=== PATIENT | female | born 2000 | race Caucasian/White ===

== ENCOUNTER 2023-10-08 20:46 | Emergency (ER) | payer BC, MEDICAID, SELFPAY ==
[2023-10-08 21:20] VITALS: BP 121/84; PULSE 93; RESP 20; TEMP 37.1; O2SAT 98; BMI 26.7
--- NOTE | 2023-10-08 21:37 | XR_ITS ---
The [address] [address] Patient Name: RANDAL REDMOND MRN: [id number] date: 2000 Sex: F Assigned Patient Location: ED.MAIN Current Patient Location: ER Accession/Order Number: [id number] Exam Date: 10/08/2023 22:20 Report Date: 10/08/2023 22:42 At the request of: CARLOS DENIS Procedure: XR chest 1V EXAM: XR chest 1V HISTORY: Cough COMPARISON: None. TECHNIQUE: Single AP radiograph of the chest FINDINGS: No pneumothorax, pleural effusion or consolidation. Normal heart size. No acute osseous abnormality. XR/XR chest 1V IMPRESSION: No acute cardiopulmonary process. Electronically authenticated by: JOVANY RAMIREZ Date: 10/08/2023 22:42
--- NOTE | 2023-10-08 21:39 | ED.URI1 ---
HPI - URI/Sore Throat General Chief Complaint: Upper Respiratory Infection Stated Complaint: CONGESTION, SOB Time Seen by Provider: 10/08/23 21:30 Source comment: PATIENT Limitations: no limitations Limitations comment: CONGESTED AND A COUGH FOR THE PAST 4 DAYS History of Present Illness HPI Narrative: Patient is a 23-year-old female presents to the emergency department for cough and congestion for the last 4 days. She states she is coughing up green sputum which prompted her to come to the ER. She has had no objective fevers, vomiting or diarrhea. She denies a possibility of . She has been using [id number] medications without improvement. She feels as though she is not significantly congested in the nose. No sore throat. Related Data Home Medications Medication Instructions Recorded Confirmed cetirizine 10 mg tablet (24Hour 10 mg PO DAILY PRN allergy symptoms 10/08/23 10/08/23 Allergy) lamotrigine 100 mg tablet 50 mg PO BID 10/08/23 10/08/23 (Lamictal) norethindrone (contraceptive) 0.35 0.35 mg PO DAILY 10/08/23 10/08/23 mg tablet (Jencycla) venlafaxine 150 mg 150 mg PO DAILY 10/08/23 10/08/23 capsule,extended release 24 hr (Effexor XR) Previous Rx's Medication Instructions Recorded albuterol sulfate 90 mcg/actuation 2 inh inhalation Q4H PRN shortness 10/08/23 aerosol inhaler of breath or wheezing #8.5 grams azithromycin 250 mg tablet See Rx Instructions PO .COMPLEX #6 10/08/23 (Zithromax Z-Chad) tabs methylprednisolone 4 mg tablets in See Rx Instructions .Route 10/08/23 a dose pack (Medrol (Chad)) .COMPLEX #21 ea Allergies Allergy/AdvReac Type Severity Reaction Status Date / Time No Known Drug Allergies Allergy Verified 10/08/23 21:20 Review of Systems ROS Constitutional Denies: fever or chills Ears, nose, mouth, and throat Denies: throat pain or nasal congestion Cardiovascular Denies: chest pain Respiratory Reports: shortness of breath, cough and change in phlegm color Gastrointestinal Denies: nausea, vomiting or diarrhea Musculoskeletal Denies: back pain Integumentary/Breast Denies: rash PFSH PFSH Social History Smoking status: Former smoker Exam Narrative Exam Narrative: Gen.: Awake, alert, in no distress Head: Normocephalic, atraumatic ENT: Moist mucous membranes Respiratory: No respiratory distress, coarse breath sounds, harsh cough Cardio: Regular rate and rhythm Extremities: Moves extremities equally Psych: Normal mood and affect Neuro: No focal neuro deficit Skin: Warm, dry, intact Constitutional Vital Signs, click to edit/add: Last Vital Signs Temp 98.7 F 10/08/23 21:20 Pulse 99 H 10/08/23 22:06 Resp 20 10/08/23 22:06 BP 121/84 10/08/23 21:20 Pulse Ox 99 10/08/23 22:06 O2 Del Method Room Air 10/08/23 22:06 Course Vital Signs Vital signs: Vital Signs Temperature 98.7 F 10/08/23 21:20 Pulse Rate 93 H 10/08/23 21:20 Respiratory Rate 10/08/23 21:20 Blood Pressure 121/84 10/08/23 21:20 Pulse Oximetry 98 10/08/23 21:20 Oxygen Delivery Method Room Air 10/08/23 21:20 Temperature 98.7 F 10/08/23 21:20 Pulse Rate 99 H 10/08/23 22:06 Respiratory Rate 10/08/23 22:06 Blood Pressure 121/84 10/08/23 21:20 Pulse Oximetry 99 10/08/23 22:06 Oxygen Delivery Method Room Air 10/08/23 22:06 MDM - URI/Sore Throat MDM Narrative Medical decision making narrative: Patient is negative for COVID, influenza and chest x-ray shows no evidence of acute cardiopulmonary changes. Patient given a breathing treatment and prednisone in the ER. Vital signs are within normal limits. Patient started on azithromycin, Medrol Dosepak and albuterol inhaler. Follow-up with PCP and return to the ER if symptoms change or worsen. Medical Records Attestation: I reviewed the patient's medical records. Lab Data Labs: Lab Results 10/08/23 Range/Units 21:35 SARS-CoV-2 (PCR) Negative (NEGATIVE) Influenza Type A Ag Negative Influenza Type B Ag Negative Imaging Data Chest x-ray: Attestation: I have reviewed the pertinent imaging results. Discharge Plan Discharge Chief Complaint: Upper Respiratory Infection Clinical Impression: Upper respiratory infection Patient Disposition: Home, Self-Care Time of Disposition Decision: 22:23 Condition: Good Prescriptions / Home Meds: New azithromycin [Zithromax Z-Chad] 250 mg tablet See Rx Instructions .ROUTE .COMPLEX Qty: 6 0RF Rx Instructions: For 250 mg dose pack: take 500 mg today (day 1), then 250 mg for 4 days (days 2-5) methylprednisolone [Medrol (Chad)] 4 mg tablets,dose pack See Rx Instructions .ROUTE .COMPLEX Qty: 21 0RF Rx Instructions: Taper as directed albuterol sulfate 90 mcg/actuation HFA aerosol inhaler 2 inh inhalation Q4H PRN (Reason: shortness of breath or wheezing) Qty: 8.5 0RF No Action lamotrigine [Lamictal] 100 mg tablet 50 mg PO BID venlafaxine [Effexor XR] 150 mg capsule,extended release 24hr 150 mg PO DAILY norethindrone (contraceptive) [Jencycla] 0.35 mg tablet 0.35 mg PO DAILY cetirizine [24Hour Allergy] 10 mg tablet 10 mg PO DAILY PRN (Reason: allergy symptoms) Patient Comments: TAKES DAILY Instructions: Upper Respiratory Infection (ED) Stand Alone Forms: Portal Instructions Referrals: Physician,Non-Staff, MD [Primary Care Provider] - 1 week
[2023-10-08] MEDS: PREDNISONE 20 MG TABLET 60 MG PO (21:51)
[2023-10-08 21:55] VITALS: PULSE 83; RESP 18; O2SAT 98
[2023-10-08] MEDS: ALBUTEROL SULFATE 2.5 MG/3 ML VIAL NEB IH (21:55)
[2023-10-08 22:06] VITALS: PULSE 99; RESP 20; O2SAT 99
[2023-10-08 22:06] LABS: Influenza Virus A Antigen Negative; Influenza Virus B Antigen Negative; Internal Control Within Normal Limits; SARS-CoV-2 Ag NEGATIVE (NEGATIVE)
[2023-10-08 22:48] VITALS: BP 115/75; PULSE 90; RESP 16; O2SAT 99
[2023-10-09 15:36] LABS: SARS-CoV-2 NAA NOT DETECTED (NOT DETECTE)
== END 2023-10-08 22:35 | disposition home or self-care (01) ==
PROVIDERS: Physician Assistant; Emergency Provider Emergency Medicine
DX: J06.9 Acute upper respiratory infection, unspecified (principal); Z79.899 Other long term (current) drug therapy; Z87.891 Personal history of nicotine dependence; Z20.822 Contact with and (suspected) exposure to COVID-19
CPT/HCPCS: 71045; 87635; 87804; 87811; 94640; 99285; J7512

== ENCOUNTER 2024-01-01 01:28 | Emergency (ER) | payer BC, MEDICAID, SELFPAY ==
[2024-01-01 01:33] VITALS: BP 140/95; PULSE 95; TEMP 37.1; O2SAT 97; BMI 26.6
--- OUTSIDE RECORDS SUMMARY | 2024-01-01 01:35 | XMS_ITS | CCD ---
Author Organization [facility] Care Team Providers Care Body Former Name Role Phone GILMER BENAVIDES Unavailable Unavailable GILMER BENAVIDES Unavailable Unavailable MD Jaymie Morris Primary Care Provider TUAN [place] Emergency Provider MD Jaymie Morris Attending Provider DO Ashley Watson Attending Provider MD Jaymie Morris Primary Care Provider DO Ashley Watson Attending Provider DO Ashley Watson Admit Provider MD aJymie Morris Primary Care Provider JOHNSON Skinner Emergency Provider [phone] MD Jaymie Morris Primary Care Provider JOHNSON Skinner Emergency Provider TUAN Martin Emergency Provider DR SAYRA AUGUSTIN Primary Care Unavailable SCOTT WILKINSON Attending Unavailable SCOTT WILKINSON Consulting Unavailable SCOTT WILKINSON Admitting Unavailable MD Jaymie Morris Primary Care Provider DO Bay Reyes Attending Provider Gilmer Mcgregor Unavailable MD Jaymie Morris Primary Care Provider MD Gilmer Mcgregor Attending Provider MD David Rayo Referring Provider [phone] Jaymie Morris MD Primary Care Provider [phone] DO Gvoind Barry Attending Provider [phone] MD Jaymie Morris Referring Provider Jaymie Morris Referring Unavailable Govind Barry Admitting Unavailable Govind Barry Attending Unavailable Ketvertis, Jaymie Primary Care Unavailable Ketvertis, Jaymie Primary Care Unavailable Kuns - [facility], Bay P Admitting Unavailable Kuns - [facility], Bay P Attending Unavailable Feroz Skinner Admitting Unavailable Feroz Skinner Attending Unavailable Ketvertis, Jaymie Primary Care Unavailable Michael Martin Admitting Unavailable Michael Martin Attending Unavailable Ketvertis, Jaymie Primary Care Unavailable Gilmer Mcgregor Admitting Unavailable Gilmer Mcgregor Attending Unavailable Sidney, David Referring Unavailable Ketvertis, Jaymie Primary Care Unavailable KETVERTAMARJIT, JAYMIE M Attending Unavailable KETVERTIS, JAYMIE M Attending Unavailable NATASHLEY STYLES Attending Unavailable ASHLEY WATSON Referring Unavailable DAVID RAYO Attending Unavailable JOYCE SHAH Attending Unavailable NATAPRASHLEY UREÑA Attending Unavailable NATAPRASHLEY UREÑA Attending Unavailable KERRI NO Attending Unavailable KETVERTIS, JAYMIE M Attending Unavailable KETVERTIS, JAYMIE M Attending Unavailable SADE BRAXTON Attending Unavailable Allergies Allergy Classification Reported Allergen(s) Allergy Type Date of Onset Reaction(s) Facility (12 sources) Iodine; Translations: [iodine] Drug Allergy 2 Unknown [facility] (9 sources) Shellfish; Translations: [shellfish derived] Allergy to substance 2 Swelling of Lip/Tongue/Thr oat [facility] (1 source) Shellfish Propensity to adverse reactions Unknown [facility] Other (2 sources) Apple extract Drug Allergy 3 Unknown [facility] (2 sources) Kiwi fruit Propensity to adverse reactions 3 Dizziness, Itching, Runny nose, Swelling, Wheezing [facility] (2 sources) Pollen Allergy to substance 3 Unknown [facility] (2 sources) Dog Epithelium Allergy Skin Test Allergy to substance 3 Unknown [facility] (2 sources) [place] Flavor Allergy to substance 3 Unknown [facility] (2 sources) Shellfish-Deriv ed Products Drug Allergy 5 Anaphylaxis, Hives, Itching, Runny nose, Shortness of breath, Swelling, Unknown, Wheezing [facility] Medications Current Medications Medication Drug Class(es) Dates Sig (Normalized) Sig (Original) acetaminophen 300 mg / butalbital 50 mg / caffeine 40 mg oral capsule (6 sources) Barbiturate, Central Nervous System Stimulant, Methylxanthine Start: 12-17-2022 take 1 capsule by mouth every six hours Butalbital-Aceta minophen-Caff (Fioricet) 50-300-40 mg capsule Active 1 CAP PO Q6H 12 December 16, 2022 11:00pm take 1 capsule by mo uth every four hours [id number]-tsqisxfvfgvnc-qpjxqhcr (Jamari cet) 50-300-40 MG capsule take 1 capsule by mouth every 4 hours if needed for 10 days 0 Active [id number] 200 actuat albuterol 0.09 mg/actuat metered dose inhaler (15 sources) beta2-Adrenergic Agonist Start: 12-12-2022 albut abi HFA 90 mcg/act inhaler Q6H 0 12/12/2022 Active Start: 12-12-2022 Albuterol Sulf ate Active 2 INH INHALATION Q6H 8 December 12, 2022 12:00am administer with spacer Start: 07-05-2018 End: 12-04-2019 take 1 puff(s) by inhalation every four to six hours Albuterol Sulfate Discontinued 2 PUFF INHALATION EVERY 4-6 HOURS July 04, 2018 11:00pm December 04, 2019 9:10pm Start: 07-05-2018 End: 12-04-2019 take 1 puff(s) by inhalation every four to six hours Albuterol Sulfate Discontinued 2 PUFF INHALATION EVERY 4-6 HOURS July 05, 2018 12:00am December 04, 2019 10:10pm Albuterol Sulfat e HFA 108 (90 Base) MCG/ACT Inhalation for 16 Days Active cetirizine hydrochloride 10 mg oral tablet (2 sources) Histamine-1 Receptor Antagonist Start: 09-10-2023 take 1 tablet by mouth in the morning cetirizine (ZyrTEC) 10 MG tablet Indications: Allergic rhinitis, unspecified seasonality, unspecified trigger Take 1 tablet (10 mg) by mouth in the morning. 90 tablet 1 09/10/2023 Active dexamethasone 1 mg/ml / neomycin 3.5 mg/ml / polymyxin b [id number] unt/ml ophthalmic suspension (1 source) Aminoglycoside Antibacterial, Polymyxin-class Antibacterial, Corticosteroid Start: 11-14-2023 End: 11-21-2023 neomycin-polymyxin- dexAMETHasone (Maxitrol) 0.1 % ophthalmic suspension Indications: Acute bacterial conjunctivitis of both eyes Administer 1 drop into both eyes in the morning and 1 drop at noon and 1 drop in the evening and 1 drop before bedtime. Do all this for 7 days. 5 mL 0 11/14/2023 11/21/2023 Active [id number] 0.3 ml EPINEPHrine 1 mg/ml auto-injector (2 sources) alpha-Adrenergic Agonist, beta-Adrenergic Agonist, Catecholamine Start: 07-15-2023 End: 07-14-2024 EPINEPHrine (Epipen) 0.3 MG/0.3ML injection syringe Indications: Anaphylaxis, initial encounter Inject 0.3 mL (0.3 mg) as directed if needed for anaphylaxis. Call 911 after use. 2 each 1 07/15/2023 07/14/2024 Active fluocinolone acetonide 0.1 mg/ml topical solution (2 sources) Corticosteroid Start: 09-10-2023 End: 09-09-2024 fluocinolone (Synalar) 0.01 % external solution Indications: Atopic dermatitis of scalp Apply topically 2 (two) times a day To affected scalp 60 mL 3 09/10/2023 09/09/2024 Active hydrOXYzine hydrochloride 25 mg oral tablet (3 sources) Antihistamine Start: 09-30-2023 take 1 tablet by mouth every eight hours as needed for anxiety and anxiety and anxiety hydrOXYzine HCl (Atarax) 25 MG tablet Indications: Anxiety Take 1 tablet (25 mg) by mouth every 8 (eight) hours if needed for anxiety 30 tablet 1 09/30/2023 Active lamoTRIgine 25 mg oral tablet (3 sources) Mood Stabilizer, Anti-epileptic Agent Start: 10-01-2023 take 2 tablets by mouth in the morning lamoTRIgine (LaMICtal) 25 MG tablet Indications: Migraine with aura and with status migrainosus, not intractable (CMS/HCC) Take 2 tablets (50 mg) by mouth in the morning and 2 tablets (50 mg) before bedtime. 360 tablet 0 10/01/2023 Active lamoTRIgine 25 M G Oral for 90 Days Active modafinil 200 mg oral tablet (2 sources) Sympathomimetic-like Agent Start: 10-27-2023 take 0.5-1 tablets by mouth once daily in the morning modafinil (Provigil) 200 MG tablet TAKE 0.5 - 1 TABLET BY MOUTH IN THE MORNING ONCE DAILY 0 10/27/2023 Active norethindrone 0.35 mg oral tablet (1 source) Start: 06-15-2023 take 1 tablet by mouth once daily norethindrone (Jencycla) 0.35 MG tablet Indications: Uses control take 1 tablet by mouth once daily 28 tablet 12 06/15/2023 Active promethazine hydrochloride 25 mg oral tablet (6 sources) Phenothiazine Start: 12-17-2022 take 25 mg by mouth four times daily Promethazine Active 25 MG PO Four times daily December 16, 2022 11:00pm sertraline 50 mg oral tablet (14 sources) Serotonin Reuptake Inhibitor Start: 09-12-2022 take 1 tablet by mouth once daily Sertraline (Zoloft) 50 mg tablet Active 50 MG PO Daily September 12, 2022 12:00am Start: 02-21-2019 End: 04-14-2022 take 1 tablet by mouth once daily Sertraline (Zoloft) 100 mg tablet Discontinued 100 MG PO Daily February 20, 2019 11:00pm April 14, 2022 3:13pm SUMAtriptan 50 mg oral tablet (2 sources) Serotonin-1b and Serotonin-1d Receptor Agonist SUMAtriptan (Imitrex) 50 MG tablet take 1 tablet twice a day TAKE AT LEAST 2 HOURS BETWEEN DOSES NEEDED 0 Active 24 hr venlafaxine 150 mg extended release oral capsule (3 sources) Serotonin and Norepinephrine Reuptake Inhibitor Start: 10-01-20 take 1 capsule by mouth every twenty-four hours in the morning venlafaxine XR (Effexor XR) 150 MG 24 hr capsule Indications: Anxiety Take 1 capsule (150 mg) by mouth in the morning. Do not crush or chew.. 90 capsule 0 10/01/2023 Active Completed/Discontinued Medications Medication Drug Class(es) Dates Sig (Normalized) Sig (Original) amoxicillin 500 mg oral tablet (8 sources) Penicillin-class Antibacterial Start: 02-21-2019 End: 11-29-2019 take 500 mg by mouth three times daily Amoxicillin Discontinued 500 MG PO Three times daily February 20, 2019 11:00pm November 29, 2019 3:49pm aspirin 81 mg oral tablet (8 sources) Platelet Aggregation Inhibitor, Nonsteroidal Anti-inflammatory Drug Start: 04-14-2022 End: 12-12-2022 take 81 mg by mouth once daily Aspirin Discontinued 81 MG PO Daily April 13, 2022 11:00pm December 12, 2022 12:42pm 12 hr dextromethorphan polistirex 6 mg/ml extended release suspension (8 sources) Uncompetitive Z-slkvwx-T-asparta te Receptor Antagonist, Sigma-1 Agonist Start: 07-05-2018 End: 11-29-2019 take 1 mL by mouth once Dextromethorphan Polistirex (Delsym 12 Hour) 30 mg/5 mL Suspension,Extended Rel 12 Hr Discontinued 5 ML PO Once July 04, 2018 11:00pm November 29, 2019 3:49pm docusate sodium 100 mg oral capsule (14 sources) Start: 09-12-2022 End: 12-12-2022 take 1 capsule by mouth once daily Docusate Sodium (Colace) 100 mg capsule Discontinued 100 MG PO Daily September 12, 2022 12:00am December 12, 2022 12:42pm Start: 12-10-2019 End: 04-14-2022 take 1 capsule by mouth twice daily Docusate Sodium (Colace) 100 mg capsule Discontinued 100 MG PO Twice daily December 10, 2019 11:13am April 14, 2022 3:12pm ferrous sulfate 325 mg oral tablet (6 sources) Start: 09-12-2022 End: 12-12-2022 take 325 mg by mouth once daily Ferrous Sulfate Discontinued 325 MG PO Daily September 12, 2022 12:00am December 12, 2022 12:42pm ibuprofen 800 mg oral tablet (20 sources) Nonsteroidal Anti-inflammatory Drug Start: 09-12-2022 End: 12-12-2022 Ibuprofen Discontinued 800 MG PO every 6 to 8 hours September 12, 2022 12:00am December 12, 2022 12:42pm Start: 12-10-2019 End: 04-14-2022 take 600 mg by mouth every six hours Ibuprofen Discontinued 600 MG PO Q6H December 10, 2019 12:00am April 14, 2022 3:13pm Start: 02-21-2019 End: 11-29-2019 take 800 mg by mouth three times daily Ibuprofen Discontinued 800 MG PO Three times daily February 20, 2019 11:00pm November 29, 2019 3:51pm labetalol hydrochloride 200 mg oral tablet (8 sources) beta-Adrenergic Marshal Start: 12-07-2019 End: 04-14-2022 take 200 mg by mouth twice daily Labetalol Discontinued 200 MG PO Twice daily December 07, 2019 12:00am April 14, 2022 3:13pm montelukast 10 mg oral tablet (9 sources) Leukotriene Receptor Antagonist Start: 02-21-2019 End: 04-14-2022 Montelukast (Singulair) 10 mg tablet Discontinued TABLET February 20, 2019 11:00pm April 14, 2022 3:13pm ondansetron 4 mg disintegrating oral tablet (16 sources) Serotonin-3 Receptor Antagonist Start: 12-27-2021 End: 04-14-2022 Ondansetron Discontinued 4 MG PO every 6 to 8 hours December 26, 2021 11:00pm April 14, 2022 3:12pm Start: 07-01-2021 End: 04-14-2022 take 1 tablet by mouth every six hours Ondansetron Hcl (Zofran) 4 mg tablet Discontinued 4 MG PO Q6H June 30, 2021 11:00pm April 14, 2022 3:12pm predniSONE 50 mg oral tablet (8 sources) Start: 07-05-2018 End: 07-10-2018 take 50 mg by mouth once daily Prednisone Discontinued 50 MG PO Daily 02 06July 04, 2018 11:00pm July 09, 2018 11:01pm Vit 45-Rvnv-Iuvmz-Dha ( + Dha) 28 mg iron- 975 mcg-200 mg Combo Pack (8 sources) Start: 11-29-2019 End: 12-12-2022 take 1 tablet by mouth once daily Vit 27-Xdhr-Ejplm-Dha ( + Dha) 28 mg iron- 975 mcg-200 mg Combo Pack Discontinued 0 .ROUTE .COMPLEX November 29, 2019 1:00am December 12, 2022 1:42pm 1 TABLET PO DAILY Start: 11-29-2019 End: 12-12-2022 take 1 tablet by mouth once daily Vit 46-Qtyw-Ougpa-Dha ( + Dha) 28 mg iron- 975 mcg-200 mg Combo Pack Discontinued 0 .ROUTE .COMPLEX November 29, 2019 12:00am December 12, 2022 12:42pm 1 TABLET PO DAILY Start: 11-29-2019 take 1 tablet by julio th once daily Vit 48-Jxer-Ytnqi-Dha ( + Dha) 28 mg iron- 975 mcg-200 mg Combo Pack Active 0 .ROUTE .COMPLEX November 29, 2019 12:00am 1 TABLET PO DAILY Start: 11-29-2019 take 1 tablet by julio th once daily Vit 09-Jonk-Ixsze-Dha ( + Dha) 28 mg iron- 975 mcg-200 mg Combo Pack Active 0 .ROUTE .COMPLEX November 29, 2019 1:00am 1 TABLET PO DAILY valACYclovir 500 mg oral tablet (14 sources) Herpesvirus Nucleoside Analog DNA Polymerase Inhibitor, Herpes Simplex Virus Nucleoside Analog DNA Polymerase Inhibitor, Herpes Zoster Virus Nucleoside Analog DNA Polymerase Inhibitor Start: 09-10-2022 End: 12-12-2022 Valacyclovir (Valtrex) 500 mg Tablet Discontinued MG TABLET September 10, 2022 12:00am December 12, 2022 12:42pm Start: 02-21-2019 End: 12-10-2019 Valacyclovir (Valtrex) 1 gra m tablet Discontinued 500 MG PO 1-2 TIMES DAILY February 20, 2019 11:00pm December 10, 2019 11:15am Problems Active Problems Problem Classification Problem Date Documented Da te Episodic/Chronic Anxiety disorders (7 sources) Generalized anxiety disorder; Translations: [Generalized anxiety disorder] Onset: 04-09-2023 Chronic Cardiac dysrhythmias (8 sources) Palpitations; Translations: [Palpitations] 04-14-2022 Episodic Disorders of teeth and jaw (1 source) Other dental procedure status; Translations: [OTHER DENTAL PROCEDURE STATUS] Onset: 03-02-2023 Episodic Headache; including migraine (7 sources) Migraine; Translations: [Migraine with aura] Onset: 12-17-2022 12-17-2022 Chronic Headache; including migraine (1 source) Headache; including migraine; Translations: [Headache, unspecified] Onset: 12-17-2022 Inflammation; infection of eye (except that caused by tuberculosis or sexually transmitteddisease) (1 source) Acute infectious conjunctivitis; Translations: [Unspecified acute conjunctivitis, bilateral] 11-14-2023 Episodic Malaise and fatigue (2 sources) Fatigue; Translations: [Chronic fatigue, unspecified] Onset: 04-09-2023 04-09-2023 Chronic Mood disorders (2 sources) Bipolar I disorder; Translations: [Bipolar disorder, unspecified] Chronic Nausea and vomiting (16 sources) Nausea; Translations: [Nausea] 12-27-2021 Episodic Other bone disease and musculoskeletal deformities (2 sources) Scoliosis deformity of spine; Translations: [Adolescent idiopathic scoliosis, site unspecified] Onset: 04-09-2023 04-09-2023 Chronic Other nervous system disorders (3 sources) Narcolepsy without cataplexy ; Translations: [Narcolepsy without cataplexy] Onset: 04-09-2023 04-09-2023 Chronic Other nervous system disorders (1 source) Narcolepsy with cataplexy Chronic Other nervous system disorders (3 sources) Anesthesia of skin; Translations: [ANESTHESIA OF SKIN] Onset: 02-27-2023 Episodic Other nervous system disorders (1 source) Paresthesia of skin; Translations: [PARESTHESIA OF SKIN] Onset: 03-02-2023 Episodic Other nutritional; endocrine; and metabolic disorders (1 source) Abnormal weight gain; Translations: [Abnormal weight gain] Onset: 11-25-2023 Episodic Other and delivery including normal (8 sources) Delivery normal; Translations: [Encounter for full-term uncomplicated delivery] 12-09-2019 Episodic Other upper respiratory disease (2 sources) Allergic rhinitis; Translations: [Allergic rhinitis, unspecified] Onset: 04-09-2023 04-09-2023 Chronic Other upper respiratory infections (13 sources) Pharyngitis; Translations: [Acute pharyngitis, unspecified] 02-21-2019 Episodic Residual codes; unclassified (1 source) Sleep apnea; Translations: [Sleep apnea, unspecified] Chronic Residual codes; unclassified (1 source) Sleep paralysis; Translations: [Other sleep disorders] Chronic Residual codes; unclassified (1 source) Sleep apnea, unspecified; Translations: [Sleep apnea, unspecified] Onset: 10-27-2023 Chronic Residual codes; unclassified (1 source) Hypnagogic hallucinations; Translations: [Other hallucinations] Episodic Residual codes; unclassified (1 source) Other hallucinations Episodic Sprains and strains (1 source) Sprain of foot; Translations: [Right foot strain] Episodic Syncope (8 sources) Vasovagal syncope; Translations: [Syncope and collapse] 12-27-2021 Episodic Unclassified (1 source) Pain, unspecified; Translations: [Pain, unspecified] Onset: 09-01-2017 Unclassified (2 sources) Patient on antidepressant monitoring plan Onset: 10-01-2023 10-01-2023 Unclassified (2 sources) Baseline PHQ-9 Onset: 10-01-2023 10-01-2023 Unclassified (1 source) Cough, unspecified; Translations: [Cough, unspecified] Onset: 12-12-2022 Viral infection (2 sources) Herpetic vulvovaginitis; 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] Onset: 04-09-2023 04-09-2023 Chronic Past or Other Problems Problem Classification Problem Date Documented Da te Episodic/Chronic Blindness and vision defects (2 sources) Visual alteration; Translations: [Unspecified visual loss] Onset: 04-09-2023 Resolved: 10-22-2023 10-22-2023 Chronic Menstrual disorders (2 sources) Amenorrhea; Translations: [Amenorrhea, unspecified] Onset: 04-09-2023 Resolved: 10-22-2023 10-22-2023 Chronic Other nervous system disorders (3 sources) Cataplexy and narcolepsy; Translations: [Narcolepsy with cataplexy] Onset: 04-09-2023 Resolved: 10-22-2023 10-22-2023 Chronic Thyroid disorders (2 sources) Goiter; 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] Onset: 04-09-2023 Resolved: 10-22-2023 10-22-2023 Chronic Results Test Name Value Interpretation Reference Range Facility Alanine aminotransferase [En zymatic activity/volume] in Serum or PlasmaOrdered By: Govind Barry on 11-25-2023 ALT [Catalytic activity/Vol] 11 U/L 7-52 [facility] Albumin [Mass/volume] in Ser um or Plasma by Bromocresol green (BCG) dye binding methoOrdered By: Govind Barry on 11-25-2023 Albumin BCG dye [Mass/Vol] 4.7 g/dL 3.5-5.7 [facility] Alkaline phosphatase [Enzyma tic activity/volume] in Serum or PlasmaOrdered By: Govind Barry on 11-25-2023 ALP [Catalytic activity/Vol] 82 U/L 34-104 [facility] Aspartate aminotransferase [ Enzymatic activity/volume] in Serum or PlasmaOrdered By: Govind Barry on 11-25-2023 AST [Catalytic activity/Vol] 16 U/L 13-39 [facility] Basophils Auto (Bld) [#/Vol] Ordered By: Govind Barry on 11-25-2023 Basophils (Bld) [#/Vol] 0.1 10*3/uL 0.0-0.2 [facility] Basophils/100 WBC Auto (Bld) Ordered By: Govind Barry on 11-25-2023 Basophils/100 WBC (Bld) 0.6 % . [facility] Bilirubin.total [Mass/volume ] in Serum or PlasmaOrdered By: Govind Barry on 11-25-2023 Bilirubin [Mass/Vol] 0.5 mg/dL 0.3-1.0 [facility] Calcium [Mass/volume] in Ser um or PlasmaOrdered By: Govind Barry on 11-25-2023 Calcium [Mass/Vol] 9.7 mg/dL 8.6-10.3 [facility] Carbon dioxide, total [Moles /volume] in Serum or PlasmaOrdered By: Govind Barry on 11-25-2023 CO2 [Moles/Vol] 27.5 mmol/L 21.0-31.0 [facility] Chloride [Moles/volume] in S alessandra or PlasmaOrdered By: Govind Barry on 11-25-2023 Chloride [Moles/Vol] 105 mmol/L 98-107 [facility] Complete Blood Count Auto Di ffon 11-25-2023 Basophils (Bld) [#/Vol] 0.1 10*3/uL Normal 0.0-0.2 [facility] Comment on above: Result Comment: PERF ORMED BY: [place] [address] PATHOLOGIST SHOE COBBLER MELCHOR MORALES M.D. Performed By: #### C BC, CMP, TSH3 wRFLX #### [address] Basophils/100 WBC (Bld) 0.6 % Normal . [facility] Comment on above: Performed By: #### C BC, CMP, TSH3 wRFLX #### [address] Eosinophils (Bld) [#/Vol] 0.2 10*3/uL Normal 0.0-0.45 [facility] Comment on above: Performed By: #### C BC, CMP, TSH3 wRFLX #### [address] Eosinophils/100 WBC (Bld) 1.6 % Normal . [facility] Comment on above: Performed By: #### C BC, CMP, TSH3 wRFLX #### [address] Erythrocyte distribution width (RBC) [Ratio] 12.5 % Normal 11.9-15.3 [facility] Comment on above: Performed By: #### C BC, CMP, TSH3 wRFLX #### [address] Hematocrit (Bld) [Volume fraction] 41.4 % Normal 34.0-46.4 [facility] Comment on above: Performed By: #### C BC, CMP, TSH3 wRFLX #### [address] Hemoglobin (Bld) [Mass/Vol] 14.2 g/dL Normal 11.8-15.4 [facility] Comment on above: Performed By: #### C BC, CMP, TSH3 wRFLX #### [address] [place] [address] [place] Lymphocytes (Bld) [#/Vol] 1.7 10*3/uL Normal 1.00-4.8 [facility] Comment on above: Performed By: #### C BC, CMP, TSH3 wRFLX #### [facility] [address] Lymphocytes/100 WBC (Bld) 16.7 % Normal . [facility] Comment on above: Performed By: #### C BC, CMP, TSH3 wRFLX #### [address] MCH (RBC) [Entitic mass] 30.2 pg Normal 24.7-34.3 [facility] Comment on above: Performed By: #### C BC, CMP, TSH3 wRFLX #### [address] MCV (RBC) [Entitic vol] 87.9 fL Normal 80-100 [facility] Comment on above: Performed By: #### C BC, CMP, TSH3 wRFLX #### [address] Mean Corpuscular HGB Conc 34.4 g/dL Normal 32.0-35.0 [facility] Comment on above: Performed By: #### C BC, CMP, TSH3 wRFLX #### [place] [id number] [place] Monocytes (Bld) [#/Vol] 0.5 10*3/uL Normal 0.0-0.8 [facility] Comment on above: Performed By: #### C BC, CMP, TSH3 wRFLX #### [place] [id number] [place] Monocytes/100 WBC (Bld) 5.4 % Normal . [facility] Comment on above: Performed By: #### C BC, CMP, TSH3 wRFLX #### [facility] [address] [place] [address] [place] Neutrophils (Bld) [#/Vol] 7.5 10*3/uL Normal 1.8-7.7 [facility] Comment on above: Performed By: #### C BC, CMP, TSH3 wRFLX #### [facility] [address] [place] [address] Neutrophils/100 WBC (Bld) 75.7 % Normal . [facility] Comment on above: Performed By: #### C BC, CMP, TSH3 wRFLX #### [facility] [address] [place] [address] NRBC% 0.1 /100{WBC} Normal 0-0.5 [facility] Comment on above: Performed By: #### C BC, CMP, TSH3 wRFLX #### [address] Platelet mean volume (Bld) [Entitic vol] 8.8 fL Normal 6.3-10.7 [facility] Comment on above: Performed By: #### C BC, CMP, TSH3 wRFLX #### [address] Platelets (Bld) [#/Vol] 301 10*3/uL Normal 150-450 [facility] Comment on above: Performed By: #### C BC, CMP, TSH3 wRFLX #### [address] RBC (Bld) [#/Vol] 4.71 10*6/uL Normal 3.60-5.00 [facility] Comment on above: Performed By: #### C BC, CMP, TSH3 wRFLX #### [address] WBC (Bld) [#/Vol] 10.0 10*3/uL Normal 3.8-11.6 [facility] Comment on above: Performed By: #### C BC, CMP, TSH3 wRFLX #### [address] Comprehensive Metabolic Pane dale 11-25-2023 Albumin [Mass/Vol] 4.7 g/dL Normal 3.5-5.7 [facility] Comment on above: Performed By: #### C BC, CMP, TSH3 wRFLX #### [facility] [address] [place] [address] Albumin/Globulin [Mass ratio] 1.9 {ratio} Normal [facility] Comment on above: Performed By: #### C BC, CMP, TSH3 wRFLX #### [facility] [address] [place] [address] ALP [Catalytic activity/Vol] 82 U/L Normal 34-104 [facility] Comment on above: Performed By: #### C BC, CMP, TSH3 wRFLX #### [facility] [address] [place] [address] ALT [Catalytic activity/Vol] 11 U/L Normal 7-52 [facility] Comment on above: Performed By: #### C BC, CMP, TSH3 wRFLX #### [facility] [address] [place] [address] Anion gap [Moles/Vol] 10.7 mmol/L Normal 6.0-15.0 [facility] Comment on above: Performed By: #### C BC, CMP, TSH3 wRFLX #### [address] AST [Catalytic activity/Vol] 16 U/L Normal 13-39 [facility] Comment on above: Performed By: #### C BC, CMP, TSH3 wRFLX #### [facility] [address] [place] [address] [place] Bilirubin [Mass/Vol] 0.5 mg/dL Normal 0.3-1.0 [facility] Comment on above: Performed By: #### C BC, CMP, TSH3 wRFLX #### [facility] [address] [place] [address] Calcium [Mass/Vol] 9.7 mg/dL Normal 8.6-10.3 [facility] Comment on above: Performed By: #### C BC, CMP, TSH3 wRFLX #### [place] [address] [place] Chloride [Moles/Vol] 105 mmol/L Normal 98-107 [facility] Comment on above: Performed By: #### C DONN ARREDNODO, TSH3 wRFLX #### [facility] [address] CO2 [Moles/Vol] 27.5 mmol/L Normal 21.0-31.0 [facility] Comment on above: Performed By: #### C DONN ARREDONDO, TSH3 wRFLX #### [facility] [address] Creatinine [Mass/Vol] 0.76 mg/dL Normal 0.60-1.20 [facility] Comment on above: Performed By: #### C DONN ARREDONDO, TSH3 wRFLX #### [facility] [address] [place] [address] [place] GFR/1.73 sq M.predicted MDRD (S/P/Bld) [Vol rate/Area] mL/min/{1.73_m2} Normal [facility] Comment on above: Performed By: #### C DONN ARREDONDO, TSH3 wRFLX #### [facility] [address] Globulin (S) [Mass/Vol] 2.5 g/dL Normal [facility] Comment on above: Performed By: #### C DONN ARREDONDO, TSH3 wRFLX #### [address] Glucose [Mass/Vol] 85 mg/dL Normal 70-100 [facility] Comment on above: Result Comment: [place] Glucose Reference Range is dependent on time and content of last meal. Glucose of more than 200 mg/dL in a nonstressed, ambulatory subject supports the diagnosis of Diabetes Mellitus. ADA recommended reference range Performed By: #### C BCDONN, TSH3 wRFLX #### [facility] [address] Potassium [Moles/Vol] 4.2 mmol/L Normal 3.5-5.1 [facility] Comment on above: Performed By: #### C BCDONN, TSH3 wRFLX #### [facility] [address] [place] [id number] [place] Protein [Mass/Vol] 7.2 g/dL Normal 6.4-8.9 [facility] Comment on above: Performed By: #### C BC, CMP, TSH3 wRFLX #### [facility] [address] [place] [id number] [place] Sodium [Moles/Vol] 139 mmol/L Normal 136-145 [facility] Comment on above: Performed By: #### C BC, CMP, TSH3 wRFLX #### [facility] [address] [place] [phone] [place] Urea nitrogen [Mass/Vol] 11 mg/dL Normal 7-25 [facility] Comment on above: Performed By: #### C BC, CMP, TSH3 wRFLX #### [facility] [address] [place] [address] [place] Creatinine [Mass/volume] in Serum or PlasmaOrdered By: Govind Barry on 11-25-2023 Creatinine [Mass/Vol] 0.76 mg/dL 0.60-1.20 [facility] Eosinophils Auto (Bld) [#/Vo l]Ordered By: Govind Barry on 11-25-2023 Eosinophils (Bld) [#/Vol] 0.2 10*3/uL 0.0-0.45 [facility] Eosinophils/100 WBC Auto (Bl d)Ordered By: Govind Barry on 11-25-2023 Eosinophils/100 WBC (Bld) 1.6 % . [facility] Erythrocyte distribution wid th Auto (RBC) [Ratio]Ordered By: Govind Barry on 11-25-2023 Erythrocyte distribution width (RBC) [Ratio] 12.5 % 11.9-15.3 [facility] Globulin Calc (S) [Mass/Vol] Ordered By: Govind Barry on 11-25-2023 Globulin (S) [Mass/Vol] 2.5 g/dL [facility] Glucose [Mass/volume] in Ser um or PlasmaOrdered By: Govind Barry on 11-25-2023 Glucose [Mass/Vol] 85 mg/dL 70-100 [facility] Comment on above: ADA recommended refe rence rangeRandom Glucose Reference Range is dependent on time and content of last meal. Glucose of more than 200 mg/dL in a nonstressed, ambulatory subject supports the diagnosis of Diabetes Mellitus. Hematocrit Auto (Bld) [Volum e fraction]Ordered By: Govind Barry on 11-25-2023 Hematocrit (Bld) [Volume fraction] 41.4 % 34.0-46.4 [facility] Hemoglobin [Mass/volume] in BloodOrdered By: Govind Barry on 11-25-2023 Hemoglobin (Bld) [Mass/Vol] 14.2 g/dL 11.8-15.4 [facility] Leukocytes [#/volume] correc jessica for nucleated erythrocytes in Blood by Automated counOrdered By: Govind Barry on 11-25-2023 WBC corrected for nucl RBC Auto (Bld) [#/Vol] 10.0 10*3/uL 3.8-11.6 [facility] Lymphocytes Auto (Bld) [#/Vo l]Ordered By: Govind Barry on 11-25-2023 Lymphocytes (Bld) [#/Vol] 1.7 10*3/uL 1.00-4.8 [facility] Lymphocytes/100 WBC Auto (Bl d)Ordered By: Govind Barry on 11-25-2023 Lymphocytes/100 WBC (Bld) 16.7 % . [facility] MCH Auto (RBC) [Entitic mass ]Ordered By: Govind Barry on 11-25-2023 MCH (RBC) [Entitic mass] 30.2 pg 24.7-34.3 [facility] MCHC Auto (RBC) [Mass/Vol]Or dered By: Govind Barry on 11-25-2023 MCHC (RBC) [Mass/Vol] 34.4 g/dL 32.0-35.0 [facility] MCV Auto (RBC) [Entitic vol] Ordered By: Govind Barry on 11-25-2023 MCV (RBC) [Entitic vol] 87.9 fL 80-100 [facility] Monocytes Auto (Bld) [#/Vol] Ordered By: Govind Barry on 11-25-2023 Monocytes (Bld) [#/Vol] 0.5 10*3/uL 0.0-0.8 [facility] Monocytes/100 WBC Auto (Bld) Ordered By: Govind Barry on 11-25-2023 Monocytes/100 WBC (Bld) 5.4 % . [facility] Neutrophils Auto (Bld) [#/Vo l]Ordered By: Govind Barry on 11-25-2023 Neutrophils (Bld) [#/Vol] 7.5 10*3/uL 1.8-7.7 [facility] Neutrophils/100 WBC Auto (Bl d)Ordered By: Govind Barry on 11-25-2023 Neutrophils/100 WBC (Bld) 75.7 % . [facility] No Panel InformationOrdered By: Govind Barry on 11-25-2023 Estimated GFR (CKD-EPI) > 60.0 mL/Min [facility] Creatinine Clearance (Chem N/A [facility] Nucleated erythrocytes [Pres ence] in Blood by Automated countOrdered By: Govind Barry on 11-25-2023 Nucleated RBC Auto Ql (Bld) 0.1 /100{WBC} 0-0.5 [facility] Platelet mean volume Auto (B ld) [Entitic vol]Ordered By: Govind Barry on 11-25-2023 Platelet mean volume (Bld) [Entitic vol] 8.8 fL 6.3-10.7 [facility] Platelets Auto (Bld) [#/Vol] Ordered By: Govind Barry on 11-25-2023 Platelets (Bld) [#/Vol] 301 10*3/uL 150-450 [facility] Potassium [Moles/volume] in Serum or PlasmaOrdered By: Govind Barry on 11-25-2023 Potassium [Moles/Vol] 4.2 mmol/L 3.5-5.1 [facility] Protein [Mass/volume] in Ser um or PlasmaOrdered By: Govind Barry on 11-25-2023 Protein [Mass/Vol] 7.2 g/dL 6.4-8.9 [facility] RBC Auto (Bld) [#/Vol]Ordere d By: Govind Barry on 11-25-2023 RBC (Bld) [#/Vol] 4.71 10*6/uL 3.60-5.00 [facility] Serum or plasma albumin/glob ulin mass ratioOrdered By: Govind Barry on 11-25-2023 Albumin/Globulin [Mass ratio] 1.9 {ratio} [facility] Serum or plasma anion gap de terminationOrdered By: Govind Barry on 11-25-2023 Anion gap [Moles/Vol] 10.7 mmol/L 6.0-15.0 [facility] Sodium [Moles/volume] in Ser um or PlasmaOrdered By: Govind Barry on 11-25-2023 Sodium [Moles/Vol] 139 mmol/L 136-145 [facility] Thyroid Stim Hormone w/Rflxo n 11-25-2023 Thyroid Stim Hormone w/Rflx 1.83 u[iU]/mL Normal 0.45-5.33 [facility] Comment on above: Result Comment: PERF ORMED BY: [place] [address] PATHOLOGIST [employer] MELCHOR MORALES M.D. Performed By: #### C BC, CMP, TSH3 wRFLX #### [facility] [address] [place] [address] Thyrotropin [Units/volume] i n Serum or PlasmaOrdered By: Govind Barry on 11-25-2023 TSH Qn 1.83 m[IU]/L 0.45-5.33 [facility] Urea nitrogen [Mass/volume] in Serum or PlasmaOrdered By: Govind Barry on 11-25-2023 Urea nitrogen [Mass/Vol] 11 mg/dL 7-25 [facility] WBC Auto (Bld) [#/Vol]Ordere d By: Govind Barry on 11-25-2023 WBC (Bld) [#/Vol] 10.0 10*3/uL 3.8-11.6 [facility] Anisocytosis LM Ql (Bld)Orde red By: ASHLEY WATSON on 09-12-2022 Anisocytosis Ql (Bld) Moderate [facility] Basophils Auto (Bld) [#/Vol] Ordered By: ASHLEY WATSON on 09-12-2022 Basophils (Bld) [#/Vol] 0.1 10*3/uL 0.0-0.2 [facility] Basophils/100 WBC Auto (Bld) Ordered By: ASHLEY WATSON on 09-12-2022 Basophils/100 WBC (Bld) 0.7 % . [facility] Eosinophils Auto (Bld) [#/Vo l]Ordered By: ASHLEY WATSON on 09-12-2022 Eosinophils (Bld) [#/Vol] 0.2 10*3/uL 0.0-0.45 [facility] Eosinophils/100 WBC Auto (Bl d)Ordered By: ASHLEY WATSON on 09-12-2022 Eosinophils/100 WBC (Bld) 1.7 % . [facility] Erythrocyte distribution wid th Auto (RBC) [Ratio]Ordered By: ASHLEY WATSON on 09-12-2022 Erythrocyte distribution width (RBC) [Ratio] 14.4 % 11.9-15.3 [facility] Hematocrit Auto (Bld) [Volum e fraction]Ordered By: ASHLEY WATSON on 09-12-2022 Hematocrit (Bld) [Volume fraction] 29.2 % 34.0-46.4 [facility] Hemoglobin [Mass/volume] in BloodOrdered By: ASHLEY WATSON on 09-12-2022 Hemoglobin (Bld) [Mass/Vol] 9.6 g/dL 11.8-15.4 [facility] Hypochromia LM Ql (Bld)Order ed By: ASHLEY WATSON on 09-12-2022 Hypochromia Ql (Bld) Slight [facility] Leukocytes [#/volume] correc jessica for nucleated erythrocytes in Blood by Automated counOrdered By: ASHLEY WATSON on 09-12-2022 WBC corrected for nucl RBC Auto (Bld) [#/Vol] 12.2 10*3/uL 3.8-11.6 [facility] Lymphocytes Auto (Bld) [#/Vo l]Ordered By: ASHLEY WATSON on 09-12-2022 Lymphocytes (Bld) [#/Vol] 2.9 10*3/uL 1.00-4.8 [facility] Lymphocytes/100 WBC Auto (Bl d)Ordered By: ASHLEY WATSON on 09-12-2022 Lymphocytes/100 WBC (Bld) 23.6 % . [facility] MCH Auto (RBC) [Entitic mass ]Ordered By: ASHLEY WATSON on 09-12-2022 MCH (RBC) [Entitic mass] 25.5 pg 24.7-34.3 [facility] MCHC Auto (RBC) [Mass/Vol]Or dered By: ASHLEY WATSON on 09-12-2022 MCHC (RBC) [Mass/Vol] 32.8 g/dL 32.0-35.0 [facility] MCV Auto (RBC) [Entitic vol] Ordered By: ASHLEY WATSON on 09-12-2022 MCV (RBC) [Entitic vol] 77.6 fL 80-100 [facility] Microcytes LM Ql (Bld)Ordere d By: ASHLEY WATSON on 09-12-2022 Microcytes Ql (Bld) Moderate [facility] Monocytes Auto (Bld) [#/Vol] Ordered By: ASHLEY WATSON on 09-12-2022 Monocytes (Bld) [#/Vol] 0.8 10*3/uL 0.0-0.8 [facility] Monocytes/100 WBC Auto (Bld) Ordered By: ASHLEY WATSON on 09-12-2022 Monocytes/100 WBC (Bld) 6.2 % . [facility] Neutrophils Auto (Bld) [#/Vo l]Ordered By: ASHLEY WATSON on 09-12-2022 Neutrophils (Bld) [#/Vol] 8.3 10*3/uL 1.8-7.7 [facility] Neutrophils/100 WBC Auto (Bl d)Ordered By: ASHLEY WATSON on 09-12-2022 Neutrophils/100 WBC (Bld) 67.8 % . [facility] Nucleated erythrocytes [Pres ence] in Blood by Automated countOrdered By: ASHLEY WATSON on 09-12-2022 Nucleated RBC Auto Ql (Bld) 0.0 /100{WBC} 0-0.5 [facility] Platelet adequacy [Presence] in Blood by Light microscopyOrdered By: ASHLEY WATSON on 09-12-2022 Platelets LM Ql (Bld) Decreased Normal [facility] Platelet mean volume Auto (B ld) [Entitic vol]Ordered By: ASHLEY WATSON on 09-12-2022 Platelet mean volume (Bld) [Entitic vol] 10.7 fL 6.3-10.7 [facility] Platelet morphology finding [Identifier] in BloodOrdered By: ASHLEY WATSON on 09-12-2022 Platelet morphology finding Nom (Bld) N/A [facility] Platelets Auto (Bld) [#/Vol] Ordered By: ASHLEY WATSON on 09-12-2022 Platelets (Bld) [#/Vol] 127 10*3/uL 150-450 [facility] Platelets Large [Presence] i n Blood by Light microscopyOrdered By: ASHLEY WATSON on 09-12-2022 Platelets Large LM Ql (Bld) Marked [facility] Polychromasia [Presence] in Blood by Light microscopyOrdered By: ASHLEY WATSON on 09-12-2022 Polychromasia LM Ql (Bld) Moderate [facility] RBC Auto (Bld) [#/Vol]Ordere d By: ASHLEY WATSON on 09-12-2022 RBC (Bld) [#/Vol] 3.76 10*6/uL 3.60-5.00 [facility] RBC morphologyOrdered By: ROSEANNE WATSON on 09-12-2022 RBC morphology finding Nom (Bld) N/A [facility] Urine culture routineOrdered By: ASHLEY WATSON on 09-12-2022 Bacteria identified Cx Nom (U) Carol Ann albicans [facility] WBC Auto (Bld) [#/Vol]Ordere d By: ASHLEY WATSON on 09-12-2022 WBC (Bld) [#/Vol] 12.2 10*3/uL 3.8-11.6 [facility] Amphetamine Screen Ql (U)Ord ered By: ASHLEY WATSON on 09-10-2022 Amphetamines Ql (U) Negative Negative [facility] Automated erythrocytes count in urine sediment (number/area)Ordered By: ASHLEY WATSON on 09-10-2022 RBC Auto (Urine sed) [#/Area] None seen [HPF] 0-4 [facility] Automated leukocytes count i n urine sediment (number/area)Ordered By: ASHLEY WATSON on 09-10-2022 WBC Auto (Urine sed) [#/Area] 10-19 [HPF] 0-4 [facility] Barbiturates [Presence] in U rineOrdered By: ASHLEY WATSON on 09-10-2022 Barbiturates Ql (U) Negative Negative [facility] Benzodiazepines [Presence] i n UrineOrdered By: ASHLEY WATSON on 09-10-2022 Benzodiazepines Ql (U) Negative Negative [facility] Bilirubin Test strip Ql (U)O rdered By: ASHLEY WATSON on 09-10-2022 Bilirubin Ql (U) Negative Negative [facility] Color Auto (U)Ordered By: ROSEANNE WATSON on 09-10-2022 Color (U) Yellow Yellow [facility] Ketones Auto test strip (U) [Mass/Vol]Ordered By: ASHLEY WATSON on 09-10-2022 Ketones (U) [Mass/Vol] Negative Negative [facility] Laboratory - Drug toxicology Ordered By: ASHLEY WATSON on 09-10-2022 Opiates Ql (U) Negative Negative [facility] Laboratory - UrinalysisOrder ed By: ASHLEY WATSON on 09-10-2022 Hyaline casts LM Ql (Urine sed) 0-8 [LPF] 0-8 [facility] Macrocytes LM Ql (Bld)Ordere d By: ASHLEY WATSON on 09-10-2022 Macrocytes Ql (Bld) Slight [facility] Nitrite Test strip Ql (U)Ord ered By: ASHLEY WATSON on 09-10-2022 Nitrite Ql (U) Negative Negative [facility] Phencyclidine Screen Ql (U)O rdered By: ASHLEY WATSON on 09-10-2022 Phencyclidine Ql (U) Negative Negative [facility] Comment on above: These are unconfirme d results and should not be used for legal purposes. Drug Cut-Off Concentration: AMPH 1000 ng/mL YOSEF 200 ng/mL JARAD 200 ng/mL COCM 300 ng/mL OP 300 ng/mL PCP 25 ng/mL Poikilocytosis [Presence] in Blood by Light microscopyOrdered By: ASHLEY WATSON on 09-10-2022 Poikilocytosis LM Ql (Bld) Slight [facility] Protein Auto test strip (U) [Mass/Vol]Ordered By: ASHLEY WATSON on 09-10-2022 Protein (U) [Mass/Vol] Trace mg/dL Negative [facility] Reagin Ab [Presence] in Seru m by RPROrdered By: ASHLEY WATSON on 09-10-2022 Reagin Ab RPR Ql (S) Non-Reactive Non Reactive [facility] Comment on above: Performed at: [address] Director: Mook Hawthorne PhD, Phone: [phone] Specific gravity Auto test s trip (U) [Rel density]Ordered By: ASHLEY WATSON on 09-10-2022 Specific gravity (U) [Rel density] 1.016 1.001-1.030 [facility] Squamous epithelial cells de tection in urine sediment by light microscopyOrdered By: ASHLEY WATSON on 09-10-2022 Epithelial cells.squamous LM Ql (Urine sed) 10-19 [HPF] 0-2 [facility] Urine bacteria detection by automated methodOrdered By: ASHLEY WATSON on 09-10-2022 Bacteria Auto Ql (U) None seen None Seen [facility] Urine clarity by refractomet ry automatedOrdered By: ASHLEY WATSON on 09-10-2022 Clarity Refractometry automated (U) Clear Clear [facility] Urine cocaine detectionOrder ed By: ASHLEY WATSON on 09-10-2022 Cocaine Ql (U) Negative Negative [facility] Urine glucose measurement by automated test strip (mass/volume)Ordered By: ASHLEY WATSON on 09-10-2022 Glucose Auto test strip (U) [Mass/Vol] Normal mg/dL Normal [facility] Urine hemoglobin detection b y automated test stripOrdered By: ASHLEY WATSON on 09-10-2022 Hemoglobin Auto test strip Ql (U) Negative Negative [facility] Urine leukocyte esterase det ection by automated test stripOrdered By: ASHLEY WATSON on 09-10-2022 Leukocyte esterase Auto test strip Ql (U) 3+ Negative [facility] Urobilinogen Auto test strip (U) [Mass/Vol]Ordered By: ASHLEY WATSON on 09-10-2022 Urobilinogen (U) [Mass/Vol] Normal mg/dL Normal [facility] pH Auto test strip (U)Ordere d By: ASHLEY WATSON on 09-10-2022 pH (U) 6.0 [pH] 5.0-9.0 [facility] S. agalactiae Org specific c x Ql (Unsp spec)Ordered By: ASHLEY WATSON on 08-16-2022 Streptococcus agalactiae culture No Group B Beta Streptococcus Isolated 3 Days [facility] Blood hemoglobin measurement (mass/volume)Ordered By: ASHLEY WATSON on 06-24-2022 Hemoglobin (Bld) [Mass/Vol] 12.7 g/dL 11.8-15.4 [facility] Hematocrit Auto (Bld) [Volum e fraction]Ordered By: ASHLEY WATSON on 06-24-2022 Hematocrit (Bld) [Volume fraction] 37.9 % 34.0-46.4 [facility] No Panel InformationOrdered By: ASHLEY WATSON on 06-24-2022 Glucose 1 Hour Postprandial (Timed) 100 mg/dL 60-140 [facility] Albumin [Mass/volume] in Ser um or PlasmaOrdered By: Jordan Saunders on 04-14-2022 Albumin [Mass/Vol] 3.4 g/dL 3.2-5.5 [facility] Basophils Auto (Bld) [#/Vol] Ordered By: Jordan Saunders on 04-14-2022 Basophils (Bld) [#/Vol] 0.1 10*3/uL 0.0-0.2 [facility] Basophils/100 WBC Auto (Bld) Ordered By: Jordan Saunders on 04-14-2022 Basophils/100 WBC (Bld) 0.6 % . [facility] Blood hemoglobin measurement (mass/volume)Ordered By: Jordan Saunders on 04-14-2022 Hemoglobin (Bld) [Mass/Vol] 13.7 g/dL 11.8-15.4 [facility] Blood leukocytes automated c ount (number/volume)Ordered By: Jordan Saunders on 04-14-2022 WBC (Bld) [#/Vol] 10.8 10*3/uL 4.5-11.0 [facility] Creatinine and Glomerular fi ltration rate.predicted panel (S/P/Bld)Ordered By: Jordan Saunders on 04-14-2022 Creatinine [Mass/Vol] 0.50 mg/dL 0.44-1.03 [facility] Eosinophils Auto (Bld) [#/Vo l]Ordered By: Jordan Saunders on 04-14-2022 Eosinophils (Bld) [#/Vol] 0.1 10*3/uL 0.0-0.45 [facility] Eosinophils/100 WBC Auto (Bl d)Ordered By: Jordan Saunders on 04-14-2022 Eosinophils/100 WBC (Bld) 0.8 % . [facility] Erythrocyte distribution wid th Auto (RBC) [Ratio]Ordered By: Jordan Saunders on 04-14-2022 Erythrocyte distribution width (RBC) [Ratio] 12.9 % 11.9-15.3 [facility] Estimated glomerular filtrat ion rate (GFR) non- AmericanOrdered By: Jordan Saunders on 04-14-2022 GFR/1.73 sq M.predicted among non-blacks MDRD (S/P/Bld) [Vol rate/Area] > 60 mL/Min [facility] Globulin Calc (S) [Mass/Vol] Ordered By: Jordan Saunders on 04-14-2022 Globulin (S) [Mass/Vol] 3.2 g/dL [facility] Hematocrit Auto (Bld) [Volum e fraction]Ordered By: Jordan Saunders on 04-14-2022 Hematocrit (Bld) [Volume fraction] 39.7 % 34.0-46.4 [facility] Laboratory - Chemistry and C hemistry - challengeOrdered By: Jordan Saunders on 04-14-2022 Magnesium [Mass/Vol] 1.9 mg/dL 1.6-2.6 [facility] Laboratory - Hematology and Cell countsOrdered By: Jordan Saunders on 04-14-2022 Nucleated RBC/100 WBC (Bld) [Ratio] 0.1 % 0-0.5 [facility] Lymphocytes Auto (Bld) [#/Vo l]Ordered By: Jordan Saunders on 04-14-2022 Lymphocytes (Bld) [#/Vol] 1.8 10*3/uL 1.00-4.8 [facility] Lymphocytes/100 WBC Auto (Bl d)Ordered By: Jordan Saunders on 04-14-2022 Lymphocytes/100 WBC (Bld) 17.0 % . [facility] MCH Auto (RBC) [Entitic mass ]Ordered By: Jordan Saunders on 04-14-2022 MCH (RBC) [Entitic mass] 30.4 pg 24.7-34.3 [facility] MCHC Auto (RBC) [Mass/Vol]Or dered By: Jordan Saunders on 04-14-2022 MCHC (RBC) [Mass/Vol] 34.5 g/dL 32.0-35.0 [facility]ir [facility] MCV Auto (RBC) [Entitic vol] Ordered By: Jordan Saunders on 04-14-2022 MCV (RBC) [Entitic vol] 88.0 fL 80-100 [facility] Monocytes Auto (Bld) [#/Vol] Ordered By: Jordan Saunders on 04-14-2022 Monocytes (Bld) [#/Vol] 0.5 10*3/uL 0.0-0.8 [facility] Monocytes/100 WBC Auto (Bld) Ordered By: Jordan Saunders on 04-14-2022 Monocytes/100 WBC (Bld) 5.1 % . [facility] Neutrophils Auto (Bld) [#/Vo l]Ordered By: Jordan Saunders on 04-14-2022 Neutrophils (Bld) [#/Vol] 8.3 10*3/uL 1.8-7.7 [facility] Neutrophils/100 WBC Auto (Bl d)Ordered By: Jordan Saunders on 04-14-2022 Neutrophils/100 WBC (Bld) 76.5 % . [facility] No Panel InformationOrdered By: Jordan Saunders on 04-14-2022 Estimated GFR () > 60 mL/Min [facility] Comment on above: GFR estimated refere nce range: According to KDOQI guidelines, <60 ml/min/1.73m2 is sufficient to diagnose a patient with chronic kidney disease. Pharmacy Creatinine Clearance (Chem 171.62 [facility] Platelet mean volume Auto (B ld) [Entitic vol]Ordered By: Jordan Saunders on 04-14-2022 Platelet mean volume (Bld) [Entitic vol] 9.9 fL 6.3-10.7 [facility] Platelets Auto (Bld) [#/Vol] Ordered By: Jordan Saunders on 04-14-2022 Platelets (Bld) [#/Vol] 246 10*3/uL 150-450 [facility] Protein [Mass/volume] in Ser um or PlasmaOrdered By: Jordan Saunders on 04-14-2022 Protein [Mass/Vol] 6.6 g/dL 6.1-7.9 [facility] RBC Auto (Bld) [#/Vol]Ordere d By: Jordan Saunders on 04-14-2022 RBC (Bld) [#/Vol] 4.52 10*6/uL 3.60-5.00 [facility] Serum or plasma alanine salas otransferase measurement without P-5'-P (enzymatic activiOrdered By: Jordan Saunders on 04-14-2022 ALT No additional P-5'-P [Catalytic activity/Vol] 13 U/L 10-60 [facility] Serum or plasma albumin/glob ulin mass ratioOrdered By: Jordan Saunders on 04-14-2022 Albumin/Globulin [Mass ratio] 1.1 {ratio} [facility] Serum or plasma alkaline abel sphatase measurement (enzymatic activity/volume)Ordered By: Jordan Saunders on 04-14-2022 ALP [Catalytic activity/Vol] 49 U/L 32-92 [facility] Serum or plasma aspartate am inotransferase measurement (enzymatic activity/volume)Ordered By: Jordan Saunders on 04-14-2022 AST [Catalytic activity/Vol] 18 U/L 10-42 [facility] Serum or plasma calcium pete urement (mass/volume)Ordered By: Jordan Saunders on 04-14-2022 Calcium [Mass/Vol] 9.4 mg/dL 8.2-10.2 [facility] Serum or plasma chloride tino surement (moles/volume)Ordered By: Jordan Saunders on 04-14-2022 Chloride [Moles/Vol] 100 mmol/L 95-114 [facility] Serum or plasma glucose pete urement (mass/volume)Ordered By: Jordan Saunders on 04-14-2022 Glucose [Mass/Vol] 84 mg/dL 70-100 [facility] Comment on above: ADA recommended refe rence range Random Glucose Reference Range is dependent on time and content of last meal. Glucose of more than 200 mg/dL in a nonstressed, ambulatory subject supports the diagnosis of Diabetes Mellitus. Serum or plasma potassium me asurement (moles/volume)Ordered By: Jordan Saunders on 04-14-2022 Potassium [Moles/Vol] 3.8 mmol/L 3.5-5.1 [facility] Serum or plasma sodium measu rement (moles/volume)Ordered By: Jordan Saunders on 04-14-2022 Sodium [Moles/Vol] 132 mmol/L 136-146 [facility] Serum or plasma total biliru bin measurement (mass/volume)Ordered By: Jordan Saunders on 04-14-2022 Bilirubin [Mass/Vol] 0.5 mg/dL 0.3-1.2 [facility] Serum or plasma total carbon dioxide measurement (moles/volume)Ordered By: Jordan Saunders on 04-14-2022 CO2 [Moles/Vol] 21.6 mmol/L 22.0-30.0 [facility] Serum or plasma urea nitroge n measurement (mass/volume)Ordered By: Jordan Saunders on 04-14-2022 Urea nitrogen [Mass/Vol] 5 mg/dL 9-23 [facility] TSH DL <= 0.005 mIU/L QnOrde red By: Jordan Saunders on 04-14-2022 TSH Qn 1.21 m[IU]/L 0.45-5.33 [facility] Troponin I.cardiac [Mass/vol ume] in Serum or Plasma by High sensitivity methodOrdered By: Jordan Saunders on 04-14-2022 Troponin I.cardiac High sensitivity method [Mass/Vol] 11 pg/mL 0-15 [facility] Complete Blood Count with Au to Diffon 12-24-2021 Basophils (Bld) [#/Vol] 0.05 10*3/uL Normal 0.00-0.20 [facility] Comment on above: Performed By: #### C BCAD, VITD, CMP, TSH reflex FT4 #### [facility] [address], [place] [id number] Basophils/100 WBC (Bld) 0.8 % Normal [facility] Comment on above: Performed By: #### C BCAD, VITD, CMP, TSH reflex FT4 #### [facility] [address], [place] [id number] Eosinophils (Bld) [#/Vol] 0.12 10*3/uL Normal 0.02-0.50 [facility] Comment on above: Performed By: #### C BCAD, VITD, CMP, TSH reflex FT4 #### [facility] [address], [place] [id number] Eosinophils/100 WBC (Bld) 2.0 % Normal [facility] Comment on above: Performed By: #### C BCAD, VITD, CMP, TSH reflex FT4 #### [facility] [address], [place] [id number] Erythrocyte distribution width (RBC) [Ratio] 11.7 % Normal 11.0-15.0 [facility] Comment on above: Performed By: #### C BCAD, VITD, CMP, TSH reflex FT4 #### [facility] [address], [place] [id number] Hematocrit (Bld) [Volume fraction] 43.8 % Normal 35.0-47.0 [facility] Comment on above: Performed By: #### C BCAD, VITD, CMP, TSH reflex FT4 #### [facility] [address], [place] [id number] Hemoglobin (Bld) [Mass/Vol] 14.5 g/dL Normal 11.6-15.5 [facility] Comment on above: Performed By: #### C BCAD, VITD, CMP, TSH reflex FT4 #### [facility] [address], [place] [id number] Lymphocytes (Bld) [#/Vol] 2.1 10*3/uL Normal 0.9-3.9 [facility] Comment on above: Performed By: #### C BCAD, VITD, CMP, TSH reflex FT4 #### [facility] [address], [place] [id number] Lymphocytes/100 WBC (Bld) 34.1 % Normal [facility] Comment on above: Performed By: #### C BCAD, VITD, CMP, TSH reflex FT4 #### [facility] [address], [place] [id number] MCH (RBC) [Entitic mass] 29.8 pg Normal 27.0-33.0 [facility] Comment on above: Performed By: #### C BCAD, VITD, CMP, TSH reflex FT4 #### [facility] [address], [place] [id number] MCHC (RBC) [Mass/Vol] 33.1 g/dL Normal 32.0-36.0 [facility] Comment on above: Performed By: #### C BCAD, VITD, CMP, TSH reflex FT4 #### [facility] [address], [place] [id number] MCV (RBC) [Entitic vol] 90 fL Normal 80-100 [facility] Comment on above: Performed By: #### C BCAD, VITD, CMP, TSH reflex FT4 #### [facility] [address], [place] [id number] Monocytes (Bld) [#/Vol] 0.4 10*3/uL Normal 0.2-0.9 [facility] Comment on above: Performed By: #### C BCAD, VITD, CMP, TSH reflex FT4 #### [facility] [address], [place] [id number] Monocytes/100 WBC (Bld) 6.8 % Normal [facility] Comment on above: Performed By: #### C BCAD, VITD, CMP, TSH reflex FT4 #### [facility] [address], [place] [id number] Neutrophils (Bld) [#/Vol] 3.4 10*3/uL Normal 1.5-7.8 [facility] Comment on above: Performed By: #### C BCAD, VITD, CMP, TSH reflex FT4 #### [facility] [address], [place] [id number] Neutrophils/100 WBC (Bld) 56.1 % Normal [facility] Comment on above: Performed By: #### C BCAD, VITD, CMP, TSH reflex FT4 #### [facility] [address], [place] [id number] Platelet mean volume (Bld) [Entitic vol] 11.00 fL Normal 7.50-12.50 [facility] Comment on above: Performed By: #### C BCAD, VITD, CMP, TSH reflex FT4 #### [facility] [address], [place] [id number] Platelets (Bld) [#/Vol] 306 10*3/uL Normal 140-400 [facility] Comment on above: Performed By: #### C BCAD, VITD, CMP, TSH reflex FT4 #### [facility] [address], [place] [id number] RBC (Bld) [#/Vol] 4.87 10*6/uL Normal 3.90-5.20 [facility] Comment on above: Performed By: #### C BCAD, VITD, CMP, TSH reflex FT4 #### [facility] [address], [place] [id number] RDW-SD 38.5 fL Normal 37.0-50.0 [facility] Comment on above: Performed By: #### C BCAD, VITD, CMP, TSH reflex FT4 #### [facility] [address], [place] [id number] WBC (Bld) [#/Vol] 6.0 10*3/uL Normal 3.8-11.0 [facility] Comment on above: Performed By: #### C BCAD, VITD, CMP, TSH reflex FT4 #### [facility] [address], [place] [id number] Comprehensive Metabolic Pane dale 12-24-2021 Albumin [Mass/Vol] 5.1 g/dL Normal 3.6-5.1 [place] [facility] [place] [employer] [facility] Comment on above: Performed By: #### C BCAD, VITD, CMP, TSH reflex FT4 #### [facility] [address], [place] [id number] Albumin/Globulin [Mass ratio] 2.4 {ratio} Normal 1.0-2.5 [facility] Comment on above: Performed By: #### C BCAD, VITD, CMP, TSH reflex FT4 #### [facility] [address], [place] [id number] ALP [Catalytic activity/Vol] 71 U/L Normal 35-119 [facility] Comment on above: Performed By: #### C BCAD, VITD, CMP, TSH reflex FT4 #### [facility] [address], [place] [id number] ALT [Catalytic activity/Vol] 9 U/L Normal 6-33 [facility] Comment on above: Result Comment: 09/04 Female reference range changed. Performed By: #### C BCAD, VITD, CMP, TSH reflex FT4 #### [facility] [address], [place] [id number] Anion gap [Moles/Vol] 18 mmol/L Normal 12-20 [facility] Comment on above: Result Comment: Effe ctive 10/10/2019 reference range changed. Performed By: #### C BCAD, VITD, CMP, TSH reflex FT4 #### [facility] [address], [place] [id number] AST [Catalytic activity/Vol] 15 U/L Normal 9-34 [facility] Comment on above: Performed By: #### C BCAD, VITD, CMP, TSH reflex FT4 #### [facility] [address], [place] [id number] Bilirubin [Mass/Vol] 0.46 mg/dL Normal 0.30-1.20 [facility] Comment on above: Performed By: #### C BCAD, VITD, CMP, TSH reflex FT4 #### [facility] [address], [place] [id number] BUN/CREA 14 Ratio Normal 6-22 [facility] Comment on above: Performed By: #### C BCAD, VITD, CMP, TSH reflex FT4 #### [facility] [address], [place] [id number] Calcium [Mass/Vol] 9.8 mg/dL Normal 8.6-10.2 [facility] Comment on above: Performed By: #### C BCAD, VITD, CMP, TSH reflex FT4 #### [facility] [address], [place] [id number] Chloride [Moles/Vol] 106 mmol/L Normal 98-107 [facility] Comment on above: Performed By: #### C BCAD, VITD, CMP, TSH reflex FT4 #### [facility] [address], [place] [id number] CO2 [Moles/Vol] 23 mmol/L Normal 20-31 [facility] Comment on above: Performed By: #### C BCAD, VITD, CMP, TSH reflex FT4 #### [facility] [address], [place] [id number] Creatinine [Mass/Vol] 0.7 mg/dL Normal 0.6-1.4 [facility] Comment on above: Performed By: #### C BCAD, VITD, CMP, TSH reflex FT4 #### [facility] [address], [place] [id number] eGFRAA 138 mL/min/1.73m2 Normal >60 [facility] Comment on above: Performed By: #### C BCAD, VITD, CMP, TSH reflex FT4 #### [facility] [address], [place] [id number] eGFRNAA 114 mL/min/1.73m2 Normal >60 [place] [employer] [facility] Comment on above: Performed By: #### C BCAD, VITD, CMP, TSH reflex FT4 #### [facility] [address], [place] [id number] Globulin (S) [Mass/Vol] 2.1 g/dL Normal 1.9-3.7 [facility] Comment on above: Performed By: #### C BCAD, VITD, CMP, TSH reflex FT4 #### [facility] [address], [place] [id number] Glucose [Mass/Vol] 83 mg/dL Normal 65-99 [facility] [employer] Comment on above: Result Comment: For FASTING Glucose --- ADA reference ranges: Normal 65-99 mg/dl Prediabetes 100-125 Diabetes >/= 126 Performed By: #### C BCAD, VITD, CMP, TSH reflex FT4 #### [facility] [address], [place] [id number] Potassium [Moles/Vol] 4.9 mmol/L Normal 3.5-5.5 [facility] Specialist Comment on above: Result Comment: Spec imen is hemolyzed. Results may be affected. Performed By: #### C BCAD, VITD, CMP, TSH reflex FT4 #### [facility] [address], [place] [id number] Protein [Mass/Vol] 7.2 g/dL Normal 6.1-8.1 [facility] [employer] Comment on above: Performed By: #### C BCAD, VITD, CMP, TSH reflex FT4 #### [facility] [address], [place] [id number] Sodium [Moles/Vol] 141 mmol/L Normal 135-146 [facility] [employer] Comment on above: Performed By: #### C BCAD, VITD, CMP, TSH reflex FT4 #### [facility] [address], [place] [id number] Urea nitrogen [Mass/Vol] 9 mg/dL Normal 7-25 [facility] Comment on above: Performed By: #### C BCAD, VITD, CMP, TSH reflex FT4 #### [facility] [address], [place] [id number] TSH w/ Reflex to Free T4on 0 12-24-2021 TSH 0.946 uIU/mL Normal 0.400-4.500 [facility] [employer] Comment on above: Performed By: #### C BCAD, VITD, CMP, TSH reflex FT4 #### [facility] [address], [place] [id number] Vitamin B12/Folateon 022 Cobalamin (Vitamin B12) [Mass/Vol] 339 pg/mL Normal 211-946 [facility] Comment on above: Performed By: #### B 12/Fol #### [facility] [address], [place] [id number] FOL 9.9 ng/mL Normal >4.7 [facility] Comment on above: Result Comment: Refe rence range change 08/21/2017. Prior reference range F 4.8-37.3 ng/mL, M 4.5-32.2 ng/mL. Performed By: #### B 12/Fol #### [facility] [address], [place] [id number] Vitamin D 25-OHon 12-24-2021 VIT D 25 OH 23 ng/ml Low >29 [facility] Comment on above: Result Comment: Leslee min D Status Deficiency <20 ng/mL Insufficiency 20-29 ng/mL Optimal 30-100 ng/mL Possible Toxicity >=150 ng/mL Performed By: #### C BCAD, VITD, CMP, TSH reflex FT4 #### [facility] [address], [place] [id number] CNOVon 09-01-2017 CNOV Office Visit (ORTPMN) ----RANDAL REDMOND ([id number]) 2000 FDate Time Provider Isbzfrtmkl05/28/17 10:15 AM GILMER BENAVIDES ORTPMN During your visit today, we recorded the following information about you:Travis Ocasio MD 09/01/2017 11:05 AM SignedRandal Redmond COMPLAINT: ScoliosisHISTORY: This is my first office visit with Randal Redmond who comes today forevaluation of scoliosis. The curve was first identified by chiropracter andthe family has been aware of the curvature for about a year. She reports onlymild lower back pain, which is intermittent. She denies any paresthesias,weakness , or bowel/bladder symptoms. She does not play any sports. She doesnotice the curve ,but it does not really bother her.Pain:Midline lumbarNeurologial symptoms:NoneProgress ion in recent months: MinimalDisability:Non eCosmetic concerns:NOPrior treatments:noneFamily history of scoliosis: NoneMenarche: 3 years agoNo past medical history on file.Current Outpatient Prescriptions:sertral ine (ZOLOFT) 50 mg tablet Take 50 mg by mouth once daily. Take total of75 mg dailymontelukast (SINGULAIR) 10 mg tablet Take 10 mg by mouth daily at bedtime.No current facility-administered medications for this visit.ALLERGIESAllerg en Reactions- Shellfish Containin* AnaphylaxisAll history, allergies and medications have been reviewed.REVIEW OF SYSTEMS:REVIEW OF SYSTEMSPAIN ASSESSMENT: Negative for pain, history of chronic pain, or currenttreatment for a chronic pain condition.GENERAL: No weight loss, malaise or feversHEENT: Negative for frequent or significant headaches, No changes in hearing orvision, no nose bleeds or other nasal problemsNECK: Negative for lumps, goiter, pain and significant neck swellingRESPIRATORY: Negative for cough, hemoptysis, wheezing, COPD, dyspnea orshortness of breathCARDIOVASCULAR: Negative for chest pain, leg swelling, hypertension, CHF orpalpitationsMUSCULO SKELETAL: See HPIPHYSICAL EXAM:No acute distress. Well nourished.There were no vitals taken for this visit.Shoulders: LevelPelvis:LevelScol iometer:minimalSagitt al alignment:normalSkin: no abnormal skin markingsTenderness to palpation:no tenderness to palpation is noted about the posteriorelements of the spine and paraspinalsTTP over periscapular musculatureMotor and sensory exam: intact in both lower extremities including 5/5 mtorstrength in both hip flexors, quads, hamstrings, dorsiflexors, plantarflexorsand EHLDeep tendon reflexes are: 2+ and symmetric at the knees and anklesAbdominal reflexes are: present and symmetricX-RAYS: Standing PA and lateral scoliosis films are reviewed today which revealcurves as follows:Lumbar: 16 degreesRisser sign is 4IMPRESSION: ScoliosisPLAN: I discussed these findings in detail with the family today. Based on themagnitude of the curve, I would recommend continued observation. Stretching,strengthen ing, and core exercises encouraged. She has tight periscapular,lumbar, and hamstring musculature.Signed: Travis Ocasio [facility] physician:Emeterio Benavides MD 09/01/2017 11:05 AM SignedI have reviewed the history and physical obtained and documented by theresident and I personally participated in the sanchez components. I agree with thefindings and plan of care, with the additions contained within my dictation.Gilmer Benavides M.D.Referring Provider: SELF [[id number]]Allergies As of Date: 09/01/2017 Noted Allergy ReactionSHELLFISH CONTAINING PRODUCTS 09/01/2017 10 - AnaphylaxisDate Reviewed: 09/01/2017Reviewed by: Amna (Narcisa) NARCISA Gabriel - Fully AssessedReason for Visit: New Patient [172]Primary Visit Diagnosis:Adolescent idiopathic scoliosis of thoracolumbar region [M41.125] Other Visit Diagnosis:Chronic bilateral low back pain without sciatica [M54.5, G89.29]Prescriptions as of 09/01/2017 Sig: SERTRALINE 50 MG TABLET Take 50 mg by mouth once luh* MONTELUKAST 10 MG TABLET Take 10 mg by mouth daily at *Problem List As Of Date: 09/01/2017(None)Harpreet sutherland [facility] CampusGilmer Benavides M.D. Department of Pediatric Orthopaedic Surgery / [id number] [id number]: [phone] Appts.: [phone] Fax: [phone] 2016To Whom It May Concern:Randal Redmond was seen in my clinic on 09/01/2017, accompanied by her Mother.Please excuse this child from school for the time required for this physicianvisit.Please feel free to contact my office if you have any questions or concerns.Thank you for your assistance in this matter.Sincerely,Butch Burnett M. D. Status:Closed by GILMER BENAVIDES MD on 09/01/17 [facility] PROGRESSon 09-01-2017 PROGRESS HNO ID: [id number]: Gilmer BenavidesService: (none)Author Type: PhysicianType: Progress NotesFiled: 09/01/2017 11:05 AMNote Text:I have reviewed the history and physical obtained and documented by theresident and I personally participated in the sanchez components. I agree withthe findings and plan of care, with the additions contained within mydictation.Gilmer Benavides M.D. [facility] PROGRESS HNO ID: [id number]: Travis (Lauren) SuraceService: (none)Author Type: ResidentType: Progress NotesFiled: 09/01/2017 11:05 AMNote Text:Randal Redmond COMPLAINT: ScoliosisHISTORY: This is my first office visit with Randal Redmond who comes todayfor evaluation of scoliosis. The curve was first identified bychiropracter and the family has been aware of the curvature for about ayear. She reports only mild lower back pain, which is intermittent. Shedenies any paresthesias, weakness, or bowel/bladder symptoms. She does notplay any sports. She does notice the curve ,but it does not really botherher.Pain:Midlin e lumbarNeurologial symptoms:NoneProgress ion in recent months: MinimalDisability:Non eCosmetic concerns:NOPrior treatments:noneFamily history of scoliosis: NoneMenarche: 3 years agoNo past medical history on file.Current Outpatient Prescriptions:sertral ine (ZOLOFT) 50 mg tablet Take 50 mg by mouth once daily. Taketotal of 75 mg dailymontelukast (SINGULAIR) 10 mg tablet Take 10 mg by mouth daily at bedtime.No current facility-administered medications for this visit.ALLERGIESAllerg en Reactions- Shellfish Containin* AnaphylaxisAll history, allergies and medications have been reviewed.REVIEW OF SYSTEMS:REVIEW OF SYSTEMSPAIN ASSESSMENT: Negative for pain, history of chronic pain, or currenttreatment for a chronic pain condition.GENERAL: No weight loss, malaise or feversHEENT: Negative for frequent or significant headaches, No changes inhearing or vision, no nose bleeds or other nasal problemsNECK: Negative for lumps, goiter, pain and significant neck swellingRESPIRATORY: Negative for cough, hemoptysis, wheezing, COPD, dyspnea orshortness of breathCARDIOVASCULAR: Negative for chest pain, leg swelling, hypertension, CHFor palpitationsMUSCULOSK ELETAL: See HPIPHYSICAL EXAM:No acute distress. Well nourished.There were no vitals taken for this visit.Shoulders: LevelPelvis:LevelScol iometer:minimalSagitt al alignment:normalSkin: no abnormal skin markingsTenderness to palpation:no tenderness to palpation is noted about theposterior elements of the spine and paraspinalsTTP over periscapular musculatureMotor and sensory exam: intact in both lower extremities including 5/5mtor strength in both hip flexors, quads, hamstrings, dorsiflexors,plantarf lexors and EHLDeep tendon reflexes are: 2+ and symmetric at the knees and anklesAbdominal reflexes are: present and symmetricX-RAYS: Standing PA and lateral scoliosis films are reviewed today whichreveal curves as follows:Lumbar: 16 degreesRisser sign is 4IMPRESSION: ScoliosisPLAN: I discussed these findings in detail with the family today. Basedon the magnitude of the curve, I would recommend continued observation.Stretchin g, strengthening, and core exercises encouraged. She has tightperiscapular, lumbar, and hamstring musculature.Signed: Joel Morales physician:SELF Normal [facility] PROGRESS HNO ID: [id number]: Beverley Randhawa RtService: (none)Author Type: (none)Type: Progress NotesFiled: 09/01/2017 9:44 AMNote Text: Radiology Service Progress NotePATIENT NAME: Randal Bush WillN: [id number] OF SERVICE: September 01, 2017TIME: 9:44 AMPATIENT IDENTITY VERIFICATION COMPLETED USING TWO (2) METHODS: Patientconfirmed name verbally and Date of .PATIENT GENDER DATA: Female. status: : NoBreastfeeding status: NO.PATIENT RELEVANT IMPLANT DATA REVIEWED: YesRADIOLOGY DEPARTMENT: General X-ray: Exam(s) Completed: Spine X-Ray(s):Scoliois SeriesPERIPHERAL IV DATA: Not applicableSIGNED BY: Beverley Randhawa RtNovember 2016 9:44 AM Normal [facility] XR SCOLIOSIS 2V PA STAND/LAT on 09-01-2017 XR SCOLIOSIS 2V PA STAND/LAT * * *Final Report* * *DATE OF EXAM: Sep 01 2017 9:44AM AOX [id number] - XR SCOLIOSIS 2V PA STAND/LAT / REASON: Pain, unspecified * * * * Physician Interpretation * * * * TECHNIQUE: XR SCOLIOSIS 2V PA STAND/LAT - 2 ViewsEXAM DATE: 09/01/2017 9:44 AMCLINICAL HISTORY: Pain, unspecifiedCOMPARISON : NoneRESULT: Standing frontal and lateral views of the spine were obtained for measurement of abnormal curvature by the ordering service. There is a mild dextroconvex curvature of the thoracolumbar spine apex at T12. No congenital segmentation abnormality is seen.IMPRESSION: Dextroconvex scoliosis of thoracolumbar spineTranscriptionist : GIOVANNY Transcribe Date/Time: Sep 01 2017 10:53ADictated by : BLU PERKINS MDThis examination was interpreted and the report reviewed and electronically signed by: BLU PERKINS MD on Sep 01 2017 10:54AM [id number] Normal [facility] Vital Signs Date Time Vital Sign Value Performing Clinician Facility 11-14-2023 13:45-0500 Body mass index (BMI) [Ratio] 26.31 kg/m2 Joyce DOMÍNGUEZ Work Phone: [facility] 11-14-2023 13:45-0500 Body temperature 98.01 [degF] Joyce DOMÍNGUEZ Work Phone: [facility] 11-14-2023 13:45-0500 Body weight 76.2 kg Joyce Hemmer PA Work Phone: [facility] 11-14-2023 13:45-0500 Diastolic blood pressure 70 mm[Hg] Joyce Hemmer PA Work Phone: [facility] 11-14-2023 13:45-0500 Heart rate 86 /min Joyce Hemmer PA Work Phone: [facility] 11-14-2023 13:45-0500 SaO2% (BldA) [Mass fraction] 99 % Joyce Hemmer PA Work Phone: [facility] 11-14-2023 13:45-0500 Systolic blood pressure 110 mm[Hg] Joyce Hemmer PA Work Phone: [facility] 10-27-2023 10:30-0500 Body height 167.64 cm Gilmer Mcgregor Other [facility] 10-27-2023 10:30-0500 Body mass index (BMI) [Ratio] 26.31 kg/m2 Gilmer Mcgregor Other [facility] Other 10-27-2023 10:30-0500 Body weight 73.94 kg Gilmer Mcgregor Other [facility] Other 10-27-2023 10:30-0500 Body weight 73.93 kg MD Jaymie Morris Work Phone: [facility] 10-27-2023 10:30-0500 Diastolic blood pressure 85 mm[Hg] Gilmer Mcgregor Other [facility] 10-27-2023 10:30-0500 SaO2% (BldA) [Mass fraction] 100 % Gilmer Mcgregor Other [facility] [employer] Other 10-27-2023 10:30-0500 Systolic blood pressure 128 mm[Hg] Gilmer Mcgregor Other [facility] 12-17-2022 18:45-0400 Body height 167.64 cm MD Jaymie Morris Work Phone: [facility] 12-17-2022 18:45-0400 Body temperature 97.8 [degF] MD Jaymie Morris Work Phone: [facility] 12-17-2022 18:45-0400 Body weight 70.3 kg MD Jaymie Morris Work Phone: [facility] 12-17-2022 18:45-0400 Diastolic blood pressure 92 mm[Hg] MD Jaymie Morris Work Phone: [facility] 12-17-2022 18:45-0400 Heart rate 104 /min MD Jaymie Morris Work Phone: [facility] 12-17-2022 18:45-0400 Respiratory rate 20 /min MD Jaymie Morris Work Phone: [facility] 12-17-2022 18:45-0400 SaO2% (BldA) [Mass fraction] 99 % MD Jaymie Morris Work Phone: [facility] 12-17-2022 18:45-0400 Systolic blood pressure 143 mm[Hg] MD Jaymie Morris Work Phone: [facility] 12-12-2022 12:44-0500 Body height 167.64 cm MD Jaymie Morris Work Phone: [facility] 12-12-2022 12:44-0500 Body temperature 98.8 [degF] MD Jaymie Morris Work Phone: [facility] 12-12-2022 12:44-0500 Body weight 68.49 kg MD Jaymie Morris Work Phone: [facility] 12-12-2022 12:44-0500 Diastolic blood pressure 95 mm[Hg] MD Jaymie Morris Work Phone: [facility] 12-12-2022 12:44-0500 Heart rate 107 /min MD Jaymie Morris Work Phone: [facility] 12-12-2022 12:44-0500 Respiratory rate 18 /min MD Jaymie Morris Work Phone: [facility] 12-12-2022 12:44-0500 SaO2% (BldA) [Mass fraction] 97 % MD Jaymie Morris Work Phone: [facility] 12-12-2022 12:44-0500 Systolic blood pressure 140 mm[Hg] MD Jaymie Morris Work Phone: [facility] 09-12-2022 15:30-0500 Body temperature 98 [degF] MD Jaymie Morris Work Phone: [facility] 09-12-2022 15:30-0500 Diastolic blood pressure 82 mm[Hg] MD Jaymie Morris Work Phone: [facility] 09-12-2022 15:30-0500 Heart rate 82 /min MD Jaymie Morris Work Phone: [facility] 09-12-2022 15:30-0500 Respiratory rate 18 /min MD Jaymie Morris Work Phone: [facility] 09-12-2022 15:30-0500 SaO2% (BldA) [Mass fraction] 100 % MD Jaymie Morris Work Phone: [facility] 09-12-2022 15:30-0500 Systolic blood pressure 140 mm[Hg] MD Jaymie Morris Work Phone: [facility] 09-10-2022 21:52-0500 Body weight 85.72 kg MD Jaymie Morris Work Phone: [facility] 09-10-2022 21:07-0500 Body height 170.18 cm MD Jaymei Morris Work Phone: [facility] 06-24-2022 13:31-0400 Body temperature 98.1 [degF] MD Jaymie Morris Work Phone: [facility] 06-24-2022 13:31-0400 Diastolic blood pressure 78 mm[Hg] MD Jaymie Morris Work Phone: [facility] 06-24-2022 13:31-0400 Heart rate 84 /min MD Jaymie Morris Work Phone: [facility] 06-24-2022 13:31-0400 Respiratory rate 18 /min MD Jaymie Morris Work Phone: [facility] 06-24-2022 13:31-0400 SaO2% (BldA) [Mass fraction] 100 % MD Jaymie Morris Work Phone: [facility] 06-24-2022 13:31-0400 Systolic blood pressure 119 mm[Hg] MD Jaymie Morris Work Phone: [facility] 04-14-2022 18:10-0400 Diastolic blood pressure 69 mm[Hg] MD Jaymie Morris Work Phone: [facility] 04-14-2022 18:10-0400 Heart rate 82 /min MD Jaymie Morris Work Phone: [facility] 04-14-2022 18:10-0400 Respiratory rate 16 /min MD Jaymie Morris Work Phone: [facility] 04-14-2022 18:10-0400 SaO2% (BldA) [Mass fraction] 98 % MD Jaymie Morris Work Phone: [facility] 04-14-2022 18:10-0400 Systolic blood pressure 122 mm[Hg] MD Jaymie Morris Work Phone: [facility] 04-14-2022 13:59-0400 Body temperature 98.1 [degF] MD Jaymie Morris Work Phone: [facility] 04-14-2022 13:56-0400 Body height 170.18 cm MD Jaymie Morris Work Phone: [facility] 04-14-2022 13:56-0400 Body mass index (BMI) [Ratio] 24.7 kg/m2 MD Jaymie Morris Work Phone: [facility] 04-14-2022 13:56-0400 Body weight 71.65 kg MD Jaymie Morris Work Phone: [facility] Encounters Encounter Date Encounter Type Care Provider Facility Start: 12-24-2023 End: 12-24-2023 ambulatory SADE BRAXTON Not Available Start: 12-10-2023 End: 12-10-2023 ambulatory JAYMIE MORRIS Not Available Start: 12-09-2023 End: 12-09-2023 ambulatory ASHLEY WATSON Not Available Start: 11-25-2023 End: 11-25-2023 ambulatory Jaymie Morris Facility:[facility] Start: 11-25-2023 End: 11-25-2023 ambulatory MD Jaymie Morris Work Phone: [facility] Work Phone: Start: 11-25-2023 End: 11-25-2023 Patient encounter procedure MD Jaymie Morris Work Phone: [facility] [place] Work Phone: Start: 11-14-2023 End: 11-14-2023 ambulatory JOYCE SHAH Not Available Start: 11-14-2023 End: 11-14-2023 Office outpatient visit 15 minutes Joyce Shah PA Work Phone: [facility] Comment on above: Acute bacterial conj unctivitis of both eyes (Primary Dx) Start: 11-10-2023 Bamboo flowsheet David kaplan MD, IBCLC Work Phone: [facility] Start: 11-10-2023 Bamboo flowsheet David kaplan MD, IBCLC Work Phone: [facility] Start: 11-10-2023 End: 11-10-2023 ambulatory DAVID BEANSER Not Available Start: 10-28-2023 End: 10-28-2023 ambulatory ASHLEY Gee QUENTINSYLVAIN Not Available Start: 10-27-2023 Office outpatient vi sit 25 minutes Gilmer Mcgregor [facility] Start: 10-27-2023 End: 10-27-2023 ambulatory MD Jaymie Morris Work Phone: [facility] Other Start: 10-27-2023 End: 10-27-2023 Patient encounter procedure MD Jaymie Morris Work Phone: [facility]Sleep Lab Work Phone: Start: 10-27-2023 End: 10-27-2023 Patient encounter procedure MD Jaymie Morris Work Phone: [facility]- Start: 10-22-2023 End: 10-22-2023 ambulatory JAYMIE OMRRIS Not Available Start: 10-01-2023 End: 10-01-2023 ambulatory JAYMIE MORRIS Not Available Start: 09-10-2023 End: 09-10-2023 ambulatory JAYMIE BALIS Not Available Start: 09-02-2023 End: 09-02-2023 ambulatory KERRI NO Not Available Start: 08-31-2023 End: 08-31-2023 ambulatory ASHLEY Gee NELIDA Not Available Start: 07-21-2023 End: 07-21-2023 ambulatory Jaymie Morris Facility:[facility] Start: 07-21-2023 End: 07-21-2023 ambulatory MD Jaymie Morris Work Phone: [facility] Work Phone: Start: 07-21-2023 End: 07-21-2023 Patient encounter procedure MD Jaymie Morris Work Phone: [facility]-Flu Vaccine Start: 02-27-2023 End: 02-27-[address] DOCTOR AUGUSTIN Facility:[facility] Start: 12-17-2022 End: 12-17-2022 Emergency department patient visit Michael Martin Facility:[facility] Start: 12-17-2022 End: 12-17-2022 Emergency department patient visit MD Jaymie Morris Work Phone: [facility]Emergency [facility] Work Phone: Start: 12-12-2022 End: 12-12-2022 Emergency department patient visit Feroz Skinner Facility:[facility] Start: 12-12-2022 End: 12-12-2022 Emergency department patient visit MD Jaymie Morris Work Phone: [facility]Emergency Room Work Phone: Start: 09-10-2022 End: 09-12-2022 Evaluation and management of inpatient MD Jaymie Morris Work Phone: [facility] Start: 08-13-2022 End: 08-13-2022 ambulatory MD Jaymie Morris Work Phone: [facility] Work Phone: Start: 08-13-2022 End: 08-13-2022 Departed Referred MD Jaymie Morris Work Phone: [facility] [place] Start: 06-24-2022 End: 06-24-2022 Patient encounter procedure MD Jaymie Morris Work Phone: [facility] [place] Start: 04-16-2022 End: 04-16-2022 Patient encounter procedure MD Jaymie Morris Work Phone: [facility]-Electrodiagnostics Start: 04-14-2022 End: 04-14-2022 Emergency department patient visit MD Jaymie Morris Work Phone: [facility]-Emergency Room Start: 09-01-2017 End: 09-01-2017 Ambulatory GILMER BENAVIDES [facility] Procedures Date Procedure Procedure Detail Performing Clinician Streptococcus agalactiae culture MD Jaymie Morris Work Phone: Urine culture MD Jaymie moreno Work Phone: Plan of Treatment Date Care Activity Detail Author Start: 09-05-2024 End: 09-05-2024 Patient encounter procedure 09/05/2024 9:45 AM EST Office Visit [facility] [address] [address] Ashley Watson DO [address] [place] [address] [facility] Start: 07-14-2024 End: 07-14-2024 Patient encounter procedure 07/14/2024 10:20 AM EDT Office Visit [facility] [address] [place] [id number] Preet Barrios MD [address] [place] [address] [facility] Start: 12-15-2023 End: 12-15-2023 Patient encounter procedure 12/15/2023 9:40 AM EDT Office Visit [facility] [address] [place] [id number] Jaymie Morris MD [address] [place] [address] [facility] Start: 12-09-2023 End: 12-09-2023 Patient encounter procedure 12/09/2023 10:00 AM EST Office Visit [facility] [address] [place] [address] [address] Ashley Watson, DO [address] [place] [address] [facility] Start: 09-12-2022 [facility] Start: 09-10-2022 [facility] Group B Streptococcu s Culture Group B Streptococcus Culture [facility] Patient Education [facility] Work Phone: Patient referral [facility] Work Phone: Immunizations Immunization Date Immunization Notes Care Provider Fa no 07-21-2023 influenza, injectabl e, quadrivalent, preservative free David Rayo MD, IBCLC Work Phone: [facility] 04-15-2023 SARS-COV-2 (COVID-19 ) vaccine, mRNA, spike protein, LNP, bivalent, preservative free, 30 mcg/0.3 mL dose, walt-sucrose formulation David Rayo MD, IBCLC Work Phone: [facility] 12-08-2019 tetanus toxoid, redu mishel diphtheria toxoid, and acellular pertussis vaccine, adsorbed MD Jaymie Morris Work Phone: [facility] 06-01-2017 meningococcal oligosaccharide (groups A, C, Y and W-135) diphtheria toxoid conjugate vaccine (MCV4O) David Rayo MD, IBCLC Work Phone: [facility] 07-15-2012 influenza, seasonal, injectable, preservative free David Rayo MD, IBCLC Work Phone: [facility] 07-15-2012 meningococcal polysaccharide (groups A, C, Y and W-135) diphtheria toxoid conjugate vaccine (MCV4P) David Rayo MD, IBCLC Work Phone: [facility] 07-15-2012 tetanus toxoid, redu mishel diphtheria toxoid, and acellular pertussis vaccine, adsorbed David Rayo MD, IBCLC Work Phone: [facility] 05-23-2004 diphtheria, tetanus toxoids and acellular pertussis vaccine David Rayo MD, IBCLC Work Phone: [facility] 05-23-2004 poliovirus vaccine, inactivated David Rayo MD, IBCLC Work Phone: [facility] 06-03-2001 measles, mumps and rubella virus vaccine David Rayo MD, IBCLC Work Phone: [facility] 06-03-2001 poliovirus vaccine, unspecified formulation David Rayo MD, IBCLC Work Phone: [facility] 06-03-2001 varicella virus vaccine Waldo Rayo MD, IBCLC Work Phone: [facility] 03-04-2001 hepatitis B vaccine, pediatric or pediatric/adolescent dosage David Rayo MD, IBCLC Work Phone: [facility] 06-04-2000 diphtheria, tetanus toxoids and acellular pertussis vaccine, unspecified formulation David Rayo MD, IBCLC Work Phone: [facility] 06-04-2000 haemophilus influenz ae type b vaccine, conjugate unspecified formulation David Rayo MD, IBCLC Work Phone: [facility] 06-04-2000 measles, mumps and rubella virus vaccine David Rayo MD, IBCLC Work Phone: [facility] 06-04-2000 varicella virus vaccine Waldo Rayo MD, IBCLC Work Phone: [facility] 1999 diphtheria, tetanus toxoids and acellular pertussis vaccine, unspecified formulation David Rayo MD, IBCLC Work Phone: [facility] 1999 haemophilus influenz ae type b vaccine, conjugate unspecified formulation David Rayo MD, IBCLC Work Phone: [facility] 1999 diphtheria, tetanus toxoids and acellular pertussis vaccine, unspecified formulation David Rayo MD, IBCLC Work Phone: [facility] 1999 haemophilus influenz ae type b vaccine, conjugate unspecified formulation David Rayo MD, IBCLC Work Phone: [facility] 1999 hepatitis B vaccine, pediatric or pediatric/adolescent dosage David Rayo MD, IBCLC Work Phone: [facility] 1999 poliovirus vaccine, unspecified formulation David Rayo MD, IBCLC Work Phone: [facility] 1999 diphtheria, tetanus toxoids and acellular pertussis vaccine, unspecified formulation David Rayo MD, IBCLC Work Phone: [facility] 1999 haemophilus influenz ae type b vaccine, conjugate unspecified formulation David Rayo MD, IBCLC Work Phone: [facility] 1999 hepatitis B vaccine, pediatric or pediatric/adolescent dosage David Rayo MD, IBCLC Work Phone: [facility] 1999 poliovirus vaccine, unspecified formulation David Rayo MD, IBCLC Work Phone: [facility] Payers Date Payer Category Payer Self-pay [id number] 2022 Medicaid [id number] 2022 Medicaid ANTHEM BCBS [facility] ANTH BCBS MEDICA[place] [id number] 2022-Present [address] [place] [address] [id number] 2020 Unknown [id number] 2010 Unknown BCBS BCBS [id number] [id number] 2010-Present [phone] [address] [place] [address] [id number] 1999 Unknown [id number] [id number] 1999 Unknown [id number] 2.16.840.1.290065.3.579.2.1259 1999 Unknown [id number] 2.16.840.1.373334.3.579.2.1259 1999 Unknown [id number] 2.16.840.1.035793.3.579.2.1259 1999 Unknown [id number] 2.16.840.1.285639.3.579.2.1259 1999 Unknown [id number] 2.16.840.1.410197.3.579.2.1259 1999 Unknown [id number] 2.16.840.1.119509.3.579.2.1259 1999 Unknown [id number] 2.16.840.1.301493.3.579.2.1259 1999 Unknown [id number] 2.16.840.1.876107.3.579.2.1259 1999 Unknown [id number] 2.16.840.1.683366.3.579.2.1259 1999 Unknown [id number] 2.16.840.1.837109.3.579.2.9 1999 Unknown [id number] [id number] 1959 Unknown [id number] Medicaid [employer] [id number] Medicaid [place] Advantage [id number] Unknown [id number] Unknown [id number] Unknown [id number] [id number] Unknown [id number] [id number] Unknown [id number] Social History Date Type Detail Facility Start: 04-14-2022 End: 12-17-2022 Tobacco smoking status NHIS Never smoked tobacco (finding) [facility] Start: 2000 Sex Assigned At Female [facility] Start: 03-27-2023 End: 11-10-2023 Sex Assigned At [facility] Start: 04-09-2023 Tobacco use and exposure Smokeless tobacco non-user [facility] Start: 10-28-2023 End: 11-14-2023 Alcohol intake Lifetime non-drinker (finding) [facility] Start: 03-27-2023 End: 11-10-2023 History of Social function [facility] Within the last year , have you been afraid of your partner or ex-partner? No [facility] How often do you att end meetings of the clubs or organizations you belong to? Patient refused [facility] Are you now , , , , never or living with a partner? Never [facility] How often to you hav e a drink containing alcohol? Never [facility] How hard is it for y ou to pay for the very basics like food, housing, medical care, and heating Not very hard [facility] Do you feel stress - tense, restless, nervous, or anxious, or unable to sleep at night because your mind is troubled all the time - these days [OSQ] To some extent [facility] (I/We) worried wheth er (my/our) food would run out before (I/we) got money to buy more. Never true [facility] Start: 07-15-2023 Education 13 [facility] Start: 07-15-2023 Alcohol Comment Caffeine intake: 1 cup coffee qd, soda 1 cup qd [facility] Start: 03-11-2023 Gender identity Identifies as female gender (finding) [facility] Start: 03-11-2023 Sexual orientation Heterosexual (finding) [facility] Goals Date Patient Goal Desired Activity /State Personal health goal Functional Status Date Assessment Result Facility 09-12-2022 Functional status Patient at Baseline [facility] Work Phone: Mental Status Date Assessment Result Facility 09-12-2022 Cognitive function Cognitive Sta tus Patient at Baseline [facility] Work Phone: History of Present illness Narrative 11-14-2023 CATRACHITA Oliver - 11/14/2023 1:40 PM EST Note Date & Type Note Facility 11-14-2023 History of Presen t illness Narrative HPI: Historian of HPI: patient Randal Redmond is a 23 y.o. female who presents today to the Urgent Care with the following ophthalmology complaints and denials which have been present for 1 day(s) and affecting bilateral eye(s) C/O Denies Symptom Comments [x] [] Red eye [] [x] Eye swelling [x] [] Eye itching [] [x] FB sensation [] [x] Blurry vision [] [x] Double vision [] [x] auras [x] [] drainage green [x] [] Crusting in the morning [] [x] Burning sensation [x] [] pain In eyes Additional Comments: pt has taken eye drops OTC medication without relief Pt c/o slight runny nose at this time and a sore throat a few days ago . These are getting better however. Current Outpatient Medications on File Prior to Visit Medication Sig Dispense Refill albuterol HFA 90 mcg/act inhaler Q6H hezlifatzi-rfhymcixcewsg-dqqxisgk (Fioricet) 50-300-40 MG capsule take 1 capsule by mouth every 4 hours if needed for 10 days cetirizine (ZyrTEC) 10 MG tablet Take 1 tablet (10 mg) by mouth in the morning. 90 tablet 1 EPINEPHrine (Epipen) 0.3 MG/0.3ML injection syringe Inject 0.3 mL (0.3 mg) as directed if needed for anaphylaxis. Call 911 after use. 2 each 1 fluocinolone (Synalar) 0.01 % external solution Apply topically 2 (two) times a day To affected scalp 60 mL 3 lamoTRIgine (LaMICtal) 25 MG tablet Take 2 tablets (50 mg) by mouth in the morning and 2 tablets (50 mg) before bedtime. 360 tablet 0 modafinil (Provigil) 200 MG tablet TAKE 0.5 - 1 TABLET BY MOUTH IN THE MORNING ONCE DAILY promethazine (Phenergan) 25 MG tablet take 1 tablet orally four times a day if needed for nausea and vomiting SUMAtriptan (Imitrex) 50 MG tablet take 1 tablet twice a day TAKE AT LEAST 2 HOURS BETWEEN DOSES NEEDED venlafaxine XR (Effexor XR) 150 MG 24 hr capsule Take 1 capsule (150 mg) by mouth in the morning. Do not crush or chew.. 90 capsule 0 hydrOXYzine HCl (Atarax) 25 MG tablet Take 1 tablet (25 mg) by mouth every 8 (eight) hours if needed for anxiety 30 tablet 1 [DISCONTINUED] norethindrone (Jencycla) 0.35 MG tablet take 1 tablet by mouth once daily 28 tablet 12 No current facility-administered medications on file prior to visit. Allergies Allergen Reactions Shellfish-Derived Products Anaphylaxis, Hives, Itching, Runny nose, Shortness of breath, Swelling, Unknown and Wheezing Apple (Diagnostic) Unknown Dog Epithelium Allergy Skin Test Unknown Iodine Unknown Kiwi Extract Dizziness, Itching, Runny nose, Swelling and Wheezing Macoupin Flavor Unknown Pollen Extract Unknown Social History Tobacco Use Smoking status: Never Smokeless tobacco: Never Substance Use Topics Alcohol use: Never Comment: Caffeine intake: 1 cup coffee qd, soda 1 cup qd Drug use: Never Family History Problem Relation Name Age of Onset Depression Mother Donna Allergies Mother Donna Mental illness Mother Donna Hypertension Mother Donna Hypertension Father shama Hypertension Maternal Grandfather Edgar Mental illness Maternal Grandfather Edgar Depression Maternal Grandfather Edgar Alcohol abuse Maternal Grandfather Edgar Stroke Paternal Grandmother Ivania Lung cancer Paternal Grandfather Shama Liver cancer Paternal Grandfather Shama Thyroid cancer Paternal Grandfather Shama Cancer Paternal Grandfather Shama Mental illness Sibling Depression Sibling Asthma Sibling Thyroid disease Father's Sister Multiple sclerosis Father's Brother Asthma Sister Lucrecia Drug abuse Sister Lucrecia Past Medical History: Diagnosis Date Anxiety Depression (CMS/HCC) Eczema Headache History of migraine with aura Narcolepsy (CMS/HCC) Pneumonia Seasonal allergies Past Surgical History: Procedure Laterality Date VAGINAL DELIVERY 2019 term VAGINAL DELIVERY 09/11/2022 Visit Vitals BP 110/70 Pulse 86 Temp 98 F Wt 168 lb LMP 10/20/2023 SpO2 99% BMI 26.31 kg/m OB Status Having periods Smoking Status Never BSA 1.9 m ROS: A complete system ROS was performed and negative aside from the pertinent positives noted in the HPI and PE. Physical Exam Constitutional: General: She is not in acute distress. Appearance: Normal appearance. She is well-developed. HENT: Head: Normocephalic and atraumatic. Nose: No congestion. Mouth/Throat: Mouth: Mucous membranes are moist. Pharynx: Posterior oropharyngeal erythema present. Comments: Erythema is mild Eyes: General: No scleral icterus. Right eye: No discharge. Left eye: No discharge. Extraocular Movements: Right eye: Normal extraocular motion. Left eye: Normal extraocular motion. Conjunctiva/sclera: Right eye: Right conjunctiva is injected. Left eye: Left conjunctiva is injected. Pupils: Pupils are equal, round, and reactive to light. Neck: Thyroid: No thyromegaly. Cardiovascular: Rate and Rhythm: Normal rate and regular rhythm. Heart sounds: Normal heart sounds. No murmur heard. Pulmonary: Effort: Pulmonary effort is normal. No respiratory distress. Breath sounds: Normal breath sounds. No wheezing, rhonchi or rales. Lymphadenopathy: Cervical: No cervical adenopathy. Skin: General: Skin is warm and dry. Neurological: General: No focal deficit present. Mental Status: She is alert and oriented to person, place, and time. Psychiatric: Mood and Affect: Mood normal. Behavior: Behavior normal. Assessment/Plan Diagnoses and all orders for this visit: Acute bacterial conjunctivitis of both eyes - ustcttbh-cqmygbuyy-whtWWCAZtiuxb (Maxitrol) 0.1 % ophthalmic suspension; Administer 1 drop into both eyes in the morning and 1 drop at noon and 1 drop in the evening and 1 drop before bedtime. Do all this for 7 days. Start above as directed. Advised is contagious for next two days. Wash hands frequently. Avoid touching eyes whenever possible. Complete all 7 days of using the drops. Encouraged patient to wash pillow case. If any worsening of symptoms or if patient develops vision loss, follow up with Ophthalmology. Otherwise follow up with PCP prn. URI symptoms are improving, likely viral. Stay hydrated and get plenty of rest. 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 (Mean sleep latency 3.5 minutes, 4 REM naps. She has clinical history of cataplexy, hypnagogic hallucinations, and sleep paralysis. She did have some clinical response to modafinil in the past although the anxiety side effects were enough that she stopped using the medication and was lost to follow up. She is now on refined medication for her anxiety and depression, and overall has better control so that we are hoping she may be able to use modafinil. We will try this agent again though if she has difficulty we will move on to other possibilities. We could consider Adderall if the anxiety and stimulation issues are not a problem though she may also prove intolerant of this agent given her other medical problems. I did discuss the availability of Sunosi and Wakix as well as advantages and disadvantages Oct, Generalized anxiety disorder (ICD-10 - F41.1) we will be cautious in using stimulants including modafinil. 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 These hallucinations do not pose direct problems for her, and neither does her sleep paralysis or cataplexy Oct, Bipolar 1 disorder (ICD-10 - F31.9) She denies past history of jimena or hypomania, but has had significant anxiety. We will need to be careful using stimulants and weight promoting agents to make sure that neither anxiety nor bipolar symptoms worsen with treatment [employer] Other Procedure note 09-11-2022 Note Date & Type Note Facility 09-11-2022 Procedure note [facility] Evaluation note Note Date & Type Note Facility Evaluation note No assessment information availa [facility] Work Phone: Evaluation note Note Date & Type Note Facility Evaluation note Diagnosis Acute bacterial conjunctivitis of both eyes- Primary documented in this encounter [facility] Healthcare History general Narrative - Reported Note Date & Type Note Facility History general Narrative - Reported Type Medical History Anxiety Medical History narcolepsy with cataplexy (2019, 4 REM naps) [facility] Other Hospital Discharge instructions Note Date & Type Note Facility Hospital Discharge instructions [facility] Work Phone: Summary Purpose Family History No Family History Records Found Relationship Condition Age at Onset Recorded Date/T adalberto Not Specified No pertinent family history Unknown Relationship Condition Age at Onset Recorded Date/T adalberto Not Specified No pertinent family history Unknown grandparent History of stroke Unknown Not Specified Hypertension Unknown Advance Directives No Advanced Directives Records Found Advance Directive Response Recorded Date/ Time Advance Directives No July 05, 2018 12:33pm Advance Directive Response Recorded Date/ Time Advance Directives No July 05, 2018 11:33am Chief Complaint and Reason for Visit Chief Complaint heart racing,trouble breathing tachycardia sob palpitations Z3A.27 Z13.1 Z29.13 Chief Complaint Z3A.27 Z13.1 Z29.13 35 weeks gestation of ; screenin Chief Complaint Z3A.27 Z13.1 Z29.13 Z3A.35 Z36.85 IUP (Intrauterine ) Chief Complaint sob cough runny nose Chief Complaint sob cough runny nose Migraine,vomiting Chief Complaint flu vaccine Chief Complaint g47.411 Chief Complaint g47.411 r63.5 g43.101 f41.9 Additional Source Comments INFORMATION SOURCE (unrecogn ized section and content) DATE CREATED AUTHOR 03/30/2018 [facility] DATE CREATED AUTHOR AUTHOR'S ORGANIZ ATION 12/25/2021 [facility] DATE CREATED AUTHOR AUTHOR'S ORGANIZ ATION 03/15/2023 [facility] DATE CREATED AUTHOR AUTHOR'S ORGANIZ ATION 12/02/2023 [facility] DATE CREATED AUTHOR AUTHOR'S ORGANIZ ATION 12/26/2023 [facility] EPIC Care Teams (unrecognized sec tion and content) Team Status: Inactive Member Role Status Dates Jaymie Morris MD Primary Care Provider, Attending Carlos Eduardo cabrera Active Team Status: Inactive Member Role Status Dates Jaymie Morris MD Primary Care Provider Active Ashley Watson DO Attending Provider Active Team Status: Inactive Member Role Status Dates Jaymie Morris MD Primary Care Provider Active Lissett Phoenix PA-C Emergency Provider Active Alcides Matthews DO RES Active Team Status: Active Member Role Status Dates Jaymie Morris MD Primary Care Provider Active Team Status: Inactive Member Role Status Dates Jaymie Morris MD Primary Care Provider Active Ashley Watson DO Admit Provider, Attending Provid er Active Team Status: Inactive Member Role Status Dates Jaymie Morris MD Primary Care Provider Active Feroz Skinner APRN Emergency Provider Active Team Status: Inactive Member Role Status Dates Jaymie Morris MD Primary Care Provider Active Michael Martin PA-C Emergency Provider Active Team Status: Inactive Member Role Status Dates Jaymie Morris MD Primary Care Provider Active Bay Reyes DO [facility] Attending Provider Active Team Status: Inactive Member Role Status Dates Jaymie Morris MD Primary Care Provider Active Start: October 27, 2023 End: October 27, 2023 Gilmer Mcgregor MD Attending Provider Active S tart: October 27, 2023 End: October 27, 2023 David Rayo MD Referring Provider Active Start: October 27, 2023 End: October 27, 2023 Body Former Relationship Specialty Start Date End Date Jaymie Morris MD [address] [place] [address] PCP - General Family Medicine 04/01/23 Body Former Relationship Specialty Start Date End Date Jaymie Morris MD [address] [place], [place] [id number] PCP - General Family Medicine 04/01/23 Team Status: Inactive Member Role Status Dates Gilmer Mcgregor MD Attending Provider Active S tart: October 27, 2023 End: October 27, 2023 Team Status: Inactive Member Role Status Dates Jaymie Morris MD Primary Care Provider Active Start: November 25, 2023 End: November 25, 2023 Govind Barry DO Attending Provider Active Start : November 25, 2023 End: November 25, 2023 Jaymie Morris MD Referring Provider Active St art: November 25, 2023 End: November 25, 2023 Goals (unrecognized section and content) Goals may be documented in a n alternate sectionGoals may be documented in an alternate sectionGoals may be documented in an alternate sectionGoals may be documented in an alternate sectionGoals may be documented in an alternate sectionNo InformationGoals may be documented in an alternate sectionGoals may be documented in an alternate section FOR RECORDS PERTAINING TO PATIENTS WHO ARE OR HAVE BEEN ENROLLED IN A CHEMICAL DEPENDENCY/SUBSTANCEABUSE PROGRAM, SOME INFORMATION MAY BE OMITTED. This clinical summary was aggregated from multiple sources. Caution should be exercised in using it in the provision of clinical care. This summary normalizes information from multiple sources, and as a consequence, information in this document may materially change the coding, format and clinical context of patient data. In addition, data may be omitted in some cases. CLINICAL DECISIONS SHOULD BE BASED ON THE PRIMARY CLINICAL RECORDS. [facility] [employer] [facility]. provides no warranty or guarantee of the accuracy or completeness of information in this document.
--- NOTE | 2024-01-01 02:06 | ED.EAR1 ---
HPI - Ear Problem General Chief complaint: Ear Stated complaint: L EARACHE Time Seen by Provider: 01/01/24 01:32 Source: patient Mode of arrival: walk-in Limitations: no limitations History of Present Illness HPI Narrative: This 23-year-old female presents for evaluation of left-sided ear pain and pressure. She has recently had upper respiratory symptoms with nasal congestion. She has not had a fever. She states that earlier this evening she started having some pain in the left ear and it became increasingly severe. She was laying on a heating pad and using Tylenol and Motrin for pain. She has not had any drainage from the ear. She denies any fever. She has no chest pain or shortness of breath. She denies the possibility of because she has an IUD. Related Data Home Medications ?Medication ?Instructions ?Recorded ?Confirmed cetirizine 10 mg tablet (24Hour 10 mg PO DAILY PRN allergy symptoms 10/08/23 01/01/24 Allergy) lamotrigine 100 mg tablet 50 mg PO BID 10/08/23 01/01/24 (Lamictal) norethindrone (contraceptive) 0.35 0.35 mg PO DAILY 10/08/23 01/01/24 mg tablet (Jencycla) venlafaxine 150 mg 150 mg PO DAILY 10/08/23 01/01/24 capsule,extended release 24 hr (Effexor XR) Previous Rx's ?Medication ?Instructions ?Recorded albuterol sulfate 90 mcg/actuation 2 inh inhalation Q4H PRN shortness 10/08/23 aerosol inhaler of breath or wheezing #8.5 grams azithromycin 250 mg tablet See Rx Instructions PO .COMPLEX #6 10/08/23 (Zithromax Z-Chad) tabs methylprednisolone 4 mg tablets in See Rx Instructions .Route 10/08/23 a dose pack (Medrol (Chad)) .COMPLEX #21 ea Allergies Allergy/AdvReac Type Severity Reaction Status Date / Time No Known Drug Allergies Allergy Verified 01/01/24 01:38 Review of Systems ROS Status of ROS 10 or more systems reviewed and unremarkable except as noted in history and below [facility] Social History Smoking status: Former smoker Exam Narrative Exam Narrative: Nurses note and vital signs reviewed and patient is not hypoxic. Pulse is elevated at 95 and blood pressure is elevated 140/95, she is not hypoxic General: Mildly uncomfortable appearing female resting comfortably on the stretcher, no respiratory distress Skin: Warm, dry, no pallor noted. There is no rash noted. Head: Normocephalic, atraumatic Eye: Normal conjunctiva, no drainage, EOMI. PERRL Ears, Nose, Mouth, and Throat: oral mucosa is moist. Nares patent. Mouth without vesicles. There is no tenderness to the external ear or mastoid. Left tympanic membrane is erythematous and bulging with an effusion. There is no exudate in the external ear canal, tympanic membrane is intact Cardiovascular: Regular Rate and Rhythm Respiratory: Patient is in no distress, no accessory muscle use, lungs are clear to auscultation, no wheezing, rales or rhonchi Neurological: A&O x4, normal speech Psychiatric: Cooperative Constitutional Vital Signs, click to edit/add: Last Vital Signs Temp 98.8 F 01/01/24 01:33 Pulse 95 H 01/01/24 01:33 Resp 16 01/01/24 01:33 BP 140/95 H 01/01/24 01:33 Pulse Ox 97 01/01/24 01:33 O2 Del Method Room Air 01/01/24 01:33 Course Vital Signs Vital signs: Vital Signs Temperature 98.8 F 01/01/24 01:33 Pulse Rate 95 H 01/01/24 01:33 Respiratory Rate 16 01/01/24 01:33 Blood Pressure 140/95 H 01/01/24 01:33 Pulse Oximetry 97 01/01/24 01:33 Oxygen Delivery Method Room Air 01/01/24 01:33 Temperature 98.8 F 01/01/24 01:33 Pulse Rate 95 H 01/01/24 01:33 Respiratory Rate 16 01/01/24 01:33 Blood Pressure 140/95 H 01/01/24 01:33 Pulse Oximetry 97 01/01/24 01:33 Oxygen Delivery Method Room Air 01/01/24 01:33 Medical Decision Making MDM Narrative Medical decision making narrative: Patient presents for evaluation of one day of left-sided ear pain after having upper respiratory symptoms recently. She has an effusion and acute otitis media of the left ear. There is no sign of otitis externa. She has no tenderness of the external ear canal or mastoid. She declines the need for anything strong for pain and had been using Tylenol and Motrin and heat at home. She was medicated emergency department with amoxicillin be discharged home with a prescription for amoxicillin. Discharge Plan Discharge Stand Alone Forms: Portal Instructions Chief Complaint: Ear Clinical Impression: Otitis media Patient Disposition: Home, Self-Care Time of Disposition Decision: 02:05 Condition: Good Prescriptions / Home Meds: No Action lamotrigine [Lamictal] 100 mg tablet 50 mg PO BID venlafaxine [Effexor XR] 150 mg capsule,extended release 24hr 150 mg PO DAILY norethindrone (contraceptive) [Jencycla] 0.35 mg tablet 0.35 mg PO DAILY cetirizine [24Hour Allergy] 10 mg tablet 10 mg PO DAILY PRN (Reason: allergy symptoms) Patient Comments: TAKES DAILY azithromycin [Zithromax Z-Chad] 250 mg tablet See Rx Instructions .ROUTE .COMPLEX Qty: 6 0RF Rx Instructions: For 250 mg dose pack: take 500 mg today (day 1), then 250 mg for 4 days (days 2-5) methylprednisolone [Medrol (Chad)] 4 mg tablets,dose pack See Rx Instructions .ROUTE .COMPLEX Qty: 21 0RF Rx Instructions: Taper as directed albuterol sulfate 90 mcg/actuation HFA aerosol inhaler 2 inh inhalation Q4H PRN (Reason: shortness of breath or wheezing) Qty: 8.5 0RF Print Language: Faroese Instructions: Ear Infection (ED) Referrals: Physician,Non-Staff, MD [Primary Care Provider] - 1 week
[2024-01-01] MEDS: AMOXICILLIN 500 MG CAPSULE PO (02:15)
== END 2024-01-01 02:20 | disposition home or self-care (01) ==
PROVIDERS: Emergency Provider Emergency Medicine
DX: H65.192 Other acute nonsuppurative otitis media, left ear (principal); Z97.5 Presence of (intrauterine) contraceptive device; Z79.899 Other long term (current) drug therapy; Z87.891 Personal history of nicotine dependence
CPT/HCPCS: 99283

== ENCOUNTER 2024-01-03 14:35 | Emergency (ER) | payer BC, MEDICAID, SELFPAY ==
--- OUTSIDE RECORDS SUMMARY | 2024-01-03 14:43 | XMS_ITS | CCD ---
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 Name Role Phone GILMER BENAVIDES Unavailable Unavailable GILMER BENAVIDES Unavailable Unavailable MD Jaymie Morris Primary Care Provider TUAN [place] Emergency Provider MD Jaymie Morris Attending Provider DO Ashley Watson Attending Provider [phone] MD Jaymie Morris Primary Care Provider DO Ashley Watson Attending Provider DO Ashley Watson Admit Provider MD Jaymie Morris Primary Care Provider JOHNSON Skinner Emergency Provider MD Jaymie Morris Primary Care Provider JOHNSON Skinner Emergency Provider TUAN Martin Emergency Provider DR SAYRA AUGUSTIN Primary Care Unavailable SCOTT WILKINSON Attending Unavailable SCOTT WILKINSON Consulting Unavailable SCOTT WILKINSON Admitting Unavailable MD Jaymie Morris Primary Care Provider DO Bay Reyes Attending Provider Gilmer Mcgregor Unavailable MD Jaymie Morris Primary Care Provider MD Gilmer Mcgregor Attending Provider MD David Rayo Referring Provider [phone] Jaymie Morris MD Primary Care Provider [phone] DO Govind Barry Attending Provider [phone] MD Jaymie Morris Referring Provider [phone] Jaymie Morris Referring Unavailable Govind Barry Admitting [...] Mcgregor Admitting Unavailable Gilmer Mcgregor Attending Unavailable Alexander, David Referring Unavailable Ketvertis, Jaymie Primary Care [...] Iodine; Translations: [iodine] Drug Allergy 2 Unknown [facility] (9 sources) Shellfish; Translations: [shellfish derived] Allergy to substance 2 Swelling of Lip/Tongue/Thr oat [facility] (1 source) Shellfish Propensity to adverse reactions Unknown [facility] Other (2 sources) Apple extract Drug Allergy 3 Unknown [facility] (2 sources) Kiwi fruit Propensity to adverse reactions 3 Dizziness, Itching, Runny nose, Swelling, Wheezing [facility] (2 sources) Pollen Allergy to substance 3 Unknown [facility] (2 sources) Dog Epithelium Allergy Skin Test Allergy to substance 3 Unknown [facility] (2 sources) [place] Flavor Allergy to substance 3 Unknown [facility] [...] capsule by mo uth every four hours loeayysqto-cvinmujghrmog-aebrtdlg (Jamari cet) 50-300-40 MG capsule take 1 capsule by mouth every 4 hours if needed for 10 days 0 Active [id number] 200 actuat albuterol 0.09 mg/actuat metered dose [...] / neomycin 3.5 mg/ml / polymyxin b [id number] unt/ml ophthalmic suspension (1 source) Aminoglycoside Antibacterial, [...] days. 5 mL 0 11/14/2023 11/21/2023 Active [id number] 0.3 ml EPINEPHrine 1 mg/ml auto-injector (2 [...] mg/ml extended release suspension (8 sources) Uncompetitive Y-mwiake-E-asparta te Receptor Antagonist, Sigma-1 Agonist Start: 07-05-2018 [...] 2018 11:00pm July 09, 2018 11:01pm Vit 92-Xymt-Qvsyr-Dha ( + Dha) 28 mg iron- 975 mcg-200 mg Combo Pack (8 sources) Start: 11-29-2019 End: 12-12-2022 take 1 tablet by mouth once daily Vit 20-Dyls-Qcbph-Dha ( + Dha) 28 mg iron- 975 mcg-200 mg Combo Pack Discontinued 0 .ROUTE .COMPLEX November 29, 2019 1:00am December 12, 2022 1:42pm 1 TABLET PO DAILY Start: 11-29-2019 End: 12-12-2022 take 1 tablet by mouth once daily Vit 15-Hgzz-Xhqev-Dha ( + Dha) 28 mg iron- 975 mcg-200 mg Combo Pack Discontinued 0 .ROUTE .COMPLEX November 29, 2019 12:00am December 12, 2022 12:42pm 1 TABLET PO DAILY Start: 11-29-2019 take 1 tablet by julio th once daily Vit 38-Lvho-Ytltx-Dha ( + Dha) 28 mg iron- 975 mcg-200 mg Combo Pack Active 0 .ROUTE .COMPLEX November 29, 2019 12:00am 1 TABLET PO DAILY Start: 11-29-2019 take 1 tablet by julio th once daily Vit 21-Orfl-Cdcvp-Dha ( + Dha) 28 mg iron- 975 [...] 11-25-2023 ALT [Catalytic activity/Vol] 11 U/L 7-52 [facility] Albumin [Mass/volume] in Ser um or Plasma by Bromocresol green (BCG) dye binding methoOrdered By: Govind Barry on 11-25-2023 Albumin BCG dye [Mass/Vol] 4.7 g/dL 3.5-5.7 [facility] Alkaline phosphatase [Enzyma tic activity/volume] in Serum or PlasmaOrdered By: Govind Barry on 11-25-2023 ALP [Catalytic activity/Vol] 82 U/L 34-104 [facility] Aspartate aminotransferase [ Enzymatic activity/volume] in Serum or PlasmaOrdered By: Govind Barry on 11-25-2023 AST [Catalytic activity/Vol] 16 U/L 13-39 [facility] Basophils Auto (Bld) [#/Vol] Ordered By: Govind Barry on 11-25-2023 Basophils (Bld) [#/Vol] 0.1 10*3/uL 0.0-0.2 [facility] Basophils/100 WBC Auto (Bld) Ordered By: Govind Barry on 11-25-2023 Basophils/100 WBC (Bld) 0.6 % . [facility] [place] Bilirubin.total [Mass/volume ] in Serum or PlasmaOrdered By: Govind Barry on 11-25-2023 Bilirubin [Mass/Vol] 0.5 mg/dL 0.3-1.0 [facility] Calcium [Mass/volume] in Ser um or PlasmaOrdered By: Govind Barry on 11-25-2023 Calcium [Mass/Vol] 9.7 mg/dL 8.6-10.3 [facility] Carbon dioxide, total [Moles /volume] in Serum or PlasmaOrdered By: Govind Barry on 11-25-2023 CO2 [Moles/Vol] 27.5 mmol/L 21.0-31.0 [facility] Chloride [Moles/volume] in S alessandra or PlasmaOrdered By: Govind Barry on 11-25-2023 Chloride [Moles/Vol] 105 mmol/L 98-107 [facility] Complete Blood Count Auto Di ffon 11-25-2023 Basophils (Bld) [#/Vol] 0.1 10*3/uL Normal 0.0-0.2 [facility] Comment on above: Result Comment: PERF ORMED BY: [place] [address] PATHOLOGIST PRISM INSPECTOR MELCHOR MORALES M.D. Performed By: #### C BC, CMP, TSH3 wRFLX #### [address] Basophils/100 WBC (Bld) 0.6 % Normal . [facility] [place] Comment on above: Performed By: #### C BC, CMP, TSH3 wRFLX #### [address] Eosinophils (Bld) [#/Vol] 0.2 10*3/uL Normal 0.0-0.45 [facility] Comment on above: Performed By: #### C BC, CMP, TSH3 wRFLX #### [address] Eosinophils/100 WBC (Bld) 1.6 % Normal . [facility] Comment on above: Performed By: #### C BC, CMP, TSH3 wRFLX #### [address] Erythrocyte distribution width (RBC) [Ratio] 12.5 % Normal 11.9-15.3 [facility] Comment on above: Performed By: #### C BC, CMP, TSH3 wRFLX #### [address] Hematocrit (Bld) [Volume fraction] 41.4 % Normal 34.0-46.4 [facility] Comment on above: Performed By: #### C BC, CMP, TSH3 wRFLX #### [address] Hemoglobin (Bld) [Mass/Vol] 14.2 g/dL Normal 11.8-15.4 [facility] Comment on above: Performed By: #### C BC, CMP, TSH3 wRFLX #### [address] [place] [address] [place] Lymphocytes (Bld) [#/Vol] 1.7 10*3/uL Normal 1.00-4.8 [facility] Comment on above: Performed By: #### C BC, CMP, TSH3 wRFLX #### [facility] [address] Lymphocytes/100 WBC (Bld) 16.7 % Normal . [facility] Comment on above: Performed By: #### C BC, CMP, TSH3 wRFLX #### [address] MCH (RBC) [Entitic mass] 30.2 pg Normal 24.7-34.3 [facility] Comment on above: Performed By: #### C BC, CMP, TSH3 wRFLX #### [address] MCV (RBC) [Entitic vol] 87.9 fL Normal 80-100 [facility] [place] Comment on above: Performed By: #### C BC, CMP, TSH3 wRFLX #### [address] Mean Corpuscular HGB Conc 34.4 g/dL Normal 32.0-35.0 [facility] Comment on above: Performed By: #### C BC, CMP, TSH3 wRFLX #### [place] [address] [place] Monocytes (Bld) [#/Vol] 0.5 10*3/uL Normal 0.0-0.8 [facility] Comment on above: Performed By: #### C BC, CMP, TSH3 wRFLX #### [place] [address] [place] Monocytes/100 WBC (Bld) 5.4 % Normal . [facility] [place] Comment on above: Performed By: #### C BC, CMP, TSH3 wRFLX #### [facility] [address] [place] [address] [place] Neutrophils (Bld) [#/Vol] 7.5 10*3/uL Normal 1.8-7.7 [facility] Comment on above: Performed By: #### C BC, CMP, TSH3 wRFLX #### [facility] [address] [place] [address] Neutrophils/100 WBC (Bld) 75.7 % Normal . [facility] Comment on above: Performed By: #### C BC, CMP, TSH3 wRFLX #### [facility] [address] [place] [address] NRBC% 0.1 /100{WBC} Normal 0-0.5 [facility] Comment on above: Performed By: #### C BC, CMP, TSH3 wRFLX #### [address] Platelet mean volume (Bld) [Entitic vol] 8.8 fL Normal 6.3-10.7 [facility] Comment on above: Performed By: #### C BC, CMP, TSH3 wRFLX #### [address] Platelets (Bld) [#/Vol] 301 10*3/uL Normal 150-450 [facility] Comment on above: Performed By: #### C BC, CMP, TSH3 wRFLX #### [address] RBC (Bld) [#/Vol] 4.71 10*6/uL Normal 3.60-5.00 [facility] Comment on above: Performed By: #### C BC, CMP, TSH3 wRFLX #### [address] WBC (Bld) [#/Vol] 10.0 10*3/uL Normal 3.8-11.6 [facility] Comment on above: Performed By: #### C BC, CMP, TSH3 wRFLX #### [address] Comprehensive Metabolic Pane dale 11-25-2023 Albumin [Mass/Vol] 4.7 g/dL Normal 3.5-5.7 [facility] Comment on above: Performed By: #### C BC, CMP, TSH3 wRFLX #### [facility] [address] [place] [address] Albumin/Globulin [Mass ratio] 1.9 {ratio} Normal [facility] Comment on above: Performed By: #### C BC, CMP, TSH3 wRFLX #### [facility] [address] [place] [address] ALP [Catalytic activity/Vol] 82 U/L Normal 34-104 [facility] Comment on above: Performed By: #### C BC, CMP, TSH3 wRFLX #### [facility] [address] [place] [address] ALT [Catalytic activity/Vol] 11 U/L Normal 7-52 [facility] Comment on above: Performed By: #### C BC, CMP, TSH3 wRFLX #### [facility] [address] [place] [address] Anion gap [Moles/Vol] 10.7 mmol/L Normal 6.0-15.0 [facility] Comment on above: Performed By: #### C BC, CMP, TSH3 wRFLX #### [address] AST [Catalytic activity/Vol] 16 U/L Normal 13-39 [facility] Comment on above: Performed By: #### C BC, CMP, TSH3 wRFLX #### [facility] [address] [place] [address] [place] Bilirubin [Mass/Vol] 0.5 mg/dL Normal 0.3-1.0 [facility] Comment on above: Performed By: #### C BC, CMP, TSH3 wRFLX #### [facility] [address] [place] [address] Calcium [Mass/Vol] 9.7 mg/dL Normal 8.6-10.3 [facility] Comment on above: Performed By: #### C BC, CMP, TSH3 wRFLX #### [place] [address] [place] Chloride [Moles/Vol] 105 mmol/L Normal 98-107 [facility] Comment on above: Performed By: #### C DONN ARREDONDO, TSH3 wRFLX #### [facility] [address] CO2 [Moles/Vol] 27.5 mmol/L Normal 21.0-31.0 [facility] Comment on above: Performed By: #### C DONN ARREDONDO, TSH3 wRFLX #### [facility] [address] Creatinine [Mass/Vol] 0.76 mg/dL Normal 0.60-1.20 [facility] Comment on above: Performed By: #### C DONN ARREDONDO, TSH3 wRFLX #### [facility] [address] [place] [address] [place] GFR/1.73 sq M.predicted MDRD (S/P/Bld) [Vol rate/Area] mL/min/{1.73_m2} Normal [facility] Comment on above: Performed By: #### C DONN ARREDONDO, TSH3 wRFLX #### [facility] [address] Globulin (S) [Mass/Vol] 2.5 g/dL Normal [facility] Comment on above: Performed By: #### C DONN ARREDONDO, TSH3 wRFLX #### [address] Glucose [Mass/Vol] 85 mg/dL Normal 70-100 [facility] Comment on above: Result Comment: Sentinel Glucose Reference Range is dependent on time and content of last meal. Glucose of more than 200 mg/dL in a nonstressed, ambulatory subject supports the diagnosis of Diabetes Mellitus. ADA recommended reference range Performed By: #### C BCDONN, TSH3 wRFLX #### [facility] [address] Potassium [Moles/Vol] 4.2 mmol/L Normal 3.5-5.1 [facility] Comment on above: Performed By: #### C BCDONN, TSH3 wRFLX #### [facility] [address] [place] [id number] [place] Protein [Mass/Vol] 7.2 g/dL Normal 6.4-8.9 [facility] Comment on above: Performed By: #### C BC, CMP, TSH3 wRFLX #### [facility] [address] [place] [id number] [place] Sodium [Moles/Vol] 139 mmol/L Normal 136-145 [facility] Comment on above: Performed By: #### C BC, CMP, TSH3 wRFLX #### [facility] [address] [place] [id number] [place] Urea nitrogen [Mass/Vol] 11 mg/dL Normal 7-25 [facility] Comment on above: Performed By: #### C BC, CMP, TSH3 wRFLX #### [facility] [address] [place] [address] [place] Creatinine [Mass/volume] in Serum or PlasmaOrdered By: Govind Barry on 11-25-2023 Creatinine [Mass/Vol] 0.76 mg/dL 0.60-1.20 [facility] Eosinophils Auto (Bld) [#/Vo l]Ordered By: Govind Barry on 11-25-2023 Eosinophils (Bld) [#/Vol] 0.2 10*3/uL 0.0-0.45 [facility] Eosinophils/100 WBC Auto (Bl d)Ordered By: Govind Barry on 11-25-2023 Eosinophils/100 WBC (Bld) 1.6 % . [facility] Erythrocyte distribution wid th Auto (RBC) [Ratio]Ordered By: Govind Barry on 11-25-2023 Erythrocyte distribution width (RBC) [Ratio] 12.5 % 11.9-15.3 [facility] Globulin Calc (S) [Mass/Vol] Ordered By: Govind Barry on 11-25-2023 Globulin (S) [Mass/Vol] 2.5 g/dL [facility] Glucose [Mass/volume] in Ser um or PlasmaOrdered By: Govind Barry on 11-25-2023 Glucose [Mass/Vol] 85 mg/dL 70-100 [facility] Comment on above: ADA recommended refe rence rangeRandom Glucose Reference Range is dependent on time and content of last meal. Glucose of more than 200 mg/dL in a nonstressed, ambulatory subject supports the diagnosis of Diabetes Mellitus. Hematocrit Auto (Bld) [Volum e fraction]Ordered By: Govind Barry on 11-25-2023 Hematocrit (Bld) [Volume fraction] 41.4 % 34.0-46.4 [facility] Hemoglobin [Mass/volume] in BloodOrdered By: Govind Brary on 11-25-2023 Hemoglobin (Bld) [Mass/Vol] 14.2 g/dL 11.8-15.4 [facility] Leukocytes [#/volume] correc jessica for nucleated erythrocytes in Blood by Automated counOrdered By: Govind Barry on 11-25-2023 WBC corrected for nucl RBC Auto (Bld) [#/Vol] 10.0 10*3/uL 3.8-11.6 [facility] Lymphocytes Auto (Bld) [#/Vo l]Ordered By: Govind Barry on 11-25-2023 Lymphocytes (Bld) [#/Vol] 1.7 10*3/uL 1.00-4.8 [facility] Lymphocytes/100 WBC Auto (Bl d)Ordered By: Govind Barry on 11-25-2023 Lymphocytes/100 WBC (Bld) 16.7 % . [facility] MCH Auto (RBC) [Entitic mass ]Ordered By: Govind Barry on 11-25-2023 MCH (RBC) [Entitic mass] 30.2 pg 24.7-34.3 [facility] MCHC Auto (RBC) [Mass/Vol]Or dered By: Govind Barry on 11-25-2023 MCHC (RBC) [Mass/Vol] 34.4 g/dL 32.0-35.0 [facility] MCV Auto (RBC) [Entitic vol] Ordered By: Govind Barry on 11-25-2023 MCV (RBC) [Entitic vol] 87.9 fL 80-100 [facility] [place] Monocytes Auto (Bld) [#/Vol] Ordered By: Govind Barry on 11-25-2023 Monocytes (Bld) [#/Vol] 0.5 10*3/uL 0.0-0.8 [facility] Monocytes/100 WBC Auto (Bld) Ordered By: Govind Barry on 11-25-2023 Monocytes/100 WBC (Bld) 5.4 % . [facility] [place] Neutrophils Auto (Bld) [#/Vo l]Ordered By: Govind Barry on 11-25-2023 Neutrophils (Bld) [#/Vol] 7.5 10*3/uL 1.8-7.7 [facility] Neutrophils/100 WBC Auto (Bl d)Ordered By: Govind Barry on 11-25-2023 Neutrophils/100 WBC (Bld) 75.7 % . [facility] No Panel InformationOrdered By: Govind Barry on 11-25-2023 Estimated GFR (CKD-EPI) > 60.0 mL/Min [facility] Creatinine Clearance (Chem N/A [facility] Nucleated erythrocytes [Pres ence] in Blood by Automated countOrdered By: Govind Barry on 11-25-2023 Nucleated RBC Auto Ql (Bld) 0.1 /100{WBC} 0-0.5 [facility] Platelet mean volume Auto (B ld) [Entitic vol]Ordered By: Govind Barry on 11-25-2023 Platelet mean volume (Bld) [Entitic vol] 8.8 fL 6.3-10.7 [facility] Platelets Auto (Bld) [#/Vol] Ordered By: Govind Barry on 11-25-2023 Platelets (Bld) [#/Vol] 301 10*3/uL 150-450 [facility] Potassium [Moles/volume] in Serum or PlasmaOrdered By: Govind Barry on 11-25-2023 Potassium [Moles/Vol] 4.2 mmol/L 3.5-5.1 [facility] Protein [Mass/volume] in Ser um or PlasmaOrdered By: Govind Barry on 11-25-2023 Protein [Mass/Vol] 7.2 g/dL 6.4-8.9 [facility] RBC Auto (Bld) [#/Vol]Ordere d By: Govind Barry on 11-25-2023 RBC (Bld) [#/Vol] 4.71 10*6/uL 3.60-5.00 [facility] Serum or plasma albumin/glob ulin mass ratioOrdered By: Govind Barry on 11-25-2023 Albumin/Globulin [Mass ratio] 1.9 {ratio} [facility] Serum or plasma anion gap de terminationOrdered By: Govind Barry on 11-25-2023 Anion gap [Moles/Vol] 10.7 mmol/L 6.0-15.0 [facility] Sodium [Moles/volume] in Ser um or PlasmaOrdered By: Govind Barry on 11-25-2023 Sodium [Moles/Vol] 139 mmol/L 136-145 [facility] Thyroid Stim Hormone w/Rflxo n 11-25-2023 Thyroid Stim Hormone w/Rflx 1.83 u[iU]/mL Normal 0.45-5.33 [facility] Comment on above: Result Comment: PERF ORMED BY: [place] [address] PATHOLOGIST PRISM INSPECTOR MELCHOR MORAELS M.D. Performed By: #### C BC, CMP, TSH3 wRFLX #### [facility] [address] [place] [address] Thyrotropin [Units/volume] i n Serum or PlasmaOrdered By: Govind Barry on 11-25-2023 TSH Qn 1.83 m[IU]/L 0.45-5.33 [facility] Urea nitrogen [Mass/volume] in Serum or PlasmaOrdered By: Govind Barry on 11-25-2023 Urea nitrogen [Mass/Vol] 11 mg/dL 7-25 [facility] WBC Auto (Bld) [#/Vol]Ordere d By: Govind Barry on 11-25-2023 WBC (Bld) [#/Vol] 10.0 10*3/uL 3.8-11.6 [facility] Anisocytosis LM Ql (Bld)Orde red By: ASHLEY WATSON on 09-12-2022 Anisocytosis Ql (Bld) Moderate [facility] Basophils Auto (Bld) [#/Vol] Ordered By: ASHLEY WATSON on 09-12-2022 Basophils (Bld) [#/Vol] 0.1 10*3/uL 0.0-0.2 [facility] Basophils/100 WBC Auto (Bld) Ordered By: ASHLEY WATSON on 09-12-2022 Basophils/100 WBC (Bld) 0.7 % . [facility] [place] Eosinophils Auto (Bld) [#/Vo l]Ordered By: ASHLEY WATSON on 09-12-2022 Eosinophils (Bld) [#/Vol] 0.2 10*3/uL 0.0-0.45 [facility] Eosinophils/100 WBC Auto (Bl d)Ordered By: ASHLEY WATSON on 09-12-2022 Eosinophils/100 WBC (Bld) 1.7 % . [facility] Erythrocyte distribution wid th Auto (RBC) [Ratio]Ordered By: ASHLEY WATSON on 09-12-2022 Erythrocyte distribution width (RBC) [Ratio] 14.4 % 11.9-15.3 [facility] Hematocrit Auto (Bld) [Volum e fraction]Ordered By: ASHLEY WATSON on 09-12-2022 Hematocrit (Bld) [Volume fraction] 29.2 % 34.0-46.4 [facility] Hemoglobin [Mass/volume] in BloodOrdered By: ASHLEY WATSON on 09-12-2022 Hemoglobin (Bld) [Mass/Vol] 9.6 g/dL 11.8-15.4 [facility] Hypochromia LM Ql (Bld)Order ed By: ASHLEY WATSON on 09-12-2022 Hypochromia Ql (Bld) Slight [facility] Leukocytes [#/volume] correc jessica for nucleated erythrocytes in Blood by Automated counOrdered By: ASHLEY WATSON on 09-12-2022 WBC corrected for nucl RBC Auto (Bld) [#/Vol] 12.2 10*3/uL 3.8-11.6 [facility] Lymphocytes Auto (Bld) [#/Vo l]Ordered By: ASHLEY WATSON on 09-12-2022 Lymphocytes (Bld) [#/Vol] 2.9 10*3/uL 1.00-4.8 [facility] Lymphocytes/100 WBC Auto (Bl d)Ordered By: ASHLEY WATSON on 09-12-2022 Lymphocytes/100 WBC (Bld) 23.6 % . [facility] MCH Auto (RBC) [Entitic mass ]Ordered By: ASHLEY WATSON on 09-12-2022 MCH (RBC) [Entitic mass] 25.5 pg 24.7-34.3 [facility] MCHC Auto (RBC) [Mass/Vol]Or dered By: ASHLEY WATSON on 09-12-2022 MCHC (RBC) [Mass/Vol] 32.8 g/dL 32.0-35.0 [facility] MCV Auto (RBC) [Entitic vol] Ordered By: ASHLEY WATSON on 09-12-2022 MCV (RBC) [Entitic vol] 77.6 fL 80-100 [facility] [place] Microcytes LM Ql (Bld)Ordere d By: ASHLEY WATSON on 09-12-2022 Microcytes Ql (Bld) Moderate [facility] Monocytes Auto (Bld) [#/Vol] Ordered By: ASHLEY WATSON on 09-12-2022 Monocytes (Bld) [#/Vol] 0.8 10*3/uL 0.0-0.8 [facility] Monocytes/100 WBC Auto (Bld) Ordered By: ASHLEY WATSON on 09-12-2022 Monocytes/100 WBC (Bld) 6.2 % . [facility] [place] Neutrophils Auto (Bld) [#/Vo l]Ordered By: ASHLEY WATSON on 09-12-2022 Neutrophils (Bld) [#/Vol] 8.3 10*3/uL 1.8-7.7 [facility] Neutrophils/100 WBC Auto (Bl d)Ordered By: ASHLEY WATSON on 09-12-2022 Neutrophils/100 WBC (Bld) 67.8 % . [facility] Nucleated erythrocytes [Pres ence] in Blood by Automated countOrdered By: ASHLEY WATSON on 09-12-2022 Nucleated RBC Auto Ql (Bld) 0.0 /100{WBC} 0-0.5 [facility] Platelet adequacy [Presence] in Blood by Light microscopyOrdered By: ASHLEY WATSON on 09-12-2022 Platelets LM Ql (Bld) Decreased Normal [facility] Platelet mean volume Auto (B ld) [Entitic vol]Ordered By: ASHLEY WATSON on 09-12-2022 Platelet mean volume (Bld) [Entitic vol] 10.7 fL 6.3-10.7 [facility] Platelet morphology finding [Identifier] in BloodOrdered By: ASHLEY WATSON on 09-12-2022 Platelet morphology finding Nom (Bld) N/A [facility] Platelets Auto (Bld) [#/Vol] Ordered By: ASHLEY WATSON on 09-12-2022 Platelets (Bld) [#/Vol] 127 10*3/uL 150-450 [facility] Platelets Large [Presence] i n Blood by Light microscopyOrdered By: ASHLEY WATSON on 09-12-2022 Platelets Large LM Ql (Bld) Marked [facility] Polychromasia [Presence] in Blood by Light microscopyOrdered By: ASHLEY WATSON on 09-12-2022 Polychromasia LM Ql (Bld) Moderate [facility] RBC Auto (Bld) [#/Vol]Ordere d By: ASHLEY WATSON on 09-12-2022 RBC (Bld) [#/Vol] 3.76 10*6/uL 3.60-5.00 [facility] RBC morphologyOrdered By: ROSEANNE WATSON on 09-12-2022 RBC morphology finding Nom (Bld) N/A [facility] Urine culture routineOrdered By: ASHLEY WATSON on 09-12-2022 Bacteria identified Cx Nom (U) Carol Ann albicans [facility] WBC Auto (Bld) [#/Vol]Ordere d By: ASHLEY WATSON on 09-12-2022 WBC (Bld) [#/Vol] 12.2 10*3/uL 3.8-11.6 [facility] Amphetamine Screen Ql (U)Ord ered By: ASHLEY WATSON on 09-10-2022 Amphetamines Ql (U) Negative Negative [facility] Automated erythrocytes count in urine sediment (number/area)Ordered By: ASHLEY WATSON on 09-10-2022 RBC Auto (Urine sed) [#/Area] None seen [HPF] 0-4 [facility] Automated leukocytes count i n urine sediment (number/area)Ordered By: ASHLEY WATSON on 09-10-2022 WBC Auto (Urine sed) [#/Area] 10-19 [HPF] 0-4 [facility] Barbiturates [Presence] in U rineOrdered By: ASHLEY WATSON on 09-10-2022 Barbiturates Ql (U) Negative Negative [facility] Benzodiazepines [Presence] i n UrineOrdered By: ASHLEY WATSON on 09-10-2022 Benzodiazepines Ql (U) Negative Negative [facility] Bilirubin Test strip Ql (U)O rdered By: ASHLEY WATSON on 09-10-2022 Bilirubin Ql (U) Negative Negative [facility] Color Auto (U)Ordered By: ROSEANNE WATSON on 09-10-2022 Color (U) Yellow Yellow [facility] Ketones Auto test strip (U) [Mass/Vol]Ordered By: ASHLEY WATSON on 09-10-2022 Ketones (U) [Mass/Vol] Negative Negative [facility] - Drug toxicology Ordered By: ASHLEY WATSON on 09-10-2022 Opiates Ql (U) Negative Negative [facility] - UrinalysisOrder ed By: ASHLEY WATSON on 09-10-2022 Hyaline casts LM Ql (Urine sed) 0-8 [LPF] 0-8 [facility] Macrocytes LM Ql (Bld)Ordere d By: ASHLEY WATSON on 09-10-2022 Macrocytes Ql (Bld) Slight [facility] Nitrite Test strip Ql (U)Ord ered By: ASHLEY WATSON on 09-10-2022 Nitrite Ql (U) Negative Negative [facility] Phencyclidine Screen Ql (U)O rdered By: ASHLEY WATSON on 09-10-2022 Phencyclidine Ql (U) Negative Negative [facility] Comment on above: These are unconfirme d results and should not be used for legal purposes. Drug Cut-Off Concentration: AMPH 1000 ng/mL YOSEF 200 ng/mL JARAD 200 ng/mL COCM 300 ng/mL OP 300 ng/mL PCP 25 ng/mL Poikilocytosis [Presence] in Blood by Light microscopyOrdered By: ASHLEY WATSON on 09-10-2022 Poikilocytosis LM Ql (Bld) Slight [facility] Protein Auto test strip (U) [Mass/Vol]Ordered By: ASHLEY WATSON on 09-10-2022 Protein (U) [Mass/Vol] Trace mg/dL Negative F [facility] [place] Reagin Ab [Presence] in Seru m by RPROrdered By: ASHLEY WATSON on 09-10-2022 Reagin Ab RPR Ql (S) Non-Reactive Non Reactive [facility] Comment on above: Performed at: [address] Director: Mook Hawthorne PhD, Phone: [phone] Specific gravity Auto test s trip (U) [Rel density]Ordered By: ASHLEY WATSON on 09-10-2022 Specific gravity (U) [Rel density] 1.016 1.001-1.030 [facility] Squamous epithelial cells de tection in urine sediment by light microscopyOrdered By: ASHLEY WATSON on 09-10-2022 Epithelial cells.squamous LM Ql (Urine sed) 10-19 [HPF] 0-2 [facility] Urine bacteria detection by automated methodOrdered By: ASHLEY WATSON on 09-10-2022 Bacteria Auto Ql (U) None seen None Seen [facility] Urine clarity by refractomet ry automatedOrdered By: ASHLEY WATSON on 09-10-2022 Clarity Refractometry automated (U) Clear Clear [facility] Urine cocaine detectionOrder ed By: ASHLEY WATSON on 09-10-2022 Cocaine Ql (U) Negative Negative [facility] Urine glucose measurement by automated test strip (mass/volume)Ordered By: ASHLEY WATSON on 09-10-2022 Glucose Auto test strip (U) [Mass/Vol] Normal mg/dL Normal [facility] Urine hemoglobin detection b y automated test stripOrdered By: ASHLEY WATSON on 09-10-2022 Hemoglobin Auto test strip Ql (U) Negative Negative [facility] Urine leukocyte esterase det ection by automated test stripOrdered By: ASHLEY WATSON on 09-10-2022 Leukocyte esterase Auto test strip Ql (U) 3+ Negative [facility] Urobilinogen Auto test strip (U) [Mass/Vol]Ordered By: ASHLEY WATSON on 09-10-2022 Urobilinogen (U) [Mass/Vol] Normal mg/dL Normal [facility] pH Auto test strip (U)Ordere d By: ASHLEY WATSON on 09-10-2022 pH (U) 6.0 [pH] 5.0-9.0 [facility] S. agalactiae Org specific c x Ql (Unsp spec)Ordered By: ASHLEY WATSON on 08-16-2022 Streptococcus agalactiae culture No Group B Beta Streptococcus Isolated 3 Days [facility] Blood hemoglobin measurement (mass/volume)Ordered By: ASHLEY WATSON on 06-24-2022 Hemoglobin (Bld) [Mass/Vol] 12.7 g/dL 11.8-15.4 [facility] Hematocrit Auto (Bld) [Volum e fraction]Ordered By: ASHLEY WATSON on 06-24-2022 Hematocrit (Bld) [Volume fraction] 37.9 % 34.0-46.4 [facility] No Panel InformationOrdered By: ASHLEY WATSON on 06-24-2022 Glucose 1 Hour Postprandial (Timed) 100 mg/dL 60-140 [facility] Albumin [Mass/volume] in Ser um or PlasmaOrdered By: Jordan Saunders on 04-14-2022 Albumin [Mass/Vol] 3.4 g/dL 3.2-5.5 [facility] Basophils Auto (Bld) [#/Vol] Ordered By: Jordan Saunders on 04-14-2022 Basophils (Bld) [#/Vol] 0.1 10*3/uL 0.0-0.2 [facility] Basophils/100 WBC Auto (Bld) Ordered By: Jordan Saunders on 04-14-2022 Basophils/100 WBC (Bld) 0.6 % . F [facility] [place] Blood hemoglobin measurement (mass/volume)Ordered By: Jordan Saunders on 04-14-2022 Hemoglobin (Bld) [Mass/Vol] 13.7 g/dL 11.8-15.4 [facility] Blood leukocytes automated c ount (number/volume)Ordered By: Jordan Saunders on 04-14-2022 WBC (Bld) [#/Vol] 10.8 10*3/uL 4.5-11.0 [facility] Creatinine and Glomerular fi ltration rate.predicted panel (S/P/Bld)Ordered By: Jordan Saunders on 04-14-2022 Creatinine [Mass/Vol] 0.50 mg/dL 0.44-1.03 [facility] Eosinophils Auto (Bld) [#/Vo l]Ordered By: Jordan Saunders on 04-14-2022 Eosinophils (Bld) [#/Vol] 0.1 10*3/uL 0.0-0.45 [facility] Eosinophils/100 WBC Auto (Bl d)Ordered By: Jordan Saunders on 04-14-2022 Eosinophils/100 WBC (Bld) 0.8 % . [facility] Erythrocyte distribution wid th Auto (RBC) [Ratio]Ordered By: Jordan Saunders on 04-14-2022 Erythrocyte distribution width (RBC) [Ratio] 12.9 % 11.9-15.3 [facility] Estimated glomerular filtrat ion rate (GFR) non- AmericanOrdered By: Jordan Saunders on 04-14-2022 GFR/1.73 sq M.predicted among non-blacks MDRD (S/P/Bld) [Vol rate/Area] > 60 mL/Min [facility] Globulin Calc (S) [Mass/Vol] Ordered By: Jordan Saunders on 04-14-2022 Globulin (S) [Mass/Vol] 3.2 g/dL F [facility] [place] Hematocrit Auto (Bld) [Volum e fraction]Ordered By: Jordan Saunders on 04-14-2022 Hematocrit (Bld) [Volume fraction] 39.7 % 34.0-46.4 [facility] - Chemistry and C hemistry - challengeOrdered By: Jordan Saunders on 04-14-2022 Magnesium [Mass/Vol] 1.9 mg/dL 1.6-2.6 [facility] - Hematology and Cell countsOrdered By: Jordan Saunders on 04-14-2022 Nucleated RBC/100 WBC (Bld) [Ratio] 0.1 % 0-0.5 [facility] Lymphocytes Auto (Bld) [#/Vo l]Ordered By: Jordan Saunders on 04-14-2022 Lymphocytes (Bld) [#/Vol] 1.8 10*3/uL 1.00-4.8 [facility] Lymphocytes/100 WBC Auto (Bl d)Ordered By: Jordan Saunders on 04-14-2022 Lymphocytes/100 WBC (Bld) 17.0 % . [facility] MCH Auto (RBC) [Entitic mass ]Ordered By: Jordan Saunders on 04-14-2022 MCH (RBC) [Entitic mass] 30.4 pg 24.7-34.3 [facility] MCHC Auto (RBC) [Mass/Vol]Or dered By: Jrodan Saunders on 04-14-2022 MCHC (RBC) [Mass/Vol] 34.5 g/dL 32.0-35.0 [facility] MCV Auto (RBC) [Entitic vol] Ordered By: Jordan Saunders on 04-14-2022 MCV (RBC) [Entitic vol] 88.0 fL 80-100 F [facility] [place] Monocytes Auto (Bld) [#/Vol] Ordered By: Jordan Saunders on 04-14-2022 Monocytes (Bld) [#/Vol] 0.5 10*3/uL 0.0-0.8 [facility] Monocytes/100 WBC Auto (Bld) Ordered By: Jordan Saunders on 04-14-2022 Monocytes/100 WBC (Bld) 5.1 % . [facility] [place] Neutrophils Auto (Bld) [#/Vo l]Ordered By: Jordan Saunders on 04-14-2022 Neutrophils (Bld) [#/Vol] 8.3 10*3/uL 1.8-7.7 [facility] Neutrophils/100 WBC Auto (Bl d)Ordered By: Jordan Saunders on 04-14-2022 Neutrophils/100 WBC (Bld) 76.5 % . [facility] No Panel InformationOrdered By: Jordan Saunders on 04-14-2022 Estimated GFR () > 60 mL/Min [facility] Comment on above: GFR estimated refere nce range: According to KDOQI guidelines, <60 ml/min/1.73m2 is sufficient to diagnose a patient with chronic kidney disease. Pharmacy Creatinine Clearance (Chem 171.62 [facility] Platelet mean volume Auto (B ld) [Entitic vol]Ordered By: Jordan Saunders on 04-14-2022 Platelet mean volume (Bld) [Entitic vol] 9.9 fL 6.3-10.7 [facility] Platelets Auto (Bld) [#/Vol] Ordered By: Jordan Saunders on 04-14-2022 Platelets (Bld) [#/Vol] 246 10*3/uL 150-450 [facility] Protein [Mass/volume] in Ser um or PlasmaOrdered By: Jordan Saunders on 04-14-2022 Protein [Mass/Vol] 6.6 g/dL 6.1-7.9 [facility] RBC Auto (Bld) [#/Vol]Ordere d By: Jordan Saunders on 04-14-2022 RBC (Bld) [#/Vol] 4.52 10*6/uL 3.60-5.00 [facility] Serum or plasma alanine salas otransferase measurement without P-5'-P (enzymatic activiOrdered By: Jordan Saunders on 04-14-2022 ALT No additional P-5'-P [Catalytic activity/Vol] 13 U/L 10-60 [facility] Serum or plasma albumin/glob ulin mass ratioOrdered By: Jordan Saunders on 04-14-2022 Albumin/Globulin [Mass ratio] 1.1 {ratio} [facility] Serum or plasma alkaline abel sphatase measurement (enzymatic activity/volume)Ordered By: Jordan Saunders on 04-14-2022 ALP [Catalytic activity/Vol] 49 U/L 32-92 [facility] Serum or plasma aspartate am inotransferase measurement (enzymatic activity/volume)Ordered By: Jordan Saunders on 04-14-2022 AST [Catalytic activity/Vol] 18 U/L 10-42 [facility] Serum or plasma calcium pete urement (mass/volume)Ordered By: Jordan Saunders on 04-14-2022 Calcium [Mass/Vol] 9.4 mg/dL 8.2-10.2 [facility] Serum or plasma chloride tino surement (moles/volume)Ordered By: Jordan Saunders on 04-14-2022 Chloride [Moles/Vol] 100 mmol/L 95-114 [facility] Serum or plasma glucose pete urement (mass/volume)Ordered By: Jordan Saunders on 04-14-2022 Glucose [Mass/Vol] 84 mg/dL 70-100 [facility] Comment on above: ADA recommended refe rence range Random Glucose Reference Range is dependent on time and content of last meal. Glucose of more than 200 mg/dL in a nonstressed, ambulatory subject supports the diagnosis of Diabetes Mellitus. Serum or plasma potassium me asurement (moles/volume)Ordered By: Jordan Saunders on 04-14-2022 Potassium [Moles/Vol] 3.8 mmol/L 3.5-5.1 [facility] Serum or plasma sodium measu rement (moles/volume)Ordered By: Jordan Saunders on 04-14-2022 Sodium [Moles/Vol] 132 mmol/L 136-146 [facility] Serum or plasma total biliru bin measurement (mass/volume)Ordered By: Jordan Saunders on 04-14-2022 Bilirubin [Mass/Vol] 0.5 mg/dL 0.3-1.2 [facility] Serum or plasma total carbon dioxide measurement (moles/volume)Ordered By: Jordan Saunders on 04-14-2022 CO2 [Moles/Vol] 21.6 mmol/L 22.0-30.0 [facility] Serum or plasma urea nitroge n measurement (mass/volume)Ordered By: Jordan Saunders on 04-14-2022 Urea nitrogen [Mass/Vol] 5 mg/dL 9-23 [facility] TSH DL <= 0.005 mIU/L QnOrde red By: Jordan Saunders on 04-14-2022 TSH Qn 1.21 m[IU]/L 0.45-5.33 [facility] Troponin I.cardiac [Mass/vol ume] in Serum or Plasma by High sensitivity methodOrdered By: Jordan Saunders on 04-14-2022 Troponin I.cardiac High sensitivity method [Mass/Vol] 11 pg/mL 0-15 [facility] Complete Blood Count with Au to Diffon 12-24-2021 Basophils (Bld) [#/Vol] 0.05 10*3/uL Normal 0.00-0.20 [facility] Comment on above: Performed By: #### C BCAD, VITD, CMP, TSH reflex FT4 #### [facility] [address], [place] [id number] Basophils/100 WBC (Bld) 0.8 % Normal [facility] Comment on above: Performed By: #### C BCAD, VITD, CMP, TSH reflex FT4 #### [facility] [address], [place] [id number] Eosinophils (Bld) [#/Vol] 0.12 10*3/uL Normal 0.02-0.50 [facility] Comment on above: Performed By: #### C BCAD, VITD, CMP, TSH reflex FT4 #### [facility] [address], [place] [id number] Eosinophils/100 WBC (Bld) 2.0 % Normal [facility] Comment on above: Performed By: #### C BCAD, VITD, CMP, TSH reflex FT4 #### [facility] [address], [place] [id number] Erythrocyte distribution width (RBC) [Ratio] 11.7 % Normal 11.0-15.0 [facility] Comment on above: Performed By: #### C BCAD, VITD, CMP, TSH reflex FT4 #### [facility] [address], [place] [id number] Hematocrit (Bld) [Volume fraction] 43.8 % Normal 35.0-47.0 [facility] Comment on above: Performed By: #### C BCAD, VITD, CMP, TSH reflex FT4 #### [facility] [address], [place] [id number] Hemoglobin (Bld) [Mass/Vol] 14.5 g/dL Normal 11.6-15.5 [facility] Comment on above: Performed By: #### C BCAD, VITD, CMP, TSH reflex FT4 #### [facility] [address], [place] [id number] Lymphocytes (Bld) [#/Vol] 2.1 10*3/uL Normal 0.9-3.9 [facility] Comment on above: Performed By: #### C BCAD, VITD, CMP, TSH reflex FT4 #### [facility] [address], [place] [id number] Lymphocytes/100 WBC (Bld) 34.1 % Normal [facility] Comment on above: Performed By: #### C BCAD, VITD, CMP, TSH reflex FT4 #### [facility] [address], [place] [id number] MCH (RBC) [Entitic mass] 29.8 pg Normal 27.0-33.0 [facility] Comment on above: Performed By: #### C BCAD, VITD, CMP, TSH reflex FT4 #### [facility] [address], [place] [id number] MCHC (RBC) [Mass/Vol] 33.1 g/dL Normal 32.0-36.0 [facility] Comment on above: Performed By: #### C BCAD, VITD, CMP, TSH reflex FT4 #### [facility] [address], [place] [id number] MCV (RBC) [Entitic vol] 90 fL Normal 80-100 [facility] Comment on above: Performed By: #### C BCAD, VITD, CMP, TSH reflex FT4 #### [facility] [address], [place] [id number] Monocytes (Bld) [#/Vol] 0.4 10*3/uL Normal 0.2-0.9 [facility] Comment on above: Performed By: #### C BCAD, VITD, CMP, TSH reflex FT4 #### [facility] [address], [place] [id number] Monocytes/100 WBC (Bld) 6.8 % Normal [facility] Comment on above: Performed By: #### C BCAD, VITD, CMP, TSH reflex FT4 #### [facility] [address], [place] [id number] Neutrophils (Bld) [#/Vol] 3.4 10*3/uL Normal 1.5-7.8 [facility] Comment on above: Performed By: #### C BCAD, VITD, CMP, TSH reflex FT4 #### [facility] [address], [place] [id number] Neutrophils/100 WBC (Bld) 56.1 % Normal [facility] Comment on above: Performed By: #### C BCAD, VITD, CMP, TSH reflex FT4 #### [facility] [address], [place] [id number] Platelet mean volume (Bld) [Entitic vol] 11.00 fL Normal 7.50-12.50 [facility] Comment on above: Performed By: #### C BCAD, VITD, CMP, TSH reflex FT4 #### [facility] [address], [place] [id number] Platelets (Bld) [#/Vol] 306 10*3/uL Normal 140-400 [facility] Comment on above: Performed By: #### C BCAD, VITD, CMP, TSH reflex FT4 #### [facility] [address], [place] [id number] RBC (Bld) [#/Vol] 4.87 10*6/uL Normal 3.90-5.20 [facility] Comment on above: Performed By: #### C BCAD, VITD, CMP, TSH reflex FT4 #### [facility] [address], [place] [id number] RDW-SD 38.5 fL Normal 37.0-50.0 [facility] Comment on above: Performed By: #### C BCAD, VITD, CMP, TSH reflex FT4 #### [facility] [address], [place] [id number] WBC (Bld) [#/Vol] 6.0 10*3/uL Normal 3.8-11.0 [place] [facility] Supervisor Comment on above: Performed By: #### C BCAD, VITD, CMP, TSH reflex FT4 #### [facility] [address], [place] [id number] Comprehensive Metabolic Pane dale 12-24-2021 Albumin [Mass/Vol] 5.1 g/dL Normal 3.6-5.1 [place] [employer] Supervisor Comment on above: Performed By: #### C BCAD, VITD, CMP, TSH reflex FT4 #### [facility] [address], [place] [id number] Albumin/Globulin [Mass ratio] 2.4 {ratio} Normal 1.0-2.5 [facility] Comment on above: Performed By: #### C BCAD, VITD, CMP, TSH reflex FT4 #### [facility] [address], [place] [id number] ALP [Catalytic activity/Vol] 71 U/L Normal 35-119 [facility] Comment on above: Performed By: #### C BCAD, VITD, CMP, TSH reflex FT4 #### [facility] [address], [place] [id number] ALT [Catalytic activity/Vol] 9 U/L Normal 6-33 [facility] Comment on above: Result Comment: 09/04 Female reference range changed. Performed By: #### C BCAD, VITD, CMP, TSH reflex FT4 #### [facility] [address], [place] [id number] Anion gap [Moles/Vol] 18 mmol/L Normal 12-20 [facility] Comment on above: Result Comment: Effe ctive 10/10/2019 reference range changed. Performed By: #### C BCAD, VITD, CMP, TSH reflex FT4 #### [facility] [address], [place] [id number] AST [Catalytic activity/Vol] 15 U/L Normal 9-34 [facility] Comment on above: Performed By: #### C BCAD, VITD, CMP, TSH reflex FT4 #### [facility] [address], [place] [id number] Bilirubin [Mass/Vol] 0.46 mg/dL Normal 0.30-1.20 [facility] Comment on above: Performed By: #### C BCAD, VITD, CMP, TSH reflex FT4 #### [facility] [address], [place] [id number] BUN/CREA 14 Ratio Normal 6-22 [facility] Comment on above: Performed By: #### C BCAD, VITD, CMP, TSH reflex FT4 #### [facility] [address], [place] [id number] Calcium [Mass/Vol] 9.8 mg/dL Normal 8.6-10.2 [facility] Comment on above: Performed By: #### C BCAD, VITD, CMP, TSH reflex FT4 #### [facility] [address], [place] [id number] Chloride [Moles/Vol] 106 mmol/L Normal 98-107 [facility] Comment on above: Performed By: #### C BCAD, VITD, CMP, TSH reflex FT4 #### [facility] [address], [place] [id number] CO2 [Moles/Vol] 23 mmol/L Normal 20-31 [facility] Comment on above: Performed By: #### C BCAD, VITD, CMP, TSH reflex FT4 #### [facility] [address], [place] [id number] Creatinine [Mass/Vol] 0.7 mg/dL Normal 0.6-1.4 [facility] Comment on above: Performed By: #### C BCAD, VITD, CMP, TSH reflex FT4 #### [facility] [address], [place] [id number] eGFRAA 138 mL/min/1.73m2 Normal >60 [facility] Comment on above: Performed By: #### C BCAD, VITD, CMP, TSH reflex FT4 #### [facility] [address], [place] [id number] eGFRNAA 114 mL/min/1.73m2 Normal >60 [place] [employer] Supervisor Comment on above: Performed By: #### C BCAD, VITD, CMP, TSH reflex FT4 #### [facility] [address], [place] [id number] Globulin (S) [Mass/Vol] 2.1 g/dL Normal 1.9-3.7 [facility] Specialist Comment on above: Performed By: #### C BCAD, VITD, CMP, TSH reflex FT4 #### [facility] [address], [place] [id number] Glucose [Mass/Vol] 83 mg/dL Normal 65-99 [facility] Supervisor Comment on above: Result Comment: For FASTING Glucose --- ADA reference ranges: Normal 65-99 mg/dl Prediabetes 100-125 Diabetes >/= 126 Performed By: #### C BCAD, VITD, CMP, TSH reflex FT4 #### [facility] [address], [place] [id number] Potassium [Moles/Vol] 4.9 mmol/L Normal 3.5-5.[address] [facility] Specialist Comment on above: Result Comment: Spec imen is hemolyzed. Results may be affected. Performed By: #### C BCAD, VITD, CMP, TSH reflex FT4 #### [facility] [address], [place] [id number] Protein [Mass/Vol] 7.2 g/dL Normal 6.1-8.1 [facility] Supervisor Comment on above: Performed By: #### C BCAD, VITD, CMP, TSH reflex FT4 #### [facility] [address], [place] [id number] Sodium [Moles/Vol] 141 mmol/L Normal 135-146 [facility] Supervisor Comment on above: Performed By: #### C BCAD, VITD, CMP, TSH reflex FT4 #### [facility] [address], [place] [id number] Urea nitrogen [Mass/Vol] 9 mg/dL Normal 7-25 [facility] Comment on above: Performed By: #### C BCAD, VITD, CMP, TSH reflex FT4 #### [facility] [address], [place] [id number] TSH w/ Reflex to Free T4on 0 12-24-2021 TSH 0.946 uIU/mL Normal 0.400-4.[address] [facility] Supervisor Comment on above: Performed By: #### C BCAD, VITD, CMP, TSH reflex FT4 #### [facility] [address], [place] [id number] Vitamin B12/Folateon 022 Cobalamin (Vitamin B12) [Mass/Vol] 339 pg/mL Normal 211-946 [facility] Specialist Comment on above: Performed By: #### B 12/Fol #### [facility] [address], [place] [id number] FOL 9.9 ng/mL Normal >4.7 [facility] Specialist Comment on above: Result Comment: Refe rence range change 08/21/2017. Prior reference range F 4.8-37.3 ng/mL, M 4.5-32.2 ng/mL. Performed By: #### B 12/Fol #### [facility] [address], [place] [id number] Vitamin D 25-OHon 12-24-2021 VIT D 25 OH 23 ng/ml Low >29 [facility] Specialist Comment on above: Result Comment: Leslee min D Status Deficiency <20 ng/mL Insufficiency 20-29 ng/mL Optimal 30-100 ng/mL Possible Toxicity >=150 ng/mL Performed By: #### C BCAD, VITD, CMP, TSH reflex FT4 #### [facility] [address], [place] [id number] CNOVon 09-01-2017 CNOV Office Visit (ORTPMN) ----RANDAL REDMOND ([id number]) 2000 FDate Time Provider Bjndsqjbar02/28/17 10:15 AM GILMER BENAVIDES ORTPMN During your visit today, we recorded the following information about you:Travis Ocasio MD 09/01/2017 11:05 AM SignedRandal Redmond COMPLAINT: ScoliosisHISTORY: This is my first office visit with Randal Redmnod who comes today forevaluation of scoliosis. The [...] tight periscapular,lumbar, and hamstring musculature.Signed: Travis Ocasio [facility] physician:Emeterio Benavides MD 09/01/2017 11:05 AM SignedI [...] *Problem List As Of Date: 09/01/2017(None)Harpreet sutherland [facility] Center[facility]mer Benavides M.D. Department of Pediatric Orthopaedic Surgery / [id number] [id number]: [phone] Appts.: [phone] Fax: [phone] 2016To Whom It May Concern:Randal Redmond was seen in my clinic on 09/01/2017, accompanied by her Mother.Please excuse this child from school for the time required for this physicianvisit.Please feel free to contact my office if you have any questions or concerns.Thank you for your assistance in this matter.Sincerely,Butch Burnett M. D. Status:Closed by GILMER BENAVIDES MD on 09/01/17 [facility] PROGRESSon 09-01-2017 PROGRESS HNO ID: [id number]: Gilmer BenavidesService: (none)Author Type: PhysicianType: Progress NotesFiled: 09/01/2017 11:05 AMNote Text:I have reviewed the history and physical obtained and documented by theresident and I personally participated in the sanchez components. I agree withthe findings and plan of care, with the additions contained within mydictation.Gilmer Benavides M.D. [facility] PROGRESS HNO ID: [id number]: Travis (Lauren) SuraceService: (none)Author Type: ResidentType: Progress [...] and hamstring musculature.Signed: Joel Morales physician:SELF Normal [facility] PROGRESS HNO ID: [id number]: Beverley Randhawa RtService: (none)Author Type: (none)Type: Progress NotesFiled: 09/01/2017 9:44 AMNote Text: Radiology Service Progress NotePATIENT NAME: Randal Bush WillN: [id number] OF SERVICE: September 01, 2017TIME: 9:44 AMPATIENT IDENTITY VERIFICATION COMPLETED USING TWO (2) METHODS: Patientconfirmed name verbally and Date of .PATIENT GENDER DATA: Female. status: : NoBreastfeeding status: NO.PATIENT RELEVANT IMPLANT DATA REVIEWED: YesRADIOLOGY DEPARTMENT: General X-ray: Exam(s) Completed: Spine X-Ray(s):Scoliois SeriesPERIPHERAL IV DATA: Not applicableSIGNED BY: Beverley Randhawa RtNovember 2016 9:44 AM Normal [facility] XR SCOLIOSIS 2V PA STAND/LAT on 09-01-2017 [...] PERKINS MD on Sep 01 2017 10:54AM [id number] [id number] Normal [facility] Vital Signs Date Time Vital Sign Value Performing Clinician Facility 11-14-2023 13:45-0500 Body mass index (BMI) [Ratio] 26.31 kg/m2 Joyce DOMÍNGUEZ Work Phone: [facility] 11-14-2023 13:45-0500 Body temperature 98.01 [degF] Joyce DOMÍNGUEZ Work Phone: [facility] 11-14-2023 13:45-0500 Body weight 76.2 kg Joyce Hemmer PA Work Phone: [facility] [employer] 11-14-2023 13:45-0500 Diastolic blood pressure 70 mm[Hg] Joyce Hemmer PA Work Phone: [facility] 11-14-2023 13:45-0500 Heart rate 86 /min Joyce Hemmer PA Work Phone: [facility] 11-14-2023 13:45-0500 SaO2% (BldA) [Mass fraction] 99 % Joyce Hemmer PA Work Phone: [facility] 11-14-2023 13:45-0500 Systolic blood pressure 110 mm[Hg] Joyce Hemmer PA Work Phone: [facility] 10-27-2023 10:30-0500 Body height 167.64 cm Gilmer Mcgregor Other [facility] 10-27-2023 10:30-0500 Body mass index (BMI) [Ratio] 26.31 kg/m2 Gilmer Mcgregor Other [facility] [employer] Other 10-27-2023 10:30-0500 Body weight 73.94 kg Gilmer Mcgregor Other [facility] [employer] Other 10-27-2023 10:30-0500 Body weight 73.93 kg MD Jaymie Morris Work Phone: [facility] 10-27-2023 10:30-0500 Diastolic blood pressure 85 mm[Hg] Gilmer Mcgregor Other [facility] 10-27-2023 10:30-0500 SaO2% (BldA) [Mass fraction] 100 % Gilmer Mcgregor Other [facility] [employer] Other 10-27-2023 10:30-0500 Systolic blood pressure 128 mm[Hg] Gilmer Mcgregor Other [facility] 12-17-2022 18:45-0400 Body height 167.64 cm MD Jaymie Morris Work Phone: [facility] 12-17-2022 18:45-0400 Body temperature 97.8 [degF] MD Jaymie Morris Work Phone: [facility] 12-17-2022 18:45-0400 Body weight 70.3 kg MD Jaymie Morris Work Phone: [facility] 12-17-2022 18:45-0400 Diastolic blood pressure 92 mm[Hg] MD aJymie Morris Work Phone: [facility] 12-17-2022 18:45-0400 Heart rate 104 /min MD Jaymie Morris Work Phone: [facility] 12-17-2022 18:45-0400 Respiratory rate 20 /min MD Jaymie Morris Work Phone: [facility] 12-17-2022 18:45-0400 SaO2% (BldA) [Mass fraction] 99 % MD Jaymie Morris Work Phone: [facility] 12-17-2022 18:45-0400 Systolic blood pressure 143 mm[Hg] MD Jaymie Morris Work Phone: [facility] 12-12-2022 12:44-0500 Body height 167.64 cm MD Jaymie Morris Work Phone: [facility] 12-12-2022 12:44-0500 Body temperature 98.8 [degF] MD Jaymie Morris Work Phone: [facility] 12-12-2022 12:44-0500 Body weight 68.49 kg MD Jaymie Morris Work Phone: [facility] 12-12-2022 12:44-0500 Diastolic blood pressure 95 mm[Hg] MD Jaymie Morris Work Phone: [facility] 12-12-2022 12:44-0500 Heart rate 107 /min MD Jaymie Morris Work Phone: [facility] 12-12-2022 12:44-0500 Respiratory rate 18 /min MD Jaymie Morris Work Phone: [facility] 12-12-2022 12:44-0500 SaO2% (BldA) [Mass fraction] 97 % MD Jaymie Morris Work Phone: [facility] 12-12-2022 12:44-0500 Systolic blood pressure 140 mm[Hg] MD Jaymie Morris Work Phone: [facility] 09-12-2022 15:30-0500 Body temperature 98 [degF] MD Jaymie Morris Work Phone: [facility] 09-12-2022 15:30-0500 Diastolic blood pressure 82 mm[Hg] MD Jaymie Morris Work Phone: [facility] 09-12-2022 15:30-0500 Heart rate 82 /min MD Jaymie Morris Work Phone: [facility] 09-12-2022 15:30-0500 Respiratory rate 18 /min MD Jaymie Morris Work Phone: [facility] 09-12-2022 15:30-0500 SaO2% (BldA) [Mass fraction] 100 % MD Jaymie Morris Work Phone: [facility] 09-12-2022 15:30-0500 Systolic blood pressure 140 mm[Hg] MD Jaymie Morris Work Phone: [facility] 09-10-2022 21:52-0500 Body weight 85.72 kg MD Jaymie Morris Work Phone: [facility] 09-10-2022 21:07-0500 Body height 170.18 cm MD Jaymie Morris Work Phone: [facility] 06-24-2022 13:31-0400 Body temperature 98.1 [degF] MD Jaymie Morris Work Phone: [facility] 06-24-2022 13:31-0400 Diastolic blood pressure 78 mm[Hg] MD Jaymie Morris Work Phone: [facility] 06-24-2022 13:31-0400 Heart rate 84 /min MD Jaymie Morris Work Phone: [facility] 06-24-2022 13:31-0400 Respiratory rate 18 /min MD Jaymie Morris Work Phone: [facility] 06-24-2022 13:31-0400 SaO2% (BldA) [Mass fraction] 100 % MD Jaymie Morris Work Phone: [facility] 06-24-2022 13:31-0400 Systolic blood pressure 119 mm[Hg] MD Jaymie Morris Work Phone: [facility] 04-14-2022 18:10-0400 Diastolic blood pressure 69 mm[Hg] MD Jaymie Morris Work Phone: [facility] 04-14-2022 18:10-0400 Heart rate 82 /min MD Jaymie Morris Work Phone: [facility] 04-14-2022 18:10-0400 Respiratory rate 16 /min MD Jaymie Morris Work Phone: [facility] 04-14-2022 18:10-0400 SaO2% (BldA) [Mass fraction] 98 % MD Jaymie Morris Work Phone: [facility] 04-14-2022 18:10-0400 Systolic blood pressure 122 mm[Hg] MD Jaymie Morris Work Phone: [facility] 04-14-2022 13:59-0400 Body temperature 98.1 [degF] MD Jaymie Morris Work Phone: [facility] 04-14-2022 13:56-0400 Body height 170.18 cm MD Jaymie Morris Work Phone: [facility] 04-14-2022 13:56-0400 Body mass index (BMI) [Ratio] 24.7 kg/m2 MD Jaymie Morris Work Phone: [facility] 04-14-2022 13:56-0400 Body weight 71.65 kg MD Jaymie Morris Work Phone: [facility] Encounters Encounter Date Encounter Type Care Provider Facility Start: 12-24-2023 End: 12-24-2023 ambulatory SADE BRAXTON Not Available Start: 12-10-2023 End: 12-10-2023 ambulatory JAYMIE MORRIS Not Available Start: 12-09-2023 End: 12-09-2023 ambulatory ASHLEY WATSON Not Available Start: 11-25-2023 End: 11-25-2023 ambulatory Jaymie Morris Facility:[facility] Start: 11-25-2023 End: 11-25-2023 ambulatory MD Jaymie Morris Work Phone: [facility] Work Phone: Start: 11-25-2023 End: 11-25-2023 Patient encounter procedure MD Jaymie Morris Work Phone: [facility] [place] Work Phone: Start: 11-14-2023 End: 11-14-2023 ambulatory [...] outpatient vi sit 25 minutes Gilmer Mcgregor [facility] Start: 10-27-2023 End: 10-27-2023 ambulatory MD Jaymie Morris Work Phone: [facility] [employer] Other Start: 10-27-2023 End: 10-27-2023 Patient encounter procedure MD Jaymie Morris Work Phone: [facility]-Sleep Lab Work Phone: Start: 10-27-2023 End: 10-27-2023 Patient encounter procedure MD Jaymie Morris Work Phone: [facility]- Start: 10-22-2023 End: 10-22-2023 ambulatory JAYMIE MORRIS Not Available Start: 10-01-2023 End: 10-01-2023 ambulatory JAYMIE MORRIS Not Available Start: 09-10-2023 End: 09-10-2023 ambulatory JAYMIE BALIS Not Available Start: 09-02-2023 End: 09-02-2023 ambulatory KERRI NO Not Available Start: 08-31-2023 End: 08-31-2023 ambulatory ASHLEY Gee NELIDA Not Available Start: 07-21-2023 End: 07-21-2023 ambulatory Jaymie Morris Facility:[facility] Start: 07-21-2023 End: 07-21-2023 ambulatory MD Jaymie Morris Work Phone: [facility] Work Phone: Start: 07-21-2023 End: 07-21-2023 Patient encounter procedure MD Jaymie Morris Work Phone: [facility]-Flu Vaccine Start: 02-27-2023 End: 02-27-[address] DOCTOR AUGUSTIN Facility:[facility] Start: 12-17-2022 End: 12-17-2022 Emergency department patient visit Michael Martin Facility:[facility] Start: 12-17-2022 End: 12-17-2022 Emergency department patient visit MD Jaymie Morris Work Phone: [facility]-Emergency Room Work Phone: Start: 12-12-2022 End: 12-12-2022 Emergency department patient visit Feroz Skinner Facility:[facility] Start: 12-12-2022 End: 12-12-2022 Emergency department patient visit MD Jaymie Morris Work Phone: [facility]-Emergency Room Work Phone: Start: 09-10-2022 End: 09-12-2022 Evaluation and management of inpatient MD Jaymie Morris Work Phone: [facility] Start: 08-13-2022 End: 08-13-2022 ambulatory MD Jaymie Morris Work Phone: [facility] Work Phone: Start: 08-13-2022 End: 08-13-2022 Departed Referred MD Jaymie Morris Work Phone: [facility] [place] Start: 06-24-2022 End: 06-24-2022 Patient encounter procedure MD Jaymie Morris Work Phone: [facility] [place] Start: 04-16-2022 End: 04-16-2022 Patient encounter procedure MD Jaymie Morris Work Phone: [facility]-Electrodiagnostics Start: 04-14-2022 End: 04-14-2022 Emergency department patient visit MD Jaymie Morris Work Phone: [facility]-Emergency Room Start: 09-01-2017 End: 09-01-2017 Ambulatory GILMER BENAVIDES [facility] Procedures Date Procedure Procedure Detail Performing Clinician Streptococcus agalactiae culture MD Jaymie Morris Work Phone: Urine culture MD Jaymie moreno Work Phone: Plan of Treatment Date Care Activity Detail Author Start: 09-05-2024 End: 09-05-2024 Patient encounter procedure 09/05/2024 9:45 AM EST Office Visit [facility] [address] [address] Ashley Watson DO [address] [place] [address] [facility] Start: 07-14-2024 End: 07-14-2024 Patient encounter procedure 07/14/2024 10:20 AM EDT Office Visit [facility] [address] [place] [id number] Preet Barrios MD [address] [place] [address] [facility] Start: 12-15-2023 End: 12-15-2023 Patient encounter procedure 12/15/2023 9:40 AM EDT Office Visit [facility] [address] [place] [id number] Jaymie Morris MD [address] [place] [address] [facility] Start: 12-09-2023 End: 12-09-2023 Patient encounter procedure 12/09/2023 10:00 AM EST Office Visit [facility] [address] [address] Ashley Watson, DO [address] [place] [address] [facility] Start: 09-12-2022 [facility] Start: 09-10-2022 [facility] B Streptococcu s Culture Group B Streptococcus Culture [facility] Patient Education [facility] Work Phone: Patient referral [facility] Work Phone: Immunizations Immunization Date Immunization Notes Care Provider Fa no 07-21-2023 influenza, injectabl e, quadrivalent, preservative free David Rayo MD, IBCLC Work Phone: [facility] 04-15-2023 SARS-COV-2 (COVID-19 ) vaccine, mRNA, spike protein, LNP, bivalent, preservative free, 30 mcg/0.3 mL dose, walt-sucrose formulation David Rayo MD, IBCLC Work Phone: [facility] 12-08-2019 tetanus toxoid, redu mishel diphtheria toxoid, and acellular pertussis vaccine, adsorbed MD Jaymie Morris Work Phone: [facility] 06-01-2017 meningococcal oligosaccharide (groups A, C, Y and W-135) diphtheria toxoid conjugate vaccine (MCV4O) David Rayo MD, IBCLC Work Phone: [facility] 07-15-2012 influenza, seasonal, injectable, preservative free David Rayo MD, IBCLC Work Phone: [facility] 07-15-2012 meningococcal polysaccharide (groups A, C, Y and W-135) diphtheria toxoid conjugate vaccine (MCV4P) David Rayo MD, IBCLC Work Phone: [facility] 07-15-2012 tetanus toxoid, redu mishel diphtheria toxoid, and acellular pertussis vaccine, adsorbed David Rayo MD, IBCLC Work Phone: [facility] 05-23-2004 diphtheria, tetanus toxoids and acellular pertussis vaccine David Rayo MD, IBCLC Work Phone: [facility] 05-23-2004 poliovirus vaccine, inactivated David Rayo MD, IBCLC Work Phone: [facility] 06-03-2001 measles, mumps and rubella virus vaccine David Rayo MD, IBCLC Work Phone: [facility] 06-03-2001 poliovirus vaccine, unspecified formulation David Rayo MD, IBCLC Work Phone: [facility] 06-03-2001 varicella virus vaccine Waldo Rayo MD, IBCLC Work Phone: [facility] 03-04-2001 hepatitis B vaccine, pediatric or pediatric/adolescent dosage David Rayo MD, IBCLC Work Phone: [facility] 06-04-2000 diphtheria, tetanus toxoids and acellular pertussis vaccine, unspecified formulation David Rayo MD, IBCLC Work Phone: [facility] 06-04-2000 haemophilus influenz ae type b vaccine, conjugate unspecified formulation David Rayo MD, IBCLC Work Phone: [facility] 06-04-2000 measles, mumps and rubella virus vaccine David Rayo MD, IBCLC Work Phone: [facility] 06-04-2000 varicella virus vaccine Waldo Rayo MD, IBCLC Work Phone: [facility] 1999 diphtheria, tetanus toxoids and acellular pertussis vaccine, unspecified formulation David Rayo MD, IBCLC Work Phone: [facility] 1999 haemophilus influenz ae type b vaccine, conjugate unspecified formulation David Rayo MD, IBCLC Work Phone: [facility] 1999 diphtheria, tetanus toxoids and acellular pertussis vaccine, unspecified formulation David Rayo MD, IBCLC Work Phone: [facility] 1999 haemophilus influenz ae type b vaccine, conjugate unspecified formulation David Rayo MD, IBCLC Work Phone: [facility] 1999 hepatitis B vaccine, pediatric or pediatric/adolescent dosage David Rayo MD, IBCLC Work Phone: [facility] 1999 poliovirus vaccine, unspecified formulation David Rayo MD, IBCLC Work Phone: [facility] 1999 diphtheria, tetanus toxoids and acellular pertussis vaccine, unspecified formulation David Rayo MD, IBCLC Work Phone: [facility] 1999 haemophilus influenz ae type b vaccine, conjugate unspecified formulation David Rayo MD, IBCLC Work Phone: [facility] 1999 hepatitis B vaccine, pediatric or pediatric/adolescent dosage David Rayo MD, IBCLC Work Phone: [facility] 1999 poliovirus vaccine, unspecified formulation David Rayo MD, IBCLC Work Phone: [facility] Payers Date Payer Category Payer Self-pay [id number] 2022 Medicaid [id number] 2022 Medicaid ANTHEM BCBS [facility] ANTH BCBS MEDICAID [place] [id number] 2022-Present [address] [place] [address] [id number] 2020 Unknown [id number] [id number] 2010 Unknown BCBS BCBS [id number] 2010-Present [phone] [address] [place] [address] [id number]. [id number] 1999 Unknown [id number] [id number]3 1999 Unknown [id number] 2.16.840.1.107087.3.579.2.1259 1999 Unknown [id number] 2.16.840.1.205791.3.579.2.1259 1999 Unknown [id number] 2.16.840.1.076159.3.579.2.1259 1999 Unknown [id number] 2.16.840.1.577669.3.579.2.1259 1999 Unknown [id number] 2.16.840.1.943335.3.579.2.1259 1999 Unknown [id number] 2.16.840.1.416687.3.579.2.1259 1999 Unknown [id number] 2.16.840.1.059690.3.579.2.1259 1999 Unknown [id number] 2.16.840.1.795229.3.579.2.1259 1999 Unknown [id number] 2.16.840.1.469862.3.579.2.1259 1999 Unknown [id number] 2.16.840.1.243082.3.579.2.9 1999 Unknown [id number] 2.16840.1.740084.3.579.2.1259 1959 Unknown [id number] Medicaid [employer] [id number] Medicaid [place] Advantage [id number] Unknown [id number] Unknown [id number] .840.1.351541.3.579.2.531 Unknown [id number] 2.840.1.329356.3.579.2.531 Unknown [id number] 2.840.1.925604.3.579.2.531 Unknown [id number] 2.840.1.729299.3.579.2.531 Social History Date Type Detail Facility Start: 04-14-2022 End: 12-17-2022 Tobacco smoking status NHIS Never smoked tobacco (finding) [facility] Start: 2000 Sex Assigned At Female [facility] Start: 03-27-2023 End: 11-10-2023 Sex Assigned At [...] Facility 09-12-2022 Functional status Patient at Baseline [facility] Work Phone: Mental Status Date Assessment Result Facility 09-12-2022 Cognitive function Cognitive Sta tus Patient at Baseline [facility] Work Phone: History of Present illness [...] Refill albuterol HFA 90 mcg/act inhaler Q6H kfntkkekxj-hmdrvzahneafa-ztczouia (Fioricet) 50-300-40 MG capsule take 1 capsule [...] Dizziness, Itching, Runny nose, Swelling and Wheezing [place] Flavor Unknown Pollen Extract Unknown Social History [...] Acute bacterial conjunctivitis of both eyes - ijzhkcuz-fcvjzmkqz-ztpBKNNKnmvca (Maxitrol) 0.1 % ophthalmic suspension; Administer 1 [...] plenty of rest. documented in this encounter [facility] Healthcare Evaluation note 10-27-2023 Note Date & [...] anxiety nor bipolar symptoms worsen with treatment [facility] Other Procedure note 09-11-2022 Note Date & Type Note Facility 09-11-2022 Procedure note [facility] Evaluation note Note Date & Type Note Facility Evaluation note No assessment information availa [facility] Work Phone: Evaluation note Note Date & Type Note Facility Evaluation note Diagnosis Acute bacterial conjunctivitis of both eyes- Primary documented in this encounter [facility] History general Narrative - Reported Note Date & Type Note Facility History general Narrative - Reported Type Medical History Anxiety Medical History narcolepsy with cataplexy (2019, 4 REM naps) [facility] Other Hospital Discharge instructions Note Date & Type Note Facility Hospital Discharge instructions [facility] Work Phone: Summary Purpose Family [...] section and content) DATE CREATED AUTHOR 03/30/2018 [facility] DATE CREATED AUTHOR AUTHOR'S ORGANIZ ATION 12/25/2021 [facility] DATE CREATED AUTHOR AUTHOR'S ORGANIZ ATION 03/15/2023 [facility] DATE CREATED AUTHOR AUTHOR'S ORGANIZ ATION 12/02/2023 [facility] DATE CREATED AUTHOR AUTHOR'S ORGANIZ ATION 12/26/2023 [facility] EPIC Care Teams (unrecognized [...] Primary Care Provider Active Bay Reyes DO [facility] Attending Provider Active Team Status: Inactive Member Role Status Dates Jaymie Morris MD Primary Care Provider Active Start: October 27, 2023 End: October 27, 2023 Gilmer Mcgregor MD Attending Provider Active S tart: October 27, 2023 End: October 27, 2023 David Rayo MD Referring Provider Active Start: October 27, 2023 End: October 27, 2023 Paradichlorobenzene Machine Operator Relationship Specialty Start Date End Date Jaymie Morris MD [address] [place] [address] PCP - General Family Medicine 04/01/23 Paradichlorobenzene Machine Operator Relationship Specialty Start Date End Date Jaymie Morris MD [address] [place], [place] [id number] PCP - General Family Medicine 04/01/23 Team [...] BE BASED ON THE PRIMARY CLINICAL RECORDS. [facility] [employer] [facility]. provides no warranty or guarantee of the accuracy or completeness of information in this document.
[2024-01-03 14:52] VITALS: BP 142/93; PULSE 109; TEMP 36.8; O2SAT 98; BMI 26.7
--- NOTE | 2024-01-03 14:58 | XR_ITS ---
[address] [address] Patient Name: RANDAL REDMOND MRN: [id number] date: 2000 Sex: F Assigned Patient Location: ER Current Patient Location: ER Accession/Order Number: [id number] Exam Date: 01/03/2024 15:10 Report Date: 01/03/2024 15:32 At the request of: LOUISE HATCH Procedure: XR chest 2V EXAM: XR chest 2V INDICATION: cough. COMPARISON: Chest radiograph 10/08/2023. TECHNIQUE: Two views of the chest FINDINGS: Normal cardiomediastinal contours. No acute infiltrative process. No pleural effusion or pneumothorax. No acute osseous abnormality. XR/XR chest 2V IMPRESSION: No acute cardiopulmonary process. Electronically authenticated by: DALTON FERRELL Date: 01/03/2024 15:32
[2024-01-03 15:22] LABS: Influenza Virus A Antigen Negative; Influenza Virus B Antigen Negative; Internal Control Within Normal Limits
--- NOTE | 2024-01-03 16:27 | ED_ITS ---
HPI - URI/Sore Throat General Chief Complaint: Upper Respiratory Infection Stated Complaint: EAR PAIN Time Seen by Provider: 01/03/24 16:09 Source: patient History of Present Illness HPI Narrative: Patient is a 23-year-old female who returns to the emergency department for continued pain in the ears with upper respiratory symptoms. Patient states she was diagnosed with an ear infection 2 days ago, started amoxicillin. She has not had improvement of the ear pain and feels very congested in the left maxillary sinus with drainage from the left ear. She denies fevers but has had episodes of vomiting today. She has not had diarrhea. She does have a minimal cough and has heard herself wheezing. She is not concerned for . No other medications taken prior to arrival. Related Data Home Medications ?Medication ?Instructions ?Recorded ?Confirmed cetirizine 10 mg tablet (24Hour 10 mg PO DAILY PRN allergy symptoms 10/08/23 01/01/24 Allergy) lamotrigine 100 mg tablet 50 mg PO BID 10/08/23 01/01/24 (Lamictal) norethindrone (contraceptive) 0.35 0.35 mg PO DAILY 10/08/23 01/01/24 mg tablet (Jencycla) venlafaxine 150 mg 150 mg PO DAILY 10/08/23 01/01/24 capsule,extended release 24 hr (Effexor XR) Previous Rx's ?Medication ?Instructions ?Recorded albuterol sulfate 90 mcg/actuation 2 inh inhalation Q4H PRN shortness 10/08/23 aerosol inhaler of breath or wheezing #8.5 grams azithromycin 250 mg tablet See Rx Instructions PO .COMPLEX #6 10/08/23 (Zithromax Z-Chad) tabs methylprednisolone 4 mg tablets in See Rx Instructions .Route 10/08/23 a dose pack (Medrol (Chad)) .COMPLEX #21 ea albuterol sulfate 90 mcg/actuation 2 inh inhalation Q4H PRN shortness 01/03/24 aerosol inhaler of breath or wheezing #8.5 grams [id number]-[id number]-[id number] 10 ml PO Q6H PRN cold symptoms 01/03/24 2 mg-30 mg-10 mg/5 mL oral syrup #200 mL (Bromfed DM) methylprednisolone 4 mg tablets in See Rx Instructions .Route 01/03/24 a dose pack (Medrol (Chad)) .COMPLEX #21 ea ondansetron 4 mg disintegrating 4 mg PO Q6H PRN nausea and 01/03/24 tablet vomiting #12 tabs Allergies Allergy/AdvReac Type Severity Reaction Status Date / Time No Known Drug Allergies Allergy Verified 01/01/24 01:38 Review of Systems ROS Constitutional Denies: fever or chills Ears, nose, mouth, and throat Reports: throat pain, ear pain, ear discharge, nasal discharge and nasal congestion Respiratory Reports: cough and wheezing Gastrointestinal Reports: nausea and vomiting; Denies: diarrhea Musculoskeletal Denies: back pain Integumentary/Breast Denies: rash PFSH PFSH Social History Smoking status: Former smoker Exam Narrative Exam Narrative: Gen.: Awake, alert, in no distress Head: Normocephalic, atraumatic ENT: Moist mucous membranes, Right TM is clear and left TM is opaque with no bulging or erythema. Left external canal with an abrasion in the canal, dried blood noted with no active bleeding or drainage Respiratory: No respiratory distress, Faint expiratory wheeze in the left lower lobe Cardio: Regular rate and rhythm Extremities: Moves extremities equally Psych: Normal mood and affect Neuro: No focal neuro deficit Skin: Warm, dry, intact Constitutional Vital Signs, click to edit/add: Last Vital Signs Temp 98.3 F 01/03/24 14:52 Pulse 109 H 01/03/24 14:52 Resp 18 01/03/24 14:52 BP 142/93 H 01/03/24 14:52 Pulse Ox 98 01/03/24 14:52 O2 Del Method Room Air 01/03/24 14:52 Course Vital Signs Vital signs: Vital Signs Temperature 98.3 F 01/03/24 14:52 Pulse Rate 109 H 01/03/24 14:52 Respiratory Rate 18 01/03/24 14:52 Blood Pressure 142/93 H 01/03/24 14:52 Pulse Oximetry 98 01/03/24 14:52 Oxygen Delivery Method Room Air 01/03/24 14:52 Temperature 98.3 F 01/03/24 14:52 Pulse Rate 109 H 01/03/24 14:52 Respiratory Rate 18 01/03/24 14:52 Blood Pressure 142/93 H 01/03/24 14:52 Pulse Oximetry 98 01/03/24 14:52 Oxygen Delivery Method Room Air 01/03/24 14:52 MDM - URI/Sore Throat MDM Narrative Medical decision making narrative: Patient with a negative influenza test, negative chest x-ray. She is stable oxygenation in the ER. She was given an albuterol inhaler, Zofran, Solu-Medrol injection in the ER. She is given Ciprodex drops for the left external canal. She was instructed to finish the amoxicillin but counseled that her symptoms likely represent a viral process causing continued cough and wheezing. She is started on Bromfed-DM, steroids for home, continue albuterol inhaler and amoxicillin. Zofran as needed. Follow-up with PCP for reevaluation and return to the ER if symptoms change or worsen. Ciprodex drops to the left ear for 5 days. Medical Records Attestation: I reviewed the patient's medical records. Lab Data Attestation: I reviewed the patient's lab results. Labs: Lab Results 01/03/24 Range/Units 14:59 Influenza Type A Ag Negative Influenza Type B Ag Negative Imaging Data Chest x-ray: Attestation: I have reviewed the pertinent imaging results. Radiologist's impression: ITS Impressions Chest X-Ray 01/03/24 14:58 IMPRESSION: No acute cardiopulmonary process. Electronically authenticated by: DALTON FERRELL Date: 01/03/2024 15:32 Discharge Plan Discharge Stand Alone Forms: Portal Instructions Chief Complaint: Upper Respiratory Infection Clinical Impression: Upper respiratory infection Patient Disposition: Home, Self-Care Time of Disposition Decision: 16:25 Condition: Good Prescriptions / Home Meds: New methylprednisolone [Medrol (Chad)] 4 mg tablets,dose pack See Rx Instructions .ROUTE .COMPLEX Qty: 21 0RF Rx Instructions: Taper as directed albuterol sulfate 90 mcg/actuation HFA aerosol inhaler 2 inh inhalation Q4H PRN (Reason: shortness of breath or wheezing) Qty: 8.5 0RF [id number]-tzosxyqmu-QG [Bromfed DM] 2-30-10 mg/5 mL syrup 10 ml PO Q6H PRN (Reason: cold symptoms) Qty: 200 0RF ondansetron 4 mg tablet,disintegrating 4 mg PO Q6H PRN (Reason: nausea and vomiting) Qty: 12 0RF No Action lamotrigine [Lamictal] 100 mg tablet 50 mg PO BID venlafaxine [Effexor XR] 150 mg capsule,extended release 24hr 150 mg PO DAILY norethindrone (contraceptive) [Jencycla] 0.35 mg tablet 0.35 mg PO DAILY cetirizine [24Hour Allergy] 10 mg tablet 10 mg PO DAILY PRN (Reason: allergy symptoms) Patient Comments: TAKES DAILY azithromycin [Zithromax Z-Chad] 250 mg tablet See Rx Instructions .ROUTE .COMPLEX Qty: 6 0RF Rx Instructions: For 250 mg dose pack: take 500 mg today (day 1), then 250 mg for 4 days (days 2-5) methylprednisolone [Medrol (Chad)] 4 mg tablets,dose pack See Rx Instructions .ROUTE .COMPLEX Qty: 21 0RF Rx Instructions: Taper as directed albuterol sulfate 90 mcg/actuation HFA aerosol inhaler 2 inh inhalation Q4H PRN (Reason: shortness of breath or wheezing) Qty: 8.5 0RF Print Language: Taiwanese Instructions: Upper Respiratory Infection (ED) Additional Instructions: Finish amoxicillin; use drops in left ear 3 times a day for 5 days Referrals: Physician,Non-Staff, MD [Primary Care Provider] - 1 week
[2024-01-03] MEDS: ONDANSETRON 4 MG RAPDIS TABLET SL (16:40)
[2024-01-03] MEDS: METHYLPREDNISOLONE SOD SUCC PF 125 MG/2 ML VIAL IM (16:40)
[2024-01-03] MEDS: ALBUTEROL SULFATE 200 PUFF/6.7 GM INHALER IH (16:40)
[2024-01-03] MEDS: CIPROFLOXACIN HCL/DEXAMETH 0.3%/0.1% OTIC SUSP 150 DROP/7.5 ML BOTTLE OT (16:40)
== END 2024-01-03 16:48 | disposition home or self-care (01) ==
PROVIDERS: Emergency Provider Emergency Medicine
DX: J06.9 Acute upper respiratory infection, unspecified (principal); Z79.899 Other long term (current) drug therapy; Z87.891 Personal history of nicotine dependence
CPT/HCPCS: 71046; 87804; 99284; J2930

== ENCOUNTER 2024-01-18 22:04 | Observation (INO) | payer BC, MEDICAID, SELFPAY ==
[2024-01-18 22:09] VITALS: BP 131/91; PULSE 93; TEMP 36.6; O2SAT 100; BMI 25.8
--- OUTSIDE RECORDS SUMMARY | 2024-01-18 22:14 | XMS_ITS | CCD ---
Author Organization [facility] Care Team Providers Care Computer Network Engineer Name Role Phone GILMER BENAVIDES Unavailable Unavailable GILMER BENAVIDES Unavailable Unavailable MD Jaymie Morris Primary Care Provider TUAN [place] [facility] Provider [phone] MD Jaymie Morris Attending Provider DO Ashley Watson Attending Provider MD Jaymie Morris Primary Care Provider DO Ashley Watson Attending Provider DO Ashley Watson Admit Provider MD Jaymie Morris Primary Care Provider JOHNSON Skinner Emergency Provider MD Jaymie Morris Primary Care Provider JOHNSON Skinner Emergency Provider TAUN Martin Emergency Provider DR SAYRA AUGUSTIN Primary Care Unavailable SCOTT WILKINSON Attending Unavailable SCOTT WILKINSON Consulting Unavailable SCOTT WILKINSON Admitting Unavailable MD Jaymie Morris Primary Care Provider DO Bay Reyes Attending Provider Gilmer Mcgregor Unavailable MD Jaymie Morris Primary Care Provider MD Gilmer Mcgregor Attending Provider MD David Rayo Referring Provider Jaymie Morris MD Primary Care Provider DO Govind Barry Attending Provider [phone] MD Jaymie Morris Referring Provider Jaymie Morris [...] Mcgregor Admitting Unavailable Gilmer Mcgregor Attending Unavailable Colon, David Referring Unavailable Ketvertis, Jaymie Primary Care [...] Iodine; Translations: [iodine] Drug Allergy 2 Unknown [facility] (9 sources) Shellfish; Translations: [shellfish derived] Allergy to substance 2 Swelling of Lip/Tongue/Thr oat [facility] (1 source) Shellfish Propensity to adverse reactions Unknown [employer] Other (2 sources) Apple extract Drug Allergy 3 Unknown [facility] (2 sources) Kiwi fruit Propensity to adverse reactions 3 Dizziness, Itching, Runny nose, Swelling, Wheezing [facility] (2 sources) Pollen Allergy to substance 3 Unknown [facility] (2 sources) Dog Epithelium Allergy Skin Test Allergy to substance 3 Unknown [facility] (2 sources) [place] Flavor Allergy to substance 3 Unknown [facility] [...] capsule by mo uth every four hours ddbunebzep-hojvviwhanaxo-suyqwaum (Jamari cet) 50-300-40 MG capsule take 1 capsule by mouth every 4 hours if needed for 10 days 0 Active [id number] 200 actuat albuterol 0.09 mg/actuat metered dose [...] / neomycin 3.5 mg/ml / polymyxin b [id number] unt/ml ophthalmic suspension (1 source) Aminoglycoside Antibacterial, [...] days. 5 mL 0 11/14/2023 11/21/2023 Active [id number] 0.3 ml EPINEPHrine 1 mg/ml auto-injector (2 [...] mg/ml extended release suspension (8 sources) Uncompetitive K-jcjvtp-J-asparta te Receptor Antagonist, Sigma-1 Agonist Start: 07-05-2018 [...] 2018 11:00pm July 09, 2018 11:01pm Vit 19-Yxip-Dvreu-Dha ( + Dha) 28 mg iron- 975 mcg-200 mg Combo Pack (8 sources) Start: 11-29-2019 End: 12-12-2022 take 1 tablet by mouth once daily Vit 56-Udal-Wwgnu-Dha ( + Dha) 28 mg iron- 975 mcg-200 mg Combo Pack Discontinued 0 .ROUTE .COMPLEX November 29, 2019 1:00am December 12, 2022 1:42pm 1 TABLET PO DAILY Start: 11-29-2019 End: 12-12-2022 take 1 tablet by mouth once daily Vit 69-Svkn-Vfwoh-Dha ( + Dha) 28 mg iron- 975 mcg-200 mg Combo Pack Discontinued 0 .ROUTE .COMPLEX November 29, 2019 12:00am December 12, 2022 12:42pm 1 TABLET PO DAILY Start: 11-29-2019 take 1 tablet by julio th once daily Vit 81-Kjvg-Cclqk-Dha ( + Dha) 28 mg iron- 975 mcg-200 mg Combo Pack Active 0 .ROUTE .COMPLEX November 29, 2019 12:00am 1 TABLET PO DAILY Start: 11-29-2019 take 1 tablet by julio th once daily Vit 40-Mhgb-Ztxdt-Dha ( + Dha) 28 mg iron- 975 [...] 11-25-2023 ALT [Catalytic activity/Vol] 11 U/L 7-52 [facility] Albumin [Mass/volume] in Ser um or Plasma by Bromocresol green (BCG) dye binding methoOrdered By: Govind Barry on 11-25-2023 Albumin BCG dye [Mass/Vol] 4.7 g/dL 3.5-5.7 [facility] Alkaline phosphatase [Enzyma tic activity/volume] in Serum or PlasmaOrdered By: Govind Barry on 11-25-2023 ALP [Catalytic activity/Vol] 82 U/L 34-104 [facility] Aspartate aminotransferase [ Enzymatic activity/volume] in Serum or PlasmaOrdered By: Govind Barry on 11-25-2023 AST [Catalytic activity/Vol] 16 U/L 13-39 [facility] Basophils Auto (Bld) [#/Vol] Ordered By: Govind Barry on 11-25-2023 Basophils (Bld) [#/Vol] 0.1 10*3/uL 0.0-0.2 [facility] Basophils/100 WBC Auto (Bld) Ordered By: Govind Barry on 11-25-2023 Basophils/100 WBC (Bld) 0.6 % . [facility] Bilirubin.total [Mass/volume ] in Serum or PlasmaOrdered By: Govind Barry on 11-25-2023 Bilirubin [Mass/Vol] 0.5 mg/dL 0.3-1.0 [facility] Calcium [Mass/volume] in Ser um or PlasmaOrdered By: Govind Barry on 11-25-2023 Calcium [Mass/Vol] 9.7 mg/dL 8.6-10.3 [facility] Carbon dioxide, total [Moles /volume] in Serum or PlasmaOrdered By: Govind Barry on 11-25-2023 CO2 [Moles/Vol] 27.5 mmol/L 21.0-31.[address] [facility] Chloride [Moles/volume] in S alessandra or PlasmaOrdered By: Govind Barry on 11-25-2023 Chloride [Moles/Vol] 105 mmol/L 98-107 [facility] Complete Blood Count Auto Di ffon 11-25-2023 Basophils (Bld) [#/Vol] 0.1 10*3/uL Normal 0.0-0.2 [facility] Comment on above: Result Comment: PERF ORMED BY: [place] [address] PATHOLOGIST DYNAMITE PACKING MACHINE OPERATOR MELCHOR MORALES M.D. Performed By: #### C BC, CMP, TSH3 wRFLX #### [address] Basophils/100 WBC (Bld) 0.6 % Normal . [facility] Comment on above: Performed By: #### C BC, CMP, TSH3 wRFLX #### [address] Eosinophils (Bld) [#/Vol] 0.2 10*3/uL Normal 0.0-0.45 [facility] Comment on above: Performed By: #### C BC, CMP, TSH3 wRFLX #### [address] Eosinophils/100 WBC (Bld) 1.6 % Normal . [facility] Comment on above: Performed By: #### C BC, CMP, TSH3 wRFLX #### [address] Erythrocyte distribution width (RBC) [Ratio] 12.5 % Normal 11.9-15.3 [facility] Comment on above: Performed By: #### C BC, CMP, TSH3 wRFLX #### [address] Hematocrit (Bld) [Volume fraction] 41.4 % Normal 34.0-46.4 [facility] Comment on above: Performed By: #### C BC, CMP, TSH3 wRFLX #### [address] Hemoglobin (Bld) [Mass/Vol] 14.2 g/dL Normal 11.8-15.4 [facility] Comment on above: Performed By: #### C BC, CMP, TSH3 wRFLX #### [address] [place] [address] [place] Lymphocytes (Bld) [#/Vol] 1.7 10*3/uL Normal 1.00-4.8 [facility] Comment on above: Performed By: #### C BC, CMP, TSH3 wRFLX #### [facility] [address] Lymphocytes/100 WBC (Bld) 16.7 % Normal . [facility] Comment on above: Performed By: #### C BC, CMP, TSH3 wRFLX #### [address] MCH (RBC) [Entitic mass] 30.2 pg Normal 24.7-34.3 [facility] Comment on above: Performed By: #### C BC, CMP, TSH3 wRFLX #### [address] MCV (RBC) [Entitic vol] 87.9 fL Normal 80-100 [facility] Comment on above: Performed By: #### C BC, CMP, TSH3 wRFLX #### [address] Mean Corpuscular HGB Conc 34.4 g/dL Normal 32.0-35.0 [facility] Comment on above: Performed By: #### C BC, CMP, TSH3 wRFLX #### [place] [address] [place] Monocytes (Bld) [#/Vol] 0.5 10*3/uL Normal 0.0-0.8 [facility] Comment on above: Performed By: #### C BC, CMP, TSH3 wRFLX #### [place] [address] [place] Monocytes/100 WBC (Bld) 5.4 % Normal . [facility] Comment on above: Performed By: #### C BC, CMP, TSH3 wRFLX #### [facility] [address] [place] [address] [place] Neutrophils (Bld) [#/Vol] 7.5 10*3/uL Normal 1.8-7.7 [facility] Comment on above: Performed By: #### C BC, CMP, TSH3 wRFLX #### [facility] [address] [place] [address] Neutrophils/100 WBC (Bld) 75.7 % Normal . [facility] Comment on above: Performed By: #### C BC, CMP, TSH3 wRFLX #### [facility] [address] [place] [address] NRBC% 0.1 /100{WBC} Normal 0-0.5 [facility] Comment on above: Performed By: #### C BC, CMP, TSH3 wRFLX #### [address] Platelet mean volume (Bld) [Entitic vol] 8.8 fL Normal 6.3-10.7 [facility] Comment on above: Performed By: #### C BC, CMP, TSH3 wRFLX #### [address] Platelets (Bld) [#/Vol] 301 10*3/uL Normal 150-450 [facility] Comment on above: Performed By: #### C BC, CMP, TSH3 wRFLX #### [address] RBC (Bld) [#/Vol] 4.71 10*6/uL Normal 3.60-5.00 [facility] Comment on above: Performed By: #### C BC, CMP, TSH3 wRFLX #### [address] WBC (Bld) [#/Vol] 10.0 10*3/uL Normal 3.8-11.6 [facility] Comment on above: Performed By: #### C BC, CMP, TSH3 wRFLX #### [address] Comprehensive Metabolic Pane dale 11-25-2023 Albumin [Mass/Vol] 4.7 g/dL Normal 3.5-5.7 [facility] Comment on above: Performed By: #### C BC, CMP, TSH3 wRFLX #### [facility] [address] [place] [address] Albumin/Globulin [Mass ratio] 1.9 {ratio} Normal [facility] Comment on above: Performed By: #### C BC, CMP, TSH3 wRFLX #### [facility] [address] [place] [address] ALP [Catalytic activity/Vol] 82 U/L Normal 34-104 [facility] Comment on above: Performed By: #### C BC, CMP, TSH3 wRFLX #### [facility] [address] [place] [address] ALT [Catalytic activity/Vol] 11 U/L Normal 7-52 [facility] Comment on above: Performed By: #### C BC, CMP, TSH3 wRFLX #### [facility] [address] [place] [address] Anion gap [Moles/Vol] 10.7 mmol/L Normal 6.0-15.0 [facility] Comment on above: Performed By: #### C BC, CMP, TSH3 wRFLX #### [address] AST [Catalytic activity/Vol] 16 U/L Normal 13-39 [facility] Comment on above: Performed By: #### C BC, CMP, TSH3 wRFLX #### [facility] [address] [place] [address] [place] Bilirubin [Mass/Vol] 0.5 mg/dL Normal 0.3-1.0 [facility] Comment on above: Performed By: #### C BC, CMP, TSH3 wRFLX #### [facility] [address] [place] [address] Calcium [Mass/Vol] 9.7 mg/dL Normal 8.6-10.3 [facility] Comment on above: Performed By: #### C BC, CMP, TSH3 wRFLX #### [place] [address] [place] Chloride [Moles/Vol] 105 mmol/L Normal 98-107 [facility] Comment on above: Performed By: #### C DONN ARREDONDO, TSH3 wRFLX #### [facility] [address] CO2 [Moles/Vol] 27.5 mmol/L Normal 21.0-31.[address] [facility] Comment on above: Performed By: #### C DONN ARREDONDO, TSH3 wRFLX #### [facility] [address] Creatinine [Mass/Vol] 0.76 mg/dL Normal 0.60-1.20 [facility] Comment on above: Performed By: #### C DONN ARREDONDO, TSH3 wRFLX #### [facility] [address] [place] [address] [place] GFR/1.73 sq M.predicted MDRD (S/P/Bld) [Vol rate/Area] mL/min/{1.73_m2} Normal [facility] Comment on above: Performed By: #### C DONN ARREDONDO, TSH3 wRFLX #### [facility] [address] Globulin (S) [Mass/Vol] 2.5 g/dL Normal [facility] Comment on above: Performed By: #### C DONN ARREDONDO, TSH3 wRFLX #### [address] Glucose [Mass/Vol] 85 mg/dL Normal 70-100 [facility] Comment on above: Result Comment: Pound Glucose Reference Range is dependent on time and content of last meal. Glucose of more than 200 mg/dL in a nonstressed, ambulatory subject supports the diagnosis of Diabetes Mellitus. ADA recommended reference range Performed By: #### C BCDONN, TSH3 wRFLX #### [facility] [address] Potassium [Moles/Vol] 4.2 mmol/L Normal 3.5-5.1 [facility] Comment on above: Performed By: #### C BCDONN, TSH3 wRFLX #### [facility] [address] [place] [id number] [place] Protein [Mass/Vol] 7.2 g/dL Normal 6.4-8.9 [facility] Comment on above: Performed By: #### C BC, CMP, TSH3 wRFLX #### [facility] [address] [place] [id number] [place] Sodium [Moles/Vol] 139 mmol/L Normal 136-145 [facility] Comment on above: Performed By: #### C BC, CMP, TSH3 wRFLX #### [facility] [address] [place] [id number] [place] Urea nitrogen [Mass/Vol] 11 mg/dL Normal 7-25 [facility] Comment on above: Performed By: #### C BC, CMP, TSH3 wRFLX #### [facility] [address] [place] [address] [place] Creatinine [Mass/volume] in Serum or PlasmaOrdered By: Govind Barry on 11-25-2023 Creatinine [Mass/Vol] 0.76 mg/dL 0.60-1.20 [facility] Eosinophils Auto (Bld) [#/Vo l]Ordered By: Govind Barry on 11-25-2023 Eosinophils (Bld) [#/Vol] 0.2 10*3/uL 0.0-0.45 [facility] Eosinophils/100 WBC Auto (Bl d)Ordered By: Govind Barry on 11-25-2023 Eosinophils/100 WBC (Bld) 1.6 % . [facility] Erythrocyte distribution wid th Auto (RBC) [Ratio]Ordered By: Govind Barry on 11-25-2023 Erythrocyte distribution width (RBC) [Ratio] 12.5 % 11.9-15.3 [facility] Globulin Calc (S) [Mass/Vol] Ordered By: Govind Barry on 11-25-2023 Globulin (S) [Mass/Vol] 2.5 g/dL [facility] Glucose [Mass/volume] in Ser um or PlasmaOrdered By: Govind Barry on 11-25-2023 Glucose [Mass/Vol] 85 mg/dL 70-100 [facility] Comment on above: ADA recommended refe rence rangeRandom Glucose Reference Range is dependent on time and content of last meal. Glucose of more than 200 mg/dL in a nonstressed, ambulatory subject supports the diagnosis of Diabetes Mellitus. Hematocrit Auto (Bld) [Volum e fraction]Ordered By: Govind Barry on 11-25-2023 Hematocrit (Bld) [Volume fraction] 41.4 % 34.0-46.4 [facility] Hemoglobin [Mass/volume] in BloodOrdered By: Govind Barry on 11-25-2023 Hemoglobin (Bld) [Mass/Vol] 14.2 g/dL 11.8-15.4 [facility] Leukocytes [#/volume] correc jessica for nucleated erythrocytes in Blood by Automated counOrdered By: Govind Barry on 11-25-2023 WBC corrected for nucl RBC Auto (Bld) [#/Vol] 10.0 10*3/uL 3.8-11.6 [facility] Lymphocytes Auto (Bld) [#/Vo l]Ordered By: Govind Barry on 11-25-2023 Lymphocytes (Bld) [#/Vol] 1.7 10*3/uL 1.00-4.8 [facility] Lymphocytes/100 WBC Auto (Bl d)Ordered By: Gvoind Barry on 11-25-2023 Lymphocytes/100 WBC (Bld) 16.7 % . [facility] MCH Auto (RBC) [Entitic mass ]Ordered By: Govind Barry on 11-25-2023 MCH (RBC) [Entitic mass] 30.2 pg 24.7-34.3 [facility] MCHC Auto (RBC) [Mass/Vol]Or dered By: Govind Barry on 11-25-2023 MCHC (RBC) [Mass/Vol] 34.4 g/dL 32.0-35.0 [facility] MCV Auto (RBC) [Entitic vol] Ordered By: Govind Barry on 11-25-2023 MCV (RBC) [Entitic vol] 87.9 fL 80-100 [facility] Monocytes Auto (Bld) [#/Vol] Ordered By: Govind Barry on 11-25-2023 Monocytes (Bld) [#/Vol] 0.5 10*3/uL 0.0-0.8 [facility] Monocytes/100 WBC Auto (Bld) Ordered By: Govind Barry on 11-25-2023 Monocytes/100 WBC (Bld) 5.4 % . [facility] Neutrophils Auto (Bld) [#/Vo l]Ordered By: Govind Barry on 11-25-2023 Neutrophils (Bld) [#/Vol] 7.5 10*3/uL 1.8-7.7 [facility] Neutrophils/100 WBC Auto (Bl d)Ordered By: Govind Barry on 11-25-2023 Neutrophils/100 WBC (Bld) 75.7 % . [facility] No Panel InformationOrdered By: Govind Barry on 11-25-2023 Estimated GFR (CKD-EPI) > 60.0 mL/Min [facility] Creatinine Clearance (Chem N/A [facility] Nucleated erythrocytes [Pres ence] in Blood by Automated countOrdered By: Govind Barry on 11-25-2023 Nucleated RBC Auto Ql (Bld) 0.1 /100{WBC} 0-0.5 [facility] Platelet mean volume Auto (B ld) [Entitic vol]Ordered By: Govind Barry on 11-25-2023 Platelet mean volume (Bld) [Entitic vol] 8.8 fL 6.3-10.7 [facility] Platelets Auto (Bld) [#/Vol] Ordered By: Govind Barry on 11-25-2023 Platelets (Bld) [#/Vol] 301 10*3/uL 150-450 [facility] Potassium [Moles/volume] in Serum or PlasmaOrdered By: Govind Barry on 11-25-2023 Potassium [Moles/Vol] 4.2 mmol/L 3.5-5.1 [facility] Protein [Mass/volume] in Ser um or PlasmaOrdered By: Govind Barry on 11-25-2023 Protein [Mass/Vol] 7.2 g/dL 6.4-8.9 [facility] RBC Auto (Bld) [#/Vol]Ordere d By: Govind Barry on 11-25-2023 RBC (Bld) [#/Vol] 4.71 10*6/uL 3.60-5.00 [facility] Serum or plasma albumin/glob ulin mass ratioOrdered By: Govind Barry on 11-25-2023 Albumin/Globulin [Mass ratio] 1.9 {ratio} [facility] Serum or plasma anion gap de terminationOrdered By: Govind Barry on 11-25-2023 Anion gap [Moles/Vol] 10.7 mmol/L 6.0-15.0 [facility] Sodium [Moles/volume] in Ser um or PlasmaOrdered By: Govind Barry on 11-25-2023 Sodium [Moles/Vol] 139 mmol/L 136-145 [facility] Thyroid Stim Hormone w/Rflxo n 11-25-2023 Thyroid Stim Hormone w/Rflx 1.83 u[iU]/mL Normal 0.45-5.33 [facility] Comment on above: Result Comment: PERF ORMED BY: [place] [address] PATHOLOGIST DYNAMITE PACKING MACHINE OPERATOR MELCHOR MORALES M.D. Performed By: #### C BC, CMP, TSH3 wRFLX #### [facility] [address] [place] [address] Thyrotropin [Units/volume] i n Serum or PlasmaOrdered By: Govind Barry on 11-25-2023 TSH Qn 1.83 m[IU]/L 0.45-5.33 [facility] Urea nitrogen [Mass/volume] in Serum or PlasmaOrdered By: Govind Barry on 11-25-2023 Urea nitrogen [Mass/Vol] 11 mg/dL 7-25 [facility] WBC Auto (Bld) [#/Vol]Ordere d By: Govind Barry on 11-25-2023 WBC (Bld) [#/Vol] 10.0 10*3/uL 3.8-11.6 [facility] Anisocytosis LM Ql (Bld)Orde red By: ASHLEY WATSON on 09-12-2022 Anisocytosis Ql (Bld) Moderate [facility] Basophils Auto (Bld) [#/Vol] Ordered By: ASHLEY WATSON on 09-12-2022 Basophils (Bld) [#/Vol] 0.1 10*3/uL 0.0-0.2 [facility] Basophils/100 WBC Auto (Bld) Ordered By: ASHLEY WATSON on 09-12-2022 Basophils/100 WBC (Bld) 0.7 % . [facility] Eosinophils Auto (Bld) [#/Vo l]Ordered By: ASHLEY WATSON on 09-12-2022 Eosinophils (Bld) [#/Vol] 0.2 10*3/uL 0.0-0.45 [facility] Eosinophils/100 WBC Auto (Bl d)Ordered By: ASHLEY WATSON on 09-12-2022 Eosinophils/100 WBC (Bld) 1.7 % . [facility] Erythrocyte distribution wid th Auto (RBC) [Ratio]Ordered By: ASHLEY WATSON on 09-12-2022 Erythrocyte distribution width (RBC) [Ratio] 14.4 % 11.9-15.3 [facility] Hematocrit Auto (Bld) [Volum e fraction]Ordered By: ASHLEY WATSON on 09-12-2022 Hematocrit (Bld) [Volume fraction] 29.2 % 34.0-46.4 [facility] Hemoglobin [Mass/volume] in BloodOrdered By: ASHLEY WATSON on 09-12-2022 Hemoglobin (Bld) [Mass/Vol] 9.6 g/dL 11.8-15.4 [facility] Hypochromia LM Ql (Bld)Order ed By: ASHLEY WATSON on 09-12-2022 Hypochromia Ql (Bld) Slight [facility] Leukocytes [#/volume] correc jessica for nucleated erythrocytes in Blood by Automated counOrdered By: ASHLEY WATSON on 09-12-2022 WBC corrected for nucl RBC Auto (Bld) [#/Vol] 12.2 10*3/uL 3.8-11.6 [facility] Lymphocytes Auto (Bld) [#/Vo l]Ordered By: ASHLEY WATSON on 09-12-2022 Lymphocytes (Bld) [#/Vol] 2.9 10*3/uL 1.00-4.8 [facility] Lymphocytes/100 WBC Auto (Bl d)Ordered By: ASHLEY WATSON on 09-12-2022 Lymphocytes/100 WBC (Bld) 23.6 % . [facility] MCH Auto (RBC) [Entitic mass ]Ordered By: ASHLEY WATSON on 09-12-2022 MCH (RBC) [Entitic mass] 25.5 pg 24.7-34.3 [facility] MCHC Auto (RBC) [Mass/Vol]Or dered By: ASHLEY WATSON on 09-12-2022 MCHC (RBC) [Mass/Vol] 32.8 g/dL 32.0-35.0 [facility] MCV Auto (RBC) [Entitic vol] Ordered By: ASHLEY WATSON on 09-12-2022 MCV (RBC) [Entitic vol] 77.6 fL 80-100 [facility] Microcytes LM Ql (Bld)Ordere d By: ASHLEY WATSON on 09-12-2022 Microcytes Ql (Bld) Moderate [facility] Monocytes Auto (Bld) [#/Vol] Ordered By: ASHLEY WATSON on 09-12-2022 Monocytes (Bld) [#/Vol] 0.8 10*3/uL 0.0-0.8 [facility] Monocytes/100 WBC Auto (Bld) Ordered By: ASHLEY WATSON on 09-12-2022 Monocytes/100 WBC (Bld) 6.2 % . [facility] Neutrophils Auto (Bld) [#/Vo l]Ordered By: ASHLEY WATSON on 09-12-2022 Neutrophils (Bld) [#/Vol] 8.3 10*3/uL 1.8-7.7 [facility] Neutrophils/100 WBC Auto (Bl d)Ordered By: ASHLEY WATSON on 09-12-2022 Neutrophils/100 WBC (Bld) 67.8 % . [facility] Nucleated erythrocytes [Pres ence] in Blood by Automated countOrdered By: ASHLEY WATSON on 09-12-2022 Nucleated RBC Auto Ql (Bld) 0.0 /100{WBC} 0-0.5 [facility] Platelet adequacy [Presence] in Blood by Light microscopyOrdered By: ASHLEY WATSON on 09-12-2022 Platelets LM Ql (Bld) Decreased Normal [facility] Platelet mean volume Auto (B ld) [Entitic vol]Ordered By: ASHLEY WATSON on 09-12-2022 Platelet mean volume (Bld) [Entitic vol] 10.7 fL 6.3-10.7 [facility] Platelet morphology finding [Identifier] in BloodOrdered By: ASHLEY WATSON on 09-12-2022 Platelet morphology finding Nom (Bld) N/A [facility] Platelets Auto (Bld) [#/Vol] Ordered By: ASHLEY WATSON on 09-12-2022 Platelets (Bld) [#/Vol] 127 10*3/uL 150-450 [facility] Platelets Large [Presence] i n Blood by Light microscopyOrdered By: ASHLEY WATSON on 09-12-2022 Platelets Large LM Ql (Bld) Marked [facility] Polychromasia [Presence] in Blood by Light microscopyOrdered By: ASHLEY WATSON on 09-12-2022 Polychromasia LM Ql (Bld) Moderate [facility] RBC Auto (Bld) [#/Vol]Ordere d By: ASHLEY WATSON on 09-12-2022 RBC (Bld) [#/Vol] 3.76 10*6/uL 3.60-5.00 [facility] RBC morphologyOrdered By: ROSEANNE WATSON on 09-12-2022 RBC morphology finding Nom (Bld) N/A [facility] Urine culture routineOrdered By: ASHLEY WATSON on 09-12-2022 Bacteria identified Cx Nom (U) Carol Ann albicans [facility] WBC Auto (Bld) [#/Vol]Ordere d By: ASHLEY WATSON on 09-12-2022 WBC (Bld) [#/Vol] 12.2 10*3/uL 3.8-11.6 [facility] Amphetamine Screen Ql (U)Ord ered By: ASHLEY WATSON on 09-10-2022 Amphetamines Ql (U) Negative Negative [facility] Automated erythrocytes count in urine sediment (number/area)Ordered By: ASHLEY WATSON on 09-10-2022 RBC Auto (Urine sed) [#/Area] None seen [HPF] 0-4 [facility] Automated leukocytes count i n urine sediment (number/area)Ordered By: ASHLEY WATSON on 09-10-2022 WBC Auto (Urine sed) [#/Area] 10-19 [HPF] 0-4 [facility] Barbiturates [Presence] in U rineOrdered By: ASHLEY WATSON on 09-10-2022 Barbiturates Ql (U) Negative Negative [facility] Benzodiazepines [Presence] i n UrineOrdered By: ASHLEY WATSON on 09-10-2022 Benzodiazepines Ql (U) Negative Negative [facility] Bilirubin Test strip Ql (U)O rdered By: ASHLEY WATSON on 09-10-2022 Bilirubin Ql (U) Negative Negative [facility] Color Auto (U)Ordered By: ROSEANNE WATSON on 09-10-2022 Color (U) Yellow Yellow [facility] Ketones Auto test strip (U) [Mass/Vol]Ordered By: ASHLEY WATSON on 09-10-2022 Ketones (U) [Mass/Vol] Negative Negative [facility] Laboratory - Drug toxicology Ordered By: ASHLEY WATSON on 09-10-2022 Opiates Ql (U) Negative Negative [facility] Laboratory - UrinalysisOrder ed By: ASHLEY WATSON on 09-10-2022 Hyaline casts LM Ql (Urine sed) 0-8 [LPF] 0-8 [facility] Macrocytes LM Ql (Bld)Ordere d By: ASHLEY WATSON on 09-10-2022 Macrocytes Ql (Bld) Slight [facility] Nitrite Test strip Ql (U)Ord ered By: ASHLEY WATSON on 09-10-2022 Nitrite Ql (U) Negative Negative [facility] Phencyclidine Screen Ql (U)O rdered By: ASHLEY WATSON on 09-10-2022 Phencyclidine Ql (U) Negative Negative [facility] Comment on above: These are unconfirme d results and should not be used for legal purposes. Drug Cut-Off Concentration: AMPH 1000 ng/mL YOSEF 200 ng/mL JARAD 200 ng/mL COCM 300 ng/mL OP 300 ng/mL PCP 25 ng/mL Poikilocytosis [Presence] in Blood by Light microscopyOrdered By: ASHLEY WATSON on 09-10-2022 Poikilocytosis LM Ql (Bld) Slight [facility] Protein Auto test strip (U) [Mass/Vol]Ordered By: ASHLEY WATSON on 09-10-2022 Protein (U) [Mass/Vol] Trace mg/dL Negative [facility] Reagin Ab [Presence] in Seru m by RPROrdered By: ASHLEY WATSON on 09-10-2022 Reagin Ab RPR Ql (S) Non-Reactive Non Reactive [facility] Comment on above: Performed at: [address] Director: Mook Hawthorne PhD, Phone: [phone] Specific gravity Auto test s trip (U) [Rel density]Ordered By: ASHLEY WATSON on 09-10-2022 Specific gravity (U) [Rel density] 1.016 1.001-1.030 [facility] Squamous epithelial cells de tection in urine sediment by light microscopyOrdered By: ASHLEY WATSON on 09-10-2022 Epithelial cells.squamous LM Ql (Urine sed) 10-19 [HPF] 0-2 [facility] Urine bacteria detection by automated methodOrdered By: ASHLEY WATSON on 09-10-2022 Bacteria Auto Ql (U) None seen None Seen [facility] Urine clarity by refractomet ry automatedOrdered By: ASHLEY WATSON on 09-10-2022 Clarity Refractometry automated (U) Clear Clear [facility] Urine cocaine detectionOrder ed By: ASHLEY WATSON on 09-10-2022 Cocaine Ql (U) Negative Negative [facility] Urine glucose measurement by automated test strip (mass/volume)Ordered By: ASHLEY WATSON on 09-10-2022 Glucose Auto test strip (U) [Mass/Vol] Normal mg/dL Normal [facility] Urine hemoglobin detection b y automated test stripOrdered By: ASHLEY WATSON on 09-10-2022 Hemoglobin Auto test strip Ql (U) Negative Negative [facility] Urine leukocyte esterase det ection by automated test stripOrdered By: ASHLEY WATSON on 09-10-2022 Leukocyte esterase Auto test strip Ql (U) 3+ Negative [facility] Urobilinogen Auto test strip (U) [Mass/Vol]Ordered By: ASHLEY WATSON on 09-10-2022 Urobilinogen (U) [Mass/Vol] Normal mg/dL Normal [facility] pH Auto test strip (U)Ordere d By: ASHLEY WATSON on 09-10-2022 pH (U) 6.0 [pH] 5.0-9.0 [facility] S. agalactiae Org specific c x Ql (Unsp spec)Ordered By: ASHLEY WATSON on 08-16-2022 Streptococcus agalactiae culture No Group B Beta Streptococcus Isolated 3 Days [facility] Blood hemoglobin measurement (mass/volume)Ordered By: ASHLEY WATSON on 06-24-2022 Hemoglobin (Bld) [Mass/Vol] 12.7 g/dL 11.8-15.4 [facility] Hematocrit Auto (Bld) [Volum e fraction]Ordered By: ASHLEY WATSON on 06-24-2022 Hematocrit (Bld) [Volume fraction] 37.9 % 34.0-46.4 [facility] No Panel InformationOrdered By: ASHLEY WATSON on 06-24-2022 Glucose 1 Hour Postprandial (Timed) 100 mg/dL 60-140 [facility] Albumin [Mass/volume] in Ser um or PlasmaOrdered By: Jordan Saunders on 04-14-2022 Albumin [Mass/Vol] 3.4 g/dL 3.2-5.5 [facility] Basophils Auto (Bld) [#/Vol] Ordered By: Jordan Saunders on 04-14-2022 Basophils (Bld) [#/Vol] 0.1 10*3/uL 0.0-0.2 [facility] Basophils/100 WBC Auto (Bld) Ordered By: Jordan Saunders on 04-14-2022 Basophils/100 WBC (Bld) 0.6 % . [facility] Blood hemoglobin measurement (mass/volume)Ordered By: Jordan Saunders on 04-14-2022 Hemoglobin (Bld) [Mass/Vol] 13.7 g/dL 11.8-15.4 [facility] Blood leukocytes automated c ount (number/volume)Ordered By: Jordan Saunders on 04-14-2022 WBC (Bld) [#/Vol] 10.8 10*3/uL 4.5-11.0 [facility] Creatinine and Glomerular fi ltration rate.predicted panel (S/P/Bld)Ordered By: Jordan Saunders on 04-14-2022 Creatinine [Mass/Vol] 0.50 mg/dL 0.44-1.03 [facility] Eosinophils Auto (Bld) [#/Vo l]Ordered By: Jordan Saunders on 04-14-2022 Eosinophils (Bld) [#/Vol] 0.1 10*3/uL 0.0-0.45 [facility] Eosinophils/100 WBC Auto (Bl d)Ordered By: Jordan Saunders on 04-14-2022 Eosinophils/100 WBC (Bld) 0.8 % . [facility] Erythrocyte distribution wid th Auto (RBC) [Ratio]Ordered By: Jordan Saunders on 04-14-2022 Erythrocyte distribution width (RBC) [Ratio] 12.9 % 11.9-15.3 [facility] Estimated glomerular filtrat ion rate (GFR) non- AmericanOrdered By: Jordan Saunders on 04-14-2022 GFR/1.73 sq M.predicted among non-blacks MDRD (S/P/Bld) [Vol rate/Area] > 60 mL/Min [facility] Globulin Calc (S) [Mass/Vol] Ordered By: Jordan Saunders on 04-14-2022 Globulin (S) [Mass/Vol] 3.2 g/dL [facility] Hematocrit Auto (Bld) [Volum e fraction]Ordered By: Jordan Saunders on 04-14-2022 Hematocrit (Bld) [Volume fraction] 39.7 % 34.0-46.4 [facility] Laboratory - Chemistry and C hemistry - challengeOrdered By: Jordan Saunders on 04-14-2022 Magnesium [Mass/Vol] 1.9 mg/dL 1.6-2.6 [facility] Laboratory - Hematology and Cell countsOrdered By: Jordan Saunders on 04-14-2022 Nucleated RBC/100 WBC (Bld) [Ratio] 0.1 % 0-0.5 [facility] Lymphocytes Auto (Bld) [#/Vo l]Ordered By: Jordan Saunders on 04-14-2022 Lymphocytes (Bld) [#/Vol] 1.8 10*3/uL 1.00-4.8 [facility] Lymphocytes/100 WBC Auto (Bl d)Ordered By: Jordan Saunders on 04-14-2022 Lymphocytes/100 WBC (Bld) 17.0 % . [facility] MCH Auto (RBC) [Entitic mass ]Ordered By: Jordan Saunders on 04-14-2022 MCH (RBC) [Entitic mass] 30.4 pg 24.7-34.3 [facility] MCHC Auto (RBC) [Mass/Vol]Or dered By: Jordan Saunders on 04-14-2022 MCHC (RBC) [Mass/Vol] 34.5 g/dL 32.0-35.0 [facility] MCV Auto (RBC) [Entitic vol] Ordered By: Jordan Saunders on 04-14-2022 MCV (RBC) [Entitic vol] 88.0 fL 80-100 [facility] Monocytes Auto (Bld) [#/Vol] Ordered By: Jordan Saunders on 04-14-2022 Monocytes (Bld) [#/Vol] 0.5 10*3/uL 0.0-0.8 [facility] Monocytes/100 WBC Auto (Bld) Ordered By: Jordan Saunders on 04-14-2022 Monocytes/100 WBC (Bld) 5.1 % . [facility] Neutrophils Auto (Bld) [#/Vo l]Ordered By: Jordan Saunders on 04-14-2022 Neutrophils (Bld) [#/Vol] 8.3 10*3/uL 1.8-7.7 [facility] Neutrophils/100 WBC Auto (Bl d)Ordered By: Jordan Saunders on 04-14-2022 Neutrophils/100 WBC (Bld) 76.5 % . [facility] No Panel InformationOrdered By: Jordan Saunders on 04-14-2022 Estimated GFR () > 60 mL/Min [facility] Comment on above: GFR estimated refere nce range: According to KDOQI guidelines, <60 ml/min/1.73m2 is sufficient to diagnose a patient with chronic kidney disease. Pharmacy Creatinine Clearance (Chem 171.62 [facility] Platelet mean volume Auto (B ld) [Entitic vol]Ordered By: Jordan Saunders on 04-14-2022 Platelet mean volume (Bld) [Entitic vol] 9.9 fL 6.3-10.7 [facility] Platelets Auto (Bld) [#/Vol] Ordered By: Jordan Saunders on 04-14-2022 Platelets (Bld) [#/Vol] 246 10*3/uL 150-450 [facility] Protein [Mass/volume] in Ser um or PlasmaOrdered By: Jordan Saunders on 04-14-2022 Protein [Mass/Vol] 6.6 g/dL 6.1-7.9 [facility] RBC Auto (Bld) [#/Vol]Ordere d By: Jordan Saunders on 04-14-2022 RBC (Bld) [#/Vol] 4.52 10*6/uL 3.60-5.00 [facility] Serum or plasma alanine salas otransferase measurement without P-5'-P (enzymatic activiOrdered By: Jordan Saunders on 04-14-2022 ALT No additional P-5'-P [Catalytic activity/Vol] 13 U/L 10-60 [facility] Serum or plasma albumin/glob ulin mass ratioOrdered By: Jordan Saunders on 04-14-2022 Albumin/Globulin [Mass ratio] 1.1 {ratio} [facility] Serum or plasma alkaline abel sphatase measurement (enzymatic activity/volume)Ordered By: Jordan Saunders on 04-14-2022 ALP [Catalytic activity/Vol] 49 U/L 32-92 [facility] Serum or plasma aspartate am inotransferase measurement (enzymatic activity/volume)Ordered By: Jordan Saunders on 04-14-2022 AST [Catalytic activity/Vol] 18 U/L 10-42 [facility] Serum or plasma calcium pete urement (mass/volume)Ordered By: Jordan Saunders on 04-14-2022 Calcium [Mass/Vol] 9.4 mg/dL 8.2-10.2 [facility] Serum or plasma chloride tino surement (moles/volume)Ordered By: Jordan Saunders on 04-14-2022 Chloride [Moles/Vol] 100 mmol/L 95-114 [facility] Serum or plasma glucose pete urement (mass/volume)Ordered By: Jordan Saunders on 04-14-2022 Glucose [Mass/Vol] 84 mg/dL 70-100 [facility] Comment on above: ADA recommended refe rence range Random Glucose Reference Range is dependent on time and content of last meal. Glucose of more than 200 mg/dL in a nonstressed, ambulatory subject supports the diagnosis of Diabetes Mellitus. Serum or plasma potassium me asurement (moles/volume)Ordered By: Jordan Saunders on 04-14-2022 Potassium [Moles/Vol] 3.8 mmol/L 3.5-5.1 [facility] Serum or plasma sodium measu rement (moles/volume)Ordered By: Jordan Saunders on 04-14-2022 Sodium [Moles/Vol] 132 mmol/L 136-146 [facility] Serum or plasma total biliru bin measurement (mass/volume)Ordered By: Jordan Saunders on 04-14-2022 Bilirubin [Mass/Vol] 0.5 mg/dL 0.3-1.2 [facility] Serum or plasma total carbon dioxide measurement (moles/volume)Ordered By: Jordan Saunders on 04-14-2022 CO2 [Moles/Vol] 21.6 mmol/L 22.0-30.[address] [facility] Serum or plasma urea nitroge n measurement (mass/volume)Ordered By: Jordan Saunedrs on 04-14-2022 Urea nitrogen [Mass/Vol] 5 mg/dL 9-23 [facility] TSH DL <= 0.005 mIU/L QnOrde red By: Jordan Saunders on 04-14-2022 TSH Qn 1.21 m[IU]/L 0.45-5.33 [facility] Troponin I.cardiac [Mass/vol ume] in Serum or Plasma by High sensitivity methodOrdered By: Jordan Saunders on 04-14-2022 Troponin I.cardiac High sensitivity method [Mass/Vol] 11 pg/mL 0-15 [facility] Complete Blood Count with Au to Diffon 12-24-2021 Basophils (Bld) [#/Vol] 0.05 10*3/uL Normal 0.00-0.[address] [facility] Comment on above: Performed By: #### C BCAD, VITD, CMP, TSH reflex FT4 #### [facility] [address] [place], [place] [id number] Basophils/100 WBC (Bld) 0.8 % Normal [facility] Comment on above: Performed By: #### C BCAD, VITD, CMP, TSH reflex FT4 #### [facility] [address] [place], [place] [id number] Eosinophils (Bld) [#/Vol] 0.12 10*3/uL Normal 0.02-0.[address] [facility] Comment on above: Performed By: #### C BCAD, VITD, CMP, TSH reflex FT4 #### [facility] [address] [place], [place] [id number] Eosinophils/100 WBC (Bld) 2.0 % Normal [facility] Comment on above: Performed By: #### C BCAD, VITD, CMP, TSH reflex FT4 #### [facility] [address] [place], [place] [id number] Erythrocyte distribution width (RBC) [Ratio] 11.7 % Normal 11.0-15.0 [facility] Comment on above: Performed By: #### C BCAD, VITD, CMP, TSH reflex FT4 #### [facility] [address] [place], [place] [id number] Hematocrit (Bld) [Volume fraction] 43.8 % Normal 35.0-47.[address] [facility] Comment on above: Performed By: #### C BCAD, VITD, CMP, TSH reflex FT4 #### [facility] [address] [place], [place] [id number] Hemoglobin (Bld) [Mass/Vol] 14.5 g/dL Normal 11.6-15.[address] [facility] Comment on above: Performed By: #### C BCAD, VITD, CMP, TSH reflex FT4 #### [facility] [address] [place], [place] [id number] Lymphocytes (Bld) [#/Vol] 2.1 10*3/uL Normal 0.9-3.[address] [facility] Comment on above: Performed By: #### C BCAD, VITD, CMP, TSH reflex FT4 #### [facility] [address] [place], [place] [id number] Lymphocytes/100 WBC (Bld) 34.1 % Normal [facility] Comment on above: Performed By: #### C BCAD, VITD, CMP, TSH reflex FT4 #### [facility] [address] [place], [place] [id number] MCH (RBC) [Entitic mass] 29.8 pg Normal 27.0-33.[address] [facility] Comment on above: Performed By: #### C BCAD, VITD, CMP, TSH reflex FT4 #### [facility] [address] [place], [place] [id number] MCHC (RBC) [Mass/Vol] 33.1 g/dL Normal 32.0-36.0 [facility] Comment on above: Performed By: #### C BCAD, VITD, CMP, TSH reflex FT4 #### [facility] [address] [place], [place] [id number] MCV (RBC) [Entitic vol] 90 fL Normal 80-100 [facility] Comment on above: Performed By: #### C BCAD, VITD, CMP, TSH reflex FT4 #### [facility] [address] [place], [place] [id number] Monocytes (Bld) [#/Vol] 0.4 10*3/uL Normal 0.2-0.[address] [facility] Comment on above: Performed By: #### C BCAD, VITD, CMP, TSH reflex FT4 #### [facility] [address] [place], [place] [id number] Monocytes/100 WBC (Bld) 6.8 % Normal [facility] Comment on above: Performed By: #### C BCAD, VITD, CMP, TSH reflex FT4 #### [facility] [address] [place], [place] [id number] Neutrophils (Bld) [#/Vol] 3.4 10*3/uL Normal 1.5-7.8 [facility] Comment on above: Performed By: #### C BCAD, VITD, CMP, TSH reflex FT4 #### [facility] [address] [place], [place] [id number] Neutrophils/100 WBC (Bld) 56.1 % Normal [facility] Comment on above: Performed By: #### C BCAD, VITD, CMP, TSH reflex FT4 #### [facility] [address] [place], [place] [id number] Platelet mean volume (Bld) [Entitic vol] 11.00 fL Normal 7.50-12.50 [facility] Comment on above: Performed By: #### C BCAD, VITD, CMP, TSH reflex FT4 #### [facility] [address] [place], [place] [id number] Platelets (Bld) [#/Vol] 306 10*3/uL Normal 140-[address] [facility] Comment on above: Performed By: #### C BCAD, VITD, CMP, TSH reflex FT4 #### [facility] [address] [place], [place] [id number] RBC (Bld) [#/Vol] 4.87 10*6/uL Normal 3.90-5.20 [facility] Comment on above: Performed By: #### C BCAD, VITD, CMP, TSH reflex FT4 #### [facility] [address] [place], [place] [id number] RDW-SD 38.5 fL Normal 37.0-50.[address] [facility] Comment on above: Performed By: #### C BCAD, VITD, CMP, TSH reflex FT4 #### [facility] [address] [place], [place] [id number] WBC (Bld) [#/Vol] 6.0 10*3/uL Normal 3.8-11.0 [facility] [employer] [employer] Comment on above: Performed By: #### C BCAD, VITD, CMP, TSH reflex FT4 #### [facility] [address] [place], [place] [id number] Comprehensive Metabolic Pane dale 12-24-2021 Albumin [Mass/Vol] 5.1 g/dL Normal 3.6-5.1 [facility] [place] [employer] [employer] Comment on above: Performed By: #### C BCAD, VITD, CMP, TSH reflex FT4 #### [facility] [address] [place], [place] [id number] Albumin/Globulin [Mass ratio] 2.4 {ratio} Normal 1.0-2.[address] [facility] Comment on above: Performed By: #### C BCAD, VITD, CMP, TSH reflex FT4 #### [facility] [address] [place], [place] [id number] ALP [Catalytic activity/Vol] 71 U/L Normal 35-[address] [facility] Comment on above: Performed By: #### C BCAD, VITD, CMP, TSH reflex FT4 #### [facility] [address] [place], [place] [id number] ALT [Catalytic activity/Vol] 9 U/L Normal 6-[address] [facility] Comment on above: Result Comment: 09/04 Female reference range changed. Performed By: #### C BCAD, VITD, CMP, TSH reflex FT4 #### [facility] [address] [place], [place] [id number] Anion gap [Moles/Vol] 18 mmol/L Normal 12-20 [facility] Comment on above: Result Comment: Effe ctive 10/10/2019 reference range changed. Performed By: #### C BCAD, VITD, CMP, TSH reflex FT4 #### [facility] [address] [place], [place] [id number] AST [Catalytic activity/Vol] 15 U/L Normal 9-[address] [facility] Comment on above: Performed By: #### C BCAD, VITD, CMP, TSH reflex FT4 #### [facility] [address] [place], [place] [id number] Bilirubin [Mass/Vol] 0.46 mg/dL Normal 0.30-1.20 [facility] Comment on above: Performed By: #### C BCAD, VITD, CMP, TSH reflex FT4 #### [facility] [address] [place], [place] [id number] BUN/CREA 14 Ratio Normal 6-22 [facility] Comment on above: Performed By: #### C BCAD, VITD, CMP, TSH reflex FT4 #### [facility] [address] [place], [place] [id number] Calcium [Mass/Vol] 9.8 mg/dL Normal 8.6-10.2 [facility] Comment on above: Performed By: #### C BCAD, VITD, CMP, TSH reflex FT4 #### [facility] [address] [place], [place] [id number] Chloride [Moles/Vol] 106 mmol/L Normal 98-107 [facility] Comment on above: Performed By: #### C BCAD, VITD, CMP, TSH reflex FT4 #### [facility] [address] [place], [place] [id number] CO2 [Moles/Vol] 23 mmol/L Normal 20-31 [facility] Comment on above: Performed By: #### C BCAD, VITD, CMP, TSH reflex FT4 #### [facility] [address] [place], [place] [id number] Creatinine [Mass/Vol] 0.7 mg/dL Normal 0.6-1.4 [facility] Comment on above: Performed By: #### C BCAD, VITD, CMP, TSH reflex FT4 #### [facility] [address] [place], [place] [id number] eGFRAA 138 mL/min/1.73m2 Normal >60 [facility] Comment on above: Performed By: #### C BCAD, VITD, CMP, TSH reflex FT4 #### [facility] [address] [place], [place] [id number] eGFRNAA 114 mL/min/1.73m2 Normal >60 [place] [employer] Comment on above: Performed By: #### C BCAD, VITD, CMP, TSH reflex FT4 #### [facility] [address] [place], [place] [id number] Globulin (S) [Mass/Vol] 2.1 g/dL Normal 1.9-3.7 [facility] Specialist Comment on above: Performed By: #### C BCAD, VITD, CMP, TSH reflex FT4 #### [facility] [address] [place], [place] [id number] Glucose [Mass/Vol] 83 mg/dL Normal 65-99 [facility] [employer] [employer] Comment on above: Result Comment: For FASTING Glucose --- ADA reference ranges: Normal 65-99 mg/dl Prediabetes 100-125 Diabetes >/= 126 Performed By: #### C BCAD, VITD, CMP, TSH reflex FT4 #### [facility] [address] [place], [place] [id number] Potassium [Moles/Vol] 4.9 mmol/L Normal 3.5-5.5 [facility] Specialist Comment on above: Result Comment: Spec imen is hemolyzed. Results may be affected. Performed By: #### C BCAD, VITD, CMP, TSH reflex FT4 #### [facility] [address] [place], [place] [id number] Protein [Mass/Vol] 7.2 g/dL Normal 6.1-8.1 [facility] [employer] Comment on above: Performed By: #### C BCAD, VITD, CMP, TSH reflex FT4 #### [facility] [address] [place], [place] [id number] Sodium [Moles/Vol] 141 mmol/L Normal 135-146 [facility] [employer] [employer] Comment on above: Performed By: #### C BCAD, VITD, CMP, TSH reflex FT4 #### [facility] [address] [place], [place] [id number] Urea nitrogen [Mass/Vol] 9 mg/dL Normal 7-[address] [facility] Comment on above: Performed By: #### C BCAD, VITD, CMP, TSH reflex FT4 #### [facility] [address] [place], [place] [id number] TSH w/ Reflex to Free T4on 0 12-24-2021 TSH 0.946 uIU/mL Normal 0.400-4.500 [facility] Comment on above: Performed By: #### C BCAD, VITD, CMP, TSH reflex FT4 #### [facility] [address] [place], [place] [id number] Vitamin B12/Folateon 022 Cobalamin (Vitamin B12) [Mass/Vol] 339 pg/mL Normal 211-[address] [facility] Special[facility] Comment on above: Performed By: #### B 12/Fol #### [facility] [address] [place], [place] [id number] FOL 9.9 ng/mL Normal >4.[address] [facility] Specialist Comment on above: Result Comment: Refe rence range change 08/21/2017. Prior reference range F 4.8-37.3 ng/mL, M 4.5-32.2 ng/mL. Performed By: #### B 12/Fol #### [facility] [address] [place], [place] [id number] Vitamin D 25-OHon 12-24-2021 VIT D 25 OH 23 ng/ml Low >[address] [facility] Special[facility] Comment on above: Result Comment: Leslee min D Status Deficiency <20 ng/mL Insufficiency 20-29 ng/mL Optimal 30-100 ng/mL Possible Toxicity >=150 ng/mL Performed By: #### C BCAD, VITD, CMP, TSH reflex FT4 #### [facility] [address] [place], [place] [id number] CNOVon 09-01-2017 CNOV Office Visit (ORTPMN) ----RANDAL REDMOND ([id number]) 2000 FDate Time Provider [id number]/28/17 10:15 AM GILMER BENAVIDES ORTPMN During your [...] tight periscapular,lumbar, and hamstring musculature.Signed: Travis Ocasio [facility] physician:Emeterio Benavides MD 09/01/2017 11:05 AM [...] *Problem List As Of Date: 09/01/2017(None)Harpreet sutherland [facility] ParkwayGilmer Benavides M.D. Department of Pediatric Orthopaedic Surgery / [id number] [place] [id number]: [phone] Appts.: [phone] Fax: [phone] 2016To Whom It May Concern:Randal Redmond was seen in my clinic on 09/01/2017, accompanied by her Mother.Please excuse this child from school for the time required for this physicianvisit.Please feel free to contact my office if you have any questions or concerns.Thank you for your assistance in this matter.Sincerely,Butch Burnett M. D. Status:Closed by GILMER BENAVIDES MD on 09/01/17 [facility] PROGRESSon 09-01-2017 PROGRESS HNO ID: [id number]: Gilmer BenavidesService: (none)Author Type: PhysicianType: Progress NotesFiled: 09/01/2017 11:05 AMNote Text:I have reviewed the history and physical obtained and documented by theresident and I personally participated in the sanchez components. I agree withthe findings and plan of care, with the additions contained within mydictation.Gilmer Benavides M.D. [facility] PROGRESS HNO ID: [id number]: Travis (Lauren) SuraceService: (none)Author Type: ResidentType: Progress [...] and hamstring musculature.Signed: Joel Morales physician:SELF Normal [facility] PROGRESS HNO ID: [id number]: Beverley [place] RtService: (none)Author Type: (none)Type: Progress NotesFiled: 09/01/2017 9:44 AMNote Text: Radiology Service Progress NotePATIENT NAME: Randal Bush WillN: [id number] OF SERVICE: September 01, 2017TIME: 9:44 AMPATIENT IDENTITY VERIFICATION COMPLETED USING TWO (2) METHODS: Patientconfirmed name verbally and Date of .PATIENT GENDER DATA: Female. status: : NoBreastfeeding status: NO.PATIENT RELEVANT IMPLANT DATA REVIEWED: YesRADIOLOGY DEPARTMENT: General X-ray: Exam(s) Completed: Spine X-Ray(s):Scoliois SeriesPERIPHERAL IV DATA: Not applicableSIGNED BY: Beverley Randhawa RtNovember 2016 9:44 AM Normal [facility] XR SCOLIOSIS 2V PA STAND/LAT on 09-01-2017 [...] PERKINS MD on Sep 01 2017 10:54AM [id number] IACN Normal [facility] Vital Signs Date Time Vital Sign Value Performing Clinician Facility 11-14-2023 13:45-0500 Body mass index (BMI) [Ratio] 26.31 kg/m2 Joyce DOMÍNGUEZ Work Phone: [facility] 11-14-2023 13:45-0500 Body temperature 98.01 [degF] Joyce DOMÍNGUEZ Work Phone: [facility] 11-14-2023 13:45-0500 Body weight 76.2 kg Joyce Hemmer PA Work Phone: [facility] [employer] 11-14-2023 13:45-0500 Diastolic blood pressure 70 mm[Hg] Joyce Hemmer PA Work Phone: [facility] 11-14-2023 13:45-0500 Heart rate 86 /min Joyce Hemmer PA Work Phone: [facility] 11-14-2023 13:45-0500 SaO2% (BldA) [Mass fraction] 99 % Joyce Hemmer PA Work Phone: [facility] 11-14-2023 13:45-0500 Systolic blood pressure 110 mm[Hg] Joyce Hemmer PA Work Phone: [facility] 10-27-2023 10:30-0500 Body height 167.64 cm Gilmer Mcgregor Other [facility] 10-27-2023 10:30-0500 Body mass index (BMI) [Ratio] 26.31 kg/m2 Gilmer Mcgregor Other [facility] [email or web address] Other 10-27-2023 10:30-0500 Body weight 73.94 kg Gilmer Mcgregor Other [facility] [email or web address] Other 10-27-2023 10:30-0500 Body weight 73.93 kg MD Jaymie Morris Work Phone: [facility] 10-27-2023 10:30-0500 Diastolic blood pressure 85 mm[Hg] Gilmer Mcgregor Other [facility] 10-27-2023 10:30-0500 SaO2% (BldA) [Mass fraction] 100 % Gilmer Mcgregor Other [facility] [email or web address] Other 10-27-2023 10:30-0500 Systolic blood pressure 128 mm[Hg] Gilmer Mcgregor Other [facility] 12-17-2022 18:45-0400 Body height 167.64 cm MD Jaymie Morris Work Phone: [facility] 12-17-2022 18:45-0400 Body temperature 97.8 [degF] MD Jaymie Morris Work Phone: [facility] 12-17-2022 18:45-0400 Body weight 70.3 kg MD Jaymie Morris Work Phone: [facility] 12-17-2022 18:45-0400 Diastolic blood pressure 92 mm[Hg] MD Jaymie Morris Work Phone: [facility] 12-17-2022 18:45-0400 Heart rate 104 /min MD Jaymie Morris Work Phone: [facility] 12-17-2022 18:45-0400 Respiratory rate 20 /min MD Jaymie Morris Work Phone: [facility] 12-17-2022 18:45-0400 SaO2% (BldA) [Mass fraction] 99 % MD Jaymie Morris Work Phone: [facility] 12-17-2022 18:45-0400 Systolic blood pressure 143 mm[Hg] MD Jaymie Morris Work Phone: [facility] 12-12-2022 12:44-0500 Body height 167.64 cm MD Jaymie Morris Work Phone: [facility] 12-12-2022 12:44-0500 Body temperature 98.8 [degF] MD Jaymie Morris Work Phone: [facility] 12-12-2022 12:44-0500 Body weight 68.49 kg MD Jaymie Morris Work Phone: [facility] 12-12-2022 12:44-0500 Diastolic blood pressure 95 mm[Hg] MD Jaymie Morris Work Phone: [facility] 12-12-2022 12:44-0500 Heart rate 107 /min MD Jaymie Morris Work Phone: [facility] 12-12-2022 12:44-0500 Respiratory rate 18 /min MD Jaymie Morris Work Phone: [facility] 12-12-2022 12:44-0500 SaO2% (BldA) [Mass fraction] 97 % MD Jaymie Morris Work Phone: [facility] 12-12-2022 12:44-0500 Systolic blood pressure 140 mm[Hg] MD Jaymie Morris Work Phone: [facility] 09-12-2022 15:30-0500 Body temperature 98 [degF] MD Jaymie Morris Work Phone: [facility] 09-12-2022 15:30-0500 Diastolic blood pressure 82 mm[Hg] MD Jaymie Morris Work Phone: [facility] 09-12-2022 15:30-0500 Heart rate 82 /min MD Jaymie Morris Work Phone: [facility] 09-12-2022 15:30-0500 Respiratory rate 18 /min MD Jaymie Morris Work Phone: [facility] 09-12-2022 15:30-0500 SaO2% (BldA) [Mass fraction] 100 % MD Jaymie Morris Work Phone: [facility] 09-12-2022 15:30-0500 Systolic blood pressure 140 mm[Hg] MD Jaymie Morris Work Phone: [facility] 09-10-2022 21:52-0500 Body weight 85.72 kg MD Jaymie Morris Work Phone: [facility] 09-10-2022 21:07-0500 Body height 170.18 cm MD Jaymie Morris Work Phone: [facility] 06-24-2022 13:31-0400 Body temperature 98.1 [degF] MD Jaymie Morris Work Phone: [facility] 06-24-2022 13:31-0400 Diastolic blood pressure 78 mm[Hg] MD Jaymie Morris Work Phone: [facility] 06-24-2022 13:31-0400 Heart rate 84 /min MD Jaymie Morris Work Phone: [facility] 06-24-2022 13:31-0400 Respiratory rate 18 /min MD Jaymie Morris Work Phone: [facility] 06-24-2022 13:31-0400 SaO2% (BldA) [Mass fraction] 100 % MD Jaymie Morris Work Phone: [facility] 06-24-2022 13:31-0400 Systolic blood pressure 119 mm[Hg] MD Jaymie Morris Work Phone: [facility] 04-14-2022 18:10-0400 Diastolic blood pressure 69 mm[Hg] MD Jaymie Morris Work Phone: [facility] 04-14-2022 18:10-0400 Heart rate 82 /min MD Jaymie Morris Work Phone: [facility] 04-14-2022 18:10-0400 Respiratory rate 16 /min MD Jaymie Morris Work Phone: [facility] 04-14-2022 18:10-0400 SaO2% (BldA) [Mass fraction] 98 % MD Jaymie Morris Work Phone: [facility] 04-14-2022 18:10-0400 Systolic blood pressure 122 mm[Hg] MD Jaymie Morris Work Phone: [facility] 04-14-2022 13:59-0400 Body temperature 98.1 [degF] MD Jaymie Morris Work Phone: [facility] 04-14-2022 13:56-0400 Body height 170.18 cm MD Jaymie Morris Work Phone: [facility] 04-14-2022 13:56-0400 Body mass index (BMI) [Ratio] 24.7 kg/m2 MD Jaymie Morris Work Phone: [facility] 04-14-2022 13:56-0400 Body weight 71.65 kg MD Jaymie Morrsi Work Phone: [facility] Encounters Encounter Date Encounter Type Care Provider Facility Start: 12-24-2023 End: 12-24-2023 ambulatory SADE BRAXTON Not Available Start: 12-10-2023 End: 12-10-2023 ambulatory JAYMIE MORRIS Not Available Start: 12-09-2023 End: 12-09-2023 ambulatory ASHLEY WATSON Not Available Start: 11-25-2023 End: 11-25-2023 ambulatory Jaymie Morris Facility:[facility] Start: 11-25-2023 End: 11-25-2023 ambulatory MD Jaymie Morris Work Phone: [facility] Work Phone: Start: 11-25-2023 End: 11-25-2023 Patient encounter procedure MD Jaymie Morris Work Phone: [facility] [place] Work Phone: Start: 11-14-2023 End: 11-14-2023 ambulatory [...] outpatient vi sit 25 minutes Gilmer Mcgregor [facility] Start: 10-27-2023 End: 10-27-2023 ambulatory MD Jaymie Morris Work Phone: [facility] [email or web address] Other Start: 10-27-2023 End: 10-27-2023 Patient encounter procedure MD Jaymie Morris Work Phone: [facility]-Sleep Lab Work Phone: Start: 10-27-2023 End: 10-27-2023 Patient encounter procedure MD Jaymie Morris Work Phone: [facility]- Start: 10-22-2023 End: 10-22-2023 ambulatory JAYMIE MORRIS Not Available Start: 10-01-2023 End: 10-01-2023 ambulatory JAYMIE MORRIS Not Available Start: 09-10-2023 End: 09-10-2023 ambulatory JAYMIE BALIS Not Available Start: 09-02-2023 End: 09-02-2023 ambulatory KERRI NO Not Available Start: 08-31-2023 End: 08-31-2023 ambulatory ASHLEY Gee NELIDA Not Available Start: 07-21-2023 End: 07-21-2023 ambulatory Jaymie Morris Facility:[facility] Start: 07-21-2023 End: 07-21-2023 ambulatory MD Jaymie Morris Work Phone: [facility] Work Phone: Start: 07-21-2023 End: 07-21-2023 Patient encounter procedure MD Jaymie Morris Work Phone: [facility]-Flu Vaccine Start: 02-27-2023 End: 02-27-[address] DOCTOR AUGUSTIN Facility:[facility] Start: 12-17-2022 End: 12-17-2022 Emergency department patient visit Michael Martin Facility:[facility] Start: 12-17-2022 End: 12-17-2022 Emergency department patient visit MD Jaymie Morris Work Phone: [facility]-Emergency Room Work Phone: Start: 12-12-2022 End: 12-12-2022 Emergency department patient visit Feroz Skinner Facility:[facility] Start: 12-12-2022 End: 12-12-2022 Emergency department patient visit MD Jaymie Morris Work Phone: [facility]-Emergency Room Work Phone: Start: 09-10-2022 End: 09-12-2022 Evaluation and management of inpatient MD Jaymie Morris Work Phone: [facility] Start: 08-13-2022 End: 08-13-2022 ambulatory MD Jaymie Morris Work Phone: [facility] Work Phone: Start: 08-13-2022 End: 08-13-2022 Departed Referred MD Jaymie Morris Work Phone: [facility] [place] Start: 06-24-2022 End: 06-24-2022 Patient encounter procedure MD Jaymie Morris Work Phone: [facility] [place] Start: 04-16-2022 End: 04-16-2022 Patient encounter procedure MD Jaymie Morris Work Phone: [facility]-Electrodiagnostics Start: 04-14-2022 End: 04-14-2022 Emergency department patient visit MD Jaymie Morris Work Phone: [facility]-Emergency Room Start: 09-01-2017 End: 09-01-2017 Ambulatory GILMER BENAVIDES [facility] Procedures Date Procedure Procedure Detail Performing Clinician Streptococcus agalactiae culture MD Jaymie Morris Work Phone: Urine culture MD Jaymie moreno Work Phone: Plan of Treatment Date Care Activity Detail Author Start: 09-05-2024 End: 09-05-2024 Patient encounter procedure 09/05/2024 9:45 AM EST Office Visit [facility] [address] [address] Ashley Watson DO [address] [place] [address] [facility] Start: 07-14-2024 End: 07-14-2024 Patient encounter procedure 07/14/2024 10:20 AM EDT Office Visit [facility] [address] [place] [phone] Preet Barrios MD [address] [place] [address] [facility] Start: 12-15-2023 End: 12-15-2023 Patient encounter procedure 12/15/2023 9:40 AM EDT Office Visit [facility] [address] [place] [id number] Jaymie Morris MD [address] [place] [address] [facility] Start: 12-09-2023 End: 12-09-2023 Patient encounter procedure 12/09/2023 10:00 AM EST Office Visit [facility] [address] [address] [address] Ashley Watson, DO [address] [place] [address] [facility] Start: 09-12-2022 [facility] Start: 09-10-2022 [facility] Group B Streptococcu s Culture Group B Streptococcus Culture [facility] Patient Education [facility] Work Phone: Patient referral [facility] Work Phone: Immunizations Immunization Date Immunization Notes Care Provider Fa no 07-21-2023 influenza, injectabl e, quadrivalent, preservative free David Rayo MD, IBCLC Work Phone: [facility] 04-15-2023 SARS-COV-2 (COVID-19 ) vaccine, mRNA, spike protein, LNP, bivalent, preservative free, 30 mcg/0.3 mL dose, walt-sucrose formulation David Rayo MD, IBCLC Work Phone: [facility] 12-08-2019 tetanus toxoid, redu mishel diphtheria toxoid, and acellular pertussis vaccine, adsorbed MD Jaymie Morris Work Phone: [facility] 06-01-2017 meningococcal oligosaccharide (groups A, C, Y and W-135) diphtheria toxoid conjugate vaccine (MCV4O) David Rayo MD, IBCLC Work Phone: [facility] 07-15-2012 influenza, seasonal, injectable, preservative free David Rayo MD, IBCLC Work Phone: [facility] 07-15-2012 meningococcal polysaccharide (groups A, C, Y and W-135) diphtheria toxoid conjugate vaccine (MCV4P) David Rayo MD, IBCLC Work Phone: [facility] 07-15-2012 tetanus toxoid, redu mishel diphtheria toxoid, and acellular pertussis vaccine, adsorbed David Rayo MD, IBCLC Work Phone: [facility] 05-23-2004 diphtheria, tetanus toxoids and acellular pertussis vaccine David Rayo MD, IBCLC Work Phone: [facility] 05-23-2004 poliovirus vaccine, inactivated David Rayo MD, IBCLC Work Phone: [facility] 06-03-2001 measles, mumps and rubella virus vaccine David Rayo MD, IBCLC Work Phone: [facility] 06-03-2001 poliovirus vaccine, unspecified formulation Davdi Rayo MD, IBCLC Work Phone: [facility] 06-03-2001 varicella virus vaccine Waldo Rayo MD, IBCLC Work Phone: [facility] 03-04-2001 hepatitis B vaccine, pediatric or pediatric/adolescent dosage David Rayo MD, IBCLC Work Phone: [facility] 06-04-2000 diphtheria, tetanus toxoids and acellular pertussis vaccine, unspecified formulation David Rayo MD, IBCLC Work Phone: [facility] 06-04-2000 haemophilus influenz ae type b vaccine, conjugate unspecified formulation David Rayo MD, IBCLC Work Phone: [facility] 06-04-2000 measles, mumps and rubella virus vaccine David Rayo MD, IBCLC Work Phone: [facility] 06-04-2000 varicella virus vaccine Waldo Rayo MD, IBCLC Work Phone: [facility] 1999 diphtheria, tetanus toxoids and acellular pertussis vaccine, unspecified formulation David Rayo MD, IBCLC Work Phone: [facility] 1999 haemophilus influenz ae type b vaccine, conjugate unspecified formulation David Rayo MD, IBCLC Work Phone: [facility] 1999 diphtheria, tetanus toxoids and acellular pertussis vaccine, unspecified formulation David Rayo MD, IBCLC Work Phone: [facility] 1999 haemophilus influenz ae type b vaccine, conjugate unspecified formulation David Rayo MD, IBCLC Work Phone: [facility] 1999 hepatitis B vaccine, pediatric or pediatric/adolescent dosage David Rayo MD, IBCLC Work Phone: [facility] 1999 poliovirus vaccine, unspecified formulation David Rayo MD, IBCLC Work Phone: [facility] 1999 diphtheria, tetanus toxoids and acellular pertussis vaccine, unspecified formulation David Rayo MD, IBCLC Work Phone: [facility] 1999 haemophilus influenz ae type b vaccine, conjugate unspecified formulation David Rayo MD, IBCLC Work Phone: [facility] 1999 hepatitis B vaccine, pediatric or pediatric/adolescent dosage David Rayo MD, IBCLC Work Phone: [facility] 1999 poliovirus vaccine, unspecified formulation David aRyo MD, IBCLC Work Phone: [facility] Payers Date Payer Category Payer Self-pay [id number] 2022 Medicaid [id number] 2022 Medicaid ANTHEM BCBS [facility] ANTH BCBS MEDICA[place] [id number] 2022-Present [address] [place] [address] [id number] 2020 Unknown [id number] 2010 Unknown BCBS BCBS [id number] 2010-Present [phone] [address] [place] [address] [id number]. [id number] 1999 Unknown [id number] [id number] 1999 Unknown [id number] 2.16.840.1.138625.3.579.2.1259 1999 Unknown [id number] 2.16.840.1.744864.3.579.2.1259 1999 Unknown [id number] 2.16.840.1.311530.3.579.2.1259 1999 Unknown [id number] 2.16.840.1.730129.3.579.2.1259 1999 Unknown [id number] 2.16.840.1.078234.3.579.2.1259 1999 Unknown [id number] 2.16.840.1.793818.3.579.2.1259 1999 Unknown [id number] 2.16.840.1.281848.3.579.2.1259 1999 Unknown [id number] 2.16.840.1.375880.3.579.2.1259 1999 Unknown [id number] 2.16.840.1.551387.3.579.2.1259 1999 Unknown [id number] 2.16.840.1.377025.3.579.2.9 1999 Unknown [id number] 2.16840.1.521004.3.579.2.1259 1959 Unknown [id number] Medicaid [employer] [id number] Medicaid [place] Advantage [id number] Unknown [id number] Unknown [id number] .[id number] Unknown [id number] 2.840.1.437627.3.579.2.531 Unknown [id number] 2.840.1.332560.3.579.2.531 Unknown [id number] [id number] Social History Date Type Detail Facility Start: 04-14-2022 End: 12-17-2022 Tobacco smoking status NHIS Never smoked tobacco (finding) [facility] Start: 2000 Sex Assigned At Female [facility] Start: 03-27-2023 End: 11-10-2023 Sex Assigned [...] Facility 09-12-2022 Functional status Patient at Baseline [facility] Work Phone: Mental Status Date Assessment Result Facility 09-12-2022 Cognitive function Cognitive Sta tus Patient at Baseline [facility] Work Phone: History of Present illness Narrative [...] Refill albuterol HFA 90 mcg/act inhaler Q6H qtoxjgdcfl-cmlmftvbquvlg-cfyphtrc (Fioricet) 50-300-40 MG capsule take 1 capsule [...] Dizziness, Itching, Runny nose, Swelling and Wheezing [place] Flavor Unknown Pollen Extract Unknown Social History [...] Acute bacterial conjunctivitis of both eyes - fkkyznzi-nedwkjgqz-cbmLRMRElozxn (Maxitrol) 0.1 % ophthalmic suspension; Administer 1 [...] plenty of rest. documented in this encounter [facility] Healthcare Evaluation note 10-27-2023 Note Date [...] anxiety nor bipolar symptoms worsen with treatment [employer] Other Procedure note 09-11-2022 Note Date & Type Note Facility 09-11-2022 Procedure note [facility] Evaluation note Note Date & Type Note Facility Evaluation note No assessment information availa [facility] Work Phone: Evaluation note Note Date & Type Note Facility Evaluation note Diagnosis Acute bacterial conjunctivitis of both eyes- Primary documented in this encounter [facility] History general Narrative - Reported Note Date & Type Note Facility History general Narrative - Reported Type Medical History Anxiety Medical History narcolepsy with cataplexy (2019, 4 REM naps) [employer] Other Hospital Discharge instructions Note Date & Type Note Facility Hospital Discharge instructions [facility] Work Phone: Summary Purpose Family [...] section and content) DATE CREATED AUTHOR 03/30/2018 [facility] DATE CREATED AUTHOR AUTHOR'S ORGANIZ ATION 12/25/2021 [facility] DATE CREATED AUTHOR AUTHOR'S ORGANIZ ATION 03/15/2023 [facility] DATE CREATED AUTHOR AUTHOR'S ORGANIZ ATION 12/02/2023 [facility] DATE CREATED AUTHOR AUTHOR'S ORGANIZ ATION 12/26/2023 [facility] EPIC Care Teams (unrecognized [...] Active Bay Reyes DO [facility] Attending Provider Active Team Status: Inactive Member Role Status Dates Jaymie Morris MD Primary Care Provider Active Start: October 27, 2023 End: October 27, 2023 Gilmer Mcgregor MD Attending Provider Active S tart: October 27, 2023 End: October 27, 2023 David Rayo MD Referring Provider Active Start: October 27, 2023 End: October 27, 2023 Computer Network Engineer Relationship Specialty Start Date End Date Jaymie Morris MD [address] [place] [address] PCP - General Family Medicine 04/01/23 Computer Network Engineer Relationship Specialty Start Date End Date Jaymie Morris MD [address] [place], [place] [id number] PCP - General Family Medicine 04/01/23 Team [...] BE BASED ON THE PRIMARY CLINICAL RECORDS. [facility] [employer] [facility]. provides no warranty or guarantee of the accuracy or completeness of information in this document.
[2024-01-18 22:50] LABS: Basophils Absolute Auto 0.1 10^3/uL (0.0-0.1); Basophils Percent Auto 0.5 % (0.2-2.0); Eosinophils Percent Auto 0.1 % (0.9-7.0); Hematocrit 38.6 % (36.0-48.0); Hemoglobin 12.6 g/dL (12.0-16.0); Immature Granulocytes Abs Auto 0.08 10^3/uL (0.00-0.03); Immature Granulocytes Pct Auto 0.4 % (0.0-0.5); Lymphocytes Absolute Auto 3.1 10^3/uL (1.2-3.8); Mean Corpuscular HGB Conc 32.6 g/dL (29.9-35.2); Mean Corpuscular Hemoglobin 29.5 pg (26.7-34.0); Mean Corpuscular Volume 90.4 fL (81.0-99.0); Mean Platelet Volume 10.5 fL (9.5-13.5); Monocytes Percent Auto 5.1 % (1.7-12.0); Neutrophils Absolute Auto 15.1 10^3/uL (1.4-6.5); Neutrophils Percent Auto 77.9 % (43.0-75.0); Platelet Count 352 10^3/uL (150-450); Red Blood Count 4.27 10^6/uL (4.20-5.40); Red Cell Distribution Width 12.3 % (11.0-15.0); White Blood Count 19.3 10^3/uL (4.0-11.0)
[2024-01-18 22:52] LABS: Bilirubin Urine NEGATIVE (NEGATIVE); Blood Urine LARGE (NEGATIVE); Clarity Urine CLEAR (CLEAR); Color Urine YELLOW (YELLOW); Glucose Urine UA NEGATIVE (NEGATIVE); HCG Qualitative Urine* POSITIVE (NEGATIVE); Ketones Urine TRACE mg/dL (NEGATIVE); Leukocyte Esterase Urine NEGATIVE (NEGATIVE); Nitrite Urine NEGATIVE (NEGATIVE); Protein Urine NEGATIVE (NEG/TRACE); Specific Gravity Urine >=1.030 (1.005-1.025); Urobilinogen Urine 0.2 EU/dL (0.2-1.0)
--- NOTE | 2024-01-18 23:00 | US_ITS ---
The [address] [address] Patient Name: RANDAL REDMOND MRN: [id number] date: 2000 Sex: F Assigned Patient Location: ER Current Patient Location: ER Accession/Order Number: [id number] Exam Date: 01/18/2024 23:20 Report Date: 01/19/2024 00:42 At the request of: MAYITO ALLEN Procedure: US OB transvaginal US OB transvaginal HISTORY: +preg, abd pain COMPARISONS: None TECHNIQUE: Transvaginal scanning of the pelvis was performed. FINDINGS: The uterus is normal in echogenicity. The myometrium is unremarkable. The endometrium is not thickened. There is no gestational sac, yolk sac or pole. There is an IUD within its expected location in the endometrium. RIGHT OVARY: Within normal limits without suspicious masses or cyst. There is normal blood flow. The right ovary measures 2.8 x 4.1 x 2.0 cm. LEFT OVARY: Within normal limits without suspicious masses or cyst. There is normal blood flow. The left ovary measures 3.2 x 3.2 x 3.4 cm. OTHER:There is a homogeneous mass like echogenicity in the right adnexa measuring 7.4 x 7.0 x 5.0 cm. This is indeterminate in etiology. There is also free fluid in the cul-de-sac. US/US OB transvaginal IMPRESSION: There is an IUD in the endometrium demonstrating adequate positioning. There is no gestational sac, yolk sac or pole. There is an indeterminate homogeneous masslike echogenicity in the right adnexa measuring 7.4 x 7.0 x 5.0 cm. An ectopic cannot be excluded in the setting of positive beta hCG. Critical result findings were notified by telephone and discussed with Mayito Allen on 01/19/2024 12:[address] Cordoba. The clinician expressed understanding of these results. Electronically authenticated by: ANTHONY CORDOBA Date: 01/19/2024 00:42
[2024-01-18 23:02] LABS: WBC Urine 0-2 #/HPF (NONE SEEN)
[2024-01-18] MEDS: 0.9 % SODIUM CHLORIDE 1,000 ML 1000 ML IV (23:02)
[2024-01-18 23:03] LABS: Bacteria Urine SMALL #/HPF (NONE SEEN); Cast Seen? NONE SEEN #/LPF (NONE SEEN); Crystals Seen? None Seen #/HPF (None Seen); Mucus Urine NONE SEEN (NONE SEEN); Squamous Epithelial Cell Urine MODERATE #/LPF (NONE/RARE)
--- NOTE | 2024-01-18 23:04 | ED_ITS ---
HPI - Abdominal Pain General Chief Complaint: Abdominal Pain Stated Complaint: Abdominal Pain Time Seen by Provider: 01/18/24 22:17 Source: patient Mode of arrival: walk-in Limitations: no limitations History of Present Illness HPI narrative: This 23-year-old female presents for evaluation of right-sided abdominal pain. Patient states the pain started this morning upon awakening. It has been bothering her all day. She has not had an appetite throughout the day. It does not radiate into her back. She has an IUD and doubts the possibility of . She also recently finished her menstrual period. She has 2 children ages 1 and 4. She denies any chest pain or shortness of breath. She has not had a fever. She does have some urinary symptoms including discomfort with urination. [employer] [address] [employer] [address] Ramirez Related Data Home Medications ?Medication ?Instructions ?Recorded ?Confirmed cetirizine 10 mg tablet (24Hour 10 mg PO DAILY PRN allergy symptoms 10/08/23 01/18/24 Allergy) lamotrigine 100 mg tablet 50 mg PO BID 10/08/23 01/18/24 (Lamictal) norethindrone (contraceptive) 0.35 0.35 mg PO DAILY 10/08/23 01/18/24 mg tablet (Jencycla) venlafaxine 150 mg 150 mg PO DAILY 10/08/23 01/18/24 capsule,extended release 24 hr (Effexor XR) Previous Rx's ?Medication ?Instructions ?Recorded albuterol sulfate 90 mcg/actuation 2 inh inhalation Q4H PRN shortness 10/08/23 aerosol inhaler of breath or wheezing #8.5 grams albuterol sulfate 90 mcg/actuation 2 inh inhalation Q4H PRN shortness 01/03/24 aerosol inhaler of breath or wheezing #8.5 grams Allergies Allergy/AdvReac Type Severity Reaction Status Date / Time iodine Allergy Unknown Verified 01/18/24 22:14 Review of Systems ROS Status of ROS 10 or more systems reviewed and unremark able except as noted in history and below PFSH PFS Social History Smoking status: Former smoker Exam Narrative Exam Narrative: Nurses note and vital signs reviewed and patient is not hypoxic. General: The patient appears well and in no apparent distress. Patient is resting comfortably on cart. Skin: Warm, dry, no pallor noted. There is no rash noted. Head: Normocephalic, atraumatic Eye: Normal conjunctiva, no drainage, EOMI. PERRL Ears, Nose, Mouth, and Throat: oral mucosa is moist. Nares patent. Cardiovascular: Regular Rate and Rhythm Respiratory: Patient is in no distress, no accessory muscle use, lungs are clear to auscultation, no wheezing, rales or rhonchi Back: non-tender, no CVA tenderness bilaterally to percussion. GI: There is tenderness in the right lower quadrant with voluntary guarding, positive Rovsing test, mild tenderness over the urinary bladder, mildly positive obturator and psoas sign. Musculoskeletal: The patient has no evidence of calf tenderness, no pitting edema, symmetrical pulses noted bilaterally Neurological: A&O x4, normal speech Psychiatric: Cooperative Constitutional Vital Signs, click to edit/add: Last Vital Signs Temp 97.8 F 01/18/24 22:09 Pulse 93 H 01/18/24 22:09 Resp 18 01/18/24 22:09 BP 131/91 01/18/24 22:09 Pulse Ox 100 01/18/24 22:09 O2 Del Method Room Air 01/18/24 22:09 Course Vital Signs Vital signs: Vital Signs Temperature 97.8 F 01/18/24 22:09 Pulse Rate 93 H 01/18/24 22:09 Respiratory Rate 18 01/18/24 22:09 Blood Pressure 131/91 01/18/24 22:09 Pulse Oximetry 100 01/18/24 22:09 Oxygen Delivery Method Room Air 01/18/24 22:09 Temperature 97.8 F 01/18/24 22:09 Pulse Rate 93 H 01/18/24 22:09 Respiratory Rate 18 01/18/24 22:09 Blood Pressure 131/91 01/18/24 22:09 Pulse Oximetry 100 01/18/24 22:09 Oxygen Delivery Method Room Air 01/18/24 22:09 MDM - Abdominal Pain MDM Narrative Medical decision making narrative: This 23-year-old female presents for evaluation of right lower quadrant abdominal pain that started yesterday morning upon awakening.She stated that she does not have an appetite throughout the day. She has not had any fevers or chills. She was not worried about the possibility of because she has an IUD. The patient's vital signs were stable. Her physical exam. Her abdomen was diffusely tender with localization into the right lower quadrant. I was concerned for appendicitis due to her pain and decreased appetite however her urine test was positive. I added on a quantitative hCG and it was 950. Ultrasound was called in urgently for an ultrasound of the pelvis to rule out ectopic . The ultrasound report shows normal-appearing ovaries with a 7.4 x 7.0 x 5.0 cm indeterminate homogenous masslike echogenicity in the right adnexa. The radiologist called me with concerns for an ectopic . Discussed this with the patient verbalizes understanding. At the time of her positive test she was made nothing by mouth. He was given 4 mg of morphine and 4 mg of Zofran as well as a liter of fluid. She has a normal hemoglobin. At the time of this dictation I am repeating her hemoglobin. Type and screen is ordered. The case was discussed with Dr. Pedersen who is going to call in the OR team and take the patient for surgery this morning. This was again discussed with the patient who verbalizes understanding and is in agreement with this plan. She will be given additional dose of morphine and Zofran prior to going upstairs. She remained hemodynamically stable in the ED. Her repeat H/H is now 11.2 from 12.6. Medical Records Medical records narrative: The [address] [address] Ultrasound Report Signed Patient: RANDAL REDMOND MR#: [id number] : 2000 Acct:[id number] Age/Sex: 23 / F ADM Date: 01/18/24 Loc: ER Attending Dr: Ordering Physician: Sheron Allen Date of Service: 01/18/24 Procedure(s): US OB transvaginal Accession Number(s): [id number] cc: JAYMIE BENNETT ; Sheron Allen~ The [address] [address] Patient Name: RANDAL REDMOND MRN: [id number] date: 2000 Sex: F Assigned Patient Location: ER Current Patient Location: ER Accession/Order Number: [id number] Exam Date: 01/18/2024 23:20 Report Date: 01/19/2024 00:42 At the request of: SHERON ALLEN Procedure: US OB transvaginal US OB transvaginal HISTORY: +preg, abd pain COMPARISONS: None TECHNIQUE: Transvaginal scanning of the pelvis was performed. FINDINGS: The uterus is normal in echogenicity. The myometrium is unremarkable. The endometrium is not thickened. There is no gestational sac, yolk sac or pole. There is an IUD within its expected location in the endometrium. RIGHT OVARY: Within normal limits without suspicious masses or cyst. There is normal blood flow. The right ovary measures 2.8 x 4.1 x 2.0 cm. LEFT OVARY: Within normal limits without suspicious masses or cyst. There is normal blood flow. The left ovary measures 3.2 x 3.2 x 3.4 cm. OTHER:There is a homogeneous mass like echogenicity in the right adnexa measuring 7.4 x 7.0 x 5.0 cm. This is indeterminate in etiology. There is also free fluid in the cul-de-sac. US/US OB transvaginal IMPRESSION: There is an IUD in the endometrium demonstrating adequate positioning. There is no gestational sac, yolk sac or pole. There is an indeterminate homogeneous masslike echogenicity in the right adnexa measuring 7.4 x 7.0 x 5.0 cm. An ectopic cannot be excluded in the setting of positive beta hCG. Critical result findings were notified by telephone and discussed with Sheron Allen on 01/19/2024 12:[address] Cordoba. The clinician expressed understanding of these results. Electronically authenticated by: ANTHONY CORDOBA Date: 01/19/2024 00:42 Lab Data Labs: Lab Results 01/18/24 01/18/24 01/19/24 Range/Units 22:30 22:35 00:55 WBC 19.3 H 18.9 H (4.0-11.0) 10^3/uL RBC 4.27 3.73 L (4.20-5.40) 10^6/uL Hgb 12.6 11.2 L (12.0-16.0) g/dL Hct 38.6 33.1 L (36.0-48.0) % MCV 90.4 88.7 (81.0-99.0) fL MCH 29.5 30.0 (26.7-34.0) pg MCHC 32.6 33.8 (29.9-35.2) g/dL RDW 12.3 12.2 (11.0-15.0) % Plt Count 352 283 (150-450) 10^3/uL MPV 10.5 10.2 (9.5-13.5) fL Neut % (Auto) 77.9 H 80.7 H (43.0-75.0) % Lymph % (Auto) 16.0 L 13.9 L (20.5-60.0) % [place] % (Auto) 5.1 4.6 (1.7-12.0) % Eos % (Auto) 0.1 L 0.0 L (0.9-7.0) % Baso % (Auto) 0.5 0.4 (0.2-2.0) % Neut # (Auto) 15.1 H 15.2 H (1.4-6.5) 10^3/uL Lymph # (Auto) 3.1 2.6 (1.2-3.8) 10^3/uL [place] # (Auto) 1.0 H 0.9 H (0.3-0.8) 10^3/uL Eos # (Auto) 0.0 0.0 (0.0-0.7) 10^3/uL Baso # (Auto) 0.1 0.1 (0.0-0.1) 10^3/uL Abs Immat Gran (auto) 0.08 H 0.08 H (0.00-0.03) 10^3/uL Imm/Tot Granulo (auto) 0.4 0.4 (0.0-0.5) % Sodium 139 (136-145) mmol/L Potassium 3.6 (3.5-5.1) mmol/L Chloride 102 (98-107) mmol/L Carbon Dioxide 28.3 (21.0-32.0) mmol/L Anion Gap 12.3 BUN 12.0 (7.0-18.0) mg/dL Creatinine 0.83 (0.55-1.02) mg/dL Est GFR ( Amer) >60 (>=60) Est GFR (Non-Af Amer) >60 (>=60) BUN/Creatinine Ratio 14.5 Glucose 97 (74-106) mg/dL Lactate 1.9 (0.4-2.0) mmol/L Calcium 9.7 (8.5-10.1) mg/dL Total Bilirubin 0.4 (0.2-1.0) mg/dL AST 14 L (15-37) U/L ALT 19 (14-59) U/L Alkaline Phosphatase 90 (46-116) U/L Total Protein 7.3 (6.4-8.2) g/dL Albumin 4.0 (3.4-5.0) g/dL Globulin 3.3 g/dL Albumin/Globulin Ratio 1.2 Serum HCG, Qual Positive A (NEGATIVE) HCG, Quant 950 mIU/mL Urine Color Yellow (YELLOW) Urine Clarity Clear (CLEAR) Urine pH 6.0 (5.0-9.0) Ur Specific [place] >=1.030 A (1.005-1.025) Urine Protein Negative (NEG/TRACE) mg/dL Urine Glucose (UA) Negative (NEGATIVE) mg/dL Urine Ketones Trace A (NEGATIVE) mg/dL Urine Occult Blood Large A (NEGATIVE) Urine Nitrite Negative (NEGATIVE) Urine Bilirubin Negative (NEGATIVE) Urine Urobilinogen 0.2 (0.2-1.0) EU/dL Ur Leukocyte Esterase Negative (NEGATIVE) Urine RBC 2-5 A (0-2) #/HPF Urine WBC 0-2 A (NONE SEEN) #/HPF Ur Squamous Epith Cells Moderate A (NONE/RARE) #/LPF Urine Crystals None seen (None Seen) #/HPF Urine Bacteria Small A (NONE SEEN) #/HPF Urine Casts None seen (NONE SEEN) #/LPF Urine Mucus None seen (NONE SEEN) Urine HCG, Qual Positive A (NEGATIVE) Critical Care Time Critical Care Time Critical Care Time: Yes Total Critical Care Time: 35 Attestation: . Discharge Plan Discharge Chief Complaint: Abdominal Pain Clinical Impression: Ectopic , tubal
[2024-01-18 23:17] LABS: Alanine Aminotransferase 19 U/L (14-59); Albumin Globulin Ratio 1.2; Alkaline Phosphatase 90 U/L (46-116); Anion Gap 12.3; Aspartate Amino Transferase 14 U/L (15-37); BUN Creatinine Ratio 14.5; Bilirubin Total 0.4 mg/dL (0.2-1.0); Calcium 9.7 mg/dL (8.5-10.1); Carbon Dioxide 28.3 mmol/L (21.0-32.0); Chloride 102 mmol/L (98-107); Estimated GFR (African America >60 (>=60); Estimated GFR (Non-African Ame >60 (>=60); Globulin 3.3 g/dL; Glucose 97 mg/dL (74-106); Potassium 3.6 mmol/L (3.5-5.1); Sodium 139 mmol/L (136-145); Total Protein 7.3 g/dL (6.4-8.2)
[2024-01-18 23:21] LABS: HCG Qualitative POSITIVE (NEGATIVE)
[2024-01-18 23:22] LABS: HCG Quantitative 950 mIU/mL
[2024-01-18 23:32] LABS: Lactate/Lactic Acid 1.9 mmol/L (0.4-2.0)
[2024-01-19] VITALS (15 sets, daily range): BP systolic 103–129; BP diastolic 62–89; PULSE 70–95; TEMP 36.1–36.8; O2SAT 18–100; BMI 25.9
[2024-01-19] MEDS: ONDANSETRON PF 4 MG/2 ML VIAL IV ×2 (00:14→01:15)
[2024-01-19] MEDS: MORPHINE SULFATE 4 MG/ML VIAL IV (00:14)
[2024-01-19 01:01] LABS: Basophils Absolute Auto 0.1 10^3/uL (0.0-0.1); Basophils Percent Auto 0.4 % (0.2-2.0); Hematocrit 33.1 % (36.0-48.0); Hemoglobin 11.2 g/dL (12.0-16.0); Immature Granulocytes Abs Auto 0.08 10^3/uL (0.00-0.03); Immature Granulocytes Pct Auto 0.4 % (0.0-0.5); Lymphocytes Absolute Auto 2.6 10^3/uL (1.2-3.8); Lymphocytes Percent Auto 13.9 % (20.5-60.0); Mean Corpuscular HGB Conc 33.8 g/dL (29.9-35.2); Mean Corpuscular Volume 88.7 fL (81.0-99.0); Mean Platelet Volume 10.2 fL (9.5-13.5); Monocytes Absolute Auto 0.9 10^3/uL (0.3-0.8); Monocytes Percent Auto 4.6 % (1.7-12.0); Neutrophils Absolute Auto 15.2 10^3/uL (1.4-6.5); Neutrophils Percent Auto 80.7 % (43.0-75.0); Platelet Count 283 10^3/uL (150-450); Red Blood Count 3.73 10^6/uL (4.20-5.40); Red Cell Distribution Width 12.2 % (11.0-15.0); White Blood Count 18.9 10^3/uL (4.0-11.0)
[2024-01-19] MEDS: LACTATED RINGER'S SOLUTION 1,000 ML 50 ML IV (01:15)
[2024-01-19] MEDS: MORPHINE SULFATE 2 MG/ML SYRINGE IV (01:17)
--- OUTSIDE RECORDS SUMMARY | 2024-01-19 01:25 | XMS_ITS | CCD ---
Author Organization [facility] Care Team Providers Care Dual Hose Cementer Name Role Phone GILMER BENAVIDES Unavailable Unavailable GILMER BENAVIDES Unavailable Unavailable MD Jaymie Morris Primary Care Provider TUAN [place] [facility] Provider [phone] MD Jaymie Morris Attending Provider DO Ashley Watson Attending Provider MD Jaymie Morris Primary Care Provider DO Ashley Watson Attending Provider DO Ashley Watson Admit Provider [phone] MD Jaymie Morris Primary Care Provider JOHNSON [place] Emergency Provider MD Jaymie Morris Primary Care Provider JOHNSON Skinner Emergency Provider [phone] TUAN [place] Emergency Provider [phone] DR SAYRA AUGUSTIN Primary Care Unavailable SCOTT WILKINSON Attending Unavailable SCOTT WILKINSON Consulting Unavailable SCOTT WILKINSON Admitting Unavailable MD Jaymie Morris Primary Care Provider DO Bay Reyes Attending Provider [phone] Gilmer Mcgregor Unavailable MD Jaymie Morris Primary Care Provider MD Gilmer Mcgregor Attending Provider [phone] MD David Rayo Referring Provider Jaymie Morris MD Primary Care Provider DO Govind Barry Attending Provider MD Jaymie Morris Referring Provider [phone] Jaymie Morris Referring Unavailable Govind Barry Admitting [...] Mcgregor Admitting Unavailable Gilmer Mcgregor Attending Unavailable Fenton, David Referring Unavailable Ketvertis, Jaymie Primary Care [...] Iodine; Translations: [iodine] Drug Allergy 2 Unknown [facility] (9 sources) Shellfish; Translations: [shellfish derived] Allergy to substance 2 Swelling of Lip/Tongue/Thr oat [facility] (1 source) Shellfish Propensity to adverse reactions Unknown [facility] Other (2 sources) Apple extract Drug Allergy 3 Unknown [facility] (2 sources) Kiwi fruit Propensity to adverse reactions 3 Dizziness, Itching, Runny nose, Swelling, Wheezing [facility] (2 sources) Pollen Allergy to substance 3 Unknown [facility] (2 sources) Dog Epithelium Allergy Skin Test Allergy to substance 3 Unknown [facility] (2 sources) [place] Flavor Allergy to substance 3 Unknown [facility] [...] capsule by mo uth every four hours daiellagbr-xiibccraoihvv-ndfzoxrm (Jamari cet) 50-300-40 MG capsule take 1 capsule by mouth every 4 hours if needed for 10 days 0 Active [id number] 200 actuat albuterol 0.09 mg/actuat metered dose [...] / neomycin 3.5 mg/ml / polymyxin b [id number] unt/ml ophthalmic suspension (1 source) Aminoglycoside Antibacterial, [...] days. 5 mL 0 11/14/2023 11/21/2023 Active [id number] 0.3 ml EPINEPHrine 1 mg/ml auto-injector (2 [...] mg/ml extended release suspension (8 sources) Uncompetitive Y-jadsoo-G-asparta te Receptor Antagonist, Sigma-1 Agonist Start: 07-05-2018 [...] 2018 11:00pm July 09, 2018 11:01pm Vit 16-Awlf-Rxnzb-Dha ( + Dha) 28 mg iron- 975 mcg-200 mg Combo Pack (8 sources) Start: 11-29-2019 End: 12-12-2022 take 1 tablet by mouth once daily Vit 09-Fand-Udrpl-Dha ( + Dha) 28 mg iron- 975 mcg-200 mg Combo Pack Discontinued 0 .ROUTE .COMPLEX November 29, 2019 1:00am December 12, 2022 1:42pm 1 TABLET PO DAILY Start: 11-29-2019 End: 12-12-2022 take 1 tablet by mouth once daily Vit 02-Nwlv-Qepbz-Dha ( + Dha) 28 mg iron- 975 mcg-200 mg Combo Pack Discontinued 0 .ROUTE .COMPLEX November 29, 2019 12:00am December 12, 2022 12:42pm 1 TABLET PO DAILY Start: 11-29-2019 take 1 tablet by julio th once daily Vit 19-Ofqa-Pzqai-Dha ( + Dha) 28 mg iron- 975 mcg-200 mg Combo Pack Active 0 .ROUTE .COMPLEX November 29, 2019 12:00am 1 TABLET PO DAILY Start: 11-29-2019 take 1 tablet by julio th once daily Vit 91-Mvox-Mtkan-Dha ( + Dha) 28 mg iron- 975 [...] 11-25-2023 ALT [Catalytic activity/Vol] 11 U/L 7-52 [facility] Albumin [Mass/volume] in Ser um or Plasma by Bromocresol green (BCG) dye binding methoOrdered By: Govind Barry on 11-25-2023 Albumin BCG dye [Mass/Vol] 4.7 g/dL 3.5-5.7 [facility] Alkaline phosphatase [Enzyma tic activity/volume] in Serum or PlasmaOrdered By: Govind Barry on 11-25-2023 ALP [Catalytic activity/Vol] 82 U/L 34-104 [facility] Aspartate aminotransferase [ Enzymatic activity/volume] in Serum or PlasmaOrdered By: Govind Barry on 11-25-2023 AST [Catalytic activity/Vol] 16 U/L 13-39 [facility] Basophils Auto (Bld) [#/Vol] Ordered By: Govind Barry on 11-25-2023 Basophils (Bld) [#/Vol] 0.1 10*3/uL 0.0-0.2 [facility] Basophils/100 WBC Auto (Bld) Ordered By: Govind Barry on 11-25-2023 Basophils/100 WBC (Bld) 0.6 % . [facility] Bilirubin.total [Mass/volume ] in Serum or PlasmaOrdered By: Govind Barry on 11-25-2023 Bilirubin [Mass/Vol] 0.5 mg/dL 0.3-1.0 [facility] Calcium [Mass/volume] in Ser um or PlasmaOrdered By: Govind Barry on 11-25-2023 Calcium [Mass/Vol] 9.7 mg/dL 8.6-10.3 [facility] Carbon dioxide, total [Moles /volume] in Serum or PlasmaOrdered By: Govind Barry on 11-25-2023 CO2 [Moles/Vol] 27.5 mmol/L 21.0-31.0 [facility] Chloride [Moles/volume] in S alessandra or PlasmaOrdered By: Govind Barry on 11-25-2023 Chloride [Moles/Vol] 105 mmol/L 98-107 [facility] Complete Blood Count Auto Di ffon 11-25-2023 Basophils (Bld) [#/Vol] 0.1 10*3/uL Normal 0.0-0.2 [facility] Comment on above: Result Comment: PERF ORMED BY: [place] [address] PATHOLOGIST [employer] MELCHOR MORALES M.D. Performed By: #### C BC, CMP, TSH3 wRFLX #### [address] Basophils/100 WBC (Bld) 0.6 % Normal . [facility] Comment on above: Performed By: #### C BC, CMP, TSH3 wRFLX #### [address] Eosinophils (Bld) [#/Vol] 0.2 10*3/uL Normal 0.0-0.45 [facility] Comment on above: Performed By: #### C BC, CMP, TSH3 wRFLX #### [address] Eosinophils/100 WBC (Bld) 1.6 % Normal . [facility] Comment on above: Performed By: #### C BC, CMP, TSH3 wRFLX #### [address] Erythrocyte distribution width (RBC) [Ratio] 12.5 % Normal 11.9-15.3 [facility] Comment on above: Performed By: #### C BC, CMP, TSH3 wRFLX #### [address] Hematocrit (Bld) [Volume fraction] 41.4 % Normal 34.0-46.4 [facility] Comment on above: Performed By: #### C BC, CMP, TSH3 wRFLX #### [address] Hemoglobin (Bld) [Mass/Vol] 14.2 g/dL Normal 11.8-15.4 [facility] Comment on above: Performed By: #### C BC, CMP, TSH3 wRFLX #### [address] [place] [address] [place] Lymphocytes (Bld) [#/Vol] 1.7 10*3/uL Normal 1.00-4.8 [facility] Comment on above: Performed By: #### C BC, CMP, TSH3 wRFLX #### [facility] [address] Lymphocytes/100 WBC (Bld) 16.7 % Normal . [facility] Comment on above: Performed By: #### C BC, CMP, TSH3 wRFLX #### [address] MCH (RBC) [Entitic mass] 30.2 pg Normal 24.7-34.3 [facility] Comment on above: Performed By: #### C BC, CMP, TSH3 wRFLX #### [address] MCV (RBC) [Entitic vol] 87.9 fL Normal 80-100 [facility] Comment on above: Performed By: #### C BC, CMP, TSH3 wRFLX #### [address] Mean Corpuscular HGB Conc 34.4 g/dL Normal 32.0-35.0 [facility] Comment on above: Performed By: #### C BC, CMP, TSH3 wRFLX #### [place] [address] [place] Monocytes (Bld) [#/Vol] 0.5 10*3/uL Normal 0.0-0.8 [facility] Comment on above: Performed By: #### C BC, CMP, TSH3 wRFLX #### [place] [address] [place] Monocytes/100 WBC (Bld) 5.4 % Normal . [facility] Comment on above: Performed By: #### C BC, CMP, TSH3 wRFLX #### [facility] [address] [place] [address] [place] Neutrophils (Bld) [#/Vol] 7.5 10*3/uL Normal 1.8-7.7 [facility] Comment on above: Performed By: #### C BC, CMP, TSH3 wRFLX #### [facility] [address] [place] [address] Neutrophils/100 WBC (Bld) 75.7 % Normal . [facility] Comment on above: Performed By: #### C BC, CMP, TSH3 wRFLX #### [facility] [address] [place] [address] NRBC% 0.1 /100{WBC} Normal 0-0.5 [facility] Comment on above: Performed By: #### C BC, CMP, TSH3 wRFLX #### [address] Platelet mean volume (Bld) [Entitic vol] 8.8 fL Normal 6.3-10.7 [facility] Comment on above: Performed By: #### C BC, CMP, TSH3 wRFLX #### [address] Platelets (Bld) [#/Vol] 301 10*3/uL Normal 150-450 [facility] Comment on above: Performed By: #### C BC, CMP, TSH3 wRFLX #### [address] RBC (Bld) [#/Vol] 4.71 10*6/uL Normal 3.60-5.00 [facility] Comment on above: Performed By: #### C BC, CMP, TSH3 wRFLX #### [address] WBC (Bld) [#/Vol] 10.0 10*3/uL Normal 3.8-11.6 [facility] Comment on above: Performed By: #### C BC, CMP, TSH3 wRFLX #### [address] Comprehensive Metabolic Pane dale 11-25-2023 Albumin [Mass/Vol] 4.7 g/dL Normal 3.5-5.7 [facility] Comment on above: Performed By: #### C BC, CMP, TSH3 wRFLX #### [facility] [address] [place] [address] Albumin/Globulin [Mass ratio] 1.9 {ratio} Normal [facility] Comment on above: Performed By: #### C BC, CMP, TSH3 wRFLX #### [facility] [address] [place] [address] ALP [Catalytic activity/Vol] 82 U/L Normal 34-104 [facility] Comment on above: Performed By: #### C BC, CMP, TSH3 wRFLX #### [facility] [address] [place] [address] ALT [Catalytic activity/Vol] 11 U/L Normal 7-52 [facility] Comment on above: Performed By: #### C BC, CMP, TSH3 wRFLX #### [facility] [address] [place] [address] Anion gap [Moles/Vol] 10.7 mmol/L Normal 6.0-15.0 [facility] Comment on above: Performed By: #### C BC, CMP, TSH3 wRFLX #### [address] AST [Catalytic activity/Vol] 16 U/L Normal 13-39 [facility] Comment on above: Performed By: #### C BC, CMP, TSH3 wRFLX #### [facility] [address] [place] [address] [place] Bilirubin [Mass/Vol] 0.5 mg/dL Normal 0.3-1.0 [facility] Comment on above: Performed By: #### C BC, CMP, TSH3 wRFLX #### [facility] [address] [place] [address] Calcium [Mass/Vol] 9.7 mg/dL Normal 8.6-10.3 [facility] Comment on above: Performed By: #### C BC, CMP, TSH3 wRFLX #### [place] [address] [place] Chloride [Moles/Vol] 105 mmol/L Normal 98-107 [facility] Comment on above: Performed By: #### C DONN ARREDONDO, TSH3 wRFLX #### [facility] [address] CO2 [Moles/Vol] 27.5 mmol/L Normal 21.0-31.0 [facility] Comment on above: Performed By: #### C DONN ARREDONDO, TSH3 wRFLX #### [facility] [address] Creatinine [Mass/Vol] 0.76 mg/dL Normal 0.60-1.20 [facility] Comment on above: Performed By: #### C DONN ARREDONDO, TSH3 wRFLX #### [facility] [address] [place] [address] [place] GFR/1.73 sq M.predicted MDRD (S/P/Bld) [Vol rate/Area] mL/min/{1.73_m2} Normal [facility] Comment on above: Performed By: #### C DONN ARREDONDO, TSH3 wRFLX #### [facility] [address] Globulin (S) [Mass/Vol] 2.5 g/dL Normal [facility] Comment on above: Performed By: #### C DONN ARREDONDO, TSH3 wRFLX #### [address] Glucose [Mass/Vol] 85 mg/dL Normal 70-100 [facility] Comment on above: Result Comment: [place] Glucose Reference Range is dependent on time and content of last meal. Glucose of more than 200 mg/dL in a nonstressed, ambulatory subject supports the diagnosis of Diabetes Mellitus. ADA recommended reference range Performed By: #### C BCDONN, TSH3 wRFLX #### [facility] [address] Potassium [Moles/Vol] 4.2 mmol/L Normal 3.5-5.1 [facility] Comment on above: Performed By: #### C BCDONN, TSH3 wRFLX #### [facility] [address] [place] [id number] [place] Protein [Mass/Vol] 7.2 g/dL Normal 6.4-8.9 [facility] Comment on above: Performed By: #### C BC, CMP, TSH3 wRFLX #### [facility] [address] [place] [id number] [place] Sodium [Moles/Vol] 139 mmol/L Normal 136-145 [facility] Comment on above: Performed By: #### C BC, CMP, TSH3 wRFLX #### [facility] [address] [place] [id number] [place] Urea nitrogen [Mass/Vol] 11 mg/dL Normal 7-25 [facility] Comment on above: Performed By: #### C BC, CMP, TSH3 wRFLX #### [facility] [address] [place] [address] [place] Creatinine [Mass/volume] in Serum or PlasmaOrdered By: Govind Barry on 11-25-2023 Creatinine [Mass/Vol] 0.76 mg/dL 0.60-1.20 [facility] Eosinophils Auto (Bld) [#/Vo l]Ordered By: Govind Barry on 11-25-2023 Eosinophils (Bld) [#/Vol] 0.2 10*3/uL 0.0-0.45 [facility] Eosinophils/100 WBC Auto (Bl d)Ordered By: Govind Barry on 11-25-2023 Eosinophils/100 WBC (Bld) 1.6 % . [facility] Erythrocyte distribution wid th Auto (RBC) [Ratio]Ordered By: Govind Barry on 11-25-2023 Erythrocyte distribution width (RBC) [Ratio] 12.5 % 11.9-15.3 [facility] Globulin Calc (S) [Mass/Vol] Ordered By: Govind Barry on 11-25-2023 Globulin (S) [Mass/Vol] 2.5 g/dL [facility] Glucose [Mass/volume] in Ser um or PlasmaOrdered By: Govind Barry on 11-25-2023 Glucose [Mass/Vol] 85 mg/dL 70-100 [facility] Comment on above: ADA recommended refe rence rangeRandom Glucose Reference Range is dependent on time and content of last meal. Glucose of more than 200 mg/dL in a nonstressed, ambulatory subject supports the diagnosis of Diabetes Mellitus. Hematocrit Auto (Bld) [Volum e fraction]Ordered By: Govind Barry on 11-25-2023 Hematocrit (Bld) [Volume fraction] 41.4 % 34.0-46.4 [facility] Hemoglobin [Mass/volume] in BloodOrdered By: Govind Barry on 11-25-2023 Hemoglobin (Bld) [Mass/Vol] 14.2 g/dL 11.8-15.4 [facility] Leukocytes [#/volume] correc jessica for nucleated erythrocytes in Blood by Automated counOrdered By: Govind Barry on 11-25-2023 WBC corrected for nucl RBC Auto (Bld) [#/Vol] 10.0 10*3/uL 3.8-11.6 [facility] Lymphocytes Auto (Bld) [#/Vo l]Ordered By: Govind Barry on 11-25-2023 Lymphocytes (Bld) [#/Vol] 1.7 10*3/uL 1.00-4.8 [facility] Lymphocytes/100 WBC Auto (Bl d)Ordered By: Govind Barry on 11-25-2023 Lymphocytes/100 WBC (Bld) 16.7 % . [facility] MCH Auto (RBC) [Entitic mass ]Ordered By: Govind Barry on 11-25-2023 MCH (RBC) [Entitic mass] 30.2 pg 24.7-34.3 [facility] MCHC Auto (RBC) [Mass/Vol]Or dered By: Govind Barry on 11-25-2023 MCHC (RBC) [Mass/Vol] 34.4 g/dL 32.0-35.0 [facility] MCV Auto (RBC) [Entitic vol] Ordered By: Goivnd Barry on 11-25-2023 MCV (RBC) [Entitic vol] 87.9 fL 80-100 [facility] Monocytes Auto (Bld) [#/Vol] Ordered By: Govind Barry on 11-25-2023 Monocytes (Bld) [#/Vol] 0.5 10*3/uL 0.0-0.8 [facility] Monocytes/100 WBC Auto (Bld) Ordered By: Govind Barry on 11-25-2023 Monocytes/100 WBC (Bld) 5.4 % . [facility] Neutrophils Auto (Bld) [#/Vo l]Ordered By: Govind Barry on 11-25-2023 Neutrophils (Bld) [#/Vol] 7.5 10*3/uL 1.8-7.7 [facility] Neutrophils/100 WBC Auto (Bl d)Ordered By: Govind Barry on 11-25-2023 Neutrophils/100 WBC (Bld) 75.7 % . [facility] No Panel InformationOrdered By: Govind Barry on 11-25-2023 Estimated GFR (CKD-EPI) > 60.0 mL/Min [facility] Creatinine Clearance (Chem N/A [facility] Nucleated erythrocytes [Pres ence] in Blood by Automated countOrdered By: Govind Barry on 11-25-2023 Nucleated RBC Auto Ql (Bld) 0.1 /100{WBC} 0-0.5 [facility] Platelet mean volume Auto (B ld) [Entitic vol]Ordered By: Govind Barry on 11-25-2023 Platelet mean volume (Bld) [Entitic vol] 8.8 fL 6.3-10.7 [facility] Platelets Auto (Bld) [#/Vol] Ordered By: Govind Barry on 11-25-2023 Platelets (Bld) [#/Vol] 301 10*3/uL 150-450 [facility] Potassium [Moles/volume] in Serum or PlasmaOrdered By: Govind Barry on 11-25-2023 Potassium [Moles/Vol] 4.2 mmol/L 3.5-5.1 [facility] Protein [Mass/volume] in Ser um or PlasmaOrdered By: Govind Barry on 11-25-2023 Protein [Mass/Vol] 7.2 g/dL 6.4-8.9 [facility] RBC Auto (Bld) [#/Vol]Ordere d By: Govind Barry on 11-25-2023 RBC (Bld) [#/Vol] 4.71 10*6/uL 3.60-5.00 [facility] Serum or plasma albumin/glob ulin mass ratioOrdered By: Govind Barry on 11-25-2023 Albumin/Globulin [Mass ratio] 1.9 {ratio} [facility] Serum or plasma anion gap de terminationOrdered By: Govind Brary on 11-25-2023 Anion gap [Moles/Vol] 10.7 mmol/L 6.0-15.0 [facility] Sodium [Moles/volume] in Ser um or PlasmaOrdered By: Govind Barry on 11-25-2023 Sodium [Moles/Vol] 139 mmol/L 136-145 [facility] Thyroid Stim Hormone w/Rflxo n 11-25-2023 Thyroid Stim Hormone w/Rflx 1.83 u[iU]/mL Normal 0.45-5.33 [facility] Comment on above: Result Comment: PERF ORMED BY: [place] [address] PATHOLOGIST [employer] MELCHOR MORALES M.D. Performed By: #### C BC, CMP, TSH3 wRFLX #### [facility] [address] [place] [address] Thyrotropin [Units/volume] i n Serum or PlasmaOrdered By: Govind Barry on 11-25-2023 TSH Qn 1.83 m[IU]/L 0.45-5.33 [facility] Urea nitrogen [Mass/volume] in Serum or PlasmaOrdered By: Govind Barry on 11-25-2023 Urea nitrogen [Mass/Vol] 11 mg/dL 7-25 [facility] WBC Auto (Bld) [#/Vol]Ordere d By: Govind Barry on 11-25-2023 WBC (Bld) [#/Vol] 10.0 10*3/uL 3.8-11.6 [facility] Anisocytosis LM Ql (Bld)Orde red By: ASHLEY WATSON on 09-12-2022 Anisocytosis Ql (Bld) Moderate [facility] Basophils Auto (Bld) [#/Vol] Ordered By: ASHLEY WATSON on 09-12-2022 Basophils (Bld) [#/Vol] 0.1 10*3/uL 0.0-0.2 [facility] Basophils/100 WBC Auto (Bld) Ordered By: ASHLEY WATSON on 09-12-2022 Basophils/100 WBC (Bld) 0.7 % . [facility] Eosinophils Auto (Bld) [#/Vo l]Ordered By: ASHLEY WATSON on 09-12-2022 Eosinophils (Bld) [#/Vol] 0.2 10*3/uL 0.0-0.45 [facility] Eosinophils/100 WBC Auto (Bl d)Ordered By: ASHLEY WATSON on 09-12-2022 Eosinophils/100 WBC (Bld) 1.7 % . [facility] Erythrocyte distribution wid th Auto (RBC) [Ratio]Ordered By: ASHLEY WATSON on 09-12-2022 Erythrocyte distribution width (RBC) [Ratio] 14.4 % 11.9-15.3 [facility] Hematocrit Auto (Bld) [Volum e fraction]Ordered By: ASHLEY WATSON on 09-12-2022 Hematocrit (Bld) [Volume fraction] 29.2 % 34.0-46.4 [facility] Hemoglobin [Mass/volume] in BloodOrdered By: ASHLEY WATSON on 09-12-2022 Hemoglobin (Bld) [Mass/Vol] 9.6 g/dL 11.8-15.4 [facility] Hypochromia LM Ql (Bld)Order ed By: ASHLEY WATSON on 09-12-2022 Hypochromia Ql (Bld) Slight [facility] Leukocytes [#/volume] correc jessica for nucleated erythrocytes in Blood by Automated counOrdered By: ASHLEY WATSON on 09-12-2022 WBC corrected for nucl RBC Auto (Bld) [#/Vol] 12.2 10*3/uL 3.8-11.6 [facility] Lymphocytes Auto (Bld) [#/Vo l]Ordered By: ASHLEY WATSON on 09-12-2022 Lymphocytes (Bld) [#/Vol] 2.9 10*3/uL 1.00-4.8 [facility] Lymphocytes/100 WBC Auto (Bl d)Ordered By: ASHLEY WATSON on 09-12-2022 Lymphocytes/100 WBC (Bld) 23.6 % . [facility] MCH Auto (RBC) [Entitic mass ]Ordered By: ASHLEY WATSON on 09-12-2022 MCH (RBC) [Entitic mass] 25.5 pg 24.7-34.3 [facility] MCHC Auto (RBC) [Mass/Vol]Or dered By: ASHLEY WATSON on 09-12-2022 MCHC (RBC) [Mass/Vol] 32.8 g/dL 32.0-35.0 [facility] MCV Auto (RBC) [Entitic vol] Ordered By: ASHLEY WATSON on 09-12-2022 MCV (RBC) [Entitic vol] 77.6 fL 80-100 [facility] Microcytes LM Ql (Bld)Ordere d By: ASHLEY WATSON on 09-12-2022 Microcytes Ql (Bld) Moderate [facility] Monocytes Auto (Bld) [#/Vol] Ordered By: ASHLEY WATSON on 09-12-2022 Monocytes (Bld) [#/Vol] 0.8 10*3/uL 0.0-0.8 [facility] Monocytes/100 WBC Auto (Bld) Ordered By: ASHLEY WATSON on 09-12-2022 Monocytes/100 WBC (Bld) 6.2 % . [facility] Neutrophils Auto (Bld) [#/Vo l]Ordered By: ASHLEY WATSON on 09-12-2022 Neutrophils (Bld) [#/Vol] 8.3 10*3/uL 1.8-7.7 [facility] Neutrophils/100 WBC Auto (Bl d)Ordered By: ASHLEY WATSON on 09-12-2022 Neutrophils/100 WBC (Bld) 67.8 % . [facility] Nucleated erythrocytes [Pres ence] in Blood by Automated countOrdered By: ASHLEY WATSON on 09-12-2022 Nucleated RBC Auto Ql (Bld) 0.0 /100{WBC} 0-0.5 [facility] Platelet adequacy [Presence] in Blood by Light microscopyOrdered By: ASHLEY WATSON on 09-12-2022 Platelets LM Ql (Bld) Decreased Normal [facility] Platelet mean volume Auto (B ld) [Entitic vol]Ordered By: ASHLEY WATSON on 09-12-2022 Platelet mean volume (Bld) [Entitic vol] 10.7 fL 6.3-10.7 [facility] Platelet morphology finding [Identifier] in BloodOrdered By: ASHLEY WATSON on 09-12-2022 Platelet morphology finding Nom (Bld) N/A [facility] Platelets Auto (Bld) [#/Vol] Ordered By: ASHLEY WATSON on 09-12-2022 Platelets (Bld) [#/Vol] 127 10*3/uL 150-450 [facility] Platelets Large [Presence] i n Blood by Light microscopyOrdered By: ASHLEY WATSON on 09-12-2022 Platelets Large LM Ql (Bld) Marked [facility] Polychromasia [Presence] in Blood by Light microscopyOrdered By: ASHLEY WATSON on 09-12-2022 Polychromasia LM Ql (Bld) Moderate [facility] RBC Auto (Bld) [#/Vol]Ordere d By: ASHLEY WATSNO on 09-12-2022 RBC (Bld) [#/Vol] 3.76 10*6/uL 3.60-5.00 [facility] RBC morphologyOrdered By: ROSEANNE WATSON on 09-12-2022 RBC morphology finding Nom (Bld) N/A [facility] Urine culture routineOrdered By: ASHELY WATSON on 09-12-2022 Bacteria identified Cx Nom (U) Carol Ann albicans [facility] WBC Auto (Bld) [#/Vol]Ordere d By: ASHLEY WATSON on 09-12-2022 WBC (Bld) [#/Vol] 12.2 10*3/uL 3.8-11.6 [facility] Amphetamine Screen Ql (U)Ord ered By: ASHLEY WATSON on 09-10-2022 Amphetamines Ql (U) Negative Negative [facility] Automated erythrocytes count in urine sediment (number/area)Ordered By: ASHLEY WATSON on 09-10-2022 RBC Auto (Urine sed) [#/Area] None seen [HPF] 0-4 [facility] Automated leukocytes count i n urine sediment (number/area)Ordered By: ASHLEY WATSON on 09-10-2022 WBC Auto (Urine sed) [#/Area] 10-19 [HPF] 0-4 [facility] Barbiturates [Presence] in U rineOrdered By: ASHLEY WATSON on 09-10-2022 Barbiturates Ql (U) Negative Negative [facility] Benzodiazepines [Presence] i n UrineOrdered By: ASHLEY WATSON on 09-10-2022 Benzodiazepines Ql (U) Negative Negative [facility] Bilirubin Test strip Ql (U)O rdered By: ASHLEY WATSON on 09-10-2022 Bilirubin Ql (U) Negative Negative [facility] Color Auto (U)Ordered By: ROSEANNE WATSON on 09-10-2022 Color (U) Yellow Yellow [facility] Ketones Auto test strip (U) [Mass/Vol]Ordered By: ASHLEY WATSON on 09-10-2022 Ketones (U) [Mass/Vol] Negative Negative [facility] - Drug toxicology Ordered By: ASHLEY WATSON on 09-10-2022 Opiates Ql (U) Negative Negative [facility] Laboratory - UrinalysisOrder ed By: ASHLEY WATSON on 09-10-2022 Hyaline casts LM Ql (Urine sed) 0-8 [LPF] 0-8 [facility] Macrocytes LM Ql (Bld)Ordere d By: ASHLEY WATSON on 09-10-2022 Macrocytes Ql (Bld) Slight [facility] Nitrite Test strip Ql (U)Ord ered By: ASHLEY WATSON on 09-10-2022 Nitrite Ql (U) Negative Negative [facility] Phencyclidine Screen Ql (U)O rdered By: ASHLEY WATSON on 09-10-2022 Phencyclidine Ql (U) Negative Negative [facility] Comment on above: These are unconfirme d results and should not be used for legal purposes. Drug Cut-Off Concentration: AMPH 1000 ng/mL YOSEF 200 ng/mL JARAD 200 ng/mL COCM 300 ng/mL OP 300 ng/mL PCP 25 ng/mL Poikilocytosis [Presence] in Blood by Light microscopyOrdered By: ASHLEY WATSON on 09-10-2022 Poikilocytosis LM Ql (Bld) Slight [facility] Protein Auto test strip (U) [Mass/Vol]Ordered By: ASHLEY WATSON on 09-10-2022 Protein (U) [Mass/Vol] Trace mg/dL Negative [facility] Reagin Ab [Presence] in Seru m by RPROrdered By: ASHLEY WATSON on 09-10-2022 Reagin Ab RPR Ql (S) Non-Reactive Non Reactive [facility] Comment on above: Performed at: [address] Director: Mook Hawthorne PhD, Phone: [phone] Specific gravity Auto test s trip (U) [Rel density]Ordered By: ASHLEY WATSON on 09-10-2022 Specific gravity (U) [Rel density] 1.016 1.001-1.030 [facility] Squamous epithelial cells de tection in urine sediment by light microscopyOrdered By: ASHLEY WATSON on 09-10-2022 Epithelial cells.squamous LM Ql (Urine sed) 10-19 [HPF] 0-2 [facility] Urine bacteria detection by automated methodOrdered By: ASHLEY WATSON on 09-10-2022 Bacteria Auto Ql (U) None seen None Seen [facility] Urine clarity by refractomet ry automatedOrdered By: ASHLEY WATSON on 09-10-2022 Clarity Refractometry automated (U) Clear Clear [facility] Urine cocaine detectionOrder ed By: ASHLEY WATSON on 09-10-2022 Cocaine Ql (U) Negative Negative [facility] Urine glucose measurement by automated test strip (mass/volume)Ordered By: ASHLEY WATSON on 09-10-2022 Glucose Auto test strip (U) [Mass/Vol] Normal mg/dL Normal [facility] Urine hemoglobin detection b y automated test stripOrdered By: ASHLEY WATSON on 09-10-2022 Hemoglobin Auto test strip Ql (U) Negative Negative [facility] Urine leukocyte esterase det ection by automated test stripOrdered By: ASHLEY WATSON on 09-10-2022 Leukocyte esterase Auto test strip Ql (U) 3+ Negative [facility] Urobilinogen Auto test strip (U) [Mass/Vol]Ordered By: ASHLEY WATSON on 09-10-2022 Urobilinogen (U) [Mass/Vol] Normal mg/dL Normal [facility] pH Auto test strip (U)Ordere d By: ASHLEY WATSON on 09-10-2022 pH (U) 6.0 [pH] 5.0-9.0 [facility] S. agalactiae Org specific c x Ql (Unsp spec)Ordered By: ASHLEY WATSON on 08-16-2022 Streptococcus agalactiae culture No Group B Beta Streptococcus Isolated 3 Days [facility] Blood hemoglobin measurement (mass/volume)Ordered By: ASHLEY WATSON on 06-24-2022 Hemoglobin (Bld) [Mass/Vol] 12.7 g/dL 11.8-15.4 [facility] Hematocrit Auto (Bld) [Volum e fraction]Ordered By: ASHLEY WATSON on 06-24-2022 Hematocrit (Bld) [Volume fraction] 37.9 % 34.0-46.4 [facility] No Panel InformationOrdered By: ASHLEY WATSON on 06-24-2022 Glucose 1 Hour Postprandial (Timed) 100 mg/dL 60-140 [facility] Albumin [Mass/volume] in Ser um or PlasmaOrdered By: Jordan Saunders on 04-14-2022 Albumin [Mass/Vol] 3.4 g/dL 3.2-5.5 [facility] Basophils Auto (Bld) [#/Vol] Ordered By: Jordan Saunders on 04-14-2022 Basophils (Bld) [#/Vol] 0.1 10*3/uL 0.0-0.2 [facility] Basophils/100 WBC Auto (Bld) Ordered By: Jordan Saunders on 04-14-2022 Basophils/100 WBC (Bld) 0.6 % . [facility] Blood hemoglobin measurement (mass/volume)Ordered By: Jordan Saunders on 04-14-2022 Hemoglobin (Bld) [Mass/Vol] 13.7 g/dL 11.8-15.4 [facility] Blood leukocytes automated c ount (number/volume)Ordered By: Jordan Saunders on 04-14-2022 WBC (Bld) [#/Vol] 10.8 10*3/uL 4.5-11.0 [facility] Creatinine and Glomerular fi ltration rate.predicted panel (S/P/Bld)Ordered By: Jordan Saunders on 04-14-2022 Creatinine [Mass/Vol] 0.50 mg/dL 0.44-1.03 [facility] Eosinophils Auto (Bld) [#/Vo l]Ordered By: Jordan Saunders on 04-14-2022 Eosinophils (Bld) [#/Vol] 0.1 10*3/uL 0.0-0.45 [facility] Eosinophils/100 WBC Auto (Bl d)Ordered By: Jordan Saunders on 04-14-2022 Eosinophils/100 WBC (Bld) 0.8 % . [facility] Erythrocyte distribution wid th Auto (RBC) [Ratio]Ordered By: Jordan Saunders on 04-14-2022 Erythrocyte distribution width (RBC) [Ratio] 12.9 % 11.9-15.3 [facility] Estimated glomerular filtrat ion rate (GFR) non- AmericanOrdered By: Jordan Saunders on 04-14-2022 GFR/1.73 sq M.predicted among non-blacks MDRD (S/P/Bld) [Vol rate/Area] > 60 mL/Min [facility] Globulin Calc (S) [Mass/Vol] Ordered By: Jordan Saunders on 04-14-2022 Globulin (S) [Mass/Vol] 3.2 g/dL [facility] Hematocrit Auto (Bld) [Volum e fraction]Ordered By: Jordan Saunders on 04-14-2022 Hematocrit (Bld) [Volume fraction] 39.7 % 34.0-46.4 [facility] Laboratory - Chemistry and C hemistry - challengeOrdered By: Jordan Saunders on 04-14-2022 Magnesium [Mass/Vol] 1.9 mg/dL 1.6-2.6 [facility] Laboratory - Hematology and Cell countsOrdered By: Jordan Saunders on 04-14-2022 Nucleated RBC/100 WBC (Bld) [Ratio] 0.1 % 0-0.5 [facility] Lymphocytes Auto (Bld) [#/Vo l]Ordered By: Jordan Saunders on 04-14-2022 Lymphocytes (Bld) [#/Vol] 1.8 10*3/uL 1.00-4.8 [facility] Lymphocytes/100 WBC Auto (Bl d)Ordered By: Jordan Saunders on 04-14-2022 Lymphocytes/100 WBC (Bld) 17.0 % . [facility] MCH Auto (RBC) [Entitic mass ]Ordered By: Jordan Saunders on 04-14-2022 MCH (RBC) [Entitic mass] 30.4 pg 24.7-34.3 [facility] MCHC Auto (RBC) [Mass/Vol]Or dered By: Jordan Saunders on 04-14-2022 MCHC (RBC) [Mass/Vol] 34.5 g/dL 32.0-35.0 [facility] MCV Auto (RBC) [Entitic vol] Ordered By: Jordan Saunders on 04-14-2022 MCV (RBC) [Entitic vol] 88.0 fL 80-100 [facility] Monocytes Auto (Bld) [#/Vol] Ordered By: Jordan Saunders on 04-14-2022 Monocytes (Bld) [#/Vol] 0.5 10*3/uL 0.0-0.8 [facility] Monocytes/100 WBC Auto (Bld) Ordered By: Jordan Saunders on 04-14-2022 Monocytes/100 WBC (Bld) 5.1 % . [facility] Neutrophils Auto (Bld) [#/Vo l]Ordered By: Jordan Saunders on 04-14-2022 Neutrophils (Bld) [#/Vol] 8.3 10*3/uL 1.8-7.7 [facility] Neutrophils/100 WBC Auto (Bl d)Ordered By: Jordan Saunders on 04-14-2022 Neutrophils/100 WBC (Bld) 76.5 % . [facility] No Panel InformationOrdered By: Jordan Saunders on 04-14-2022 Estimated GFR () > 60 mL/Min [facility] Comment on above: GFR estimated refere nce range: According to KDOQI guidelines, <60 ml/min/1.73m2 is sufficient to diagnose a patient with chronic kidney disease. Pharmacy Creatinine Clearance (Chem 171.62 [facility] Platelet mean volume Auto (B ld) [Entitic vol]Ordered By: Jordan Saunders on 04-14-2022 Platelet mean volume (Bld) [Entitic vol] 9.9 fL 6.3-10.7 [facility] Platelets Auto (Bld) [#/Vol] Ordered By: Jordan Saunders on 04-14-2022 Platelets (Bld) [#/Vol] 246 10*3/uL 150-450 [facility] Protein [Mass/volume] in Ser um or PlasmaOrdered By: Jordan Saunders on 04-14-2022 Protein [Mass/Vol] 6.6 g/dL 6.1-7.9 [facility] RBC Auto (Bld) [#/Vol]Ordere d By: Jordan Saunders on 04-14-2022 RBC (Bld) [#/Vol] 4.52 10*6/uL 3.60-5.00 [facility] Serum or plasma alanine salas otransferase measurement without P-5'-P (enzymatic activiOrdered By: Jordan Saunders on 04-14-2022 ALT No additional P-5'-P [Catalytic activity/Vol] 13 U/L 10-60 [facility] Serum or plasma albumin/glob ulin mass ratioOrdered By: Jordan Saunders on 04-14-2022 Albumin/Globulin [Mass ratio] 1.1 {ratio} [facility] Serum or plasma alkaline abel sphatase measurement (enzymatic activity/volume)Ordered By: Jordan Saunders on 04-14-2022 ALP [Catalytic activity/Vol] 49 U/L 32-92 [facility] Serum or plasma aspartate am inotransferase measurement (enzymatic activity/volume)Ordered By: Jordan Saunders on 04-14-2022 AST [Catalytic activity/Vol] 18 U/L 10-42 [facility] Serum or plasma calcium pete urement (mass/volume)Ordered By: Jordan Saunders on 04-14-2022 Calcium [Mass/Vol] 9.4 mg/dL 8.2-10.2 [facility] Serum or plasma chloride tino surement (moles/volume)Ordered By: Jordan Saunders on 04-14-2022 Chloride [Moles/Vol] 100 mmol/L 95-114 [facility] Serum or plasma glucose pete urement (mass/volume)Ordered By: Jordan Saunders on 04-14-2022 Glucose [Mass/Vol] 84 mg/dL 70-100 [facility] Comment on above: ADA recommended refe rence range Random Glucose Reference Range is dependent on time and content of last meal. Glucose of more than 200 mg/dL in a nonstressed, ambulatory subject supports the diagnosis of Diabetes Mellitus. Serum or plasma potassium me asurement (moles/volume)Ordered By: Jordan Saunders on 04-14-2022 Potassium [Moles/Vol] 3.8 mmol/L 3.5-5.1 [facility] Serum or plasma sodium measu rement (moles/volume)Ordered By: Jordan Saunders on 04-14-2022 Sodium [Moles/Vol] 132 mmol/L 136-146 [facility] Serum or plasma total biliru bin measurement (mass/volume)Ordered By: Jordan Saunders on 04-14-2022 Bilirubin [Mass/Vol] 0.5 mg/dL 0.3-1.2 [facility] Serum or plasma total carbon dioxide measurement (moles/volume)Ordered By: Jordan Saunders on 04-14-2022 CO2 [Moles/Vol] 21.6 mmol/L 22.0-30.0 [facility] Serum or plasma urea nitroge n measurement (mass/volume)Ordered By: Jordan Saunders on 04-14-2022 Urea nitrogen [Mass/Vol] 5 mg/dL 9-23 [facility] TSH DL <= 0.005 mIU/L QnOrde red By: Jordan Saunders on 04-14-2022 TSH Qn 1.21 m[IU]/L 0.45-5.33 [facility] Troponin I.cardiac [Mass/vol ume] in Serum or Plasma by High sensitivity methodOrdered By: Jordan Saunders on 04-14-2022 Troponin I.cardiac High sensitivity method [Mass/Vol] 11 pg/mL 0-15 [facility] Complete Blood Count with Au to Diffon 12-24-2021 Basophils (Bld) [#/Vol] 0.05 10*3/uL Normal 0.00-0.20 [facility] Comment on above: Performed By: #### C BCAD, VITD, CMP, TSH reflex FT4 #### [facility] [address], [place] [id number] Basophils/100 WBC (Bld) 0.8 % Normal [facility] Comment on above: Performed By: #### C BCAD, VITD, CMP, TSH reflex FT4 #### [facility] [address], [place] [id number] Eosinophils (Bld) [#/Vol] 0.12 10*3/uL Normal 0.02-0.50 [facility] Comment on above: Performed By: #### C BCAD, VITD, CMP, TSH reflex FT4 #### [facility] [address], [place] [id number] Eosinophils/100 WBC (Bld) 2.0 % Normal [facility] Comment on above: Performed By: #### C BCAD, VITD, CMP, TSH reflex FT4 #### [facility] [address], [place] [id number] Erythrocyte distribution width (RBC) [Ratio] 11.7 % Normal 11.0-15.0 [facility] Comment on above: Performed By: #### C BCAD, VITD, CMP, TSH reflex FT4 #### [facility] [address], [place] [id number] Hematocrit (Bld) [Volume fraction] 43.8 % Normal 35.0-47.0 [facility] Comment on above: Performed By: #### C BCAD, VITD, CMP, TSH reflex FT4 #### [facility] [address], [place] [id number] Hemoglobin (Bld) [Mass/Vol] 14.5 g/dL Normal 11.6-15.5 [facility] Comment on above: Performed By: #### C BCAD, VITD, CMP, TSH reflex FT4 #### [facility] [address], [place] [id number] Lymphocytes (Bld) [#/Vol] 2.1 10*3/uL Normal 0.9-3.9 [facility] Comment on above: Performed By: #### C BCAD, VITD, CMP, TSH reflex FT4 #### [facility] [address], [place] [id number] Lymphocytes/100 WBC (Bld) 34.1 % Normal [facility] Comment on above: Performed By: #### C BCAD, VITD, CMP, TSH reflex FT4 #### [facility] [address], [place] [id number] MCH (RBC) [Entitic mass] 29.8 pg Normal 27.0-33.0 [facility] Comment on above: Performed By: #### C BCAD, VITD, CMP, TSH reflex FT4 #### [facility] [address], [place] [id number] MCHC (RBC) [Mass/Vol] 33.1 g/dL Normal 32.0-36.0 [facility] Comment on above: Performed By: #### C BCAD, VITD, CMP, TSH reflex FT4 #### [facility] [address], [place] [id number] MCV (RBC) [Entitic vol] 90 fL Normal 80-100 [facility] Comment on above: Performed By: #### C BCAD, VITD, CMP, TSH reflex FT4 #### [facility] [address], [place] [id number] Monocytes (Bld) [#/Vol] 0.4 10*3/uL Normal 0.2-0.9 [facility] Comment on above: Performed By: #### C BCAD, VITD, CMP, TSH reflex FT4 #### [facility] [address], [place] [id number] Monocytes/100 WBC (Bld) 6.8 % Normal [facility] Comment on above: Performed By: #### C BCAD, VITD, CMP, TSH reflex FT4 #### [facility] [address], [place] [id number] Neutrophils (Bld) [#/Vol] 3.4 10*3/uL Normal 1.5-7.8 [facility] Comment on above: Performed By: #### C BCAD, VITD, CMP, TSH reflex FT4 #### [facility] [address], [place] [id number] Neutrophils/100 WBC (Bld) 56.1 % Normal [facility] Comment on above: Performed By: #### C BCAD, VITD, CMP, TSH reflex FT4 #### [facility] [address], [place] [id number] Platelet mean volume (Bld) [Entitic vol] 11.00 fL Normal 7.50-12.50 [facility] Comment on above: Performed By: #### C BCAD, VITD, CMP, TSH reflex FT4 #### [facility] [address], [place] [id number] Platelets (Bld) [#/Vol] 306 10*3/uL Normal 140-400 [facility] Comment on above: Performed By: #### C BCAD, VITD, CMP, TSH reflex FT4 #### [facility] [address], [place] [id number] RBC (Bld) [#/Vol] 4.87 10*6/uL Normal 3.90-5.20 [facility] Comment on above: Performed By: #### C BCAD, VITD, CMP, TSH reflex FT4 #### [facility] [address], [place] [id number] RDW-SD 38.5 fL Normal 37.0-50.0 [facility] Comment on above: Performed By: #### C BCAD, VITD, CMP, TSH reflex FT4 #### [facility] [address], [place] [id number] WBC (Bld) [#/Vol] 6.0 10*3/uL Normal 3.8-11.0 [facility] Comment on above: Performed By: #### C BCAD, VITD, CMP, TSH reflex FT4 #### [facility] [address], [place] [id number] Comprehensive Metabolic Pane dale 12-24-2021 Albumin [Mass/Vol] 5.1 g/dL Normal 3.6-5.1 [facility] [place] [facility] Comment on above: Performed By: #### C BCAD, VITD, CMP, TSH reflex FT4 #### [facility] [address], [place] [id number] Albumin/Globulin [Mass ratio] 2.4 {ratio} Normal 1.0-2.5 [facility] Comment on above: Performed By: #### C BCAD, VITD, CMP, TSH reflex FT4 #### [facility] [address], [place] [id number] ALP [Catalytic activity/Vol] 71 U/L Normal 35-119 [facility] Comment on above: Performed By: #### C BCAD, VITD, CMP, TSH reflex FT4 #### [facility] [address], [place] [id number] ALT [Catalytic activity/Vol] 9 U/L Normal 6-33 [facility] Comment on above: Result Comment: 09/04 Female reference range changed. Performed By: #### C BCAD, VITD, CMP, TSH reflex FT4 #### [facility] [address], [place] [id number] Anion gap [Moles/Vol] 18 mmol/L Normal 12-20 [facility] Comment on above: Result Comment: Effe ctive 10/10/2019 reference range changed. Performed By: #### C BCAD, VITD, CMP, TSH reflex FT4 #### [facility] [address], [place] [id number] AST [Catalytic activity/Vol] 15 U/L Normal 9-34 [facility] Comment on above: Performed By: #### C BCAD, VITD, CMP, TSH reflex FT4 #### [facility] [address], [place] [id number] Bilirubin [Mass/Vol] 0.46 mg/dL Normal 0.30-1.20 [facility] Comment on above: Performed By: #### C BCAD, VITD, CMP, TSH reflex FT4 #### [facility] [address], [place] [id number] BUN/CREA 14 Ratio Normal 6-22 [facility] Comment on above: Performed By: #### C BCAD, VITD, CMP, TSH reflex FT4 #### [facility] [address], [place] [id number] Calcium [Mass/Vol] 9.8 mg/dL Normal 8.6-10.2 [facility] Comment on above: Performed By: #### C BCAD, VITD, CMP, TSH reflex FT4 #### [facility] [address], [place] [id number] Chloride [Moles/Vol] 106 mmol/L Normal 98-107 [facility] Comment on above: Performed By: #### C BCAD, VITD, CMP, TSH reflex FT4 #### [facility] [address], [place] [id number] CO2 [Moles/Vol] 23 mmol/L Normal 20-31 [facility] Comment on above: Performed By: #### C BCAD, VITD, CMP, TSH reflex FT4 #### [facility] [address], [place] [id number] Creatinine [Mass/Vol] 0.7 mg/dL Normal 0.6-1.4 [facility] Comment on above: Performed By: #### C BCAD, VITD, CMP, TSH reflex FT4 #### [facility] [address], [place] [id number] eGFRAA 138 mL/min/1.73m2 Normal >60 [facility] Comment on above: Performed By: #### C BCAD, VITD, CMP, TSH reflex FT4 #### [facility] [address], [place] [id number] eGFRNAA 114 mL/min/1.73m2 Normal >60 [place] [facility] [place] [facility] Comment on above: Performed By: #### C BCAD, VITD, CMP, TSH reflex FT4 #### [facility] [address], [place] [id number] Globulin (S) [Mass/Vol] 2.1 g/dL Normal 1.9-3.7 [facility] Specialist Comment on above: Performed By: #### C BCAD, VITD, CMP, TSH reflex FT4 #### [facility] [address], [place] [id number] Glucose [Mass/Vol] 83 mg/dL Normal 65-99 [facility] Comment on above: Result Comment: For FASTING Glucose --- ADA reference ranges: Normal 65-99 mg/dl Prediabetes 100-125 Diabetes >/= 126 Performed By: #### C BCAD, VITD, CMP, TSH reflex FT4 #### [facility] [address], [place] [id number] Potassium [Moles/Vol] 4.9 mmol/L Normal 3.5-5.5 [facility] Specialist Comment on above: Result Comment: Spec imen is hemolyzed. Results may be affected. Performed By: #### C BCAD, VITD, CMP, TSH reflex FT4 #### [facility] [address], [place] [id number] Protein [Mass/Vol] 7.2 g/dL Normal 6.1-8.1 [facility] Comment on above: Performed By: #### C BCAD, VITD, CMP, TSH reflex FT4 #### [facility] [address], [place] [id number] Sodium [Moles/Vol] 141 mmol/L Normal 135-146 [facility] Comment on above: Performed By: #### C BCAD, VITD, CMP, TSH reflex FT4 #### [facility] [address], [place] [id number] Urea nitrogen [Mass/Vol] 9 mg/dL Normal 7-25 [facility] Special[facility] Comment on above: Performed By: #### C BCAD, VITD, CMP, TSH reflex FT4 #### [facility] [address], [place] [id number] TSH w/ Reflex to Free T4on 0 12-24-2021 TSH 0.946 uIU/mL Normal 0.400-4.500 [facility] Comment on above: Performed By: #### C BCAD, VITD, CMP, TSH reflex FT4 #### [facility] [address], [place] [id number] Vitamin B12/Folateon 022 Cobalamin (Vitamin B12) [Mass/Vol] 339 pg/mL Normal 211-946 [facility] Specialist Comment on above: Performed By: #### B 12/Fol #### [facility] [address], [place] [id number] FOL 9.9 ng/mL Normal >4.7 [facility] Specialist Comment on above: Result Comment: Refe rence range change 08/21/2017. Prior reference range F 4.8-37.3 ng/mL, M 4.5-32.2 ng/mL. Performed By: #### B 12/Fol #### [facility] [address], [place] [id number] Vitamin D 25-OHon 12-24-2021 VIT D 25 OH 23 ng/ml Low >29 [facility] Specialist Comment on above: Result Comment: Leslee min D Status Deficiency <20 ng/mL Insufficiency 20-29 ng/mL Optimal 30-100 ng/mL Possible Toxicity >=150 ng/mL Performed By: #### C BCAD, VITD, CMP, TSH reflex FT4 #### [facility] [address], [place] [id number] CNOVon 09-01-2017 CNOV Office Visit (ORTPMN) ----RANDAL REDMOND ([id number]) 2000 FDate Time Provider Azrmkbnlph86/28/17 10:15 AM GILMER BENAVIDES ORTPMN During your [...] tight periscapular,lumbar, and hamstring musculature.Signed: Travis Ocasio [facility] physician:Emeterio Benavides MD 09/01/2017 11:05 AM [...] *Problem List As Of Date: 09/01/2017(None)[facility] HospitalGilmer Benavides M.D. Department of Pediatric Orthopaedic Surgery / [id number] [place] [id number]: [phone] Appts.: [phone] Fax: [phone] [address]To Whom It May Concern:Randal Redmond was seen in my clinic on 09/01/2017, accompanied by her Mother.Please excuse this child from school for the time required for this physicianvisit.Please feel free to contact my office if you have any questions or concerns.Thank you for your assistance in this matter.Sincerely,Butch Burnett M. D. Status:Closed by GILMER BENAVIDES MD on 09/01/17 [facility] PROGRESSon 09-01-2017 PROGRESS HNO ID: [id number]: Gilmer BenavidesService: (none)Author Type: PhysicianType: Progress NotesFiled: 09/01/2017 11:05 AMNote Text:I have reviewed the history and physical obtained and documented by theresident and I personally participated in the sanchez components. I agree withthe findings and plan of care, with the additions contained within mydictation.Gilmer Benavides M.D. [facility] PROGRESS HNO ID: [id number]: Travis (Lauren) SuraceService: (none)Author Type: ResidentType: Progress [...] and hamstring musculature.Signed: Joel Morales physician:SELF Normal [facility] PROGRESS HNO ID: [id number]: Beverley Randhawa RtService: (none)Author Type: (none)Type: Progress NotesFiled: 09/01/2017 9:44 AMNote Text: Radiology Service Progress NotePATIENT NAME: Randal Bush WillN: [id number] OF SERVICE: September 01, 2017TIME: 9:44 AMPATIENT IDENTITY VERIFICATION COMPLETED USING TWO (2) METHODS: Patientconfirmed name verbally and Date of .PATIENT GENDER DATA: Female. status: : NoBreastfeeding status: NO.PATIENT RELEVANT IMPLANT DATA REVIEWED: YesRADIOLOGY DEPARTMENT: General X-ray: Exam(s) Completed: Spine X-Ray(s):Scoliois SeriesPERIPHERAL IV DATA: Not applicableSIGNED BY: Beverley Randhawa RtNovember 2016 9:44 AM Normal [facility] XR SCOLIOSIS 2V PA STAND/LAT on [...] report reviewed and electronically signed by: BLU PERIKNS MD on Sep 01 2017 10:54AM [id number] IACN Normal [facility] Vital Signs Date Time Vital Sign Value Performing Clinician Facility 11-14-2023 13:45-0500 Body mass index (BMI) [Ratio] 26.31 kg/m2 Joyce DOMÍNGUEZ Work Phone: [facility] 11-14-2023 13:45-0500 Body temperature 98.01 [degF] Joyce DOMÍNGUEZ Work Phone: [facility] 11-14-2023 13:45-0500 Body weight 76.2 kg Joyce Hemmer PA Work Phone: [facility] [employer] 11-14-2023 13:45-0500 Diastolic blood pressure 70 mm[Hg] Joyce Hemmer PA Work Phone: [facility] 11-14-2023 13:45-0500 Heart rate 86 /min Joyce Hemmer PA Work Phone: [facility] 11-14-2023 13:45-0500 SaO2% (BldA) [Mass fraction] 99 % Joyce Hemmer PA Work Phone: [facility] 11-14-2023 13:45-0500 Systolic blood pressure 110 mm[Hg] Joyce Hemmer PA Work Phone: [facility] 10-27-2023 10:30-0500 Body height 167.64 cm Gilmer Mcgregor Other [facility] 10-27-2023 10:30-0500 Body mass index (BMI) [Ratio] 26.31 kg/m2 Gilmer Mcgregor Other [facility] Other 10-27-2023 10:30-0500 Body weight 73.94 kg Gilmer Mcgregor Other [facility] Other 10-27-2023 10:30-0500 Body weight 73.93 kg MD Jaymie Morris Work Phone: [facility] 10-27-2023 10:30-0500 Diastolic blood pressure 85 mm[Hg] Gilmer Mcgregor Other [facility] 10-27-2023 10:30-0500 SaO2% (BldA) [Mass fraction] 100 % Gilmer Mcgregor Other [facility] Other 10-27-2023 10:30-0500 Systolic blood pressure 128 mm[Hg] Gilmer Mcgregor Other [facility] 12-17-2022 18:45-0400 Body height 167.64 cm MD Jaymie Morris Work Phone: [facility] 12-17-2022 18:45-0400 Body temperature 97.8 [degF] MD Jaymie Morris Work Phone: [facility] 12-17-2022 18:45-0400 Body weight 70.3 kg MD Jaymie Morris Work Phone: [facility] 12-17-2022 18:45-0400 Diastolic blood pressure 92 mm[Hg] MD Jaymie Morris Work Phone: [facility] 12-17-2022 18:45-0400 Heart rate 104 /min MD Jaymie Morris Work Phone: [facility] 12-17-2022 18:45-0400 Respiratory rate 20 /min MD Jaymie Morris Work Phone: [facility] 12-17-2022 18:45-0400 SaO2% (BldA) [Mass fraction] 99 % MD Jaymie Morris Work Phone: [facility] 12-17-2022 18:45-0400 Systolic blood pressure 143 mm[Hg] MD Jaymie Morris Work Phone: [facility] 12-12-2022 12:44-0500 Body height 167.64 cm MD Jaymie Morris Work Phone: [facility] 12-12-2022 12:44-0500 Body temperature 98.8 [degF] MD Jaymie Morris Work Phone: [facility] 12-12-2022 12:44-0500 Body weight 68.49 kg MD Jaymie Morris Work Phone: [facility] 12-12-2022 12:44-0500 Diastolic blood pressure 95 mm[Hg] MD Jaymie Morris Work Phone: [facility] 12-12-2022 12:44-0500 Heart rate 107 /min MD Jaymie Morris Work Phone: [facility] 12-12-2022 12:44-0500 Respiratory rate 18 /min MD Jaymie Morris Work Phone: [facility] 12-12-2022 12:44-0500 SaO2% (BldA) [Mass fraction] 97 % MD Jaymie Morris Work Phone: [facility] 12-12-2022 12:44-0500 Systolic blood pressure 140 mm[Hg] MD Jaymie Morris Work Phone: [facility] 09-12-2022 15:30-0500 Body temperature 98 [degF] MD Jaymie Morris Work Phone: [facility] 09-12-2022 15:30-0500 Diastolic blood pressure 82 mm[Hg] MD Jaymie Morris Work Phone: [facility] 09-12-2022 15:30-0500 Heart rate 82 /min MD Jaymie Morris Work Phone: [facility] 09-12-2022 15:30-0500 Respiratory rate 18 /min MD Jaymie Morris Work Phone: [facility] 09-12-2022 15:30-0500 SaO2% (BldA) [Mass fraction] 100 % MD Jaymie Morris Work Phone: [facility] 09-12-2022 15:30-0500 Systolic blood pressure 140 mm[Hg] MD Jaymie Morris Work Phone: [facility] 09-10-2022 21:52-0500 Body weight 85.72 kg MD Jaymie Morris Work Phone: [facility] 09-10-2022 21:07-0500 Body height 170.18 cm MD Jaymie Morris Work Phone: [facility] 06-24-2022 13:31-0400 Body temperature 98.1 [degF] MD Jaymie Morris Work Phone: [facility] 06-24-2022 13:31-0400 Diastolic blood pressure 78 mm[Hg] MD Jaymie Morris Work Phone: [facility] 06-24-2022 13:31-0400 Heart rate 84 /min MD Jaymie Morris Work Phone: [facility] 06-24-2022 13:31-0400 Respiratory rate 18 /min MD Jaymie Morris Work Phone: [facility] 06-24-2022 13:31-0400 SaO2% (BldA) [Mass fraction] 100 % MD Jaymie Morris Work Phone: [facility] 06-24-2022 13:31-0400 Systolic blood pressure 119 mm[Hg] MD Jaymie Morris Work Phone: [facility] 04-14-2022 18:10-0400 Diastolic blood pressure 69 mm[Hg] MD Jaymie Morris Work Phone: [facility] 04-14-2022 18:10-0400 Heart rate 82 /min MD Jaymie Morris Work Phone: [facility] 04-14-2022 18:10-0400 Respiratory rate 16 /min MD Jaymie Morris Work Phone: [facility] 04-14-2022 18:10-0400 SaO2% (BldA) [Mass fraction] 98 % MD Jaymie Morris Work Phone: [facility] 04-14-2022 18:10-0400 Systolic blood pressure 122 mm[Hg] MD Jaymie Morris Work Phone: [facility] 04-14-2022 13:59-0400 Body temperature 98.1 [degF] MD Jaymie Morris Work Phone: [facility] 04-14-2022 13:56-0400 Body height 170.18 cm MD Jaymie Morris Work Phone: [facility] 04-14-2022 13:56-0400 Body mass index (BMI) [Ratio] 24.7 kg/m2 MD Jaymie Morris Work Phone: [facility] 04-14-2022 13:56-0400 Body weight 71.65 kg MD Jaymie Morris Work Phone: [facility] Encounters Encounter Date Encounter Type Care Provider Facility Start: 12-24-2023 End: 12-24-2023 ambulatory SADE BRAXTON Not Available Start: 12-10-2023 End: 12-10-2023 ambulatory JAYMIE MORRIS Not Available Start: 12-09-2023 End: 12-09-2023 ambulatory ASHLEY WATSON Not Available Start: 11-25-2023 End: 11-25-2023 ambulatory Jaymie Morris Facility:[facility] Start: 11-25-2023 End: 11-25-2023 ambulatory MD Jaymie Morris Work Phone: [facility] Work Phone: Start: 11-25-2023 End: 11-25-2023 Patient encounter procedure MD Jaymie Morris Work Phone: [facility] [place] Work Phone: Start: 11-14-2023 End: 11-14-2023 ambulatory [...] outpatient vi sit 25 minutes Gilmer Mcgregor [facility] Start: 10-27-2023 End: 10-27-2023 ambulatory MD Jaymie Morris Work Phone: [facility] Other Start: 10-27-2023 End: 10-27-2023 Patient encounter procedure MD Jaymie Morris Work Phone: [facility] Work Phone: Start: 10-27-2023 End: 10-27-2023 Patient encounter procedure MD Jaymie Morris Work Phone: [facility]placed By [facility]- Start: 10-22-2023 End: 10-22-2023 ambulatory JAYMIE MORRIS Not Available Start: 10-01-2023 End: 10-01-2023 ambulatory JAYMIE MORRIS Not Available Start: 09-10-2023 End: 09-10-2023 ambulatory JAYMIE BALIS Not Available Start: 09-02-2023 End: 09-02-2023 ambulatory KERRI NO Not Available Start: 08-31-2023 End: 08-31-2023 ambulatory ASHLEY Gee NELIDA Not Available Start: 07-21-2023 End: 07-21-2023 ambulatory aJymie Morris Facility:[facility] Start: 07-21-2023 End: 07-21-2023 ambulatory MD Jaymie Morris Work Phone: [facility] Work Phone: Start: 07-21-2023 End: 07-21-2023 Patient encounter procedure MD Jaymie Morris Work Phone: [facility]Flu Vaccine Start: 02-27-2023 End: 02-27-[address] DOCTOR AUGUSTIN Facility:[facility] Start: 12-17-2022 End: 12-17-2022 Emergency department patient visit Michael Martin Facility:[facility] Start: 12-17-2022 End: 12-17-2022 Emergency department patient visit MD Jaymie Morris Work Phone: [facility] Work Phone: Start: 12-12-2022 End: 12-12-2022 Emergency department patient visit Feroz Skinner Facility:[facility] Start: 12-12-2022 End: 12-12-2022 Emergency department patient visit MD Jaymie Morris Work Phone: [facility] Work Phone: Start: 09-10-2022 End: 09-12-2022 Evaluation and management of inpatient MD Jaymie Morris Work Phone: [facility] Start: 08-13-2022 End: 08-13-2022 ambulatory MD Jaymie Morris Work Phone: [facility] Work Phone: Start: 08-13-2022 End: 08-13-2022 Departed Referred MD Jaymie Morris Work Phone: [facility] [place] Start: 06-24-2022 End: 06-24-2022 Patient encounter procedure MD Jaymie Morris Work Phone: [facility] [place] Start: 04-16-2022 End: 04-16-2022 Patient encounter procedure MD Jaymie Morris Work Phone: [facility]Electrodiagnostics Start: 04-14-2022 End: 04-14-2022 Emergency department patient visit MD Jaymie Morris Work Phone: [facility] Start: 09-01-2017 End: 09-01-2017 Ambulatory GILMER BENAVIDES [facility] Procedures Date Procedure Procedure Detail Performing Clinician Streptococcus agalactiae culture MD Jaymie Morris Work Phone: Urine culture MD Jaymie moreno Work Phone: Plan of Treatment Date Care Activity Detail Author Start: 09-05-2024 End: 09-05-2024 Patient encounter procedure 09/05/2024 9:45 AM EST Office Visit [facility] [address] [address] Ashley Watson DO [address] [place] [address] [facility] Start: 07-14-2024 End: 07-14-2024 Patient encounter procedure 07/14/2024 10:20 AM EDT Office Visit [facility] [address] [place] [id number] Preet Barrios MD [address] [place] [address] [facility] Start: 12-15-2023 End: 12-15-2023 Patient encounter procedure 12/15/2023 9:40 AM EDT Office Visit [facility] [address] [place] [id number] Jaymie Morris MD [address] [place] [address] [facility] Start: 12-09-2023 End: 12-09-2023 Patient encounter procedure 12/09/2023 10:00 AM EST Office Visit [facility] [address] [address] Ashley Watson, DO [address] [place] [address] [facility] Start: 09-12-2022 [facility] Start: 09-10-2022 [facility] Group B Streptococcu s Culture Group B Streptococcus Culture [facility] Patient Education [facility] Work Phone: Patient referral [facility] Work Phone: Immunizations Immunization Date Immunization Notes Care Provider Fa no 07-21-2023 influenza, injectabl e, quadrivalent, preservative free David Rayo MD, IBCLC Work Phone: [facility] 04-15-2023 SARS-COV-2 (COVID-19 ) vaccine, mRNA, spike protein, LNP, bivalent, preservative free, 30 mcg/0.3 mL dose, walt-sucrose formulation David Rayo MD, IBCLC Work Phone: [facility] 12-08-2019 tetanus toxoid, redu mishel diphtheria toxoid, and acellular pertussis vaccine, adsorbed MD Jaymie Morris Work Phone: [facility] 06-01-2017 meningococcal oligosaccharide (groups A, C, Y and W-135) diphtheria toxoid conjugate vaccine (MCV4O) David Rayo MD, IBCLC Work Phone: [facility] 07-15-2012 influenza, seasonal, injectable, preservative free David Rayo MD, IBCLC Work Phone: [facility] 07-15-2012 meningococcal polysaccharide (groups A, C, Y and W-135) diphtheria toxoid conjugate vaccine (MCV4P) David Rayo MD, IBCLC Work Phone: [facility] 07-15-2012 tetanus toxoid, redu mishel diphtheria toxoid, and acellular pertussis vaccine, adsorbed David Rayo MD, IBCLC Work Phone: [facility] 05-23-2004 diphtheria, tetanus toxoids and acellular pertussis vaccine David Rayo MD, IBCLC Work Phone: [facility] 05-23-2004 poliovirus vaccine, inactivated David Rayo MD, IBCLC Work Phone: [facility] 06-03-2001 measles, mumps and rubella virus vaccine David Rayo MD, IBCLC Work Phone: [facility] 06-03-2001 poliovirus vaccine, unspecified formulation David Rayo MD, IBCLC Work Phone: [facility] 06-03-2001 varicella virus vaccine Waldo Rayo MD, IBCLC Work Phone: [facility] 03-04-2001 hepatitis B vaccine, pediatric or pediatric/adolescent dosage David Rayo MD, IBCLC Work Phone: [facility] 06-04-2000 diphtheria, tetanus toxoids and acellular pertussis vaccine, unspecified formulation David Rayo MD, IBCLC Work Phone: [facility] 06-04-2000 haemophilus influenz ae type b vaccine, conjugate unspecified formulation David Rayo MD, IBCLC Work Phone: [facility] 06-04-2000 measles, mumps and rubella virus vaccine David Rayo MD, IBCLC Work Phone: [facility] 06-04-2000 varicella virus vaccine Waldo Rayo MD, IBCLC Work Phone: [facility] 1999 diphtheria, tetanus toxoids and acellular pertussis vaccine, unspecified formulation David Rayo MD, IBCLC Work Phone: [facility] 1999 haemophilus influenz ae type b vaccine, conjugate unspecified formulation David Rayo MD, IBCLC Work Phone: [facility] 1999 diphtheria, tetanus toxoids and acellular pertussis vaccine, unspecified formulation David Rayo MD, IBCLC Work Phone: [facility] 1999 haemophilus influenz ae type b vaccine, conjugate unspecified formulation David Rayo MD, IBCLC Work Phone: [facility] 1999 hepatitis B vaccine, pediatric or pediatric/adolescent dosage David Rayo MD, IBCLC Work Phone: [facility] 1999 poliovirus vaccine, unspecified formulation David Rayo MD, IBCLC Work Phone: [facility] 1999 diphtheria, tetanus toxoids and acellular pertussis vaccine, unspecified formulation David Rayo MD, IBCLC Work Phone: [facility] 1999 haemophilus influenz ae type b vaccine, conjugate unspecified formulation David Rayo MD, IBCLC Work Phone: [facility] 1999 hepatitis B vaccine, pediatric or pediatric/adolescent dosage David Rayo MD, IBCLC Work Phone: [facility] 1999 poliovirus vaccine, unspecified formulation David Rayo MD, IBCLC Work Phone: [facility] Payers Date Payer Category Payer Self-pay [id number] 2022 Medicaid [id number] 2022 Medicaid ANTHEM BCBS [facility] ANTH BCBS MEDICAID [place] [id number] 2022-Present [address] [place] [address] [id number] 2020 Unknown [id number] 2010 Unknown BCBS BCBS [id number] 2010-Present [phone] [address] [place] [address] [id number] 1999 Unknown [id number] [id number] 1999 Unknown [id number] 2.16.840.1.878608.3.579.2.1259 1999 Unknown [id number] 2.16.840.1.516891.3.579.2.1259 1999 Unknown [id number] 2.16.840.1.729383.3.579.2.1259 1999 Unknown [id number] 2.16.840.1.134027.3.579.2.1259 1999 Unknown [id number] 2.16.840.1.115141.3.579.2.1259 1999 Unknown [id number] 2.16.840.1.749059.3.579.2.1259 1999 Unknown [id number] 2.16.840.1.806055.3.579.2.1259 1999 Unknown [id number] 2.16.840.1.834517.3.579.2.1259 1999 Unknown [id number] 2.16.840.1.375247.3.579.2.1259 1999 Unknown [id number] 2.16.840.1.952471.3.579.2.9 1999 Unknown [id number] 2.16840.1.094182.3.579.2.1259 1959 Unknown [id number] Medicaid [employer] [id number] Medicaid [place] Advantage [id number] Unknown [id number] Unknown [id number] Unknown [id number] 2.840.1.938264.3.579.2.531 Unknown [id number] [id number] Unknown [id number] Social History Date Type Detail Facility Start: 04-14-2022 End: 12-17-2022 Tobacco smoking status NHIS Never smoked tobacco (finding) [facility] Start: 2000 Sex Assigned At Female [facility] Start: 03-27-2023 End: 11-10-2023 Sex Assigned At [...] Facility 09-12-2022 Functional status Patient at Baseline [facility] Work Phone: Mental Status Date Assessment Result Facility 09-12-2022 Cognitive function Cognitive Sta tus Patient at Baseline [facility] Work Phone: History of Present illness [...] Refill albuterol HFA 90 mcg/act inhaler Q6H [id number]-[id number] (Fioricet) 50-300-40 MG capsule take 1 capsule [...] Dizziness, Itching, Runny nose, Swelling and Wheezing [place] Flavor Unknown Pollen Extract Unknown Social History [...] Acute bacterial conjunctivitis of both eyes - phuobntm-[id number]-rxfLQBCGdcfty (Maxitrol) 0.1 % ophthalmic suspension; Administer 1 [...] plenty of rest. documented in this encounter [facility] Evaluation note 10-27-2023 Note Date & [...] anxiety nor bipolar symptoms worsen with treatment [facility] Other Procedure note 09-11-2022 Note Date & Type Note Facility 09-11-2022 Procedure note [facility] Evaluation note Note Date & Type Note Facility Evaluation note No assessment information availa [facility] Work Phone: Evaluation note Note Date & Type Note Facility Evaluation note Diagnosis Acute bacterial conjunctivitis of both eyes- Primary documented in this encounter [facility] History general Narrative - Reported Note Date & Type Note Facility History general Narrative - Reported Type Medical History Anxiety Medical History narcolepsy with cataplexy (2019, 4 REM naps) [facility] Other Hospital Discharge instructions Note Date & Type Note Facility Hospital Discharge instructions [facility] Work Phone: Summary Purpose Family History [...] section and content) DATE CREATED AUTHOR 03/30/2018 [facility] DATE CREATED AUTHOR AUTHOR'S ORGANIZ ATION 12/25/2021 [facility] DATE CREATED AUTHOR AUTHOR'S ORGANIZ ATION 03/15/2023 [facility] DATE CREATED AUTHOR AUTHOR'S ORGANIZ ATION 12/02/2023 [facility] DATE CREATED AUTHOR AUTHOR'S ORGANIZ ATION 12/26/2023 [facility] EPIC Care [...] Primary Care Provider Active Bay Reyes DO [facility] Attending Provider Active Team Status: Inactive Member Role Status Dates Jaymie Morris MD Primary Care Provider Active Start: October 27, 2023 End: October 27, 2023 Gilmer Mcgregor MD Attending Provider Active S tart: October 27, 2023 End: October 27, 2023 David Rayo MD Referring Provider Active Start: October 27, 2023 End: October 27, 2023 [employer]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 [facility]. provides no warranty or guarantee of the accuracy or completeness of information in this document.
[2024-01-19] MEDS: SCOPOLAMINE 1 MG/3 DAYS TRANSDERM PATCH 1 PATCH TD (01:56)
--- NOTE | 2024-01-19 02:00 | P.GYNPN_ITS ---
[employer] - PN: Subj Post-Op Interval history: 23 yo presents to er with complaints of rlq pain, pt has iud, pt does not desire future fertility, pt was found to have positive test and ultrasound shows rt adnexal mass 7x5cm, ectopic cannot be excluded. discussed options with patient, will proceed to or, consent obtained Exam Constitutional Vital Signs, click to edit/add: Last Vital Signs Temp 98.1 F 01/19/24 01:20 Pulse 82 01/19/24 01:30 Resp 16 01/19/24 01:30 BP 122/63 01/19/24 01:30 Pulse Ox 18 L 01/19/24 01:30 O2 Del Method Room Air 01/19/24 01:20 Documenting provider has reviewed patient's vital signs: yes Common normals: no apparent distress Respiratory Common normals: normal respiratory effort and clear to auscultation bilaterally Cardio Common normals: regular rate and regular rhythm GI Inspection: abdominal distension Palpation: tender Details: RLQ Extremity Common normals: no clubbing, cyanosis or edema and no calf tenderness Results Labs Labs: Short CBC 01/18/24 01/19/24 Range/Units 22:35 00:55 WBC 19.3 H 18.9 H (4.0-11.0) 10^3/uL Hgb 12.6 11.2 L (12.0-16.0) g/dL Hct 38.6 33.1 L (36.0-48.0) % Plt Count 352 283 (150-450) 10^3/uL BMP 01/18/24 22:35 Sodium 139 Potassium 3.6 Chloride 102 Carbon Dioxide 28.3 BUN 12.0 Creatinine 0.83 Glucose 97 Calcium 9.7 Liver Function 01/18/24 Range/Units 22:35 Total Bilirubin 0.4 (0.2-1.0) mg/dL AST 14 L (15-37) U/L ALT 19 (14-59) U/L Alkaline Phosphatase 90 (46-116) U/L Albumin 4.0 (3.4-5.0) g/dL Urine 01/18/24 Range/Units 22:30 Urine Color Yellow (YELLOW) Urine Clarity Clear (CLEAR) Urine pH 6.0 (5.0-9.0) Ur Specific [place] >=1.030 A (1.005-1.025) Urine Protein Negative (NEG/TRACE) mg/dL Urine Glucose (UA) Negative (NEGATIVE) mg/dL [employer] - A/P Assessment and Plan (1) Ectopic , tubal: (2) Pelvic pain: Plan rlq pain, pelvic pain, positive preg test, rt adnexal mass-consent obtained, mmc reviewed procedure reviewed, will perform dx lap with possible bso, maggy, foe Postoperative Procedures: Procedures Operation Date: 01/19/24 01:40 Actual Procedure Side Surgeon p Laparoscopy Diagnostic Not Applicable Alexei Pedersen DO Fall Risk Details Current medications: Current Medications Hydromorphone HCl (Hydromorphone Hcl 0.5 Mg/0.5 Ml Syringe) 0.5 mg IV Q5M PRN PRN Reason: Pain Lactated Ringer's (Lactated Ringers) 1,000 mls @ 50 mls/hr IV .Q20H CHERY Stop: 01/20/24 16:59 Last Admin: 01/19/24 01:15 Dose: 50 mls/hr Lactated Ringer's (Lactated Ringers) 1,000 mls @ 75 mls/hr IV .[id number] ONE Stop: 01/19/24 14:50 Midazolam HCl (Midazolam Hcl 2 Mg/2 Ml Vial) 2 mg IV PRN PRN PRN Reason: Anxiety Promethazine HCl (Promethazine Hcl 25 Mg/Ml Vial) 12.5 mg IV ONCE PRN PRN Reason: Nausea Scopolamine (Scopolamine 1 Mg/3 Days Transderm Patch) 1 patch TD ONCE ONE Stop: 01/19/24 01:33 Last Admin: 01/19/24 01:56 Dose: 1 patch Time Spent With Patient Time: Total time spent is greater than 50% in coordination of care (as documented) at patient's floor/unit and/or counseling patient: Time with patient: 25 - 35 minutes
--- NOTE | 2024-01-19 03:16 | PM.ONB ---
Brief Operative Note Date of procedure: 01/19/24 Pre-op diagnosis general: rt adnexal mass(ectopic ), pelvic pain Post-op diagnosis: same as pre-op Procedure: NAME OF PROCEDURE: [diagnostic laparoscopy with rt salpingectomy removal of ectopic ] PROCEDURE: The patient was taken back to the Operating Room where she was placed in dorsal lithotomy position after given general anesthesia. The patient was prepped and draped in normal sterile fashion. A sponge stick was placed into the patient's vagina. Attention was turned to the patient's abdomen, where a small umbilical incision was made. The fascia was tented using Jacki clamps and the fascia was entered sharply. Confirmation of intraabdominal placement of the 10 mm port was confirmed under direct visualization using a laparoscope. The patient's abdomen was then insufflated using CO2 gas with approximately 4 liters. A second and third port was placed left laterally, this was done under direct visualization with a 5 mm port. Survey of the patient's abdomen demonstrated normal liver and gallbladder. Survey of the patient's pelvic anatomy demonstrated normal appearing rt and lt ovary and normal lt tube and rt tube with ectopic closer to fimbreated end as well as normal appearing uterus. The ligasure was used to perform a rt salpingectomy with excellent hemostasis. No endometrial implants could be noted, no evidence of any pelvic disease was seen, normal appearing pelvic cavity. All instruments were removed from the patient's abdomen. The patient's abdomen was deinsufflated of CO2 gas. The patient tolerated the procedure well. Sponge stick was removed from the patient's vagina. The patient's infraumbilical fascia was closed using #0 Vicryl on a GI needle. The patient's skin was closed laterally and infraumbilically using 4-0 Vicryl. The patient tolerated the procedure well. Sponge, lap and needle counts were correct x 2. The patient was taken to Recovery Room in stable condition. Anesthesia: PERCY Surgeon: Alexei Pedersen Director Of Perioperative Services: Christa Govea Estimated blood loss (mL): 1,000 Pathology: other (rt tube, products of conception) Condition: stable Disposition: PACU Urinary Catheter Management Urinary Catheter Management Urethral: Cath placed during this visit: no
[2024-01-19] MEDS: LACTATED RINGER'S SOLUTION 1,000 ML 75 ML IV (03:17)
--- OUTSIDE RECORDS SUMMARY | 2024-01-19 04:38 | XMS_ITS | CCD ---
Author Organization [facility] Care Team Providers Care [place] Assistant Name Role Phone GILMER BENAVIDES Unavailable Unavailable GILMER BENAVIDES Unavailable Unavailable MD Jaymie Morris Primary Care Provider TUAN [place] Emergency Provider MD Jaymie Morris Attending Provider DO Ashley Watson Attending Provider [phone] MD Jaymie Morris Primary Care Provider DO Ashley Watson Attending Provider DO Ashley Watson Admit Provider MD Jaymie Morris Primary Care Provider JOHNSON Skinner Emergency Provider [phone] MD Jaymie Morris Primary Care Provider JOHNSON Skinner Emergency Provider TUAN [place] Emergency Provider DR SAYRA AUGUSTIN Primary Care Unavailable SCOTT WILKINSON Attending Unavailable SCOTT WILKINSON Consulting Unavailable SCOTT WILKINSON Admitting Unavailable MD Jaymie Morris Primary Care Provider DO Bay Reyes Attending Provider Gilmer Mcgregor Unavailable MD Jaymie Morris Primary Care Provider MD Gilmer Mcgregor Attending Provider [phone] MD David Rayo Referring Provider [phone] Jaymie Morris MD Primary Care Provider DO Govind Barry Attending Provider [phone] MD Jaymie Morris Referring Provider Jaymie Morris [...] Mcgregor Admitting Unavailable Gilmer Mcgregor Attending Unavailable Leonard, David Referring Unavailable Ketvertis, Jaymie Primary Care [...] Iodine; Translations: [iodine] Drug Allergy 2 Unknown [facility] (9 sources) Shellfish; Translations: [shellfish derived] Allergy to substance 2 Swelling of Lip/Tongue/Thr oat [facility] (1 source) Shellfish Propensity to adverse reactions Unknown [facility] Other (2 sources) Apple extract Drug Allergy 3 Unknown [facility] (2 sources) Kiwi fruit Propensity to adverse reactions 3 Dizziness, Itching, Runny nose, Swelling, Wheezing [facility] (2 sources) Pollen Allergy to substance 3 Unknown [facility] (2 sources) Dog Epithelium Allergy Skin Test Allergy to substance 3 Unknown [facility] (2 sources) Williamson Flavor Allergy to substance 3 Unknown [facility] [...] capsule by mo uth every four hours gheuajtkgw-kfhqdgkzvighl-mfrwvrnj (Jamari cet) 50-300-40 MG capsule take 1 capsule by mouth every 4 hours if needed for 10 days 0 Active [id number] 200 actuat albuterol 0.09 mg/actuat metered dose [...] / neomycin 3.5 mg/ml / polymyxin b [id number] unt/ml ophthalmic suspension (1 source) Aminoglycoside Antibacterial, [...] days. 5 mL 0 11/14/2023 11/21/2023 Active [id number] 0.3 ml EPINEPHrine 1 mg/ml auto-injector (2 [...] mg/ml extended release suspension (8 sources) Uncompetitive H-txdnqh-G-asparta te Receptor Antagonist, Sigma-1 Agonist Start: 07-05-2018 [...] 2018 11:00pm July 09, 2018 11:01pm Vit 76-Ziau-Pgfjj-Dha ( + Dha) 28 mg iron- 975 mcg-200 mg Combo Pack (8 sources) Start: 11-29-2019 End: 12-12-2022 take 1 tablet by mouth once daily Vit 53-Izwq-Gbonw-Dha ( + Dha) 28 mg iron- 975 mcg-200 mg Combo Pack Discontinued 0 .ROUTE .COMPLEX November 29, 2019 1:00am December 12, 2022 1:42pm 1 TABLET PO DAILY Start: 11-29-2019 End: 12-12-2022 take 1 tablet by mouth once daily Vit 66-Iznn-Hibxd-Dha ( + Dha) 28 mg iron- 975 mcg-200 mg Combo Pack Discontinued 0 .ROUTE .COMPLEX November 29, 2019 12:00am December 12, 2022 12:42pm 1 TABLET PO DAILY Start: 11-29-2019 take 1 tablet by julio th once daily Vit 02-Dprz-Kvcme-Dha ( + Dha) 28 mg iron- 975 mcg-200 mg Combo Pack Active 0 .ROUTE .COMPLEX November 29, 2019 12:00am 1 TABLET PO DAILY Start: 11-29-2019 take 1 tablet by julio th once daily Vit 15-Lxrp-Jfrjn-Dha ( + Dha) 28 mg iron- 975 [...] 11-25-2023 ALT [Catalytic activity/Vol] 11 U/L 7-52 [facility] Albumin [Mass/volume] in Ser um or Plasma by Bromocresol green (BCG) dye binding methoOrdered By: Govind Barry on 11-25-2023 Albumin BCG dye [Mass/Vol] 4.7 g/dL 3.5-5.7 [facility] Alkaline phosphatase [Enzyma tic activity/volume] in Serum or PlasmaOrdered By: Govind Barry on 11-25-2023 ALP [Catalytic activity/Vol] 82 U/L 34-104 [facility] Aspartate aminotransferase [ Enzymatic activity/volume] in Serum or PlasmaOrdered By: Govind Barry on 11-25-2023 AST [Catalytic activity/Vol] 16 U/L 13-39 [facility] Basophils Auto (Bld) [#/Vol] Ordered By: Govind Barry on 11-25-2023 Basophils (Bld) [#/Vol] 0.1 10*3/uL 0.0-0.2 [facility] Basophils/100 WBC Auto (Bld) Ordered By: Govind Barry on 11-25-2023 Basophils/100 WBC (Bld) 0.6 % . F [facility] Bilirubin.total [Mass/volume ] in Serum or PlasmaOrdered By: Govind Barry on 11-25-2023 Bilirubin [Mass/Vol] 0.5 mg/dL 0.3-1.0 [facility] Calcium [Mass/volume] in Ser um or PlasmaOrdered By: Govind Barry on 11-25-2023 Calcium [Mass/Vol] 9.7 mg/dL 8.6-10.3 [facility] Carbon dioxide, total [Moles /volume] in Serum or PlasmaOrdered By: Govind Barry on 11-25-2023 CO2 [Moles/Vol] 27.5 mmol/L 21.0-31.0 [facility] Chloride [Moles/volume] in S alessandra or PlasmaOrdered By: Govind Barry on 11-25-2023 Chloride [Moles/Vol] 105 mmol/L 98-107 [facility] Complete Blood Count Auto Di ffon 11-25-2023 Basophils (Bld) [#/Vol] 0.1 10*3/uL Normal 0.0-0.2 [facility] Comment on above: Result Comment: PERF ORMED BY: [place] [address] PATHOLOGIST SKIVER UPPERS OR LININGS MELCHOR MORALES M.D. Performed By: #### C BC, CMP, TSH3 wRFLX #### [address] Basophils/100 WBC (Bld) 0.6 % Normal . [facility] Comment on above: Performed By: #### C BC, CMP, TSH3 wRFLX #### [address] Eosinophils (Bld) [#/Vol] 0.2 10*3/uL Normal 0.0-0.45 [facility] Comment on above: Performed By: #### C BC, CMP, TSH3 wRFLX #### [address] Eosinophils/100 WBC (Bld) 1.6 % Normal . [facility] Comment on above: Performed By: #### C BC, CMP, TSH3 wRFLX #### [address] Erythrocyte distribution width (RBC) [Ratio] 12.5 % Normal 11.9-15.3 [facility] Comment on above: Performed By: #### C BC, CMP, TSH3 wRFLX #### [address] Hematocrit (Bld) [Volume fraction] 41.4 % Normal 34.0-46.4 [facility] Comment on above: Performed By: #### C BC, CMP, TSH3 wRFLX #### [address] Hemoglobin (Bld) [Mass/Vol] 14.2 g/dL Normal 11.8-15.4 [facility] Comment on above: Performed By: #### C BC, CMP, TSH3 wRFLX #### [address] [place] [address] [place] Lymphocytes (Bld) [#/Vol] 1.7 10*3/uL Normal 1.00-4.8 [facility] Comment on above: Performed By: #### C BC, CMP, TSH3 wRFLX #### [facility] [address] Lymphocytes/100 WBC (Bld) 16.7 % Normal . [facility] Comment on above: Performed By: #### C BC, CMP, TSH3 wRFLX #### [address] MCH (RBC) [Entitic mass] 30.2 pg Normal 24.7-34.3 [facility] Comment on above: Performed By: #### C BC, CMP, TSH3 wRFLX #### [address] MCV (RBC) [Entitic vol] 87.9 fL Normal 80-100 [facility] Comment on above: Performed By: #### C BC, CMP, TSH3 wRFLX #### [address] Mean Corpuscular HGB Conc 34.4 g/dL Normal 32.0-35.0 [facility] Comment on above: Performed By: #### C BC, CMP, TSH3 wRFLX #### [place] [address] [place] Monocytes (Bld) [#/Vol] 0.5 10*3/uL Normal 0.0-0.8 [facility] Comment on above: Performed By: #### C BC, CMP, TSH3 wRFLX #### [place] [address] [place] Monocytes/100 WBC (Bld) 5.4 % Normal . [facility] Comment on above: Performed By: #### C BC, CMP, TSH3 wRFLX #### [facility] [address] [place] [address] [place] Neutrophils (Bld) [#/Vol] 7.5 10*3/uL Normal 1.8-7.7 [facility] Comment on above: Performed By: #### C BC, CMP, TSH3 wRFLX #### [facility] [address] [place] [address] Neutrophils/100 WBC (Bld) 75.7 % Normal . [facility] Comment on above: Performed By: #### C BC, CMP, TSH3 wRFLX #### [facility] [address] [place] [address] NRBC% 0.1 /100{WBC} Normal 0-0.5 [facility] Comment on above: Performed By: #### C BC, CMP, TSH3 wRFLX #### [address] Platelet mean volume (Bld) [Entitic vol] 8.8 fL Normal 6.3-10.7 [facility] Comment on above: Performed By: #### C BC, CMP, TSH3 wRFLX #### [address] Platelets (Bld) [#/Vol] 301 10*3/uL Normal 150-450 [facility] Comment on above: Performed By: #### C BC, CMP, TSH3 wRFLX #### [address] RBC (Bld) [#/Vol] 4.71 10*6/uL Normal 3.60-5.00 [facility] Comment on above: Performed By: #### C BC, CMP, TSH3 wRFLX #### [address] WBC (Bld) [#/Vol] 10.0 10*3/uL Normal 3.8-11.6 [facility] Comment on above: Performed By: #### C BC, CMP, TSH3 wRFLX #### [address] Comprehensive Metabolic Pane dale 11-25-2023 Albumin [Mass/Vol] 4.7 g/dL Normal 3.5-5.7 [facility] Comment on above: Performed By: #### C BC, CMP, TSH3 wRFLX #### [facility] [address] [place] [address] Albumin/Globulin [Mass ratio] 1.9 {ratio} Normal [facility] Comment on above: Performed By: #### C BC, CMP, TSH3 wRFLX #### [facility] [address] [place] [address] ALP [Catalytic activity/Vol] 82 U/L Normal 34-104 [facility] Comment on above: Performed By: #### C BC, CMP, TSH3 wRFLX #### [facility] [address] [place] [address] ALT [Catalytic activity/Vol] 11 U/L Normal 7-52 [facility] Comment on above: Performed By: #### C BC, CMP, TSH3 wRFLX #### [facility] [address] [place] [address] Anion gap [Moles/Vol] 10.7 mmol/L Normal 6.0-15.0 [facility] Comment on above: Performed By: #### C BC, CMP, TSH3 wRFLX #### [address] AST [Catalytic activity/Vol] 16 U/L Normal 13-39 [facility] Comment on above: Performed By: #### C BC, CMP, TSH3 wRFLX #### [facility] [address] [place] [address] [place] Bilirubin [Mass/Vol] 0.5 mg/dL Normal 0.3-1.0 [facility] Comment on above: Performed By: #### C BC, CMP, TSH3 wRFLX #### [facility] [address] [place] [address] Calcium [Mass/Vol] 9.7 mg/dL Normal 8.6-10.3 [facility] Comment on above: Performed By: #### C BC, CMP, TSH3 wRFLX #### [place] [address] [place] Chloride [Moles/Vol] 105 mmol/L Normal 98-107 [facility] Comment on above: Performed By: #### C DONN ARREDONDO, TSH3 wRFLX #### [facility] [address] CO2 [Moles/Vol] 27.5 mmol/L Normal 21.0-31.0 [facility] Comment on above: Performed By: #### C DONN ARREDONDO, TSH3 wRFLX #### [facility] [address] Creatinine [Mass/Vol] 0.76 mg/dL Normal 0.60-1.20 [facility] Comment on above: Performed By: #### C DONN ARREDONDO, TSH3 wRFLX #### [facility] [address] [place] [address] [place] GFR/1.73 sq M.predicted MDRD (S/P/Bld) [Vol rate/Area] mL/min/{1.73_m2} Normal [facility] Comment on above: Performed By: #### C DONN ARREDONDO, TSH3 wRFLX #### [facility] [address] Globulin (S) [Mass/Vol] 2.5 g/dL Normal [facility] Comment on above: Performed By: #### C DONN ARREDONDO, TSH3 wRFLX #### [address] Glucose [Mass/Vol] 85 mg/dL Normal 70-100 [facility] Comment on above: Result Comment: [place] Glucose Reference Range is dependent on time and content of last meal. Glucose of more than 200 mg/dL in a nonstressed, ambulatory subject supports the diagnosis of Diabetes Mellitus. ADA recommended reference range Performed By: #### C BCDONN, TSH3 wRFLX #### [facility] [address] Potassium [Moles/Vol] 4.2 mmol/L Normal 3.5-5.1 [facility] Comment on above: Performed By: #### C BCDONN, TSH3 wRFLX #### [facility] [address] [place] [id number] [place] Protein [Mass/Vol] 7.2 g/dL Normal 6.4-8.9 [facility] Comment on above: Performed By: #### C BC, CMP, TSH3 wRFLX #### [facility] [address] [place] [id number] [place] Sodium [Moles/Vol] 139 mmol/L Normal 136-145 [facility] Comment on above: Performed By: #### C BC, CMP, TSH3 wRFLX #### [facility] [address] [place] [id number] [place] Urea nitrogen [Mass/Vol] 11 mg/dL Normal 7-25 [facility] Comment on above: Performed By: #### C BC, CMP, TSH3 wRFLX #### [facility] [address] [place] [address] [place] Creatinine [Mass/volume] in Serum or PlasmaOrdered By: Govind Barry on 11-25-2023 Creatinine [Mass/Vol] 0.76 mg/dL 0.60-1.20 [facility] Eosinophils Auto (Bld) [#/Vo l]Ordered By: Govind Barry on 11-25-2023 Eosinophils (Bld) [#/Vol] 0.2 10*3/uL 0.0-0.45 [facility] Eosinophils/100 WBC Auto (Bl d)Ordered By: Govind Barry on 11-25-2023 Eosinophils/100 WBC (Bld) 1.6 % . [facility] Erythrocyte distribution wid th Auto (RBC) [Ratio]Ordered By: Govind Barry on 11-25-2023 Erythrocyte distribution width (RBC) [Ratio] 12.5 % 11.9-15.3 [facility] Globulin Calc (S) [Mass/Vol] Ordered By: Govind Barry on 11-25-2023 Globulin (S) [Mass/Vol] 2.5 g/dL [facility] Glucose [Mass/volume] in Ser um or PlasmaOrdered By: Govind Barry on 11-25-2023 Glucose [Mass/Vol] 85 mg/dL 70-100 [facility] Comment on above: ADA recommended refe rence rangeRandom Glucose Reference Range is dependent on time and content of last meal. Glucose of more than 200 mg/dL in a nonstressed, ambulatory subject supports the diagnosis of Diabetes Mellitus. Hematocrit Auto (Bld) [Volum e fraction]Ordered By: Govind Barry on 11-25-2023 Hematocrit (Bld) [Volume fraction] 41.4 % 34.0-46.4 [facility] Hemoglobin [Mass/volume] in BloodOrdered By: Govind Barry on 11-25-2023 Hemoglobin (Bld) [Mass/Vol] 14.2 g/dL 11.8-15.4 [facility] Leukocytes [#/volume] correc jessica for nucleated erythrocytes in Blood by Automated counOrdered By: Govind Barry on 11-25-2023 WBC corrected for nucl RBC Auto (Bld) [#/Vol] 10.0 10*3/uL 3.8-11.6 [facility] Lymphocytes Auto (Bld) [#/Vo l]Ordered By: Govind Barry on 11-25-2023 Lymphocytes (Bld) [#/Vol] 1.7 10*3/uL 1.00-4.8 [facility] Lymphocytes/100 WBC Auto (Bl d)Ordered By: Govind Barry on 11-25-2023 Lymphocytes/100 WBC (Bld) 16.7 % . [facility] MCH Auto (RBC) [Entitic mass ]Ordered By: Govind Barry on 11-25-2023 MCH (RBC) [Entitic mass] 30.2 pg 24.7-34.3 [facility] MCHC Auto (RBC) [Mass/Vol]Or dered By: Govind Barry on 11-25-2023 MCHC (RBC) [Mass/Vol] 34.4 g/dL 32.0-35.0 [facility] MCV Auto (RBC) [Entitic vol] Ordered By: Govind Barry on 11-25-2023 MCV (RBC) [Entitic vol] 87.9 fL 80-100 [facility] Monocytes Auto (Bld) [#/Vol] Ordered By: Govind Barry on 11-25-2023 Monocytes (Bld) [#/Vol] 0.5 10*3/uL 0.0-0.8 [facility] Monocytes/100 WBC Auto (Bld) Ordered By: Govind Barry on 11-25-2023 Monocytes/100 WBC (Bld) 5.4 % . [facility] Neutrophils Auto (Bld) [#/Vo l]Ordered By: Govind Barry on 11-25-2023 Neutrophils (Bld) [#/Vol] 7.5 10*3/uL 1.8-7.7 [facility] Neutrophils/100 WBC Auto (Bl d)Ordered By: Govind Barry on 11-25-2023 Neutrophils/100 WBC (Bld) 75.7 % . [facility] No Panel InformationOrdered By: Govind Barry on 11-25-2023 Estimated GFR (CKD-EPI) > 60.0 mL/Min [facility] Creatinine Clearance (Chem N/A [facility] Nucleated erythrocytes [Pres ence] in Blood by Automated countOrdered By: Govind Barry on 11-25-2023 Nucleated RBC Auto Ql (Bld) 0.1 /100{WBC} 0-0.5 [facility] Platelet mean volume Auto (B ld) [Entitic vol]Ordered By: Govind Barry on 11-25-2023 Platelet mean volume (Bld) [Entitic vol] 8.8 fL 6.3-10.7 [facility] Platelets Auto (Bld) [#/Vol] Ordered By: Govind Barry on 11-25-2023 Platelets (Bld) [#/Vol] 301 10*3/uL 150-450 [facility] Potassium [Moles/volume] in Serum or PlasmaOrdered By: Govind Barry on 11-25-2023 Potassium [Moles/Vol] 4.2 mmol/L 3.5-5.1 [facility] Protein [Mass/volume] in Ser um or PlasmaOrdered By: Govind Barry on 11-25-2023 Protein [Mass/Vol] 7.2 g/dL 6.4-8.9 [facility] RBC Auto (Bld) [#/Vol]Ordere d By: Govind Barry on 11-25-2023 RBC (Bld) [#/Vol] 4.71 10*6/uL 3.60-5.00 [facility] Serum or plasma albumin/glob ulin mass ratioOrdered By: Govind Barry on 11-25-2023 Albumin/Globulin [Mass ratio] 1.9 {ratio} [facility] Serum or plasma anion gap de terminationOrdered By: Govind Barry on 11-25-2023 Anion gap [Moles/Vol] 10.7 mmol/L 6.0-15.0 [facility] Sodium [Moles/volume] in Ser um or PlasmaOrdered By: Govind Barry on 11-25-2023 Sodium [Moles/Vol] 139 mmol/L 136-145 [facility] Thyroid Stim Hormone w/Rflxo n 11-25-2023 Thyroid Stim Hormone w/Rflx 1.83 u[iU]/mL Normal 0.45-5.33 [facility] Comment on above: Result Comment: PERF ORMED BY: [place] [address] PATHOLOGIST SKIVER UPPERS OR LININGS MELCHOR MORALES M.D. Performed By: #### C BC, CMP, TSH3 wRFLX #### [facility] [address] [place] [address] Thyrotropin [Units/volume] i n Serum or PlasmaOrdered By: Govind Barry on 11-25-2023 TSH Qn 1.83 m[IU]/L 0.45-5.33 [facility] Urea nitrogen [Mass/volume] in Serum or PlasmaOrdered By: Govind Barry on 11-25-2023 Urea nitrogen [Mass/Vol] 11 mg/dL 7-25 [facility] WBC Auto (Bld) [#/Vol]Ordere d By: Govind Barry on 11-25-2023 WBC (Bld) [#/Vol] 10.0 10*3/uL 3.8-11.6 [facility] Anisocytosis LM Ql (Bld)Orde red By: ASHLEY WATSON on 09-12-2022 Anisocytosis Ql (Bld) Moderate [facility] Basophils Auto (Bld) [#/Vol] Ordered By: ASHLEY WATSON on 09-12-2022 Basophils (Bld) [#/Vol] 0.1 10*3/uL 0.0-0.2 [facility] Basophils/100 WBC Auto (Bld) Ordered By: ASHLEY WATSON on 09-12-2022 Basophils/100 WBC (Bld) 0.7 % . [facility] Eosinophils Auto (Bld) [#/Vo l]Ordered By: ASHLEY WATSON on 09-12-2022 Eosinophils (Bld) [#/Vol] 0.2 10*3/uL 0.0-0.45 [facility] Eosinophils/100 WBC Auto (Bl d)Ordered By: ASHLEY WATSON on 09-12-2022 Eosinophils/100 WBC (Bld) 1.7 % . [facility] Erythrocyte distribution wid th Auto (RBC) [Ratio]Ordered By: ASHLEY WATSON on 09-12-2022 Erythrocyte distribution width (RBC) [Ratio] 14.4 % 11.9-15.3 [facility] Hematocrit Auto (Bld) [Volum e fraction]Ordered By: ASHLEY WATSON on 09-12-2022 Hematocrit (Bld) [Volume fraction] 29.2 % 34.0-46.4 [facility] Hemoglobin [Mass/volume] in BloodOrdered By: ASHLEY WATSON on 09-12-2022 Hemoglobin (Bld) [Mass/Vol] 9.6 g/dL 11.8-15.4 [facility] Hypochromia LM Ql (Bld)Order ed By: ASHLEY WATSON on 09-12-2022 Hypochromia Ql (Bld) Slight [facility] Leukocytes [#/volume] correc jessica for nucleated erythrocytes in Blood by Automated counOrdered By: ASHLEY WATSON on 09-12-2022 WBC corrected for nucl RBC Auto (Bld) [#/Vol] 12.2 10*3/uL 3.8-11.6 [facility] Lymphocytes Auto (Bld) [#/Vo l]Ordered By: ASHLEY WATSON on 09-12-2022 Lymphocytes (Bld) [#/Vol] 2.9 10*3/uL 1.00-4.8 [facility] Lymphocytes/100 WBC Auto (Bl d)Ordered By: ASHLEY WATSON on 09-12-2022 Lymphocytes/100 WBC (Bld) 23.6 % . [facility] MCH Auto (RBC) [Entitic mass ]Ordered By: ASHLEY WATSON on 09-12-2022 MCH (RBC) [Entitic mass] 25.5 pg 24.7-34.3 [facility] MCHC Auto (RBC) [Mass/Vol]Or dered By: ASHLEY WATSON on 09-12-2022 MCHC (RBC) [Mass/Vol] 32.8 g/dL 32.0-35.0 [facility] MCV Auto (RBC) [Entitic vol] Ordered By: ASHLEY WATSON on 09-12-2022 MCV (RBC) [Entitic vol] 77.6 fL 80-100 [facility] Microcytes LM Ql (Bld)Ordere d By: ASHLEY WATSON on 09-12-2022 Microcytes Ql (Bld) Moderate [facility] Monocytes Auto (Bld) [#/Vol] Ordered By: ASHLEY WATSON on 09-12-2022 Monocytes (Bld) [#/Vol] 0.8 10*3/uL 0.0-0.8 [facility] Monocytes/100 WBC Auto (Bld) Ordered By: ASHLEY WATSON on 09-12-2022 Monocytes/100 WBC (Bld) 6.2 % . [facility] Neutrophils Auto (Bld) [#/Vo l]Ordered By: ASHLEY WATSON on 09-12-2022 Neutrophils (Bld) [#/Vol] 8.3 10*3/uL 1.8-7.7 [facility] Neutrophils/100 WBC Auto (Bl d)Ordered By: ASHLEY WATSON on 09-12-2022 Neutrophils/100 WBC (Bld) 67.8 % . [facility] Nucleated erythrocytes [Pres ence] in Blood by Automated countOrdered By: ASHLEY WATSON on 09-12-2022 Nucleated RBC Auto Ql (Bld) 0.0 /100{WBC} 0-0.5 [facility] Platelet adequacy [Presence] in Blood by Light microscopyOrdered By: ASHLEY WATSON on 09-12-2022 Platelets LM Ql (Bld) Decreased Normal [facility] Platelet mean volume Auto (B ld) [Entitic vol]Ordered By: ASHLEY WATSON on 09-12-2022 Platelet mean volume (Bld) [Entitic vol] 10.7 fL 6.3-10.7 [facility] Platelet morphology finding [Identifier] in BloodOrdered By: ASHLEY WATSON on 09-12-2022 Platelet morphology finding Nom (Bld) N/A [facility] Platelets Auto (Bld) [#/Vol] Ordered By: ASHLEY WATSON on 09-12-2022 Platelets (Bld) [#/Vol] 127 10*3/uL 150-450 [facility] Platelets Large [Presence] i n Blood by Light microscopyOrdered By: ASHLEY WATSON on 09-12-2022 Platelets Large LM Ql (Bld) Marked [facility] Polychromasia [Presence] in Blood by Light microscopyOrdered By: ASHLEY WATSON on 09-12-2022 Polychromasia LM Ql (Bld) Moderate [facility] RBC Auto (Bld) [#/Vol]Ordere d By: ASHLEY WATSON on 09-12-2022 RBC (Bld) [#/Vol] 3.76 10*6/uL 3.60-5.00 [facility] RBC morphologyOrdered By: ROSEANNE WATSON on 09-12-2022 RBC morphology finding Nom (Bld) N/A [facility] Urine culture routineOrdered By: ASHLEY WATSON on 09-12-2022 Bacteria identified Cx Nom (U) Carol Ann albicans [facility] WBC Auto (Bld) [#/Vol]Ordere d By: ASHLEY WATSON on 09-12-2022 WBC (Bld) [#/Vol] 12.2 10*3/uL 3.8-11.6 [facility] Amphetamine Screen Ql (U)Ord ered By: ASHLEY WATSON on 09-10-2022 Amphetamines Ql (U) Negative Negative [facility] Automated erythrocytes count in urine sediment (number/area)Ordered By: ASHLEY WATSON on 09-10-2022 RBC Auto (Urine sed) [#/Area] None seen [HPF] 0-4 [facility] Automated leukocytes count i n urine sediment (number/area)Ordered By: ASHLEY WATSON on 09-10-2022 WBC Auto (Urine sed) [#/Area] 10-19 [HPF] 0-4 [facility] Barbiturates [Presence] in U rineOrdered By: ASHLEY WATSON on 09-10-2022 Barbiturates Ql (U) Negative Negative [facility] Benzodiazepines [Presence] i n UrineOrdered By: ASHLEY WATSON on 09-10-2022 Benzodiazepines Ql (U) Negative Negative [facility] Bilirubin Test strip Ql (U)O rdered By: ASHLEY WATSON on 09-10-2022 Bilirubin Ql (U) Negative Negative [facility] Color Auto (U)Ordered By: ROSEANNE WATOSN on 09-10-2022 Color (U) Yellow Yellow [facility] Ketones Auto test strip (U) [Mass/Vol]Ordered By: ASHLEY WATSON on 09-10-2022 Ketones (U) [Mass/Vol] Negative Negative [facility] - Drug toxicology Ordered By: ASHLEY WATSON on 09-10-2022 Opiates Ql (U) Negative Negative [facility] - UrinalysisOrder ed By: ASHLEY WATSON on 09-10-2022 Hyaline casts LM Ql (Urine sed) 0-8 [LPF] 0-8 [facility] [facility] Macrocytes LM Ql (Bld)Ordere d By: ASHLEY WATSON on 09-10-2022 Macrocytes Ql (Bld) Slight [facility] Nitrite Test strip Ql (U)Ord ered By: ASHLEY WATSON on 09-10-2022 Nitrite Ql (U) Negative Negative [facility] Phencyclidine Screen Ql (U)O rdered By: ASHLEY WATSON on 09-10-2022 Phencyclidine Ql (U) Negative Negative [facility] Comment on above: These are unconfirme d results and should not be used for legal purposes. Drug Cut-Off Concentration: AMPH 1000 ng/mL YOSEF 200 ng/mL JARAD 200 ng/mL COCM 300 ng/mL OP 300 ng/mL PCP 25 ng/mL Poikilocytosis [Presence] in Blood by Light microscopyOrdered By: ASHLEY WATSON on 09-10-2022 Poikilocytosis LM Ql (Bld) Slight [facility] Protein Auto test strip (U) [Mass/Vol]Ordered By: ASHLEY WATSON on 09-10-2022 Protein (U) [Mass/Vol] Trace mg/dL Negative F [facility] Reagin Ab [Presence] in Seru m by RPROrdered By: ASHLEY WATSON on 09-10-2022 Reagin Ab RPR Ql (S) Non-Reactive Non Reactive [facility] Comment on above: Performed at: [address] Director: Mook Hawthorne PhD, Phone: [phone] Specific gravity Auto test s trip (U) [Rel density]Ordered By: ASHLEY WATSON on 09-10-2022 Specific gravity (U) [Rel density] 1.016 1.001-1.030 [facility] Squamous epithelial cells de tection in urine sediment by light microscopyOrdered By: ASHLEY WATSON on 09-10-2022 Epithelial cells.squamous LM Ql (Urine sed) 10-19 [HPF] 0-2 [facility] Urine bacteria detection by automated methodOrdered By: ASHELY WATSON on 09-10-2022 Bacteria Auto Ql (U) None seen None Seen [facility] Urine clarity by refractomet ry automatedOrdered By: ASHLEY WATSON on 09-10-2022 Clarity Refractometry automated (U) Clear Clear [facility] Urine cocaine detectionOrder ed By: ASHLEY WATSON on 09-10-2022 Cocaine Ql (U) Negative Negative [facility] Urine glucose measurement by automated test strip (mass/volume)Ordered By: ASHLEY WATSON on 09-10-2022 Glucose Auto test strip (U) [Mass/Vol] Normal mg/dL Normal [facility] Urine hemoglobin detection b y automated test stripOrdered By: ASHLEY WATSON on 09-10-2022 Hemoglobin Auto test strip Ql (U) Negative Negative [facility] Urine leukocyte esterase det ection by automated test stripOrdered By: ASHLEY WATSON on 09-10-2022 Leukocyte esterase Auto test strip Ql (U) 3+ Negative [facility] Urobilinogen Auto test strip (U) [Mass/Vol]Ordered By: ASHLEY WATSON on 09-10-2022 Urobilinogen (U) [Mass/Vol] Normal mg/dL Normal [facility] pH Auto test strip (U)Ordere d By: ASHLEY WATSON on 09-10-2022 pH (U) 6.0 [pH] 5.0-9.0 [facility] S. agalactiae Org specific c x Ql (Unsp spec)Ordered By: ASHLEY WATSON on 08-16-2022 Streptococcus agalactiae culture No Group B Beta Streptococcus Isolated 3 Days [facility] Blood hemoglobin measurement (mass/volume)Ordered By: ASHLEY WATSON on 06-24-2022 Hemoglobin (Bld) [Mass/Vol] 12.7 g/dL 11.8-15.4 [facility] Hematocrit Auto (Bld) [Volum e fraction]Ordered By: ASHLEY WATSON on 06-24-2022 Hematocrit (Bld) [Volume fraction] 37.9 % 34.0-46.4 [facility] No Panel InformationOrdered By: ASHLEY WATSON on 06-24-2022 Glucose 1 Hour Postprandial (Timed) 100 mg/dL 60-140 [facility] Albumin [Mass/volume] in Ser um or PlasmaOrdered By: Jordan Saunders on 04-14-2022 Albumin [Mass/Vol] 3.4 g/dL 3.2-5.5 [facility] Basophils Auto (Bld) [#/Vol] Ordered By: Jordan Saunders on 04-14-2022 Basophils (Bld) [#/Vol] 0.1 10*3/uL 0.0-0.2 [facility] Basophils/100 WBC Auto (Bld) Ordered By: Jordan Saunders on 04-14-2022 Basophils/100 WBC (Bld) 0.6 % . F [facility] Blood hemoglobin measurement (mass/volume)Ordered By: Jordan Saunders on 04-14-2022 Hemoglobin (Bld) [Mass/Vol] 13.7 g/dL 11.8-15.4 [facility] Blood leukocytes automated c ount (number/volume)Ordered By: Jordan Saunders on 04-14-2022 WBC (Bld) [#/Vol] 10.8 10*3/uL 4.5-11.0 [facility] Creatinine and Glomerular fi ltration rate.predicted panel (S/P/Bld)Ordered By: Jordan Saunders on 04-14-2022 Creatinine [Mass/Vol] 0.50 mg/dL 0.44-1.03 [facility] Eosinophils Auto (Bld) [#/Vo l]Ordered By: Jordan Saunders on 04-14-2022 Eosinophils (Bld) [#/Vol] 0.1 10*3/uL 0.0-0.45 [facility] Eosinophils/100 WBC Auto (Bl d)Ordered By: Jordan Saunders on 04-14-2022 Eosinophils/100 WBC (Bld) 0.8 % . [facility] Erythrocyte distribution wid th Auto (RBC) [Ratio]Ordered By: Jordan Saunders on 04-14-2022 Erythrocyte distribution width (RBC) [Ratio] 12.9 % 11.9-15.3 [facility] Estimated glomerular filtrat ion rate (GFR) non- AmericanOrdered By: Jordan Saunders on 04-14-2022 GFR/1.73 sq M.predicted among non-blacks MDRD (S/P/Bld) [Vol rate/Area] > 60 mL/Min [facility] Globulin Calc (S) [Mass/Vol] Ordered By: Jordan Saunders on 04-14-2022 Globulin (S) [Mass/Vol] 3.2 g/dL F [facility] Hematocrit Auto (Bld) [Volum e fraction]Ordered By: Jordan Saunders on 04-14-2022 Hematocrit (Bld) [Volume fraction] 39.7 % 34.0-46.4 [facility] Laboratory - Chemistry and C hemistry - challengeOrdered By: Jordan Saunders on 04-14-2022 Magnesium [Mass/Vol] 1.9 mg/dL 1.6-2.6 [facility] Laboratory - Hematology and Cell countsOrdered By: Jordan Saunders on 04-14-2022 Nucleated RBC/100 WBC (Bld) [Ratio] 0.1 % 0-0.5 [facility] Lymphocytes Auto (Bld) [#/Vo l]Ordered By: Jordan Saunders on 04-14-2022 Lymphocytes (Bld) [#/Vol] 1.8 10*3/uL 1.00-4.8 [facility] Lymphocytes/100 WBC Auto (Bl d)Ordered By: Jordan Saunders on 04-14-2022 Lymphocytes/100 WBC (Bld) 17.0 % . [facility] MCH Auto (RBC) [Entitic mass ]Ordered By: Jordan Saunders on 04-14-2022 MCH (RBC) [Entitic mass] 30.4 pg 24.7-34.3 [facility] MCHC Auto (RBC) [Mass/Vol]Or dered By: Jordan Saunders on 04-14-2022 MCHC (RBC) [Mass/Vol] 34.5 g/dL 32.0-35.0 [facility] MCV Auto (RBC) [Entitic vol] Ordered By: Jordan Saunders on 04-14-2022 MCV (RBC) [Entitic vol] 88.0 fL 80-100 F [facility] Monocytes Auto (Bld) [#/Vol] Ordered By: Jordan Saunders on 04-14-2022 Monocytes (Bld) [#/Vol] 0.5 10*3/uL 0.0-0.8 [facility] Monocytes/100 WBC Auto (Bld) Ordered By: Jordan Saunders on 04-14-2022 Monocytes/100 WBC (Bld) 5.1 % . F [facility] Neutrophils Auto (Bld) [#/Vo l]Ordered By: Jordan Saunders on 04-14-2022 Neutrophils (Bld) [#/Vol] 8.3 10*3/uL 1.8-7.7 [facility] Neutrophils/100 WBC Auto (Bl d)Ordered By: Jordan Saunders on 04-14-2022 Neutrophils/100 WBC (Bld) 76.5 % . [facility] No Panel InformationOrdered By: Jordan Saunders on 04-14-2022 Estimated GFR () > 60 mL/Min [facility] Comment on above: GFR estimated refere nce range: According to KDOQI guidelines, <60 ml/min/1.73m2 is sufficient to diagnose a patient with chronic kidney disease. Pharmacy Creatinine Clearance (Chem 171.62 [facility] Platelet mean volume Auto (B ld) [Entitic vol]Ordered By: Jordan Saunders on 04-14-2022 Platelet mean volume (Bld) [Entitic vol] 9.9 fL 6.3-10.7 [facility] Platelets Auto (Bld) [#/Vol] Ordered By: Jordan Saunders on 04-14-2022 Platelets (Bld) [#/Vol] 246 10*3/uL 150-450 [facility] Protein [Mass/volume] in Ser um or PlasmaOrdered By: Jordan Saunders on 04-14-2022 Protein [Mass/Vol] 6.6 g/dL 6.1-7.9 [facility] RBC Auto (Bld) [#/Vol]Ordere d By: Jordan Saunders on 04-14-2022 RBC (Bld) [#/Vol] 4.52 10*6/uL 3.60-5.00 [facility] Serum or plasma alanine salas otransferase measurement without P-5'-P (enzymatic activiOrdered By: Jordan Saunders on 04-14-2022 ALT No additional P-5'-P [Catalytic activity/Vol] 13 U/L 10-60 [facility] Serum or plasma albumin/glob ulin mass ratioOrdered By: Jordan Saunders on 04-14-2022 Albumin/Globulin [Mass ratio] 1.1 {ratio} [facility] Serum or plasma alkaline abel sphatase measurement (enzymatic activity/volume)Ordered By: Jordan Saunders on 04-14-2022 ALP [Catalytic activity/Vol] 49 U/L 32-92 [facility] Serum or plasma aspartate am inotransferase measurement (enzymatic activity/volume)Ordered By: Jordan Saunders on 04-14-2022 AST [Catalytic activity/Vol] 18 U/L 10-42 [facility] Serum or plasma calcium pete urement (mass/volume)Ordered By: Jordan Saunders on 04-14-2022 Calcium [Mass/Vol] 9.4 mg/dL 8.2-10.2 [facility] Serum or plasma chloride tino surement (moles/volume)Ordered By: Jordan Saunders on 04-14-2022 Chloride [Moles/Vol] 100 mmol/L 95-114 [facility] Serum or plasma glucose pete urement (mass/volume)Ordered By: Jordan Saunders on 04-14-2022 Glucose [Mass/Vol] 84 mg/dL 70-100 [facility] Comment on above: ADA recommended refe rence range Random Glucose Reference Range is dependent on time and content of last meal. Glucose of more than 200 mg/dL in a nonstressed, ambulatory subject supports the diagnosis of Diabetes Mellitus. Serum or plasma potassium me asurement (moles/volume)Ordered By: Jordan Saunders on 04-14-2022 Potassium [Moles/Vol] 3.8 mmol/L 3.5-5.1 [facility] Serum or plasma sodium measu rement (moles/volume)Ordered By: Jordan Saunders on 04-14-2022 Sodium [Moles/Vol] 132 mmol/L 136-146 [facility] Serum or plasma total biliru bin measurement (mass/volume)Ordered By: Jordan Saunders on 04-14-2022 Bilirubin [Mass/Vol] 0.5 mg/dL 0.3-1.2 [facility] Serum or plasma total carbon dioxide measurement (moles/volume)Ordered By: Jordan Saunders on 04-14-2022 CO2 [Moles/Vol] 21.6 mmol/L 22.0-30.0 [facility] Serum or plasma urea nitroge n measurement (mass/volume)Ordered By: Jordan Saunders on 04-14-2022 Urea nitrogen [Mass/Vol] 5 mg/dL 9-23 [facility] TSH DL <= 0.005 mIU/L QnOrde red By: Jordan Saunders on 04-14-2022 TSH Qn 1.21 m[IU]/L 0.45-5.33 [facility] Troponin I.cardiac [Mass/vol ume] in Serum or Plasma by High sensitivity methodOrdered By: Jordan Saunders on 04-14-2022 Troponin I.cardiac High sensitivity method [Mass/Vol] 11 pg/mL 0-15 [facility] Complete Blood Count with Au to Diffon 12-24-2021 Basophils (Bld) [#/Vol] 0.05 10*3/uL Normal 0.00-0.20 [facility] Specialist Comment on above: Performed By: #### C BCAD, VITD, CMP, TSH reflex FT4 #### [facility] [address] [place], [place] [id number] Basophils/100 WBC (Bld) 0.8 % Normal [facility] Comment on above: Performed By: #### C BCAD, VITD, CMP, TSH reflex FT4 #### [facility] [address] [place], [place] [id number] Eosinophils (Bld) [#/Vol] 0.12 10*3/uL Normal 0.02-0.50 [facility] Comment on above: Performed By: #### C BCAD, VITD, CMP, TSH reflex FT4 #### [facility] [address] [place], [place] [id number] Eosinophils/100 WBC (Bld) 2.0 % Normal [facility] Comment on above: Performed By: #### C BCAD, VITD, CMP, TSH reflex FT4 #### [facility] [address] [place], [place] [id number] Erythrocyte distribution width (RBC) [Ratio] 11.7 % Normal 11.0-15.0 [facility] Comment on above: Performed By: #### C BCAD, VITD, CMP, TSH reflex FT4 #### [facility] [address] [place], [place] [id number] Hematocrit (Bld) [Volume fraction] 43.8 % Normal 35.0-47.0 [facility] Comment on above: Performed By: #### C BCAD, VITD, CMP, TSH reflex FT4 #### [facility] [address] [place], [place] [id number] Hemoglobin (Bld) [Mass/Vol] 14.5 g/dL Normal 11.6-15.5 [facility] Comment on above: Performed By: #### C BCAD, VITD, CMP, TSH reflex FT4 #### [facility] [address] [place], [place] [id number] Lymphocytes (Bld) [#/Vol] 2.1 10*3/uL Normal 0.9-3.9 [facility] Comment on above: Performed By: #### C BCAD, VITD, CMP, TSH reflex FT4 #### [facility] [address] [place], [place] [id number] Lymphocytes/100 WBC (Bld) 34.1 % Normal [facility] Comment on above: Performed By: #### C BCAD, VITD, CMP, TSH reflex FT4 #### [facility] [address] [place], [place] [id number] MCH (RBC) [Entitic mass] 29.8 pg Normal 27.0-33.0 [facility] Comment on above: Performed By: #### C BCAD, VITD, CMP, TSH reflex FT4 #### [facility] [address] [place], [place] [id number] MCHC (RBC) [Mass/Vol] 33.1 g/dL Normal 32.0-36.0 [facility] Comment on above: Performed By: #### C BCAD, VITD, CMP, TSH reflex FT4 #### [facility] [address] [place], [place] [id number] MCV (RBC) [Entitic vol] 90 fL Normal 80-100 N [facility] Comment on above: Performed By: #### C BCAD, VITD, CMP, TSH reflex FT4 #### [facility] [address] [place], [place] [id number] Monocytes (Bld) [#/Vol] 0.4 10*3/uL Normal 0.2-0.9 [facility] Comment on above: Performed By: #### C BCAD, VITD, CMP, TSH reflex FT4 #### [facility] [address] [place], [place] [id number] Monocytes/100 WBC (Bld) 6.8 % Normal N [facility] Comment on above: Performed By: #### C BCAD, VITD, CMP, TSH reflex FT4 #### [facility] [address] [place], [place] [id number] Neutrophils (Bld) [#/Vol] 3.4 10*3/uL Normal 1.5-7.8 [facility] Comment on above: Performed By: #### C BCAD, VITD, CMP, TSH reflex FT4 #### [facility] [address] [place], [place] [id number] Neutrophils/100 WBC (Bld) 56.1 % Normal [facility] Comment on above: Performed By: #### C BCAD, VITD, CMP, TSH reflex FT4 #### [facility] [address] [place], [place] [id number] Platelet mean volume (Bld) [Entitic vol] 11.00 fL Normal 7.50-12.50 [facility] Comment on above: Performed By: #### C BCAD, VITD, CMP, TSH reflex FT4 #### [facility] [address] [place], [place] [id number] Platelets (Bld) [#/Vol] 306 10*3/uL Normal 140-400 [facility] Comment on above: Performed By: #### C BCAD, VITD, CMP, TSH reflex FT4 #### [facility] [address] [place], [place] [id number] RBC (Bld) [#/Vol] 4.87 10*6/uL Normal 3.90-5.20 [facility] Comment on above: Performed By: #### C BCAD, VITD, CMP, TSH reflex FT4 #### [facility] [address] [place], [place] [id number] RDW-SD 38.5 fL Normal 37.0-50.0 [facility] Comment on above: Performed By: #### C BCAD, VITD, CMP, TSH reflex FT4 #### [facility] [address] [place], [place] [id number] WBC (Bld) [#/Vol] 6.0 10*3/uL Normal 3.8-11.0 [place] [facility] Manager [employer] Comment on above: Performed By: #### C BCAD, VITD, CMP, TSH reflex FT4 #### [facility] [address] [place], [place] [id number] Comprehensive Metabolic Pane dale 12-24-2021 Albumin [Mass/Vol] 5.1 g/dL Normal 3.6-5.1 [place] [employer] [place] [employer] Comment on above: Performed By: #### C BCAD, VITD, CMP, TSH reflex FT4 #### [facility] [address] [place], [place] [id number] Albumin/Globulin [Mass ratio] 2.4 {ratio} Normal 1.0-2.5 [facility] Comment on above: Performed By: #### C BCAD, VITD, CMP, TSH reflex FT4 #### [facility] [address] [place], [place] [id number] ALP [Catalytic activity/Vol] 71 U/L Normal 35-119 [facility] Special[facility] Comment on above: Performed By: #### C BCAD, VITD, CMP, TSH reflex FT4 #### [facility] [address] [place], [place] [id number] ALT [Catalytic activity/Vol] 9 U/L Normal 6-33 [facility] Comment on above: Result Comment: 09/04 Female reference range changed. Performed By: #### C BCAD, VITD, CMP, TSH reflex FT4 #### [facility] [address] [place], [place] [id number] Anion gap [Moles/Vol] 18 mmol/L Normal 12-20 [facility] Comment on above: Result Comment: Effe ctive 10/10/2019 reference range changed. Performed By: #### C BCAD, VITD, CMP, TSH reflex FT4 #### [facility] [address] [place], [place] [id number] AST [Catalytic activity/Vol] 15 U/L Normal 9-34 [facility] Special[facility] Comment on above: Performed By: #### C BCAD, VITD, CMP, TSH reflex FT4 #### [facility] [address] [place], [place] [id number] Bilirubin [Mass/Vol] 0.46 mg/dL Normal 0.30-1.20 [facility] Comment on above: Performed By: #### C BCAD, VITD, CMP, TSH reflex FT4 #### [facility] [address] [place], [place] [id number] BUN/CREA 14 Ratio Normal 6-22 [facility] Comment on above: Performed By: #### C BCAD, VITD, CMP, TSH reflex FT4 #### [facility] [address] [place], [place] [id number] Calcium [Mass/Vol] 9.8 mg/dL Normal 8.6-10.2 [facility] Comment on above: Performed By: #### C BCAD, VITD, CMP, TSH reflex FT4 #### [facility] [address] [place], [place] [id number] Chloride [Moles/Vol] 106 mmol/L Normal 98-107 [facility] Comment on above: Performed By: #### C BCAD, VITD, CMP, TSH reflex FT4 #### [facility] [address] [place], [place] [id number] CO2 [Moles/Vol] 23 mmol/L Normal 20-31 [facility] Comment on above: Performed By: #### C BCAD, VITD, CMP, TSH reflex FT4 #### [facility] [address] [place], [place] [id number] Creatinine [Mass/Vol] 0.7 mg/dL Normal 0.6-1.4 [facility] Comment on above: Performed By: #### C BCAD, VITD, CMP, TSH reflex FT4 #### [facility] [address] [place], [place] [id number] eGFRAA 138 mL/min/1.73m2 Normal >60 [place] Comment on above: Performed By: #### C BCAD, VITD, CMP, TSH reflex FT4 #### [facility] [address] [place], [place] [id number] eGFRNAA 114 mL/min/1.73m2 Normal >60 [place] [employer] [place] [employer] Comment on above: Performed By: #### C BCAD, VITD, CMP, TSH reflex FT4 #### [facility] [address] [place], [place] [id number] Globulin (S) [Mass/Vol] 2.1 g/dL Normal 1.9-3.7 [facility] Specialist Comment on above: Performed By: #### C BCAD, VITD, CMP, TSH reflex FT4 #### [facility] [address] [place], [place] [id number] Glucose [Mass/Vol] 83 mg/dL Normal 65-99 [facility] Manager [employer] Comment on above: Result Comment: For FASTING Glucose --- ADA reference ranges: Normal 65-99 mg/dl Prediabetes 100-125 Diabetes >/= 126 Performed By: #### C BCAD, VITD, CMP, TSH reflex FT4 #### [facility] [address] [place], [place] [id number] Potassium [Moles/Vol] 4.9 mmol/L Normal 3.5-5.5 [facility] Specialist Comment on above: Result Comment: Spec imen is hemolyzed. Results may be affected. Performed By: #### C BCAD, VITD, CMP, TSH reflex FT4 #### [facility] [address] [place], [place] [id number] Protein [Mass/Vol] 7.2 g/dL Normal 6.1-8.1 [facility] Manager [employer] Comment on above: Performed By: #### C BCAD, VITD, CMP, TSH reflex FT4 #### [facility] [address] [place], [place] [id number] Sodium [Moles/Vol] 141 mmol/L Normal 135-146 [facility] [employer] Comment on above: Performed By: #### C BCAD, VITD, CMP, TSH reflex FT4 #### [facility] [address] [place], [place] [id number] Urea nitrogen [Mass/Vol] 9 mg/dL Normal 7-25 [facility] Specialist Comment on above: Performed By: #### C BCAD, VITD, CMP, TSH reflex FT4 #### [facility] [address] [place], [place] [id number] TSH w/ Reflex to Free T4on 0 12-24-2021 TSH 0.946 uIU/mL Normal 0.400-4.500 [facility] Manager [employer] Comment on above: Performed By: #### C BCAD, VITD, CMP, TSH reflex FT4 #### [facility] [address] [place], [place] [id number] Vitamin B12/Folateon 022 Cobalamin (Vitamin B12) [Mass/Vol] 339 pg/mL Normal 211-946 [facility] Specialist Comment on above: Performed By: #### B 12/Fol #### [facility] [address] [place], [place] [id number] FOL 9.9 ng/mL Normal >4.7 [facility] Specialist Comment on above: Result Comment: Refe rence range change 08/21/2017. Prior reference range F 4.8-37.3 ng/mL, M 4.5-32.2 ng/mL. Performed By: #### B 12/Fol #### [facility] [address] [place], [place] [id number] Vitamin D 25-OHon 12-24-2021 VIT D 25 OH 23 ng/ml Low >29 [facility] Specialist Comment on above: Result Comment: Leslee min D Status Deficiency <20 ng/mL Insufficiency 20-29 ng/mL Optimal 30-100 ng/mL Possible Toxicity >=150 ng/mL Performed By: #### C BCAD, VITD, CMP, TSH reflex FT4 #### [facility] [address] [place], [place] [id number] CNOVon 09-01-2017 CNOV Office Visit (ORTPMN) ----RANDAL REDMOND ([id number]) 2000 FDate Time Provider [id number]/28/17 10:15 AM GILMER BENAVIDES ORTPMN During your [...] tight periscapular,lumbar, and hamstring musculature.Signed: Travis Ocasio [facility] physician:Emeterio Benavides MD 09/01/2017 11:05 AM [...] *Problem List As Of Date: 09/01/2017(None)Harpreet sutherland [facility] Department of Pediatric Orthopaedic Surgery / [id number] [place] [id number]: [phone] Appts.: [phone] Fax: [phone] 2016To Whom It May Concern:Randal Redmond was seen in my clinic on 09/01/2017, accompanied by her Mother.Please excuse this child from school for the time required for this physicianvisit.Please feel free to contact my office if you have any questions or concerns.Thank you for your assistance in this matter.Sincerely,Butch Burnett M. D. Status:Closed by GILMER BENAVIDES MD on 09/01/17 [facility] PROGRESSon 09-01-2017 PROGRESS HNO ID: [id number]: Gilmer BenavidesService: (none)Author Type: PhysicianType: Progress NotesFiled: 09/01/2017 11:05 AMNote Text:I have reviewed the history and physical obtained and documented by theresident and I personally participated in the sanchez components. I agree withthe findings and plan of care, with the additions contained within mydictation.Gilmer Benavides M.D. [facility] PROGRESS HNO ID: [id number]: Travis (Lauren) SuraceService: (none)Author Type: ResidentType: Progress [...] and hamstring musculature.Signed: Joel Morales physician:SELF Normal [facility] PROGRESS HNO ID: [id number]: Beverley Randhawa RtService: (none)Author Type: (none)Type: Progress NotesFiled: 09/01/2017 9:44 AMNote Text: Radiology Service Progress NotePATIENT NAME: Randal Bush WillN: [id number] OF SERVICE: September 01, 2017TIME: 9:44 AMPATIENT IDENTITY VERIFICATION COMPLETED USING TWO (2) METHODS: Patientconfirmed name verbally and Date of .PATIENT GENDER DATA: Female. status: : NoBreastfeeding status: NO.PATIENT RELEVANT IMPLANT DATA REVIEWED: YesRADIOLOGY DEPARTMENT: General X-ray: Exam(s) Completed: Spine X-Ray(s):Scoliois SeriesPERIPHERAL IV DATA: Not applicableSIGNED BY: Beverley Randhawa RtNovember 2016 9:44 AM Normal [facility] XR SCOLIOSIS 2V PA STAND/LAT on 09-01-2017 [...] PERKINS MD on Sep 01 2017 10:54AM [id number] Normal [facility] Vital Signs Date Time Vital Sign Value Performing Clinician Facility 11-14-2023 13:45-0500 Body mass index (BMI) [Ratio] 26.31 kg/m2 Joyce DOMÍNGUEZ Work Phone: [facility] 11-14-2023 13:45-0500 Body temperature 98.01 [degF] Joyce DOMÍNGUEZ Work Phone: [facility] 11-14-2023 13:45-0500 Body weight 76.2 kg Joyce Hemmer PA Work Phone: [facility] [employer] 11-14-2023 13:45-0500 Diastolic blood pressure 70 mm[Hg] Joyce Hemmer PA Work Phone: [facility] 11-14-2023 13:45-0500 Heart rate 86 /min Joyce Hemmer PA Work Phone: [facility] 11-14-2023 13:45-0500 SaO2% (BldA) [Mass fraction] 99 % Joyce Hemmer PA [facility] [facility] 11-14-2023 13:45-0500 Systolic blood pressure 110 mm[Hg] Joyce Hemmer PA Work Phone: [facility] 10-27-2023 10:30-0500 Body height 167.64 cm Gilmer Mcgregor Other [facility] 10-27-2023 10:30-0500 Body mass index (BMI) [Ratio] 26.31 kg/m2 Gilmer Mcgregor Other [facility] [employer] Other 10-27-2023 10:30-0500 Body weight 73.94 kg Gilmer Mcgregor Other [facility] [employer] Other 10-27-2023 10:30-0500 Body weight 73.93 kg MD Jaymie Morris Work Phone: [facility] 10-27-2023 10:30-0500 Diastolic blood pressure 85 mm[Hg] Gilmer Mcgregor Other [facility] 10-27-2023 10:30-0500 SaO2% (BldA) [Mass fraction] 100 % Gilmer Mcgregor Other [facility] [employer] Other 10-27-2023 10:30-0500 Systolic blood pressure 128 mm[Hg] Gilmer Mcgregor Other [facility] 12-17-2022 18:45-0400 Body height 167.64 cm MD Jaymie Morris Work Phone: [facility] 12-17-2022 18:45-0400 Body temperature 97.8 [degF] MD Jaymie Morris Work Phone: [facility] 12-17-2022 18:45-0400 Body weight 70.3 kg MD Jaymie Morris Work Phone: [facility] 12-17-2022 18:45-0400 Diastolic blood pressure 92 mm[Hg] MD Jaymie Morris Work Phone: [facility] 12-17-2022 18:45-0400 Heart rate 104 /min MD Jaymie Morris Work Phone: [facility] 12-17-2022 18:45-0400 Respiratory rate 20 /min MD Jaymie Morris Work Phone: [facility] 12-17-2022 18:45-0400 SaO2% (BldA) [Mass fraction] 99 % MD Jaymie Morris Work Phone: [facility] 12-17-2022 18:45-0400 Systolic blood pressure 143 mm[Hg] MD Jaymie Morris Work Phone: [facility] 12-12-2022 12:44-0500 Body height 167.64 cm MD Jaymie Morris Work Phone: [facility] 12-12-2022 12:44-0500 Body temperature 98.8 [degF] MD Jaymie Morris Work Phone: [facility] 12-12-2022 12:44-0500 Body weight 68.49 kg MD Jaymie Morris Work Phone: [facility] 12-12-2022 12:44-0500 Diastolic blood pressure 95 mm[Hg] MD Jaymie Morris Work Phone: [facility] 12-12-2022 12:44-0500 Heart rate 107 /min MD Jaymie Morris Work Phone: [facility] 12-12-2022 12:44-0500 Respiratory rate 18 /min MD Jaymie Morris Work Phone: [facility] 12-12-2022 12:44-0500 SaO2% (BldA) [Mass fraction] 97 % MD Jaymie Morris Work Phone: [facility] 12-12-2022 12:44-0500 Systolic blood pressure 140 mm[Hg] MD Jaymie Morris Work Phone: [facility] 09-12-2022 15:30-0500 Body temperature 98 [degF] MD Jaymie Morris Work Phone: [facility] 09-12-2022 15:30-0500 Diastolic blood pressure 82 mm[Hg] MD Jaymie Morris Work Phone: [facility] 09-12-2022 15:30-0500 Heart rate 82 /min MD Jaymie Morris Work Phone: [facility] 09-12-2022 15:30-0500 Respiratory rate 18 /min MD Jaymie Morris Work Phone: [facility] 09-12-2022 15:30-0500 SaO2% (BldA) [Mass fraction] 100 % MD Jaymie Morris Work Phone: [facility] 09-12-2022 15:30-0500 Systolic blood pressure 140 mm[Hg] MD Jaymie Morris Work Phone: [facility] 09-10-2022 21:52-0500 Body weight 85.72 kg MD Jaymie Morris Work Phone: [facility] 09-10-2022 21:07-0500 Body height 170.18 cm MD Jaymie Morris Work Phone: [facility] 06-24-2022 13:31-0400 Body temperature 98.1 [degF] MD Jaymie Morris Work Phone: [facility] 06-24-2022 13:31-0400 Diastolic blood pressure 78 mm[Hg] MD Jaymie Morris Work Phone: [facility] 06-24-2022 13:31-0400 Heart rate 84 /min MD Jaymie Morris Work Phone: [facility] 06-24-2022 13:31-0400 Respiratory rate 18 /min MD Jaymie Morris Work Phone: [facility] 06-24-2022 13:31-0400 SaO2% (BldA) [Mass fraction] 100 % MD Jaymie Morris Work Phone: [facility] 06-24-2022 13:31-0400 Systolic blood pressure 119 mm[Hg] MD Jaymie Morris Work Phone: [facility] 04-14-2022 18:10-0400 Diastolic blood pressure 69 mm[Hg] MD Jaymie Morris Work Phone: [facility] 04-14-2022 18:10-0400 Heart rate 82 /min MD Jaymie Morris Work Phone: [facility] 04-14-2022 18:10-0400 Respiratory rate 16 /min MD Jaymie Morris Work Phone: [facility] 04-14-2022 18:10-0400 SaO2% (BldA) [Mass fraction] 98 % MD Jaymie Morris Work Phone: [facility] 04-14-2022 18:10-0400 Systolic blood pressure 122 mm[Hg] MD Jaymie Morris Work Phone: [facility] 04-14-2022 13:59-0400 Body temperature 98.1 [degF] MD Jaymie Morris Work Phone: [facility] 04-14-2022 13:56-0400 Body height 170.18 cm MD Jaymie Morris Work Phone: [facility] 04-14-2022 13:56-0400 Body mass index (BMI) [Ratio] 24.7 kg/m2 MD Jaymie Morris Work Phone: [facility] 04-14-2022 13:56-0400 Body weight 71.65 kg MD Jaymie Morris Work Phone: [facility] Encounters Encounter Date Encounter Type Care Provider Facility Start: 12-24-2023 End: 12-24-2023 ambulatory SADE BRAXTON Not Available Start: 12-10-2023 End: 12-10-2023 ambulatory JAYMIE MORRIS Not Available Start: 12-09-2023 End: 12-09-2023 ambulatory ASHLEY WATSON Not Available Start: 11-25-2023 End: 11-25-2023 ambulatory Jaymie Morris Facility:[facility] Start: 11-25-2023 End: 11-25-2023 ambulatory MD Jaymie Morris Work Phone: [facility] Work Phone: Start: 11-25-2023 End: 11-25-2023 Patient encounter procedure MD Jaymie Morris Work Phone: [facility] [place] Work Phone: Start: 11-14-2023 End: 11-14-2023 ambulatory [...] outpatient vi sit 25 minutes Gilmer Mcgregor [facility] Start: 10-27-2023 End: 10-27-2023 ambulatory MD Jaymie Morris Work Phone: [facility] [employer] Other Start: 10-27-2023 End: 10-27-2023 Patient encounter procedure MD Jaymie Morris Work Phone: [facility]-Sleep Lab Work Phone: Start: 10-27-2023 End: 10-27-2023 Patient encounter procedure MD Jaymie Morris Work Phone: [facility]- Start: 10-22-2023 End: 10-22-2023 ambulatory JAYMIE MORRIS Not Available Start: 10-01-2023 End: 10-01-2023 ambulatory JAYMIE MORRIS Not Available Start: 09-10-2023 End: 09-10-2023 ambulatory JAYMIE BALIS Not Available Start: 09-02-2023 End: 09-02-2023 ambulatory KERRI NO Not Available Start: 08-31-2023 End: 08-31-2023 ambulatory ASHLEY Gee NELIDA Not Available Start: 07-21-2023 End: 07-21-2023 ambulatory Jaymie Morris Facility:[facility] Start: 07-21-2023 End: 07-21-2023 ambulatory MD Jaymie Morris Work Phone: [facility] Work Phone: Start: 07-21-2023 End: 07-21-2023 Patient encounter procedure MD Jaymie Morris Work Phone: [facility]-Flu Vaccine Start: 02-27-2023 End: 02-27-[address] DOCTOR AUGUSTIN Facility:[facility] Start: 12-17-2022 End: 12-17-2022 Emergency department patient visit Michael Martin Facility:[facility] Start: 12-17-2022 End: 12-17-2022 Emergency department patient visit MD Jaymie Morris Work Phone: [facility]-Emergency Room Work Phone: Start: 12-12-2022 End: 12-12-2022 Emergency department patient visit Feroz Skinner Facility:[facility] Start: 12-12-2022 End: 12-12-2022 Emergency department patient visit MD Jaymie Morris Work Phone: [facility]-Emergency Room Work Phone: Start: 09-10-2022 End: 09-12-2022 Evaluation and management of inpatient MD Jaymie Morris Work Phone: [facility] Start: 08-13-2022 End: 08-13-2022 ambulatory MD Jaymie Morris Work Phone: [facility] Work Phone: Start: 08-13-2022 End: 08-13-2022 Departed Referred MD Jaymie Morris Work Phone: [facility] [place] Start: 06-24-2022 End: 06-24-2022 Patient encounter procedure MD Jaymie Morris Work Phone: [facility] [place] Start: 04-16-2022 End: 04-16-2022 Patient encounter procedure MD Jaymie Morris Work Phone: [facility]-Electrodiagnostics Start: 04-14-2022 End: 04-14-2022 Emergency department patient visit MD Jaymie Morris Work Phone: [facility]-Emergency Room Start: 09-01-2017 End: 09-01-2017 Ambulatory GILMER BENAVIDES [facility] Procedures Date Procedure Procedure Detail Performing Clinician Streptococcus agalactiae culture MD Jaymie Morris Work Phone: Urine culture MD Jaymie moreno Work Phone: Plan of Treatment Date Care Activity Detail Author Start: 09-05-2024 End: 09-05-2024 Patient encounter procedure 09/05/2024 9:45 AM EST Office Visit [facility] [address] [address] Ashley Watson DO [address] [place] [address] [facility] Start: 07-14-2024 End: 07-14-2024 Patient encounter procedure 07/14/2024 10:20 AM EDT Office Visit [facility] [address] [place] [id number] Preet Barrios MD [address] [place] [address] [facility] Start: 12-15-2023 End: 12-15-2023 Patient encounter procedure 12/15/2023 9:40 AM EDT Office Visit [facility] [address] [place] [id number] Jaymie Morris MD [address] [place] [address] [facility] Start: 12-09-2023 End: 12-09-2023 Patient encounter procedure 12/09/2023 10:00 AM EST Office Visit [facility] [address] [address] Ashley Watson, DO [address] [place] [address] [facility] Start: 09-12-2022 [facility] Start: 09-10-2022 [facility] Group B Streptococcu s Culture Group B Streptococcus Culture [facility] Patient Education [facility] Work Phone: Patient referral [facility] Work Phone: Immunizations Immunization Date Immunization Notes Care Provider Fa no 07-21-2023 influenza, injectabl e, quadrivalent, preservative free David Rayo MD, IBCLC Work Phone: [facility] 04-15-2023 SARS-COV-2 (COVID-19 ) vaccine, mRNA, spike protein, LNP, bivalent, preservative free, 30 mcg/0.3 mL dose, walt-sucrose formulation David Rayo MD, IBCLC Work Phone: [facility] 12-08-2019 tetanus toxoid, redu mishel diphtheria toxoid, and acellular pertussis vaccine, adsorbed MD Jaymie Morris Work Phone: [facility] 06-01-2017 meningococcal oligosaccharide (groups A, C, Y and W-135) diphtheria toxoid conjugate vaccine (MCV4O) David Rayo MD, IBCLC Work Phone: [facility] 07-15-2012 influenza, seasonal, injectable, preservative free David Rayo MD, IBCLC Work Phone: [facility] 07-15-2012 meningococcal polysaccharide (groups A, C, Y and W-135) diphtheria toxoid conjugate vaccine (MCV4P) David Rayo MD, IBCLC Work Phone: [facility] 07-15-2012 tetanus toxoid, redu mishel diphtheria toxoid, and acellular pertussis vaccine, adsorbed David Rayo MD, IBCLC Work Phone: [facility] 05-23-2004 diphtheria, tetanus toxoids and acellular pertussis vaccine David Rayo MD, IBCLC Work Phone: [facility] 05-23-2004 poliovirus vaccine, inactivated David Rayo MD, IBCLC Work Phone: [facility] 06-03-2001 measles, mumps and rubella virus vaccine David Rayo MD, IBCLC Work Phone: [facility] 06-03-2001 poliovirus vaccine, unspecified formulation David Rayo MD, IBCLC Work Phone: [facility] 06-03-2001 varicella virus vaccine Waldo Rayo MD, IBCLC Work Phone: [facility] 03-04-2001 hepatitis B vaccine, pediatric or pediatric/adolescent dosage David Rayo MD, IBCLC Work Phone: [facility] 06-04-2000 diphtheria, tetanus toxoids and acellular pertussis vaccine, unspecified formulation David Rayo MD, IBCLC Work Phone: [facility] 06-04-2000 haemophilus influenz ae type b vaccine, conjugate unspecified formulation David Rayo MD, IBCLC Work Phone: [facility] 06-04-2000 measles, mumps and rubella virus vaccine David Rayo MD, IBCLC Work Phone: [facility] 06-04-2000 varicella virus vaccine Waldo Rayo MD, IBCLC Work Phone: [facility] 1999 diphtheria, tetanus toxoids and acellular pertussis vaccine, unspecified formulation David Rayo MD, IBCLC Work Phone: [facility] 1999 haemophilus influenz ae type b vaccine, conjugate unspecified formulation David Rayo MD, IBCLC Work Phone: [facility] 1999 diphtheria, tetanus toxoids and acellular pertussis vaccine, unspecified formulation David Rayo MD, IBCLC Work Phone: [facility] 1999 haemophilus influenz ae type b vaccine, conjugate unspecified formulation David Rayo MD, IBCLC Work Phone: [facility] 1999 hepatitis B vaccine, pediatric or pediatric/adolescent dosage David Rayo MD, IBCLC Work Phone: [facility] 1999 poliovirus vaccine, unspecified formulation David Rayo MD, IBCLC Work Phone: [facility] 1999 diphtheria, tetanus toxoids and acellular pertussis vaccine, unspecified formulation David Rayo MD, IBCLC Work Phone: [facility] 1999 haemophilus influenz ae type b vaccine, conjugate unspecified formulation David Rayo MD, IBCLC Work Phone: [facility] 1999 hepatitis B vaccine, pediatric or pediatric/adolescent dosage Daivd Rayo MD, IBCLC Work Phone: [facility] 1999 poliovirus vaccine, unspecified formulation David Rayo MD, IBCLC Work Phone: [facility] Payers Date Payer Category Payer Self-pay [id number] 2022 Medicaid [id number] 2022 Medicaid ANTHEM BCBS [facility] ANTH BCBS [place] [id number] 2022-Present [address] [place] [address] [id number] 2020 Unknown [id number] 2010 Unknown BCBS BCBS [id number] 2010-Present [phone] [address] [place] [address] [id number]. [id number] 1999 Unknown [id number] [id number] 1999 Unknown [id number] 2.16.840.1.432229.3.579.2.1259 1999 Unknown [id number] 2.16.840.1.320286.3.579.2.1259 1999 Unknown [id number] 2.16.840.1.611671.3.579.2.1259 1999 Unknown [id number] 2.16.840.1.648498.3.579.2.1259 1999 Unknown [id number] 2.16.840.1.263563.3.579.2.1259 1999 Unknown [id number] 2.16.840.1.309814.3.579.2.1259 1999 Unknown [id number] 2.16.840.1.126243.3.579.2.1259 1999 Unknown [id number] 2.16.840.1.990058.3.579.2.1259 1999 Unknown [id number] 2.16.840.1.568065.3.579.2.1259 1999 Unknown [id number] 2.16.840.1.551135.3.579.2.9 1999 Unknown [id number] 2.16840.1.239016.3.579.2.1259 1959 Unknown [id number] Medicaid [employer] [id number] Medicaid [place] [employer] [id number] Unknown [id number] Unknown [id number] Unknown [id number] 2.840.1.011709.3.579.2.531 Unknown [id number] 2.840.1.149092.3.579.2.531 Unknown [id number] 2.840.1.287446.3.579.2.531 Social History Date Type Detail Facility Start: 04-14-2022 End: 12-17-2022 Tobacco smoking status NHIS Never smoked tobacco (finding) [facility] Start: 2000 Sex Assigned At Female [facility] Start: 03-27-2023 End: 11-10-2023 Sex Assigned [...] Facility 09-12-2022 Functional status Patient at Baseline [facility] Work Phone: Mental Status Date Assessment Result Facility 09-12-2022 Cognitive function Cognitive Sta tus Patient at Baseline [facility] Work Phone: History of Present illness Narrative [...] Refill albuterol HFA 90 mcg/act inhaler Q6H lkdxvwzzkf-oiqjarbybbtzw-myiedkqi (Fioricet) 50-300-40 MG capsule take 1 capsule [...] Dizziness, Itching, Runny nose, Swelling and Wheezing Williamson Flavor Unknown Pollen Extract Unknown Social History [...] Acute bacterial conjunctivitis of both eyes - yjucjvij-gsqfkyhco-pjpLMQHOpzygo (Maxitrol) 0.1 % ophthalmic suspension; Administer 1 [...] plenty of rest. documented in this encounter [facility] Evaluation note 10-27-2023 Note Date & [...] anxiety nor bipolar symptoms worsen with treatment [facility] Other Procedure note 09-11-2022 Note Date & Type Note Facility 09-11-2022 Procedure note [facility] Evaluation note Note Date & Type Note Facility Evaluation note No assessment information availa [facility] Work Phone: Evaluation note Note Date & Type Note Facility Evaluation note Diagnosis Acute bacterial conjunctivitis of both eyes- Primary documented in this encounter [facility] History general Narrative - Reported Note Date & Type Note Facility History general Narrative - Reported Type Medical History Anxiety Medical History narcolepsy with cataplexy (2019, 4 REM naps) [facility] Other Hospital Discharge instructions Note Date & Type Note Facility Hospital Discharge instructions [facility] Work Phone: Summary Purpose Family [...] section and content) DATE CREATED AUTHOR 03/30/2018 [facility] DATE CREATED AUTHOR AUTHOR'S ORGANIZ ATION 12/25/2021 [facility] DATE CREATED AUTHOR AUTHOR'S ORGANIZ ATION 03/15/2023 [facility] DATE CREATED AUTHOR AUTHOR'S ORGANIZ ATION 12/02/2023 [facility] DATE CREATED AUTHOR AUTHOR'S ORGANIZ ATION 12/26/2023 [facility] EPIC Care [...] Primary Care Provider Active Bay Reyes DO [facility] Attending Provider Active Team Status: Inactive Member Role Status Dates Jaymie Morris MD Primary Care Provider Active Start: October 27, 2023 End: October 27, 2023 Gilmer Mcgregor MD Attending Provider Active S tart: October 27, 2023 End: October 27, 2023 David Rayo MD Referring Provider Active Start: October 27, 2023 End: October 27, 2023 [employer] Relationship Specialty Start Date End Date Jaymie Morris MD [address] [place] [address] PCP - General Family Medicine 04/01/23 [employer] Assistant Relationship Specialty Start Date End Date Jaymie Morris MD [address] [place], [place] [id number] PCP - General Family Medicine 04/01/23 Team [...] BE BASED ON THE PRIMARY CLINICAL RECORDS. [facility] [employer] [facility]. provides no warranty or guarantee of the accuracy or completeness of information in this document.
[2024-01-19] MEDS: PROMETHAZINE HCL 25 MG/ML VIAL 12.5 MG IV (04:45)
--- NOTE | 2024-01-19 05:17 | SUR.HOLD ---
x3 abd dressing clean dry and intact
[2024-01-19] MEDS: LACTATED RINGER'S SOLUTION 1,000 ML 150 ML IV (05:26)
[2024-01-19] MEDS: HYDROCODONE/ACET 5-325 MG TABLET 1 TAB PO (08:07)
[2024-01-19 08:19] LABS: Hematocrit 29.6 % (36.0-48.0); Mean Corpuscular HGB Conc 33.8 g/dL (29.9-35.2); Mean Corpuscular Hemoglobin 30.2 pg (26.7-34.0); Mean Corpuscular Volume 89.4 fL (81.0-99.0); Mean Platelet Volume 10.9 fL (9.5-13.5); Platelet Count 212 10^3/uL (150-450); Red Blood Count 3.31 10^6/uL (4.20-5.40); Red Cell Distribution Width 12.5 % (11.0-15.0); White Blood Count 13.3 10^3/uL (4.0-11.0)
[2024-01-19] MEDS: RHO(D) IMMUNE GLOBULIN 1,500 UNIT SYRINGE 1500 UNIT IM (08:46)
[2024-01-19 09:39] LABS: Lymphocytes Absolute Manual 0.79 10^3/uL (1.20-3.80); Monocytes Absolute Manual 0.13 10^3/uL (0.30-0.80); Segmented Neut Absolute Manual 12.36 10^3/uL (1.4-6.5)
== END 2024-01-19 10:11 | disposition home or self-care (01) ==
LOC: ER 22:09 → SURGOUT 01-19 01:22 → MS 01-19 04:37
PROVIDERS: Admitting Provider Obstetrics & Gynecology; Emergency Provider Emergency Medicine; PCP Family Medicine; Visit Provider Obstetrics & Gynecology
PROC: (CPT 840; principal; 2024-01-19 01:40)
DX: N83.8 Other noninflammatory disorders of ovary, fallopian tube and broad ligament (principal); R10.2 Pelvic and perineal pain; Z97.5 Presence of (intrauterine) contraceptive device; Z79.899 Other long term (current) drug therapy; Z87.891 Personal history of nicotine dependence
CPT/HCPCS: 58661; 36415; 76817; 80053; 81001; 83605; 84702; 84703; 85007; 85025; 85027; 86850; 86900; 86901; 88302; 96374; 96375; 96376; 99285; 99999; G0378; J1094; J2704; J2790

== ENCOUNTER 2024-04-03 05:59 | Emergency (ER) | payer BC, MEDICAID, SELFPAY ==
--- OUTSIDE RECORDS SUMMARY | 2024-04-03 06:06 | XMS_ITS | CCD ---
Author Organization [facility] Care Team Providers Care Mobile Application Development Lead Name Role Phone GILMER BENAVIDES Unavailable Unavailable GILMER BENAVIDES Unavailable Unavailable MD Jaymie Morris Primary Care Provider TUAN [place] Emergency Provider MD Jaymie Morris Attending Provider [phone] DO Ashley aWtson Attending Provider MD Jaymie Morris Primary Care Provider DO Ashley Watson Attending Provider DO Ashley Watson Admit Provider MD Jaymie Morris Primary Care Provider JOHNSON Skinner Emergency Provider MD Jaymie Morris Primary Care Provider JOHNSON Skinner Emergency Provider [phone] TUAN [place] Emergency Provider DR SAYRA AUGUSTIN Primary Care Unavailable SCOTT WILKINSON Attending Unavailable SCOTT WILKINSON Consulting Unavailable SCOTT WILKINSON Admitting Unavailable MD Jaymie Morris Primary Care Provider DO Bay Reyes Attending Provider [phone] Gilmer Mcgregor Unavailable MD Jaymie Morris Primary Care Provider MD Gilmer Mcgregor Attending Provider MD David Rayo Referring Provider Jaymie Morris MD Primary Care Provider [phone] DO Govind Barry Attending Provider MD Jaymie Morris Referring Provider MD Jaymie Morris Primary Care Provider MD Gilmer Mcgregor Attending Provider MD David Rayo Referring Provider DO Govind Barry Attending Provider MD Jaymie Morris Referring Provider Alexei Pedersen Attending Provider Ketvertis, Jaymie Primary Care Unavailable Kuns - [facility] [place] [facility] Admitting Unavailable Kuns [facility], [place] [facility] Attending Unavailable Ketvertis, Jaymie Primary Care Unavailable Gilmer Mcgregor Admitting Unavailable Gilmer Mcgregor Attending Unavailable [employer] Referring Unavailable Ketvertis, Jaymie Primary Care Unavailable Ketvertis, Jaymie Referring Unavailable Govind Barry Admitting Unavailable Govind Barry Attending Unavailable Alexei Pedersen Admitting Unavailable Alexei Pedersen Attending Unavailable Ketvertis, Jaymie Primary Care Unavailable KETVERTIS, JAYMIE M Attending Unavailable KETVERTIS, JAYMIE M Attending Unavailable NATAPRASHLEY UREÑA Attending Unavailable ASHLEY WATSON Referring Unavailable OCTAVIADAVID GE Attending Unavailable JOYCE SHAH Attending Unavailable NATASHLEY STYLES Attending Unavailable NATAPRASHLEY UREÑA Attending Unavailable KERRI NO Attending Unavailable KETVERTIS, JAYMIE M Attending Unavailable KETVERTIS, JAYMIE M Attending Unavailable SADE BRAXTON Attending Unavailable ALEXEI PEDERSEN Attending Unavailable OCTAVIA, DAVID Attending Unavailable Allergies Allergy Classification Reported Allergen(s) Allergy Type Date of Onset Reaction(s) Facility (13 sources) Iodine; Translations: [iodine] Drug Allergy 2 Unknown [facility] (10 sources) Shellfish; Translations: [shellfish derived] Allergy to substance 2 Swelling of Lip/Tongue/Thr oat [facility] (1 source) Shellfish Propensity to adverse reactions Unknown [facility] Other (2 sources) Apple extract Drug Allergy 3 Unknown [facility] (2 sources) Kiwi fruit Propensity to adverse reactions 3 Dizziness, Itching, Runny nose, Swelling, Wheezing [facility] (2 sources) Pollen Allergy to substance 3 Unknown [facility] (2 sources) Dog Epithelium Allergy Skin Test Allergy to substance 3 Unknown [facility] (2 sources) Greene Flavor Allergy to substance 3 Unknown [facility] (2 sources) Shellfish-Deriv ed Products Drug Allergy 5 Anaphylaxis, Hives, Itching, Runny nose, Shortness of breath, Swelling, Unknown, Wheezing [facility] Medications Current Medications Medication Drug Class(es) Dates Sig (Normalized) Sig (Original) acetaminophen 300 mg / butalbital 50 mg / caffeine 40 mg oral capsule (7 sources) Barbiturate, Central Nervous System Stimulant, Methylxanthine Start: 12-17-2022 take 1 capsule by mouth every six hours Butalbital-Aceta minophen-Caff (Fioricet) 50-300-40 mg capsule Active 1 CAP PO Q6H 12 3 December 17, 2022 12:00am take 1 capsule by mo uth every four hours vfafccizuv-fkkpusdcjleed-iounxhts (Jamari cet) 50-300-40 MG capsule take 1 capsule by mouth every 4 hours if needed for 10 days 0 Active [id number] 200 actuat albuterol 0.09 mg/actuat metered dose inhaler (17 sources) beta2-Adrenergic Agonist Start: 12-12-2022 albut abi HFA 90 mcg/act inhaler Q6H 0 12/12/2022 Active Start: 12-12-2022 Albuterol Sulf ate Active 2 INH INHALATION Q6H 8 December 12, 2022 1:00am administer with spacer Start: 07-05-2018 End: 12-04-2019 [...] / neomycin 3.5 mg/ml / polymyxin [id number] unt/ml ophthalmic suspension (1 source) Aminoglycoside Antibacterial, [...] days. 5 mL 0 11/14/2023 11/21/2023 Active [id number] 0.3 ml EPINEPHrine 1 mg/ml auto-injector (2 [...] Active promethazine hydrochloride 25 mg oral tablet (7 sources) Phenothiazine Start: 12-17-2022 take 25 mg by mouth four times daily Promethazine Active 25 MG PO Four times daily December 17, 2022 12:00am sertraline 50 mg oral tablet (16 sources) Serotonin Reuptake Inhibitor Start: 09-12-2022 take 1 tablet by mouth once daily Sertraline (Zoloft) 50 mg tablet Active 50 MG PO Daily September 12, 2022 1:00am Start: 02-21-2019 End: 04-14-2022 take 1 tablet by mouth once daily Sertraline (Zoloft) 100 mg tablet Discontinued 100 MG PO Daily February 21, 2019 12:00am April 14, 2022 4:13pm SUMAtriptan 50 mg oral tablet (2 sources) [...] Sig (Original) amoxicillin 500 mg oral tablet (9 sources) Penicillin-class Antibacterial Start: 02-21-2019 End: 11-29-2019 take 500 mg by mouth three times daily Amoxicillin Discontinued 500 MG PO Three times daily February 21, 2019 12:00am November 29, 2019 4:49pm aspirin 81 mg oral tablet (9 sources) Platelet Aggregation Inhibitor, Nonsteroidal Anti-inflammatory Drug Start: 04-14-2022 End: 12-12-2022 take 81 mg by mouth once daily Aspirin Discontinued 81 MG PO Daily April 14, 2022 12:00am December 12, 2022 1:42pm 12 hr dextromethorphan polistirex 6 mg/ml extended release suspension (9 sources) Uncompetitive N-adatbx-M-asparta te Receptor Antagonist, Sigma-1 Agonist Start: 07-05-2018 End: 11-29-2019 take 1 mL by mouth once Dextromethorphan Polistirex (Delsym 12 Hour) 30 mg/5 mL Suspension,Extended Rel 12 Hr Discontinued 5 ML PO Once July 05, 2018 12:00am November 29, 2019 4:49pm docusate sodium 100 mg oral capsule (16 sources) Start: 09-12-2022 End: 12-12-2022 take 1 capsule by mouth once daily Docusate Sodium (Colace) 100 mg capsule Discontinued 100 MG PO Daily September 12, 2022 1:00am December 12, 2022 1:42pm Start: 12-10-2019 End: 04-14-2022 take 1 capsule by mouth twice daily Docusate Sodium (Colace) 100 mg capsule Discontinued 100 MG PO Twice daily December 10, 2019 12:13pm April 14, 2022 4:12pm ferrous sulfate 325 mg oral tablet (7 sources) Start: 09-12-2022 End: 12-12-2022 take 325 mg by mouth once daily Ferrous Sulfate Discontinued 325 MG PO Daily September 12, 2022 1:00am December 12, 2022 1:42pm ibuprofen 800 mg oral tablet (20 sources) Nonsteroidal Anti-inflammatory Drug Start: 09-12-2022 End: 12-12-2022 Ibuprofen Discontinued 800 MG PO every 6 to 8 hours September 12, 2022 1:00am December 12, 2022 1:42pm Start: 12-10-2019 End: 04-14-2022 take 600 mg by mouth every six hours Ibuprofen Discontinued 600 MG PO Q6H December 10, 2019 1:00am April 14, 2022 4:13pm Start: 02-21-2019 End: 11-29-2019 take 800 mg by mouth three times daily Ibuprofen Discontinued 800 MG PO Three times daily February 21, 2019 12:00am November 29, 2019 4:51pm labetalol hydrochloride 200 mg oral tablet (9 sources) beta-Adrenergic Marshal Start: 12-07-2019 End: 04-14-2022 take 200 mg by mouth twice daily Labetalol Discontinued 200 MG PO Twice daily December 07, 2019 1:00am April 14, 2022 4:13pm montelukast 10 mg oral tablet (10 sources) Leukotriene Receptor Antagonist Start: 02-21-2019 End: 04-14-2022 Montelukast (Singulair) 10 mg tablet Discontinued TABLET February 21, 2019 12:00am April 14, 2022 4:13pm ondansetron 4 mg disintegrating oral tablet (18 sources) Serotonin-3 Receptor Antagonist Start: 12-27-2021 End: 04-14-2022 Ondansetron Discontinued 4 MG PO every 6 to 8 hours December 27, 2021 12:00am April 14, 2022 4:12pm Start: 07-01-2021 End: 04-14-2022 take 1 tablet by mouth every six hours Ondansetron Hcl (Zofran) 4 mg tablet Discontinued 4 MG PO Q6H July 01, 2021 12:00am April 14, 2022 4:12pm predniSONE 50 mg oral tablet (9 sources) Start: 07-05-2018 End: 07-10-2018 take 50 mg by mouth once daily Prednisone Discontinued 50 MG PO Daily 5 July 05, 2018 12:00am July 10, 2018 12:01am Vit 28-Mmsr-Ymixn-Dha ( + Dha) 28 mg iron- 975 mcg-200 mg Combo Pack (9 sources) Start: 11-29-2019 End: 12-12-2022 take 1 tablet by mouth once daily Vit 64-Rwax-Wadrb-Dha ( + Dha) 28 mg iron- 975 mcg-200 mg Combo Pack Discontinued 0 .ROUTE .COMPLEX November 29, 2019 1:00am December 12, 2022 1:42pm 1 TABLET PO DAILY Start: 11-29-2019 End: 12-12-2022 take 1 tablet by mouth once daily Vit 73-Idzd-Wbljn-Dha ( + Dha) 28 mg iron- 975 mcg-200 mg Combo Pack Discontinued 0 .ROUTE .COMPLEX November 29, 2019 12:00am December 12, 2022 12:42pm 1 TABLET PO DAILY Start: 11-29-2019 take 1 tablet by julio th once daily Vit 39-Ctup-Eabkl-Dha ( + Dha) 28 mg iron- 975 mcg-200 mg Combo Pack Active 0 .ROUTE .COMPLEX November 29, 2019 12:00am 1 TABLET PO DAILY Start: 11-29-2019 take 1 tablet by julio th once daily Vit 75-Lhko-Lalad-Dha ( + Dha) 28 mg iron- 975 mcg-200 mg Combo Pack Active 0 .ROUTE .COMPLEX November 29, 2019 1:00am 1 TABLET PO DAILY valACYclovir 500 mg oral tablet (16 sources) Herpesvirus Nucleoside Analog DNA Polymerase Inhibitor, Herpes Simplex Virus Nucleoside Analog DNA Polymerase Inhibitor, Herpes Zoster Virus Nucleoside Analog DNA Polymerase Inhibitor Start: 09-10-2022 End: 12-12-2022 Valacyclovir (Valtrex) 500 mg Tablet Discontinued MG TABLET September 10, 2022 1:00am December 12, 2022 1:42pm Start: 02-21-2019 End: 12-10-2019 Valacyclovir (Valtrex) 1 gra m tablet Discontinued 500 MG PO 1-2 TIMES DAILY February 21, 2019 12:00am December 10, 2019 12:15pm Problems Active Problems Problem Classification Problem Date Documented Da te Episodic/Chronic Anxiety disorders (7 sources) Generalized anxiety disorder; Translations: [Generalized anxiety disorder] Onset: 04-09-2023 Chronic Cardiac dysrhythmias (9 sources) Palpitations; Translations: [Palpitations] 04-14-2022 Episodic Disorders of teeth and jaw (1 source) Other dental procedure status; Translations: [OTHER DENTAL PROCEDURE STATUS] Onset: 03-02-2023 Episodic Headache; including migraine (7 sources) Migraine; Translations: [Migraine with aura] Onset: 04-09-2023 12-17-2022 Chronic Inflammation; infection of eye (except that caused by tuberculosis or sexually transmitteddisease) (1 source) Acute infectious conjunctivitis; Translations: [Unspecified acute conjunctivitis, bilateral] 11-14-2023 Episodic Malaise and fatigue (2 sources) Fatigue; Translations: [Chronic fatigue, unspecified] Onset: 04-09-2023 04-09-2023 Chronic Mood disorders (2 sources) Bipolar I disorder; Translations: [Bipolar disorder, unspecified] Chronic Nausea and vomiting (18 sources) Nausea; Translations: [Nausea] 12-27-2021 Episodic Other [...] 11-25-2023 Episodic Other and delivery including normal (9 sources) Delivery normal; Translations: [Encounter for full-term uncomplicated delivery] 12-09-2019 Episodic Other upper respiratory disease (2 sources) Allergic rhinitis; Translations: [Allergic rhinitis, unspecified] Onset: 04-09-2023 04-09-2023 Chronic Other upper respiratory infections (15 sources) Pharyngitis; Translations: [Acute pharyngitis, unspecified] 02-21-2019 [...] foot; Translations: [Right foot strain] Episodic Syncope (9 sources) Vasovagal syncope; Translations: [Syncope and collapse] 12-27-2021 Episodic Unclassified (1 source) Pain, unspecified; Translations: [Pain, unspecified] Onset: 09-01-2017 Unclassified (2 sources) Patient on antidepressant monitoring plan Onset: 10-01-2023 10-01-2023 Unclassified (2 sources) Baseline PHQ-9 Onset: 10-01-2023 10-01-2023 Viral infection (2 sources) Herpetic vulvovaginitis; Translations: [...] Test Name Value Interpretation Reference Range Facility [facility] 01-19-2024 L Specimen: [id number] Received: 01/20/24 Status: ROBIN Sparrow Num: [id number] Spec Type: Surgical Subm Dr: Alexei Pedersen Tissues: A FALLOPIAN TUBE ECTOPIC (RIGHT ECTOPIC , RIG) Procedures: HE/5, Gross/Micro L4 Age/ Patient Sex Location Account Attending Physician Randal Redmond / LABELL [id number] Alexei Pedersen SPEC NUM: [id number] RECD: 01/20/24 STATUS: ROBIN SPARROW NUM: [id number] EMILEE: 01/19/24- SUBM DR: Alexei Pedersen ENTERED: 01/20/[address] [facility] [address]: SPEC TYPE: Surgical DEPT: ENA CHEN ENTERED BY: [id number] RECV BY: [id number] ORDERED: HE/5, Gross/Micro L4 ORDERED: HE/5, Gross/Micro L4 Pathological Diagnosis Right fallopian tube, right salpingectomy: -Intact fimbriated fallopian tube without any significant histopathological findings, except 1 small benign paratubal cyst, and mild prominence of the mesonephric remnant without atypia Gross Description A. The specimen is received in formalin, labeled with the patient's name and right fallopian tube , consisting of a tortuous, fimbriated barajas-pink fallopian tube measuring 7.4 cm in length and ranging from 0.5 up to 1.0 cm in diameter. The serosal surface contains a 0.5 x 0.4 x 0.3 cm intact paratubal cyst. Sectioning demonstrates an intact lumen lined by barajas mucosa. No areas of blood clot are identified. Works Manager sections are submitted in A1, A2 (fallopian tube and paratubal cyst)-A3 (fimbriated end). Remainder of specimen entirely submitted in A4?A5. TW/CYC Clinical history: Right ectopic , right salpingectomy. CPT Codes 04563 -------- -------- Specimen: [id number] Received: 01/20/24 Status: ROBIN Sparrow Num: [id number] Spec Type: Surgical Subm Dr: Alexei Pedersen Tissues: A FALLOPIAN TUBE ECTOPIC (RIGHT ECTOPIC , RIG) Procedures: HE/5, Gross/Micro L4 -------- Patient: Randal Redmond [id number] (Continued) -------- Signed (signature on file) Jamey Aguilera MD 01/26/24 1430 Normal [facility] Alanine aminotransferase [En zymatic activity/volume] in Serum or PlasmaOrdered By: Govind Barry on 11-25-2023 ALT [Catalytic activity/Vol] 11 U/L [facility] Albumin [Mass/volume] in Ser um or Plasma by Bromocresol green (BCG) dye binding methoOrdered By: Govind Barry on 11-25-2023 Albumin BCG dye [Mass/Vol] 4.7 g/dL 3.5-5.7 [facility] Alkaline phosphatase [Enzyma tic activity/volume] in Serum or PlasmaOrdered By: Govind Barry on 11-25-2023 ALP [Catalytic activity/Vol] 82 U/L 34-104 [facility] Aspartate aminotransferase [ Enzymatic activity/volume] in Serum or PlasmaOrdered By: Govind Barry on 11-25-2023 AST [Catalytic activity/Vol] 16 U/L 13-39 [facility] Basophils Auto (Bld) [#/Vol] Ordered By: Govind Barry on 11-25-2023 Basophils (Bld) [#/Vol] 0.1 10*3/uL 0.0-0.2 [facility] Basophils/100 WBC Auto (Bld) Ordered By: Govind Barry on 11-25-2023 Basophils/100 WBC (Bld) 0.6 % . [facility] Bilirubin.total [Mass/volume ] in Serum or PlasmaOrdered By: Govind Barry on 11-25-2023 Bilirubin [Mass/Vol] 0.5 mg/dL 0.3-1.0 [facility] Calcium [Mass/volume] in Ser um or PlasmaOrdered By: Govind Barry on 11-25-2023 Calcium [Mass/Vol] 9.7 mg/dL 8.6-10.3 [facility] Carbon dioxide, total [Moles /volume] in Serum or PlasmaOrdered By: Govind Barry on 11-25-2023 CO2 [Moles/Vol] 27.5 mmol/L 21.0-31.0 [facility] Chloride [Moles/volume] in S alessandra or PlasmaOrdered By: Govind Barry on 11-25-2023 Chloride [Moles/Vol] 105 mmol/L 98-107 [facility] Complete Blood Count Auto Di ffon 11-25-2023 Basophils (Bld) [#/Vol] 0.1 10*3/uL Normal 0.0-0.2 [facility] Comment on above: Result Comment: PERF ORMED BY: [facility] [address] [place] [address] PATHOLOGIST CONVEYOR LOADER MELCHOR MORALES M.D. Performed By: #### C BC, CMP, TSH3 wRFLX #### [address] Basophils/100 WBC (Bld) 0.6 % Normal . [facility] Comment on above: Performed By: #### C BC, CMP, TSH3 wRFLX #### [address] Eosinophils (Bld) [#/Vol] 0.2 10*3/uL Normal 0.0-0.45 [facility] Comment on above: Performed By: #### C BC, CMP, TSH3 wRFLX #### [address] Eosinophils/100 WBC (Bld) 1.6 % Normal . [facility] Comment on above: Performed By: #### C BC, CMP, TSH3 wRFLX #### [address] Erythrocyte distribution width (RBC) [Ratio] 12.5 % Normal 11.9-15.[address] [facility] Comment on above: Performed By: #### C BC, CMP, TSH3 wRFLX #### [address] Hematocrit (Bld) [Volume fraction] 41.4 % Normal 34.0-46.4 [facility] Comment on above: Performed By: #### C BC, CMP, TSH3 wRFLX #### [address] Hemoglobin (Bld) [Mass/Vol] 14.2 g/dL Normal 11.8-15.4 [facility] Comment on above: Performed By: #### C BC, CMP, TSH3 wRFLX #### [address] Lymphocytes (Bld) [#/Vol] 1.7 10*3/uL Normal 1.00-4.8 [facility] Comment on above: Performed By: #### C BC, CMP, TSH3 wRFLX #### [address] Lymphocytes/100 WBC (Bld) 16.7 % Normal . [facility] Comment on above: Performed By: #### C BC, CMP, TSH3 wRFLX #### [address] MCH (RBC) [Entitic mass] 30.2 pg Normal 24.7-34.3 [facility] Comment on above: Performed By: #### C BC, CMP, TSH3 wRFLX #### [address] MCV (RBC) [Entitic vol] 87.9 fL Normal 80-100 [facility] Comment on above: Performed By: #### C BC, CMP, TSH3 wRFLX #### [address] Mean Corpuscular HGB Conc 34.4 g/dL Normal 32.0-35.0 [facility] Comment on above: Performed By: #### C BC, CMP, TSH3 wRFLX #### [place] [address] [place] Monocytes (Bld) [#/Vol] 0.5 10*3/uL Normal 0.0-0.8 [facility] Comment on above: Performed By: #### C BC, CMP, TSH3 wRFLX #### [place] [address] [place] Monocytes/100 WBC (Bld) 5.4 % Normal . [facility] Comment on above: Performed By: #### C BC, CMP, TSH3 wRFLX #### [place] [address] [place] Neutrophils (Bld) [#/Vol] 7.5 10*3/uL Normal 1.8-7.7 [facility] Comment on above: Performed By: #### C BC, CMP, TSH3 wRFLX #### [place] [address] [place] Neutrophils/100 WBC (Bld) 75.7 % Normal . [facility] Comment on above: Performed By: #### C BC, CMP, TSH3 wRFLX #### [address] NRBC% 0.1 /100{WBC} Normal 0-0.5 [facility] Comment on above: Performed By: #### C BC, CMP, TSH3 wRFLX #### [address] Platelet mean volume (Bld) [Entitic vol] 8.8 fL Normal 6.3-10.[address] [facility] Comment on above: Performed By: #### C BC, CMP, TSH3 wRFLX #### [address] Platelets (Bld) [#/Vol] 301 10*3/uL Normal 150-450 [facility] Comment on above: Performed By: #### C BC, CMP, TSH3 wRFLX #### [address] RBC (Bld) [#/Vol] 4.71 10*6/uL Normal 3.60-5.00 [facility] Comment on above: Performed By: #### C BC, CMP, TSH3 wRFLX #### [address] WBC (Bld) [#/Vol] 10.0 10*3/uL Normal 3.8-11.6 [facility] Comment on above: Performed By: #### C BC, CMP, TSH3 wRFLX #### [address] Comprehensive Metabolic Pane dale 11-25-2023 Albumin [Mass/Vol] 4.7 g/dL Normal 3.5-5.7 [facility] Comment on above: Performed By: #### C BC, CMP, TSH3 wRFLX #### [address] Albumin/Globulin [Mass ratio] 1.9 {ratio} Normal [facility] Comment on above: Performed By: #### C BC, CMP, TSH3 wRFLX #### [address] ALP [Catalytic activity/Vol] 82 U/L Normal 34-104 [facility] Comment on above: Performed By: #### C BC, CMP, TSH3 wRFLX #### [address] ALT [Catalytic activity/Vol] 11 U/L Normal 7-52 [facility] Comment on above: Performed By: #### C BC, CMP, TSH3 wRFLX #### [address] Anion gap [Moles/Vol] 10.7 mmol/L Normal 6.0-15.0 [facility] Comment on above: Performed By: #### C BC, CMP, TSH3 wRFLX #### [address] AST [Catalytic activity/Vol] 16 U/L Normal 13-39 [facility] Comment on above: Performed By: #### C BC, CMP, TSH3 wRFLX #### [address] Bilirubin [Mass/Vol] 0.5 mg/dL Normal 0.3-1.0 [facility] Comment on above: Performed By: #### C BC, CMP, TSH3 wRFLX #### [place] [address] [place] Calcium [Mass/Vol] 9.7 mg/dL Normal 8.6-10.3 [facility] Comment on above: Performed By: #### C BC, CMP, TSH3 wRFLX #### [place] [address] [place] Chloride [Moles/Vol] 105 mmol/L Normal 98-107 [facility] Comment on above: Performed By: #### C BC, CMP, TSH3 wRFLX #### [place] [address] [place] CO2 [Moles/Vol] 27.5 mmol/L Normal 21.0-31.0 [facility] Comment on above: Performed By: #### C BCDONN, TSH3 wRFLX #### [address] Creatinine [Mass/Vol] 0.76 mg/dL Normal 0.60-1.20 [facility] Comment on above: Performed By: #### C BC CMP, TSH3 wRFLX #### [address] GFR/1.73 sq M.predicted MDRD (S/P/Bld) [Vol rate/Area] mL/min/{1.73_m2} Normal [facility] Comment on above: Performed By: #### C BCDONN, TSH3 wRFLX #### [address] Globulin (S) [Mass/Vol] 2.5 g/dL Normal [facility] Comment on above: Performed By: #### C BCDONN, TSH3 wRFLX #### [address] Glucose [Mass/Vol] 85 mg/dL Normal 70-100 [facility] Comment on above: Result Comment: [place] Glucose Reference Range is dependent on time and content of last meal. Glucose of more than 200 mg/dL in a nonstressed, ambulatory subject supports the diagnosis of Diabetes Mellitus. ADA recommended reference range Performed By: #### C BC CMP, TSH3 wRFLX #### [address] Potassium [Moles/Vol] 4.2 mmol/L Normal 3.5-5.1 [facility] Comment on above: Performed By: #### C BC CMP, TSH3 wRFLX #### [address] Protein [Mass/Vol] 7.2 g/dL Normal 6.4-8.9 [facility] Comment on above: Performed By: #### C BC, CMP, TSH3 wRFLX #### [facility] [address] [place] [address] [place] Sodium [Moles/Vol] 139 mmol/L Normal 136-145 [facility] Comment on above: Performed By: #### C ARNULFO, CMP, TSH3 wRFLX #### [facility] [address] [place] [id number] [place] Urea nitrogen [Mass/Vol] 11 mg/dL Normal 7-25 [facility] Comment on above: Performed By: #### C ARNULFO, CMP, TSH3 wRFLX #### [facility] [address] [place] [address] [place] Creatinine [Mass/volume] in Serum or PlasmaOrdered By: Govind Barry on 11-25-2023 Creatinine [Mass/Vol] 0.76 mg/dL 0.60-1.20 [facility] Eosinophils Auto (Bld) [#/Vo l]Ordered By: Govind Barry on 11-25-2023 Eosinophils (Bld) [#/Vol] 0.2 10*3/uL 0.0-0.45 [facility] Eosinophils/100 WBC Auto (Bl d)Ordered By: Govind Barry on 11-25-2023 Eosinophils/100 WBC (Bld) 1.6 % . [facility] Erythrocyte distribution wid th Auto (RBC) [Ratio]Ordered By: Govind Barry on 11-25-2023 Erythrocyte distribution width (RBC) [Ratio] 12.5 % 11.9-15.3 [facility] [facility] Globulin Calc (S) [Mass/Vol] Ordered By: Govind Barry on 11-25-2023 Globulin (S) [Mass/Vol] 2.5 g/dL [facility] Glucose [Mass/volume] in Ser um or PlasmaOrdered By: Govind Barry on 11-25-2023 Glucose [Mass/Vol] 85 mg/dL 70-100 [facility] Comment on above: ADA recommended refe rence rangeRandom Glucose Reference Range is dependent on time and content of last meal. Glucose of more than 200 mg/dL in a nonstressed, ambulatory subject supports the diagnosis of Diabetes Mellitus. Hematocrit Auto (Bld) [Volum e fraction]Ordered By: Govind Barry on 11-25-2023 Hematocrit (Bld) [Volume fraction] 41.4 % 34.0-46.4 [facility] Hemoglobin [Mass/volume] in BloodOrdered By: Govind Barry on 11-25-2023 Hemoglobin (Bld) [Mass/Vol] 14.2 g/dL 11.8-15.4 [facility] Leukocytes [#/volume] correc jessica for nucleated erythrocytes in Blood by Automated counOrdered By: Govind Barry on 11-25-2023 WBC corrected for nucl RBC Auto (Bld) [#/Vol] 10.0 10*3/uL 3.8-11.6 [facility] Lymphocytes Auto (Bld) [#/Vo l]Ordered By: Govind Barry on 11-25-2023 Lymphocytes (Bld) [#/Vol] 1.7 10*3/uL 1.00-4.8 [facility] Lymphocytes/100 WBC Auto (Bl d)Ordered By: Govind Barry on 11-25-2023 Lymphocytes/100 WBC (Bld) 16.7 % . [facility] MCH Auto (RBC) [Entitic mass ]Ordered By: Govind Barry on 11-25-2023 MCH (RBC) [Entitic mass] 30.2 pg 24.7-34.3 [facility] MCHC Auto (RBC) [Mass/Vol]Or dered By: Govnid Barry on 11-25-2023 MCHC (RBC) [Mass/Vol] 34.4 g/dL 32.0-35.0 [facility] MCV Auto (RBC) [Entitic vol] Ordered By: Govind Barry on 11-25-2023 MCV (RBC) [Entitic vol] 87.9 fL 80-100 [facility] Monocytes Auto (Bld) [#/Vol] Ordered By: Govind Barry on 11-25-2023 Monocytes (Bld) [#/Vol] 0.5 10*3/uL 0.0-0.8 [facility] Monocytes/100 WBC Auto (Bld) Ordered By: Govind Barry on 11-25-2023 Monocytes/100 WBC (Bld) 5.4 % . [facility] Neutrophils Auto (Bld) [#/Vo l]Ordered By: Govind Barry on 11-25-2023 Neutrophils (Bld) [#/Vol] 7.5 10*3/uL 1.8-7.7 [facility] Neutrophils/100 WBC Auto (Bl d)Ordered By: Govind Barry on 11-25-2023 Neutrophils/100 WBC (Bld) 75.7 % . [facility] No Panel InformationOrdered By: Govind Barry on 11-25-2023 Estimated GFR (CKD-EPI) > 60.0 mL/Min [facility]acy Creatinine Clearance (Chem N/A [facility] Nucleated erythrocytes [Pres ence] in Blood by Automated countOrdered By: Govind Barry on 11-25-2023 Nucleated RBC Auto Ql (Bld) 0.1 /100{WBC} 0-0.5 [facility] Platelet mean volume Auto (B ld) [Entitic vol]Ordered By: Govind Barry on 11-25-2023 Platelet mean volume (Bld) [Entitic vol] 8.8 fL 6.3-10.7 [facility] Platelets Auto (Bld) [#/Vol] Ordered By: Govind Barry on 11-25-2023 Platelets (Bld) [#/Vol] 301 10*3/uL 150-450 [facility] Potassium [Moles/volume] in Serum or PlasmaOrdered By: Govind Barry on 11-25-2023 Potassium [Moles/Vol] 4.2 mmol/L 3.5-5.1 [facility] Protein [Mass/volume] in Ser um or PlasmaOrdered By: Govind Barry on 11-25-2023 Protein [Mass/Vol] 7.2 g/dL 6.4-8.9 [facility] RBC Auto (Bld) [#/Vol]Ordere d By: Govind Barry on 11-25-2023 RBC (Bld) [#/Vol] 4.71 10*6/uL 3.60-5.00 [facility] Serum or plasma albumin/glob ulin mass ratioOrdered By: Govind Barry on 11-25-2023 Albumin/Globulin [Mass ratio] 1.9 {ratio} [facility] Serum or plasma anion gap de terminationOrdered By: Govind Barry on 11-25-2023 Anion gap [Moles/Vol] 10.7 mmol/L 6.0-15.0 [facility] Sodium [Moles/volume] in Ser um or PlasmaOrdered By: Govind Barry on 11-25-2023 Sodium [Moles/Vol] 139 mmol/L 136-145 [facility] Thyroid Stim Hormone w/Rflxo n 11-25-2023 Thyroid Stim Hormone w/Rflx 1.83 u[iU]/mL Normal 0.45-5.33 [facility] Comment on above: Result Comment: PERF ORMED BY: [place] [address] PATHOLOGIST [employer]OR [employer]ADER MELCHOR MORALES M.D. Performed By: #### C BC, CMP, TSH3 wRFLX #### [address] Thyrotropin [Units/volume] i n Serum or PlasmaOrdered By: Govind Barry on 11-25-2023 TSH Qn 1.83 m[IU]/L 0.45-5.33 [facility] Urea nitrogen [Mass/volume] in Serum or PlasmaOrdered By: Govind Barry on 11-25-2023 Urea nitrogen [Mass/Vol] 11 mg/dL 7-25 [facility] WBC Auto (Bld) [#/Vol]Ordere d By: Govind Barry on 11-25-2023 WBC (Bld) [#/Vol] 10.0 10*3/uL 3.8-11.6 [facility] Anisocytosis LM Ql (Bld)Orde red By: ASHLEY WATSON on 09-12-2022 Anisocytosis Ql (Bld) Moderate [facility] Basophils Auto (Bld) [#/Vol] Ordered By: ASHLEY WATSON on 09-12-2022 Basophils (Bld) [#/Vol] 0.1 10*3/uL 0.0-0.2 [facility] Basophils/100 WBC Auto (Bld) Ordered By: ASHLEY WATSON on 09-12-2022 Basophils/100 WBC (Bld) 0.7 % . [facility] Eosinophils Auto (Bld) [#/Vo l]Ordered By: ASHLEY WATSON on 09-12-2022 Eosinophils (Bld) [#/Vol] 0.2 10*3/uL 0.0-0.45 [facility] Eosinophils/100 WBC Auto (Bl d)Ordered By: ASHLEY WATSON on 09-12-2022 Eosinophils/100 WBC (Bld) 1.7 % . [facility] Erythrocyte distribution wid th Auto (RBC) [Ratio]Ordered By: ASHLEY WATSON on 09-12-2022 Erythrocyte distribution width (RBC) [Ratio] 14.4 % 11.9-15.3 [facility] Hematocrit Auto (Bld) [Volum e fraction]Ordered By: ASHLEY WATSON on 09-12-2022 Hematocrit (Bld) [Volume fraction] 29.2 % 34.0-46.4 [facility] Hemoglobin [Mass/volume] in BloodOrdered By: ASHLEY WATSON on 09-12-2022 Hemoglobin (Bld) [Mass/Vol] 9.6 g/dL 11.8-15.4 [facility] Hypochromia LM Ql (Bld)Order ed By: ASHLEY WATSON on 09-12-2022 Hypochromia Ql (Bld) Slight [facility] Leukocytes [#/volume] correc jessica for nucleated erythrocytes in Blood by Automated counOrdered By: ASHLEY WATSON on 09-12-2022 WBC corrected for nucl RBC Auto (Bld) [#/Vol] 12.2 10*3/uL 3.8-11.6 [facility] Lymphocytes Auto (Bld) [#/Vo l]Ordered By: ASHLEY WATSON on 09-12-2022 Lymphocytes (Bld) [#/Vol] 2.9 10*3/uL 1.00-4.8 [facility] Lymphocytes/100 WBC Auto (Bl d)Ordered By: ASHLEY WATSON on 09-12-2022 Lymphocytes/100 WBC (Bld) 23.6 % . [facility] MCH Auto (RBC) [Entitic mass ]Ordered By: ASHLEY WATSON on 09-12-2022 MCH (RBC) [Entitic mass] 25.5 pg 24.7-34.3 [facility] MCHC Auto (RBC) [Mass/Vol]Or dered By: ASHLEY WATSON on 09-12-2022 MCHC (RBC) [Mass/Vol] 32.8 g/dL 32.0-35.0 [facility] MCV Auto (RBC) [Entitic vol] Ordered By: ASHLEY WATSON on 09-12-2022 MCV (RBC) [Entitic vol] 77.6 fL 80-100 [facility] Microcytes LM Ql (Bld)Ordere d By: ASHLEY WATSON on 09-12-2022 Microcytes Ql (Bld) Moderate [facility] Monocytes Auto (Bld) [#/Vol] Ordered By: ASHLEY WATSON on 09-12-2022 Monocytes (Bld) [#/Vol] 0.8 10*3/uL 0.0-0.8 [facility] Monocytes/100 WBC Auto (Bld) Ordered By: ASHLEY WATSON on 09-12-2022 Monocytes/100 WBC (Bld) 6.2 % . [facility] Neutrophils Auto (Bld) [#/Vo l]Ordered By: ASHLEY WATSON on 09-12-2022 Neutrophils (Bld) [#/Vol] 8.3 10*3/uL 1.8-7.7 [facility] Neutrophils/100 WBC Auto (Bl d)Ordered By: ASHLEY WATSON on 09-12-2022 Neutrophils/100 WBC (Bld) 67.8 % . [facility] Nucleated erythrocytes [Pres ence] in Blood by Automated countOrdered By: ASHLEY WATSON on 09-12-2022 Nucleated RBC Auto Ql (Bld) 0.0 /100{WBC} 0-0.5 [facility] Platelet adequacy [Presence] in Blood by Light microscopyOrdered By: ASHLEY WATSON on 09-12-2022 Platelets LM Ql (Bld) Decreased Normal [facility] Platelet mean volume Auto (B ld) [Entitic vol]Ordered By: ASHLEY WATSON on 09-12-2022 Platelet mean volume (Bld) [Entitic vol] 10.7 fL 6.3-10.7 [facility] Platelet morphology finding [Identifier] in BloodOrdered By: ASHLEY WATSON on 09-12-2022 Platelet morphology finding Nom (Bld) N/A [facility] Platelets Auto (Bld) [#/Vol] Ordered By: ASHLEY WATSON on 09-12-2022 Platelets (Bld) [#/Vol] 127 10*3/uL 150-450 [facility] Platelets Large [Presence] i n Blood by Light microscopyOrdered By: ASHLEY WATSON on 09-12-2022 Platelets Large LM Ql (Bld) Marked [facility] Polychromasia [Presence] in Blood by Light microscopyOrdered By: ASHLEY WATSON on 09-12-2022 Polychromasia LM Ql (Bld) Moderate [facility] RBC Auto (Bld) [#/Vol]Ordere d By: ASHLEY WATSON on 09-12-2022 RBC (Bld) [#/Vol] 3.76 10*6/uL 3.60-5.00 [facility] RBC morphologyOrdered By: ROSEANNE WATSON on 09-12-2022 RBC morphology finding Nom (Bld) N/A [facility] Urine culture routineOrdered By: ASHLEY WATSON on 09-12-2022 Bacteria identified Cx Nom (U) Carol Ann albicans [facility] WBC Auto (Bld) [#/Vol]Ordere d By: ASHLEY WATSON on 09-12-2022 WBC (Bld) [#/Vol] 12.2 10*3/uL 3.8-11.6 [facility] Amphetamine Screen Ql (U)Ord ered By: ASHLEY WATSON on 09-10-2022 Amphetamines Ql (U) Negative Negative [facility] Automated erythrocytes count in urine sediment (number/area)Ordered By: ASHLEY WATSON on 09-10-2022 RBC Auto (Urine sed) [#/Area] None seen [HPF] 0-4 [facility] Automated leukocytes count i n urine sediment (number/area)Ordered By: ASHLEY WATSON on 09-10-2022 WBC Auto (Urine sed) [#/Area] 10-19 [HPF] 0-4 [facility] Barbiturates [Presence] in U rineOrdered By: ASHLEY WATSON on 09-10-2022 Barbiturates Ql (U) Negative Negative [facility] Benzodiazepines [Presence] i n UrineOrdered By: ASHLEY WATSON on 09-10-2022 Benzodiazepines Ql (U) Negative Negative [facility] Bilirubin Test strip Ql (U)O rdered By: ASHLEY WATSON on 09-10-2022 Bilirubin Ql (U) Negative Negative [facility] Color Auto (U)Ordered By: ROSEANNE WATSON on 09-10-2022 Color (U) Yellow Yellow [facility] Ketones Auto test strip (U) [Mass/Vol]Ordered By: ASHLEY WATSON on 09-10-2022 Ketones (U) [Mass/Vol] Negative Negative [facility] Laboratory - Drug toxicology Ordered By: ASHLEY WATSON on 09-10-2022 Opiates Ql (U) Negative Negative [facility] Laboratory - UrinalysisOrder ed By: ASHLEY WATSON on 09-10-2022 Hyaline casts LM Ql (Urine sed) 0-8 [LPF] 0-8 [facility] Macrocytes LM Ql (Bld)Ordere d By: ASHLEY WATSON on 09-10-2022 Macrocytes Ql (Bld) Slight [facility] Nitrite Test strip Ql (U)Ord ered By: ASHLEY WATSON on 09-10-2022 Nitrite Ql (U) Negative Negative [facility] Phencyclidine Screen Ql (U)O rdered By: ASHLEY WATSON on 09-10-2022 Phencyclidine Ql (U) Negative Negative [facility] Comment on above: These are unconfirme d results and should not be used for legal purposes. Drug Cut-Off Concentration: AMPH 1000 ng/mL YOSEF 200 ng/mL JARAD 200 ng/mL COCM 300 ng/mL OP 300 ng/mL PCP 25 ng/mL Poikilocytosis [Presence] in Blood by Light microscopyOrdered By: ASHLEY WATSON on 09-10-2022 Poikilocytosis LM Ql (Bld) Slight [facility] Protein Auto test strip (U) [Mass/Vol]Ordered By: ASHLEY WATSON on 09-10-2022 Protein (U) [Mass/Vol] Trace mg/dL Negative [facility] Reagin Ab [Presence] in Seru m by RPROrdered By: ASHLEY WATSON on 09-10-2022 Reagin Ab RPR Ql (S) Non-Reactive Non Reactive [facility] Comment on above: Performed at: [place] [id number] Director: Mook Hawthorne PhD, Phone: [phone] Specific gravity Auto test s trip (U) [Rel density]Ordered By: ASHLEY WATSON on 09-10-2022 Specific gravity (U) [Rel density] 1.016 1.001-1.030 [facility] Squamous epithelial cells de tection in urine sediment by light microscopyOrdered By: ASHLEY WATSON on 09-10-2022 Epithelial cells.squamous LM Ql (Urine sed) 10-19 [HPF] 0-2 [facility] Urine bacteria detection by automated methodOrdered By: ASHLEY WATSON on 09-10-2022 Bacteria Auto Ql (U) None seen None Seen [facility] Urine clarity by refractomet ry automatedOrdered By: ASHLEY WATSON on 09-10-2022 Clarity Refractometry automated (U) Clear Clear [facility] Urine cocaine detectionOrder ed By: ASHLEY WATSON on 09-10-2022 Cocaine Ql (U) Negative Negative [facility] Urine glucose measurement by automated test strip (mass/volume)Ordered By: ASHLEY WATSON on 09-10-2022 Glucose Auto test strip (U) [Mass/Vol] Normal mg/dL Normal [facility] Urine hemoglobin detection b y automated test stripOrdered By: ASHLEY WATSON on 09-10-2022 Hemoglobin Auto test strip Ql (U) Negative Negative [facility] Urine leukocyte esterase det ection by automated test stripOrdered By: ASHLEY WATSON on 09-10-2022 Leukocyte esterase Auto test strip Ql (U) 3+ Negative [facility] Urobilinogen Auto test strip (U) [Mass/Vol]Ordered By: ASHLEY WATSON on 09-10-2022 Urobilinogen (U) [Mass/Vol] Normal mg/dL Normal [facility] pH Auto test strip (U)Ordere d By: ASHLEY WATSON on 09-10-2022 pH (U) 6.0 [pH] 5.0-9.0 [facility] S. agalactiae Org specific c x Ql (Unsp spec)Ordered By: ASHLEY WATSON on 08-16-2022 Streptococcus agalactiae culture No Group B Beta Streptococcus Isolated 3 Days [facility] Blood hemoglobin measurement (mass/volume)Ordered By: ASHLEY WATSON on 06-24-2022 Hemoglobin (Bld) [Mass/Vol] 12.7 g/dL 11.8-15.4 [facility] Hematocrit Auto (Bld) [Volum e fraction]Ordered By: ASHLEY WATSON on 06-24-2022 Hematocrit (Bld) [Volume fraction] 37.9 % 34.0-46.4 [facility] No Panel InformationOrdered By: ASHLEY WATSON on 06-24-2022 Glucose 1 Hour Postprandial (Timed) 100 mg/dL 60-140 [facility] Albumin [Mass/volume] in Ser um or PlasmaOrdered By: Jordan Saunders on 04-14-2022 Albumin [Mass/Vol] 3.4 g/dL 3.2-5.5 [facility] Basophils Auto (Bld) [#/Vol] Ordered By: Jordan Saunders on 04-14-2022 Basophils (Bld) [#/Vol] 0.1 10*3/uL 0.0-0.2 [facility] Basophils/100 WBC Auto (Bld) Ordered By: Jordan Saunders on 04-14-2022 Basophils/100 WBC (Bld) 0.6 % . [facility] Blood hemoglobin measurement (mass/volume)Ordered By: Jordan Saunders on 04-14-2022 Hemoglobin (Bld) [Mass/Vol] 13.7 g/dL 11.8-15.4 [facility] Blood leukocytes automated c ount (number/volume)Ordered By: Jordan Saunders on 04-14-2022 WBC (Bld) [#/Vol] 10.8 10*3/uL 4.5-11.0 [facility] Creatinine and Glomerular fi ltration rate.predicted panel (S/P/Bld)Ordered By: Jordan Saunders on 04-14-2022 Creatinine [Mass/Vol] 0.50 mg/dL 0.44-1.03 [facility] Eosinophils Auto (Bld) [#/Vo l]Ordered By: Jordan Saunders on 04-14-2022 Eosinophils (Bld) [#/Vol] 0.1 10*3/uL 0.0-0.45 [facility] Eosinophils/100 WBC Auto (Bl d)Ordered By: Jordan Saunders on 04-14-2022 Eosinophils/100 WBC (Bld) 0.8 % . [facility] Erythrocyte distribution wid th Auto (RBC) [Ratio]Ordered By: Jordan Saunders on 04-14-2022 Erythrocyte distribution width (RBC) [Ratio] 12.9 % 11.9-15.3 [facility] Estimated glomerular filtrat ion rate (GFR) non- AmericanOrdered By: Jordan Saunders on 04-14-2022 GFR/1.73 sq M.predicted among non-blacks MDRD (S/P/Bld) [Vol rate/Area] > 60 mL/Min [facility] Globulin Calc (S) [Mass/Vol] Ordered By: Jordan Saunders on 04-14-2022 Globulin (S) [Mass/Vol] 3.2 g/dL [facility] Hematocrit Auto (Bld) [Volum e fraction]Ordered By: Jordan Saunders on 04-14-2022 Hematocrit (Bld) [Volume fraction] 39.7 % 34.0-46.4 [facility] Laboratory - Chemistry and C hemistry - challengeOrdered By: Jordan Saunders on 04-14-2022 Magnesium [Mass/Vol] 1.9 mg/dL 1.6-2.6 [facility] Laboratory - Hematology and Cell countsOrdered By: Jordan Saunders on 04-14-2022 Nucleated RBC/100 WBC (Bld) [Ratio] 0.1 % 0-0.5 [facility] Lymphocytes Auto (Bld) [#/Vo l]Ordered By: Jordan Saunders on 04-14-2022 Lymphocytes (Bld) [#/Vol] 1.8 10*3/uL 1.00-4.8 [facility] Lymphocytes/100 WBC Auto (Bl d)Ordered By: Jordan Saunders on 04-14-2022 Lymphocytes/100 WBC (Bld) 17.0 % . [facility] MCH Auto (RBC) [Entitic mass ]Ordered By: Jordan Saunders on 04-14-2022 MCH (RBC) [Entitic mass] 30.4 pg 24.7-34.3 [facility] MCHC Auto (RBC) [Mass/Vol]Or dered By: Jordan Saunders on 04-14-2022 MCHC (RBC) [Mass/Vol] 34.5 g/dL 32.0-35.0 [facility] MCV Auto (RBC) [Entitic vol] Ordered By: Jordan Saunders on 04-14-2022 MCV (RBC) [Entitic vol] 88.0 fL 80-100 [facility] Monocytes Auto (Bld) [#/Vol] Ordered By: Jordan Saunders on 04-14-2022 Monocytes (Bld) [#/Vol] 0.5 10*3/uL 0.0-0.8 [facility] Monocytes/100 WBC Auto (Bld) Ordered By: Jordan Saunders on 04-14-2022 Monocytes/100 WBC (Bld) 5.1 % . [facility] Neutrophils Auto (Bld) [#/Vo l]Ordered By: Jordan Saunders on 04-14-2022 Neutrophils (Bld) [#/Vol] 8.3 10*3/uL 1.8-7.7 [facility] Neutrophils/100 WBC Auto (Bl d)Ordered By: Jordan Saunders on 04-14-2022 Neutrophils/100 WBC (Bld) 76.5 % . [facility] No Panel InformationOrdered By: Jordan Saunders on 04-14-2022 Estimated GFR () > 60 mL/Min [facility] Comment on above: GFR estimated refere nce range: According to KDOQI guidelines, <60 ml/min/1.73m2 is sufficient to diagnose a patient with chronic kidney disease. Pharmacy Creatinine Clearance (Chem 171.62 [facility] Platelet mean volume Auto (B ld) [Entitic vol]Ordered By: Jordan Saunders on 04-14-2022 Platelet mean volume (Bld) [Entitic vol] 9.9 fL 6.3-10.7 [facility] Platelets Auto (Bld) [#/Vol] Ordered By: Jordan Saunders on 04-14-2022 Platelets (Bld) [#/Vol] 246 10*3/uL 150-450 [facility] Protein [Mass/volume] in Ser um or PlasmaOrdered By: Jordan Saunders on 04-14-2022 Protein [Mass/Vol] 6.6 g/dL 6.1-7.9 [facility] RBC Auto (Bld) [#/Vol]Ordere d By: Jordan Saunders on 04-14-2022 RBC (Bld) [#/Vol] 4.52 10*6/uL 3.60-5.00 [facility] Serum or plasma alanine salas otransferase measurement without P-5'-P (enzymatic activiOrdered By: Jordan Saunders on 04-14-2022 ALT No additional P-5'-P [Catalytic activity/Vol] 13 U/L 10-60 [facility] Serum or plasma albumin/glob ulin mass ratioOrdered By: Jordan Saunders on 04-14-2022 Albumin/Globulin [Mass ratio] 1.1 {ratio} [facility] Serum or plasma alkaline abel sphatase measurement (enzymatic activity/volume)Ordered By: Jordan Saunders on 04-14-2022 ALP [Catalytic activity/Vol] 49 U/L 32-92 [facility] Serum or plasma aspartate am inotransferase measurement (enzymatic activity/volume)Ordered By: Jordan Saunders on 04-14-2022 AST [Catalytic activity/Vol] 18 U/L 10-42 [facility] Serum or plasma calcium pete urement (mass/volume)Ordered By: Jordan Saunders on 04-14-2022 Calcium [Mass/Vol] 9.4 mg/dL 8.2-10.2 [facility] Serum or plasma chloride tino surement (moles/volume)Ordered By: Jordan Saunders on 04-14-2022 Chloride [Moles/Vol] 100 mmol/L 95-114 [facility] Serum or plasma glucose pete urement (mass/volume)Ordered By: Jordan Saunders on 04-14-2022 Glucose [Mass/Vol] 84 mg/dL 70-100 [facility] Comment on above: ADA recommended refe rence range Random Glucose Reference Range is dependent on time and content of last meal. Glucose of more than 200 mg/dL in a nonstressed, ambulatory subject supports the diagnosis of Diabetes Mellitus. Serum or plasma potassium me asurement (moles/volume)Ordered By: Jordan Saunders on 04-14-2022 Potassium [Moles/Vol] 3.8 mmol/L 3.5-5.1 [facility] Serum or plasma sodium measu rement (moles/volume)Ordered By: Jordan Saunders on 04-14-2022 Sodium [Moles/Vol] 132 mmol/L 136-146 [facility] Serum or plasma total biliru bin measurement (mass/volume)Ordered By: Jordan Saunders on 04-14-2022 Bilirubin [Mass/Vol] 0.5 mg/dL 0.3-1.2 [facility] Serum or plasma total carbon dioxide measurement (moles/volume)Ordered By: Jordan Saunders on 04-14-2022 CO2 [Moles/Vol] 21.6 mmol/L 22.0-30.0 [facility] Serum or plasma urea nitroge n measurement (mass/volume)Ordered By: Jordan Saunders on 04-14-2022 Urea nitrogen [Mass/Vol] 5 mg/dL 9-23 [facility] TSH DL <= 0.005 mIU/L QnOrde red By: Jordan Saunders on 04-14-2022 TSH Qn 1.21 m[IU]/L 0.45-5.33 [facility] Troponin I.cardiac [Mass/vol ume] in Serum or Plasma by High sensitivity methodOrdered By: Jordan Saunders on 04-14-2022 Troponin I.cardiac High sensitivity method [Mass/Vol] 11 pg/mL 0-15 [facility] Complete Blood Count with Au to Diffon 12-24-2021 Basophils (Bld) [#/Vol] 0.05 10*3/uL Normal 0.00-0.20 [facility] Comment on above: Performed By: #### C BCAD, VITD, CMP, TSH reflex FT4 #### [facility] [address] [place], [place] [id number] Basophils/100 WBC (Bld) 0.8 % Normal [facility] Comment on above: Performed By: #### C BCAD, VITD, CMP, TSH reflex FT4 #### [facility] [address] [place], [place] [id number] Eosinophils (Bld) [#/Vol] 0.12 10*3/uL Normal 0.02-0.50 [facility] Comment on above: Performed By: #### C BCAD, VITD, CMP, TSH reflex FT4 #### [facility] [address] [place], [place] [id number] Eosinophils/100 WBC (Bld) 2.0 % Normal [facility] Comment on above: Performed By: #### C BCAD, VITD, CMP, TSH reflex FT4 #### [facility] [address] [place], [place] [id number] Erythrocyte distribution width (RBC) [Ratio] 11.7 % Normal 11.0-15.0 [facility] Specialist Comment on above: Performed By: #### C BCAD, VITD, CMP, TSH reflex FT4 #### [facility] [address] [place], [place] [id number] Hematocrit (Bld) [Volume fraction] 43.8 % Normal 35.0-47.0 [facility] Comment on above: Performed By: #### C BCAD, VITD, CMP, TSH reflex FT4 #### [facility] [address] [place], [place] [id number] Hemoglobin (Bld) [Mass/Vol] 14.5 g/dL Normal 11.6-15.5 [facility] Comment on above: Performed By: #### C BCAD, VITD, CMP, TSH reflex FT4 #### [facility] [address] [place], [place] [id number] Lymphocytes (Bld) [#/Vol] 2.1 10*3/uL Normal 0.9-3.9 [facility] Comment on above: Performed By: #### C BCAD, VITD, CMP, TSH reflex FT4 #### [facility] [address] [place], [place] [id number] Lymphocytes/100 WBC (Bld) 34.1 % Normal [facility] Comment on above: Performed By: #### C BCAD, VITD, CMP, TSH reflex FT4 #### [facility] [address] [place], [place] [id number] MCH (RBC) [Entitic mass] 29.8 pg Normal 27.0-33.0 [facility] Comment on above: Performed By: #### C BCAD, VITD, CMP, TSH reflex FT4 #### [facility] [address], [place] [id number] MCHC (RBC) [Mass/Vol] 33.1 g/dL Normal 32.0-36.0 [facility] Comment on above: Performed By: #### C BCAD, VITD, CMP, TSH reflex FT4 #### [facility] [address], [place] [id number] MCV (RBC) [Entitic vol] 90 fL Normal 80-100 [facility] Comment on above: Performed By: #### C BCAD, VITD, CMP, TSH reflex FT4 #### [facility] [address], [place] [id number] Monocytes (Bld) [#/Vol] 0.4 10*3/uL Normal 0.2-0.9 [facility] Comment on above: Performed By: #### C BCAD, VITD, CMP, TSH reflex FT4 #### [facility] [address], [place] [id number] Monocytes/100 WBC (Bld) 6.8 % Normal [facility] Comment on above: Performed By: #### C BCAD, VITD, CMP, TSH reflex FT4 #### [facility] [address], [place] [id number] Neutrophils (Bld) [#/Vol] 3.4 10*3/uL Normal 1.5-7.8 [facility] Comment on above: Performed By: #### C BCAD, VITD, CMP, TSH reflex FT4 #### [facility] [address], [place] [id number] Neutrophils/100 WBC (Bld) 56.1 % Normal [facility] Comment on above: Performed By: #### C BCAD, VITD, CMP, TSH reflex FT4 #### [facility] [address], [place] [id number] Platelet mean volume (Bld) [Entitic vol] 11.00 fL Normal 7.50-12.50 [facility] Comment on above: Performed By: #### C BCAD, VITD, CMP, TSH reflex FT4 #### [facility] [address], [place] [id number] Platelets (Bld) [#/Vol] 306 10*3/uL Normal 140-400 [facility] Comment on above: Performed By: #### C BCAD, VITD, CMP, TSH reflex FT4 #### [facility] [address], [place] [id number] RBC (Bld) [#/Vol] 4.87 10*6/uL Normal 3.90-5.20 [facility] Comment on above: Performed By: #### C BCAD, VITD, CMP, TSH reflex FT4 #### [facility] [address], [place] [id number] RDW-SD 38.5 fL Normal 37.0-50.0 [facility] Comment on above: Performed By: #### C BCAD, VITD, CMP, TSH reflex FT4 #### [facility] [address], [place] [id number] WBC (Bld) [#/Vol] 6.0 10*3/uL Normal 3.8-11.0 [facility] Comment on above: Performed By: #### C BCAD, VITD, CMP, TSH reflex FT4 #### [facility] [address], [place] [id number] Comprehensive Metabolic Pane dale 12-24-2021 Albumin [Mass/Vol] 5.1 g/dL Normal 3.6-5.1 [facility] Comment on above: Performed By: #### C BCAD, VITD, CMP, TSH reflex FT4 #### [facility] [address], [place] [id number] Albumin/Globulin [Mass ratio] 2.4 {ratio} Normal 1.0-2.5 [facility] Comment on above: Performed By: #### C BCAD, VITD, CMP, TSH reflex FT4 #### [facility] [address], [place] [id number] ALP [Catalytic activity/Vol] 71 U/L Normal 35-119 [facility] Comment on above: Performed By: #### C BCAD, VITD, CMP, TSH reflex FT4 #### [facility] [address], [place] [id number] ALT [Catalytic activity/Vol] 9 U/L Normal 6-33 [facility] Comment on above: Result Comment: 09/04 Female reference range changed. Performed By: #### C BCAD, VITD, CMP, TSH reflex FT4 #### [facility] [address], [place] [id number] Anion gap [Moles/Vol] 18 mmol/L Normal 12-20 [facility] Comment on above: Result Comment: Effe ctive 10/10/2019 reference range changed. Performed By: #### C BCAD, VITD, CMP, TSH reflex FT4 #### [facility] [address], [place] [id number] AST [Catalytic activity/Vol] 15 U/L Normal 9-34 [facility] Comment on above: Performed By: #### C BCAD, VITD, CMP, TSH reflex FT4 #### [facility] [address], [place] [id number] Bilirubin [Mass/Vol] 0.46 mg/dL Normal 0.30-1.20 [facility] Comment on above: Performed By: #### C BCAD, VITD, CMP, TSH reflex FT4 #### [facility] [address], [place] [id number] BUN/CREA 14 Ratio Normal 6-22 [facility] Comment on above: Performed By: #### C BCAD, VITD, CMP, TSH reflex FT4 #### [facility] [address], [place] [id number] Calcium [Mass/Vol] 9.8 mg/dL Normal 8.6-10.2 [facility] Comment on above: Performed By: #### C BCAD, VITD, CMP, TSH reflex FT4 #### [facility] [address], [place] [id number] Chloride [Moles/Vol] 106 mmol/L Normal 98-107 [facility] Comment on above: Performed By: #### C BCAD, VITD, CMP, TSH reflex FT4 #### [facility] [address], [place] [id number] CO2 [Moles/Vol] 23 mmol/L Normal 20-31 [facility] Comment on above: Performed By: #### C BCAD, VITD, CMP, TSH reflex FT4 #### [facility] [address], [place] [id number] Creatinine [Mass/Vol] 0.7 mg/dL Normal 0.6-1.4 [facility] Comment on above: Performed By: #### C BCAD, VITD, CMP, TSH reflex FT4 #### [facility] [address], [place] [id number] eGFRAA 138 mL/min/1.73m2 Normal >60 [facility] Comment on above: Performed By: #### C BCAD, VITD, CMP, TSH reflex FT4 #### [facility] [address], [place] [id number] eGFRNAA 114 mL/min/1.73m2 Normal >60 [facility] Comment on above: Performed By: #### C BCAD, VITD, CMP, TSH reflex FT4 #### [facility] [address], [place] [id number] Globulin (S) [Mass/Vol] 2.1 g/dL Normal 1.9-3.7 [facility] [place] [facility] Comment on above: Performed By: #### C BCAD, VITD, CMP, TSH reflex FT4 #### [facility] [address], [place] [id number] Glucose [Mass/Vol] 83 mg/dL Normal 65-99 [facility] Comment on above: Result Comment: For FASTING Glucose --- ADA reference ranges: Normal 65-99 mg/dl Prediabetes 100-125 Diabetes >/= 126 Performed By: #### C BCAD, VITD, CMP, TSH reflex FT4 #### [facility] [address], [place] [id number] Potassium [Moles/Vol] 4.9 mmol/L Normal 3.5-5.5 [facility] Comment on above: Result Comment: Spec imen is hemolyzed. Results may be affected. Performed By: #### C BCAD, VITD, CMP, TSH reflex FT4 #### [facility] [address], [place] [id number] Protein [Mass/Vol] 7.2 g/dL Normal 6.1-8.1 [facility] Comment on above: Performed By: #### C BCAD, VITD, CMP, TSH reflex FT4 #### [facility] [address], [place] [id number] Sodium [Moles/Vol] 141 mmol/L Normal 135-146 [facility] Comment on above: Performed By: #### C BCAD, VITD, CMP, TSH reflex FT4 #### [facility] [address], [place] [id number] Urea nitrogen [Mass/Vol] 9 mg/dL Normal 7-25 [facility] Comment on above: Performed By: #### C BCAD, VITD, CMP, TSH reflex FT4 #### [facility] [address], [place] [id number] TSH w/ Reflex to Free T4on 0 - TSH 0.946 uIU/mL Normal 0.400-4.500 [facility] Comment on above: Performed By: #### C BCAD, VITD, CMP, TSH reflex FT4 #### [facility] [address], [place] [id number] Vitamin B12/Folateon 022 Cobalamin (Vitamin B12) [Mass/Vol] 339 pg/mL Normal 211-946 [facility] Comment on above: Performed By: #### B 12/Fol #### [facility] [address], [place] [id number] FOL 9.9 ng/mL Normal >4.7 [facility] Comment on above: Result Comment: Refe rence range change 08/21/2017. Prior reference range F 4.8-37.3 ng/mL, M 4.5-32.2 ng/mL. Performed By: #### B 12/Fol #### [facility] [address], [place] [id number] Vitamin D 25-OHon 12-24-2021 VIT D 25 OH 23 ng/ml Low >29 [facility] Comment on above: Result Comment: Leslee min D Status Deficiency <20 ng/mL Insufficiency 20-29 ng/mL Optimal 30-100 ng/mL Possible Toxicity >=150 ng/mL Performed By: #### C BCAD, VITD, CMP, TSH reflex FT4 #### [facility] [address], [place] [id number] CNOVon 09-01-2017 CNOV Office Visit (ORTPMN) ----RANDAL REDMOND ([id number]) [address] [facility] Citbuwyuat38/28/17 10:15 AM GILMER BENAVIDES ORTPMN During your visit today, we recorded the following information about you:Travis Ocasio MD 09/01/2017 11:05 AM Bri Redmond COMPLAINT: ScoliosisHISTORY: This is my first [...] tight periscapular,lumbar, and hamstring musculature.Signed: Travis Ocasio [facility] physician:Emeterio Benavides MD 09/01/2017 11:05 AM [...] 10 - AnaphylaxisDate Reviewed: 09/01/2017Reviewed by: Amna Fitch) VIV Gabriel - Fully AssessedReason for Visit: New Patient [172]Primary Visit Diagnosis:Adolescent idiopathic scoliosis of thoracolumbar region [M41.125] Other Visit Diagnosis:Chronic bilateral low back pain without sciatica [M54.5, G89.29]Prescriptions as of 09/01/2017 Sig: SERTRALINE 50 MG TABLET Take 50 mg by mouth once luh* MONTELUKAST 10 MG TABLET Take 10 mg by mouth daily at *Problem List As Of Date: 09/01/2017(None)[facility] Department of Pediatric Orthopaedic Surgery / [id number] [place], [place] [address]Jmzwxj: [phone] Appts.: [phone] Fax: [phone] [address]To Whom It May Concern:Randal Redmond was seen in my clinic on 09/01/2017, accompanied by her Mother.Please excuse this child from school for the time required for this physicianvisit.Please feel free to contact my office if you have any questions or concerns.Thank you for your assistance in this matter.Sincerely,Butch Burnett M. D. Status:Closed by GILMER BENAVIDES MD on 09/01/17 [facility] PROGRESSon 09-01-2017 PROGRESS HNO ID: [id number]: Gilmer BenavidesService: (none)Author Type: PhysicianType: Progress NotesFiled: 09/01/2017 11:05 AMNote Text:I have reviewed the history and physical obtained and documented by theresident and I personally participated in the sanchez components. I agree withthe findings and plan of care, with the additions contained within mydictation.Gilmer Benavides M.D. Normal [facility] PROGRESS HNO ID: [id number]: Travis (Res) SuraceService: (none)Author Type: ResidentType: Progress NotesFiled: 09/01/2017 [...] and hamstring musculature.Signed: Joel Morales physician:SELF Normal [facility] PROGRESS HNO ID: [id number]: Beverley Randhawa RtService: (none)Author Type: (none)Type: Progress NotesFiled: 09/01/2017 9:44 AMNote Text: Radiology Service Progress NotePATIENT NAME: Randal AllenDeepaRN: [id number] OF SERVICE: September 01, 2017TIME: 9:44 AMPATIENT IDENTITY VERIFICATION COMPLETED USING TWO (2) METHODS: Patientconfirmed name verbally and Date of .PATIENT GENDER DATA: Female. status: : NoBreastfeeding status: NO.PATIENT RELEVANT IMPLANT DATA REVIEWED: YesRADIOLOGY DEPARTMENT: General X-ray: Exam(s) Completed: Spine X-Ray(s):Scoliois SeriesPERIPHERAL IV DATA: Not applicableSIGNED BY: Beverley Randhawa RtNovember 2016 9:44 AM Normal [facility] XR SCOLIOSIS 2V PA STAND/LAT on [...] PERKINS MD on Sep 01 2017 10:54AM [id number] Normal [facility] Vital Signs Date Time Vital Sign Value Performing Clinician Facility 11-14-2023 13:45-0500 Body mass index (BMI) [Ratio] 26.31 kg/m2 Joyce Shah PA Work Phone: [facility] 11-14-2023 13:45-0500 Body temperature 98.01 [degF] Joyce Bermudezmer PA Work Phone: [facility] 11-14-2023 13:45-0500 Body weight 76.2 kg Joyce Shah PA Work Phone: [facility] 11-14-2023 13:45-0500 Diastolic blood pressure 70 mm[Hg] Joyce Shah PA Work Phone: [facility] 11-14-2023 13:45-0500 Heart rate 86 /min Joyce Hemmer PA Work Phone: [facility] 11-14-2023 13:45-0500 SaO2% (BldA) [Mass fraction] 99 % Joyce Hemmer PA Work Phone: [facility] 11-14-2023 13:45-0500 Systolic blood pressure 110 mm[Hg] Joyce Hemmer PA Work Phone: [facility] 10-27-2023 10:30-0500 Body height 167.64 cm Gilmer Mcgregor Other [facility] 10-27-2023 10:30-0500 Body mass index (BMI) [Ratio] 26.31 kg/m2 Gilmer Mcgregor Other [facility] Other 10-27-2023 10:30-0500 Body weight 73.94 kg Gilmer Mcgregor Other [facility] Other 10-27-2023 10:30-0500 Body weight 73.93 kg MD Jaymie Morris Work Phone: [facility] 10-27-2023 10:30-0500 Diastolic blood pressure 85 mm[Hg] Gilmer Mcgregor Other [facility] 10-27-2023 10:30-0500 SaO2% (BldA) [Mass fraction] 100 % Gilmer Mcgregor Other [facility] Other 10-27-2023 10:30-0500 Systolic blood pressure 128 mm[Hg] Gilmer Mcgregor Other [facility] 12-17-2022 18:45-0400 Body height 167.64 cm MD Jaymie Morris Work Phone: [facility] 12-17-2022 18:45-0400 Body temperature 97.8 [degF] MD Jaymie Morris Work Phone: [facility] 12-17-2022 18:45-0400 Body weight 70.3 kg MD Jaymie Morris Work Phone: [facility] 12-17-2022 18:45-0400 Diastolic blood pressure 92 mm[Hg] MD Jaymie Morris Work Phone: [facility] 12-17-2022 18:45-0400 Heart rate 104 /min MD Jaymie Morris Work Phone: [facility] 12-17-2022 18:45-0400 Respiratory rate 20 /min MD Jaymie Morris Work Phone: [facility] 12-17-2022 18:45-0400 SaO2% (BldA) [Mass fraction] 99 % MD Jaymie Morris Work Phone: [facility] 12-17-2022 18:45-0400 Systolic blood pressure 143 mm[Hg] MD Jaymie Morris Work Phone: [facility] 12-12-2022 12:44-0500 Body height 167.64 cm MD Jamyie Morris Work Phone: [facility] 12-12-2022 12:44-0500 Body temperature 98.8 [degF] MD Jaymie Morris Work Phone: [facility] 12-12-2022 12:44-0500 Body weight 68.49 kg MD Jaymie Morris Work Phone: [facility] 12-12-2022 12:44-0500 Diastolic blood pressure 95 mm[Hg] MD Jaymie Morris Work Phone: [facility] 12-12-2022 12:44-0500 Heart rate 107 /min MD Jaymie Morris Work Phone: [facility] 12-12-2022 12:44-0500 Respiratory rate 18 /min MD Jaymie Morris Work Phone: [facility] 12-12-2022 12:44-0500 SaO2% (BldA) [Mass fraction] 97 % MD Jaymie Morris Work Phone: [facility] 12-12-2022 12:44-0500 Systolic blood pressure 140 mm[Hg] MD Jaymie Mroris Work Phone: [facility] 09-12-2022 15:30-0500 Body temperature 98 [degF] MD Jaymie Morris Work Phone: [facility] 09-12-2022 15:30-0500 Diastolic blood pressure 82 mm[Hg] MD Jaymie Morris Work Phone: [facility] 09-12-2022 15:30-0500 Heart rate 82 /min MD Jaymie Morris Work Phone: [facility] 09-12-2022 15:30-0500 Respiratory rate 18 /min MD Jaymie Morris Work Phone: [facility] 09-12-2022 15:30-0500 SaO2% (BldA) [Mass fraction] 100 % MD Jaymie Morris Work Phone: [facility] 09-12-2022 15:30-0500 Systolic blood pressure 140 mm[Hg] MD Jaymie Morris Work Phone: [facility] 09-10-2022 21:52-0500 Body weight 85.72 kg MD Jaymie Morris Work Phone: [facility] 09-10-2022 21:07-0500 Body height 170.18 cm MD Jaymie Morris Work Phone: [facility] 06-24-2022 13:31-0400 Body temperature 98.1 [degF] MD Jaymie Morris Work Phone: [facility] 06-24-2022 13:31-0400 Diastolic blood pressure 78 mm[Hg] MD Jaymie Morris Work Phone: [facility] 06-24-2022 13:31-0400 Heart rate 84 /min MD Jaymie Morris Work Phone: [facility] 06-24-2022 13:31-0400 Respiratory rate 18 /min MD Jaymie Morris Work Phone: [facility] 06-24-2022 13:31-0400 SaO2% (BldA) [Mass fraction] 100 % MD Jaymie Morris Work Phone: [facility] 06-24-2022 13:31-0400 Systolic blood pressure 119 mm[Hg] MD Jaymie Morris Work Phone: [facility] 04-14-2022 18:10-0400 Diastolic blood pressure 69 mm[Hg] MD Jaymie Morris Work Phone: [facility] 04-14-2022 18:10-0400 Heart rate 82 /min MD Jaymie Morris Work Phone: [facility] 04-14-2022 18:10-0400 Respiratory rate 16 /min MD Jaymie Morris Work Phone: [facility] 04-14-2022 18:10-0400 SaO2% (BldA) [Mass fraction] 98 % MD Jaymie Morris Work Phone: [facility] 04-14-2022 18:10-0400 Systolic blood pressure 122 mm[Hg] MD Jaymie Morris Work Phone: [facility] 04-14-2022 13:59-0400 Body temperature 98.1 [degF] MD Jaymie Morris Work Phone: [facility] 04-14-2022 13:56-0400 Body height 170.18 cm MD Jaymie Morris Work Phone: [facility] 04-14-2022 13:56-0400 Body mass index (BMI) [Ratio] 24.7 kg/m2 MD Jaymie Morris Work Phone: [facility] 04-14-2022 13:56-0400 Body weight 71.65 kg MD Jaymie Morris Work Phone: [facility] Encounters Encounter Date Encounter Type Care Provider Facility Start: 02-18-2024 End: 02-18-2024 ambulatory DAVID RAYO Not Available Start: 01-21-2024 End: 01-21-2024 ambulatory ALEXEI RODRIGUEZO Not Available Start: 01-19-2024 End: 01-19-2024 ambulatory Alexei Nuvia Facility:[facility] Start: 01-19-2024 End: 01-19-2024 ambulatory MD Jaymie Morris Work Phone: [facility] Work Phone: Start: 01-19-2024 End: 01-19-2024 Departed Referred MD Jaymie Morris Work Phone: [facility] Start: 12-24-2023 End: 12-24-2023 ambulatory SADE BRAXTON Not Available Start: 12-10-2023 End: 12-10-2023 ambulatory JAYMIE MORRIS Not Available Start: 12-09-2023 End: 12-09-2023 ambulatory ASHLEY WATSON Not Available Start: 11-25-2023 End: 11-25-2023 ambulatory Jaymie Morris Facility:[facility] Start: 11-25-2023 End: 11-25-2023 ambulatory MD Jaymie Morris Work Phone: [facility] Work Phone: Start: 11-25-2023 End: 11-25-2023 Patient encounter procedure MD Jaymie Morris Work Phone: [facility] [place] Work Phone: Start: 11-14-2023 End: 11-14-2023 ambulatory JOYCE SHAH Not Available Start: 11-14-2023 End: 11-14-2023 Office outpatient visit 15 minutes Joyce Shah PA Work Phone: [facility] Comment on above: Acute bacterial conj unctivitis of both eyes (Primary Dx) Start: 11-10-2023 Bamboo flowsheet David Pro amanr , IBCLC Work Phone: [facility] Start: 11-10-2023 Bamboo flowsheet David Pro amanr , IBCLC Work Phone: [facility] Start: 11-10-2023 End: 11-10-2023 ambulatory DAVID OCTAVIA Not Available Start: 10-28-2023 End: 10-28-2023 ambulatory ASHLEY WATSON Not Available Start: 10-27-2023 Office outpatient vi sit 25 minutes Gilmer Mcgregor [facility] Start: 10-27-2023 End: 10-27-2023 ambulatory MD Jaymie Morris Work Phone: [facility] Other Start: 10-27-2023 End: 10-27-2023 Patient encounter procedure MD Jaymie Morris Work Phone: [facility]Sleep Lab Work Phone: Start: 10-27-2023 End: 10-27-2023 Patient encounter procedure MD Jaymie Morris Work Phone: [facility]- Start: 10-22-2023 End: 10-22-2023 ambulatory JAYMIE M DIANAVERTIS Not Available Start: 10-01-2023 End: 10-01-2023 ambulatory JAYMIE M DIANAVERTIS Not Available Start: 09-10-2023 End: 09-10-2023 ambulatory JAYMIE M KETVERTIS Not Available Start: 09-02-2023 End: 09-02-2023 ambulatory KERRI Winter WORKMAN Not Available Start: 08-31-2023 End: 08-31-2023 ambulatory ASHLEY WATSON Not Available Start: 07-21-2023 End: 07-21-2023 ambulatory Jaymie Ketvertis Facility:[facility] Start: 07-21-2023 End: 07-21-2023 ambulatory MD Jaymie Morris Work Phone: [facility] Work Phone: Start: 07-21-2023 End: 07-21-2023 Patient encounter procedure MD Jaymie Morris Work Phone: [facility]-Flu Vaccine Start: 02-27-2023 End: 02-27-[address] DOCTOR AUGUSTIN Facility: Start: 12-17-2022 End: 12-17-2022 Emergency department patient visit MD Jaymie Morris Work Phone: [facility]-Emergency Room Work Phone: Start: 12-12-2022 End: 12-12-2022 Emergency department patient visit MD Jaymie Morris Work Phone: [facility]-Emergency Room Work Phone: Start: 09-10-2022 End: 09-12-2022 Evaluation and management of inpatient MD Jaymie Morris Work Phone: [facility]-[address] Start: 08-13-2022 End: 08-13-2022 ambulatory MD Jaymie Morris Work Phone: [facility] Work Phone: Start: 08-13-2022 End: 08-13-2022 Departed Referred MD Jaymie Morris Work Phone: [facility] [place] Start: 06-24-2022 End: 06-24-2022 Patient encounter procedure MD Jaymie Morris Work Phone: [facility] [place] Start: 04-16-2022 End: 04-16-2022 Patient encounter procedure MD Jaymie Morris Work Phone: [facility]-Electrodiagnostics Start: 04-14-2022 End: 04-14-2022 Emergency department patient visit MD Jaymie Morris Work Phone: [facility]-Emergency Room Start: 09-01-2017 End: 09-01-2017 Ambulatory GILMER BENAVIDES [facility] Procedures Date Procedure Procedure Detail Performing Clinician Streptococcus agalactiae culture MD Jaymie Morris Work Phone: Urine culture MD Jaymie moreno Work Phone: Plan of Treatment Date Care Activity Detail Author Start: 09-05-2024 End: 09-05-2024 Patient encounter procedure 09/05/2024 9:45 AM EST Office Visit [facility] [address] [address] Ashley Watson, DO [address] [place] [address] [facility] Start: 07-14-2024 End: 07-14-2024 Patient encounter procedure 07/14/2024 10:20 AM EDT Office Visit [facility] [address] [place] [id number] Preet Barrios MD [address] [place] [address] [facility] Start: 12-15-2023 End: 12-15-2023 Patient encounter procedure 12/15/2023 9:40 AM EDT Office Visit [facility] [address] [place] [id number] Jaymie Morris MD [address] [place] [address] [facility] Start: 12-09-2023 End: 12-09-2023 Patient encounter procedure 12/09/2023 10:00 AM EST Office Visit [facility] [address] [address] Ashley Watson, DO [address] [place] [address] [facility] Start: 09-12-2022 [facility] Start: 09-10-2022 [facility] Group B Streptococcu s Culture Group B Streptococcus Culture [facility] Patient Education [facility] Work Phone: Patient referral [facility] Work Phone: Immunizations Immunization Date Immunization Notes Care Provider Fa cili 07-21-2023 influenza, injectabl e, quadrivalent, preservative free David Rayo MD, IBCLC Work Phone: [facility] 04-15-2023 SARS-COV-2 (COVID-19 ) vaccine, mRNA, spike protein, LNP, bivalent, preservative free, 30 mcg/0.3 mL dose, walt-sucrose formulation David Rayo MD, IBCLC Work Phone: [facility] 12-08-2019 tetanus toxoid, redu mishel diphtheria toxoid, and acellular pertussis vaccine, adsorbed MD Jaymie Morris Work Phone: [facility] 06-01-2017 meningococcal oligosaccharide (groups A, C, Y and W-135) diphtheria toxoid conjugate vaccine (MCV4O) David Rayo MD, IBCLC Work Phone: [facility] 07-15-2012 influenza, seasonal, injectable, preservative free David Rayo MD, IBCLC Work Phone: [facility] 07-15-2012 meningococcal polysaccharide (groups A, C, Y and W-135) diphtheria toxoid conjugate vaccine (MCV4P) David Rayo MD, IBCLC Work Phone: [facility] 07-15-2012 tetanus toxoid, redu mishel diphtheria toxoid, and acellular pertussis vaccine, adsorbed David Rayo MD, IBCLC Work Phone: [facility] 05-23-2004 diphtheria, tetanus toxoids and acellular pertussis vaccine David Rayo MD, IBCLC Work Phone: [facility] 05-23-2004 poliovirus vaccine, inactivated David Rayo MD, IBCLC Work Phone: [facility] 06-03-2001 measles, mumps and rubella virus vaccine David Rayo MD, IBCLC Work Phone: [facility] 06-03-2001 poliovirus vaccine, unspecified formulation David Rayo MD, IBCLC Work Phone: [facility] 06-03-2001 varicella virus vaccine Waldo Rayo MD, IBCLC Work Phone: [facility] 03-04-2001 hepatitis B vaccine, pediatric or pediatric/adolescent dosage David Rayo MD, IBCLC Work Phone: [facility] 06-04-2000 diphtheria, tetanus toxoids and acellular pertussis vaccine, unspecified formulation David Rayo MD, IBCLC Work Phone: [facility] 06-04-2000 haemophilus influenz ae type b vaccine, conjugate unspecified formulation David Rayo MD, IBCLC Work Phone: [facility] 06-04-2000 measles, mumps and rubella virus vaccine David Rayo MD, IBCLC Work Phone: [facility] 06-04-2000 varicella virus vaccine Waldo Rayo MD, IBCLC Work Phone: [facility] 1999 diphtheria, tetanus toxoids and acellular pertussis vaccine, unspecified formulation David Rayo MD, IBCLC Work Phone: [facility] 1999 haemophilus influenz ae type b vaccine, conjugate unspecified formulation David Rayo MD, IBCLC Work Phone: [facility] 1999 diphtheria, tetanus toxoids and acellular pertussis vaccine, unspecified formulation David Rayo MD, IBCLC Work Phone: [facility] 1999 haemophilus influenz ae type b vaccine, conjugate unspecified formulation David Rayo MD, IBCLC Work Phone: [facility] 1999 hepatitis B vaccine, pediatric or pediatric/adolescent dosage David Rayo MD, IBCLC Work Phone: [facility] 1999 poliovirus vaccine, unspecified formulation David Rayo MD, IBCLC Work Phone: [facility] 1999 diphtheria, tetanus toxoids and acellular pertussis vaccine, unspecified formulation David Rayo MD, IBCLC Work Phone: [facility] 1999 haemophilus influenz ae type b vaccine, conjugate unspecified formulation David Rayo MD, IBCLC Work Phone: [facility] 1999 hepatitis B vaccine, pediatric or pediatric/adolescent dosage David Rayo MD, IBCLC Work Phone: [facility] 1999 poliovirus vaccine, unspecified formulation David Rayo MD, IBCLC Work Phone: [facility] Payers Date Payer Category Payer Self-pay [id number] 2022 Medicaid [id number] 2022 Medicaid [employer] BCBS [facility] ANTH BCBS MEDICA[place] [id number] 2022-Present [address] [place] [address] [id number] 2020 Unknown [id number] [id number] 2010 Unknown BCBS BCBS [id number] 2010-Present [phone] [address] [place] [address] [id number]. [id number] 1999 Unknown [id number] 2.16.840.1.271570.3.579.2.593 1999 Unknown [id number] 2.16.840.1.754983.3.579.2.1259 1999 Unknown [id number] 2.16.840.1.996895.3.579.2.1259 1999 Unknown [id number] 2.16.840.1.301128.3.579.2.1258 1999 Unknown [id number] 2.16.840.1.439114.3.579.2.1258 1999 Unknown [id number] 2.16.840.1.262980.3.579.2.1258 1999 Unknown [id number] 2.16.840.1.544334.3.579.2.1258 1999 Unknown [id number] 2.16.840.1.161838.3.579.2.1258 1999 Unknown [id number] 2.16.840.1.066882.3.579.2.1258 1999 Unknown [id number] 2.16.840.1.857735.3.579.2.1258 1999 Unknown [id number] 2.16.840.1.431804.3.579.2.125 1999 Unknown [id number] 2.16.840.1.209860.3.579.2.1258 1999 Unknown [id number] 2.16.840.1.767181.3.579.2.1258 1999 Unknown [id number] 2.16.840.1.211108.3.579.2.1259 1959 Unknown [id number] Medicaid [employer] [id number] Medicaid [place] Ad[employer] [id number] [facility] [id number] Unknown [id number] 2.16.840.1.777918.3.579.2.531 Unknown [id number] 2.16.840.1.353170.3.579.2.531 Unknown [id number] 2.16.840.1.540122.3.579.2.531 Unknown [id number] 2.16.840.1.519419.3.579.2.531 Social History Date Type Detail Facility Start: 04-14-2022 End: 12-17-2022 Tobacco smoking status NHIS Never smoked tobacco (finding) [facility] Start: 2000 Sex Assigned At Female [facility] Start: 03-27-2023 End: 11-10-2023 Sex [...] To some extent [facility] (I/We) worried whehoda er (my/our) food would run out before [...] 09-12-2022 Functional status Patient at Baseline [facility] Work Phone: Mental Status Date Assessment Result Facility 09-12-2022 Cognitive function Cognitive Sta tus Patient at Baseline [facility] Work Phone: History of Present illness Narrative 11-14-2023 Joyce Shah, CATRACHITA - 11/14/2023 1:40 PM EST Note Date [...] Refill albuterol HFA 90 mcg/act inhaler Q6H mgwfuttrah-[id number]-[id number] (Fioricet) 50-300-40 MG capsule take 1 capsule [...] Dizziness, Itching, Runny nose, Swelling and Wheezing [place] Flavor Unknown Pollen Extract Unknown Social History [...] Acute bacterial conjunctivitis of both eyes - rswvfqlx-hdsijuqhn-gdxQSJQYjhdrb (Maxitrol) 0.1 % ophthalmic suspension; Administer 1 [...] plenty of rest. documented in this encounter [facility] Evaluation note 10-27-2023 Note Date & [...] anxiety nor bipolar symptoms worsen with treatment [facility] Other Procedure note 09-11-2022 Note Date & Type Note Facility 09-11-2022 Procedure note [facility] Evaluation note Note Date & Type Note Facility Evaluation note No assessment information availa [facility] Work Phone: Evaluation note Note Date & Type Note Facility Evaluation note Diagnosis Acute bacterial conjunctivitis of both eyes- Primary documented in this encounter [facility] History general Narrative - Reported Note Date & Type Note Facility History general Narrative - Reported Type Medical History Anxiety Medical History narcolepsy with cataplexy (2019, 4 REM naps) [facility] Other Hospital Discharge instructions Note Date & Type Note Facility Hospital Discharge instructions [facility] Work Phone: Summary Purpose Family History No [...] g47.411 Chief Complaint g47.411 r63.5 g43.101 f41.9 Chief Complaint g47.411 r63.5 g43.101 f41.9 Unknown Additional Source Comments INFORMATION SOURCE (unrecogn ized section and content) DATE CREATED AUTHOR 03/30/2018 [facility] DATE CREATED AUTHOR AUTHOR'S ORGANIZ ATION 12/25/2021 [facility] DATE CREATED AUTHOR AUTHOR'S ORGANIZ ATION 03/15/2023 [facility] DATE CREATED AUTHOR AUTHOR'S ORGANIZ ATION 01/28/2024 [facility] DATE CREATED AUTHOR AUTHOR'S ORGANIZ ATION 02/21/2024 [facility] d[facility] Specialists EPIC Care Teams (unrecognized sec [...] Primary Care Provider Active Bay Reyes DO [facility] Attending Provider Active Team Status: Inactive Member Role Status Dates Jaymie Morris MD Primary Care Provider Active Start: October 27, 2023 End: October 27, 2023 Gilmer Mcgregor MD Attending Provider Active S tart: October 27, 2023 End: October 27, 2023 David Rayo MD Referring Provider Active Start: October 27, 2023 End: October 27, 2023 Mobile Application Development Lead Relationship Specialty Start Date End Date Jaymie Morris MD [address] [place] [address] PCP - General Family Medicine 04/01/23 [employer] Development Lead Relationship Specialty Start Date End Date Jaymie Morris MD [address] [id number] PCP - General Family Medicine 04/01/23 Team [...] November 25, 2023 End: November 25, 2023 Team Status: Inactive Member Role Status Dates Jaymie Morris MD Primary Care Provider Active Start: January 19, 2024 End: January 19, 2024 Alexei Pedersen Attending Provider Active Start: 2023 End: January 19, 2024 Goals (unrecognized section and content) Goals may [...] BE BASED ON THE PRIMARY CLINICAL RECORDS. [employer] provides no warranty or guarantee of the accuracy or completeness of information in this document.
[2024-04-03 06:24] VITALS: BP 146/101; PULSE 105; TEMP 37; O2SAT 96; BMI 25.8
[2024-04-03 06:51] VITALS: BP 134/103; PULSE 103; TEMP 36.9; O2SAT 99; BMI 25.8
--- NOTE | 2024-04-03 07:16 | ED_ITS ---
HPI - Abdominal Pain General Chief Complaint: Abdominal Pain Stated Complaint: abd pain Time Seen by Provider: 04/03/24 07:05 Source: patient Mode of arrival: walk-in Limitations: no limitations History of Present Illness HPI narrative: 23-year female presents for abdominal pain. She states she developed this epigastric area cramping last night at about 6 PM. During the night she started vomiting. No constipation or diarrhea or injury. No fever or hematemesis. She has never had pain like this in that area of her abdomen. It has been continuous. Related Data Home Medications ?Medication ?Instructions ?Recorded ?Confirmed cetirizine 10 mg tablet (24Hour 10 mg PO DAILY PRN allergy symptoms 10/08/23 04/03/24 Allergy) lamotrigine 100 mg tablet 50 mg PO BID 10/08/23 04/03/24 (Lamictal) venlafaxine 150 mg 150 mg PO DAILY 10/08/23 04/03/24 capsule,extended release 24 hr (Effexor XR) Previous Rx's ?Medication ?Instructions ?Recorded albuterol sulfate 90 mcg/actuation 2 inh inhalation Q4H PRN shortness 10/08/23 aerosol inhaler of breath or wheezing #8.5 grams albuterol sulfate 90 mcg/actuation 2 inh inhalation Q4H PRN shortness 01/03/24 aerosol inhaler of breath or wheezing #8.5 grams esomeprazole magnesium 20 mg 20 mg PO DAILY #10 caps 04/03/24 capsule,delayed release (Nexium) ondansetron 4 mg disintegrating 4 mg PO Q6H PRN nausea and 04/03/24 tablet vomiting #20 tabs Allergies Allergy/AdvReac Type Severity Reaction Status Date / Time iodine Allergy Unknown Verified 04/03/24 06:28 Review of Systems ROS Narrative A ten point review of systems is negative except as noted above. PFSH PFSH Social History Smoking status: Former smoker Highest level of school completed/degree received: high school graduate Do you think of yourself as: straight/heterosexual Gender Identity: female Exam Narrative Exam Narrative: Nurses note and vital signs reviewed and patient is not hypoxic. General: The patient appears well and in no apparent distress. Patient is resting comfortably on cart. Skin: Warm, dry, no pallor noted. There is no rash noted. Head: Normocephalic, atraumatic Eye: Normal conjunctiva, no drainage Ears, Nose, Mouth, and Throat: oral mucosa is moist. Nares patent. Cardiovascular: Regular Rate and Rhythm Respiratory: Patient is in no distress, no accessory muscle use, lungs are clear to auscultation, no wheezing, rales or rhonchi Back: non-tender GI: Soft and nondistended. Mild tenderness in the epigastric area going into the right upper quadrant. No masses. Musculoskeletal: The patient has no evidence of calf tenderness, no pitting edema, symmetrical pulses noted bilaterally Neurological: A&O, normal speech Psychiatric: Cooperative Constitutional Vital Signs, click to edit/add: Last Vital Signs Temp 98.5 F 04/03/24 06:51 Pulse 86 04/03/24 08:40 Resp 18 04/03/24 08:40 BP 130/86 04/03/24 08:15 Pulse Ox 99 04/03/24 08:40 Course Vital Signs Vital signs: Vital Signs Temperature 98.6 F 04/03/24 06:24 Pulse Rate 105 H 04/03/24 06:24 Respiratory Rate 16 04/03/24 06:24 Blood Pressure 146/101 H 04/03/24 06:24 Pulse Oximetry 96 04/03/24 06:24 Temperature 98.5 F 04/03/24 06:51 Pulse Rate 86 04/03/24 08:40 Respiratory Rate 18 04/03/24 08:40 Blood Pressure 130/86 04/03/24 08:15 Pulse Oximetry 99 04/03/24 08:40 MDM - Abdominal Pain MDM Narrative Medical decision making narrative: Her workup is negative. She is feeling much improved after being given Pepcid and Zofran. She will be discharged home on Nexium and Zofran and will follow-up with her doctor if symptoms recur or persist. The possibility of gallbladder disease was discussed with the patient. Differential Diagnosis Differential diagnosis: Likely abdominal pain, gastroenteritis, pancreatitis and other (Biliary colic) Lab Data Attestation: I reviewed the patient's lab results. Labs: Lab Results 04/03/24 Range/Units 07:08 WBC 11.6 H (4.0-11.0) 10^3/uL RBC 5.08 (4.20-5.40) 10^6/uL Hgb 13.2 (12.0-16.0) g/dL Hct 41.3 (36.0-48.0) % MCV 81.3 (81.0-99.0) fL MCH 26.0 L (26.7-34.0) pg MCHC 32.0 (29.9-35.2) g/dL RDW 13.1 (11.0-15.0) % Plt Count 322 (150-450) 10^3/uL MPV 11.3 (9.5-13.5) fL Neut % (Auto) 90.6 H (43.0-75.0) % Lymph % (Auto) 5.6 L (20.5-60.0) % [place] % (Auto) 3.0 (1.7-12.0) % Eos % (Auto) 0.2 L (0.9-7.0) % Baso % (Auto) 0.3 (0.2-2.0) % Neut # (Auto) 10.5 H (1.4-6.5) 10^3/uL Lymph # (Auto) 0.7 L (1.2-3.8) 10^3/uL [place] # (Auto) 0.4 (0.3-0.8) 10^3/uL Eos # (Auto) 0.0 (0.0-0.7) 10^3/uL Baso # (Auto) 0.0 (0.0-0.1) 10^3/uL Abs Immat Gran (auto) 0.03 (0.00-0.03) 10^3/uL Imm/Tot Granulo (auto) 0.3 (0.0-0.5) % Sodium 139 (136-145) mmol/L Potassium 3.8 (3.5-5.1) mmol/L Chloride 103 (98-107) mmol/L Carbon Dioxide 26.5 (21.0-32.0) mmol/L Anion Gap 13.3 BUN 13.0 (7.0-18.0) mg/dL Creatinine 0.75 (0.55-1.02) mg/dL Est GFR ( Amer) >60 (>=60) Est GFR (Non-Af Amer) >60 (>=60) BUN/Creatinine Ratio 17.3 Glucose 122 H (74-106) mg/dL Calcium 9.1 (8.5-10.1) mg/dL Total Bilirubin 0.5 (0.2-1.0) mg/dL Direct Bilirubin 0.1 (0.0-0.2) mg/dL AST 15 (15-37) U/L ALT 16 (14-59) U/L Alkaline Phosphatase 95 (46-116) U/L Total Protein 7.9 (6.4-8.2) g/dL Albumin 4.2 (3.4-5.0) g/dL Globulin 3.7 g/dL Albumin/Globulin Ratio 1.1 Amylase 58 (25-115) U/L Lipase 23.0 (16.0-77.0) U/L Serum HCG, Qual Negative (NEGATIVE) Discharge Plan Discharge Stand Alone Forms: Portal Instructions Chief Complaint: Abdominal Pain Clinical Impression: Abdominal pain Patient Disposition: Home, Self-Care Time of Disposition Decision: 08:40 Condition: Good Mode of Transportation: Private Vehicle Prescriptions / Home Meds: New ondansetron 4 mg tablet,disintegrating 4 mg PO Q6H PRN (Reason: nausea and vomiting) Qty: 20 0RF esomeprazole magnesium [Nexium] 20 mg capsule,delayed release(DR/EC) 20 mg PO DAILY Qty: 10 0RF No Action lamotrigine [Lamictal] 100 mg tablet 50 mg PO BID venlafaxine [Effexor XR] 150 mg capsule,extended release 24hr 150 mg PO DAILY cetirizine [24Hour Allergy] 10 mg tablet 10 mg PO DAILY PRN (Reason: allergy symptoms) Patient Comments: TAKES DAILY albuterol sulfate 90 mcg/actuation HFA aerosol inhaler 2 inh inhalation Q4H PRN (Reason: shortness of breath or wheezing) Qty: 8.5 0RF albuterol sulfate 90 mcg/actuation HFA aerosol inhaler 2 inh inhalation Q4H PRN (Reason: shortness of breath or wheezing) Qty: 8.5 0RF Print Language: Kiswahili Instructions: Abdominal Pain (ED) Referrals: JAYMIE BENNETT [Primary Care Provider] - 1 week
[2024-04-03] MEDS: ONDANSETRON PF 4 MG/2 ML VIAL IV (07:20)
[2024-04-03 07:21] LABS: Basophils Percent Auto 0.3 % (0.2-2.0); Eosinophils Percent Auto 0.2 % (0.9-7.0); Hematocrit 41.3 % (36.0-48.0); Hemoglobin 13.2 g/dL (12.0-16.0); Immature Granulocytes Abs Auto 0.03 10^3/uL (0.00-0.03); Immature Granulocytes Pct Auto 0.3 % (0.0-0.5); Lymphocytes Absolute Auto 0.7 10^3/uL (1.2-3.8); Lymphocytes Percent Auto 5.6 % (20.5-60.0); Mean Corpuscular Volume 81.3 fL (81.0-99.0); Mean Platelet Volume 11.3 fL (9.5-13.5); Monocytes Absolute Auto 0.4 10^3/uL (0.3-0.8); Neutrophils Absolute Auto 10.5 10^3/uL (1.4-6.5); Neutrophils Percent Auto 90.6 % (43.0-75.0); Platelet Count 322 10^3/uL (150-450); Red Blood Count 5.08 10^6/uL (4.20-5.40); Red Cell Distribution Width 13.1 % (11.0-15.0); White Blood Count 11.6 10^3/uL (4.0-11.0)
[2024-04-03] MEDS: 0.9 % SODIUM CHLORIDE 1,000 ML 1000 ML IV (07:21)
[2024-04-03 07:42] LABS: HCG Qualitative NEGATIVE (NEGATIVE); Internal Control Within Normal Limits
[2024-04-03 07:48] LABS: Alanine Aminotransferase 16 U/L (14-59); Albumin Globulin Ratio 1.1; Albumin Level 4.2 g/dL (3.4-5.0); Alkaline Phosphatase 95 U/L (46-116); Amylase 58 U/L (25-115); Anion Gap 13.3; Aspartate Amino Transferase 15 U/L (15-37); BUN Creatinine Ratio 17.3; Bilirubin Direct 0.1 mg/dL (0.0-0.2); Bilirubin Total 0.5 mg/dL (0.2-1.0); Calcium 9.1 mg/dL (8.5-10.1); Carbon Dioxide 26.5 mmol/L (21.0-32.0); Chloride 103 mmol/L (98-107); Estimated GFR (African America >60 (>=60); Estimated GFR (Non-African Ame >60 (>=60); Globulin 3.7 g/dL; Glucose 122 mg/dL (74-106); Potassium 3.8 mmol/L (3.5-5.1); Sodium 139 mmol/L (136-145); Total Protein 7.9 g/dL (6.4-8.2)
[2024-04-03 08:15] VITALS: BP 130/86; PULSE 88; O2SAT 99
[2024-04-03] MEDS: FAMOTIDINE/PF 20 MG/2 ML VIAL IV (08:35)
[2024-04-03 08:40] VITALS: PULSE 86; O2SAT 99
== END 2024-04-03 08:50 | disposition home or self-care (01) ==
PROVIDERS: Emergency Provider Emergency Medicine; PCP Family Medicine
DX: R10.9 Unspecified abdominal pain (principal); Z87.891 Personal history of nicotine dependence
CPT/HCPCS: 36415; 80048; 80076; 82150; 83690; 84703; 85025; 96361; 96374; 96375; 99284; J2405

== ENCOUNTER 2024-07-13 21:14 | Outpatient (REF) | payer BC, MEDICAID, SELFPAY ==
--- OUTSIDE RECORDS SUMMARY | 2024-07-13 21:20 | XMS_ITS | CCD ---
Author Organization [facility] Care Team Providers Care Clinical Engineering Manager Name Role Phone GILMER BENAVIDES Unavailable Unavailable GILMER BENAVIDES Unavailable Unavailable MD Jaymie Morris Primary Care Provider [phone] TUAN [place] Emergency Provider MD Jaymie Morris Attending Provider [phone] DO Ashley Watson Attending Provider [phone] MD Jaymie Morris Primary Care Provider DO Ashley Watson Attending Provider [phone] DO Ashley Watson Admit Provider MD Jaymie Morris Primary Care Provider JOHNSON Skinner Emergency Provider [phone] MD Jaymie Morris Primary Care Provider JOHNSON Skinner Emergency Provider TUAN Martin Emergency Provider DR SAYRA AUGUSTIN Primary Care Unavailable SCOTT WILKINSON Attending Unavailable SCOTT WILKINSON Consulting Unavailable SCOTT WILKINSON Admitting Unavailable MD Jaymie Morris Primary Care Provider DO Bay Reyes Attending Provider [phone] Gilmer Mcgregor Unavailable MD Jaymie Morris Primary Care Provider MD Gilmer Mcgregor Attending Provider [phone] MD David Rayo Referring Provider Jaymie Morris MD Primary Care Provider DO Govind Barry Attending Provider MD Jaymie Morris Referring Provider [phone] MD Jaymie Morris Primary Care Provider [phone] MD Gilmer Mcgregor Attending Provider [phone] MD David Rayo Referring Provider [phone] DO Govind Barry Attending Provider MD Jaymie Morris Referring Provider [phone] Alexei Pedersen Attending Provider JAYMIE MORRIS Attending Unavailable JAYMIE MORRIS Attending Unavailable ASHLEY WATSON Attending Unavailable ASHLEY WATSON Referring Unavailable PERRIDAVID Attending Unavailable JOYCE SHAH Attending Unavailable NATASHLEY STYLES Attending Unavailable JAYMIE MORRIS Attending Unavailable SADE BRAXTON Attending Unavailable ASHLEY WATSON Attending Unavailable ALEXEI PEDERSEN Attending Unavailable KERRI NO Attending Unavailable DAVID RAYO Attending Unavailable JAYMIE MORRIS Attending Unavailable DAVID RAYO Attending Unavailable MD Jaymie Morris Primary Care Provider DO Alexei Pedersen Attending Provider MD David Rayo Attending Provider Gilmer Mcgregor Attending Unavailable David Rayo Referring Unavailable Coravertis, Jaymie Primary Care Unavailable Gilmer Mcgregor Admitting Unavailable Coravertis, Jaymie Referring Unavailable Govind Barry Admitting Unavailable Govind Barry Attending Unavailable Coravertis, Jaymie Primary Care Unavailable Alexei Pedersen Admitting Unavailable Alexei Pedersen Attending Unavailable Ketvertis, Jaymie Primary Care Unavailable David Rayo Admitting Unavailable PerriDavid ge Attending Unavailable Ketvertis, Jaymie Primary Care Unavailable Ketvertis, Jaymie Primary Care Unavailable [facility], [place] P Admitting Unavailable Kuns - [facility] [place] Attending Unavailable Alexei Pedersen Admitting Unavailable Alexei Pedersen Attending Unavailable Ketvertis, Jaymie Primary Care Unavailable Allergies Allergy Classification Reported Allergen(s) Allergy Type Date of Onset Reaction(s) Facility (15 sources) Iodine; Translations: [iodine] Drug Allergy 2 Unknown [facility] (11 sources) Shellfish; Translations: [shellfish derived] Allergy to substance 2 Swelling of Lip/Tongue/Thr oat [facility] (1 source) Shellfish Propensity to adverse reactions Unknown [facility] Other (3 sources) Apple extract Drug Allergy 3 Unknown [facility] (3 sources) Kiwi fruit Propensity to adverse reactions 3 Dizziness, Itching, Runny nose, Swelling, Wheezing [facility] (3 sources) Pollen Allergy to substance 3 Unknown [facility] (3 sources) Dog Epithelium Allergy Skin Test Allergy to substance 3 Unknown [facility] (3 sources) Vigo Flavor Allergy to substance 3 Unknown [facility] (3 sources) Shellfish-Deriv ed Products Drug Allergy 5 Anaphylaxis, Hives, Itching, Runny nose, Shortness of breath, Swelling, Unknown, Wheezing [facility] (1 source) Shellfish Allergy to substance 3 [facility] Medications Current Medications Medication Drug Class(es) Dates Sig (Normalized) Sig (Original) acetaminophen 300 mg / butalbital 50 mg / caffeine 40 mg oral capsule (9 sources) Barbiturate, Central Nervous System Stimulant, Methylxanthine Start: 12-17-2022 take 1 capsule by mouth every six hours Butalbital-Aceta minophen-Caff (Fioricet) 50-300-40 mg capsule Active 1 CAP PO Q6H 12 3 December 17, 2022 12:00am take 1 capsule by mo uth every four hours lydggqksji-ntwthchtazqaf-oywjcuot (Jamari cet) 50-300-40 MG capsule take 1 capsule by mouth every 4 hours if needed for 10 days Active [id number] 200 actuat albuterol 0.09 mg/actuat metered dose inhaler (20 sources) beta2-Adrenergic Agonist Start: 12-12-2022 albut abi HFA 90 mcg/act inhaler Q6H 12/12/2022 Active Start: 12-12-2022 Albuterol Sulf ate [...] Active cetirizine hydrochloride 10 mg oral tablet (3 sources) Histamine-1 Receptor Antagonist Start: 03-21-2024 take 1 tablet by mouth once daily in the morning cetirizine (ZyrTEC) 10 MG tablet Indications: Allergic rhinitis, unspecified seasonality, unspecified trigger TAKE 1 TABLET BY MOUTH EVERY DAY IN THE MORNING 90 tablet 1 03/21/2024 Active Start: 09-10-2023 take 1 tablet by julio th in the morning cetirizine (ZyrTEC) 10 MG tablet Indications: Allergic rhinitis, unspecified seasonality, unspecified trigger Take 1 tablet (10 mg) by mouth in the morning. 90 tablet 1 09/10/2023 Active dexamethasone 1 mg/ml / neomycin 3.5 mg/ml / polymyxin [id number] unt/ml ophthalmic suspension (1 source) Aminoglycoside Antibacterial, Polymyxin-class Antibacterial, Corticosteroid Start: 11-14-2023 End: 11-21-2023 abxpdpmc-kfwddeafh-wcdUYSAKq sone (Maxitrol) 0.1 % ophthalmic suspension Indications: Acute bacterial conjunctivitis of both eyes Administer 1 drop into both eyes in the morning and 1 drop at noon and 1 drop in the evening and 1 drop before bedtime. Do all this for 7 days. 5 mL 0 11/14/2023 11/21/2023 Active [id number] 0.3 ml EPINEPHrine 1 mg/ml auto-injector (3 sources) alpha-Adrenergic Agonist, beta-Adrenergic Agonist, Catecholamine Start: 07-15-2023 End: 07-14-2024 EPINEPHrine (Epipen) 0.3 MG/ 0.3ML injection syringe Indications: Anaphylaxis, initial encounter Inject [...] 09/30/2023 Active lamoTRIgine 25 mg oral tablet (4 sources) Mood Stabilizer, Anti-epileptic Agent Start: 04-18-2024 take 2 tablets by mouth in the morning lamoTRIgine (LaMICtal) 25 MG tablet Indications: Migraine with aura and with status migrainosus, not intractable (CMS/HCC) TAKE 2 TABLETS BY MOUTH IN THE MORNING AND 2 TABLETS BEFORE BEDTIME 360 tablet 04/18/2024 Active Start: 10-01-2023 take 2 tablets by [facility] in the morning lamoTRIgine (LaMICtal) 25 MG tablet Indications: Migraine with aura and with status migrainosus, not intractable (CMS/HCC) Take 2 tablets (50 mg) by mouth in the morning and 2 tablets (50 mg) before bedtime. 360 tablet 0 10/01/2023 Active lamoTRIgine 25 M G Oral for 90 Days Active modafinil 200 mg oral tablet (3 sources) Sympathomimetic-like Agent Start: 10-27-2023 take 0.5-1 tablets by mouth once daily in the morning modafinil (Provigil) 200 MG tablet TAKE 0.5 - 1 TABLET BY MOUTH IN THE MORNING ONCE DAILY 10/27/2023 Active norethindrone 0.35 mg oral tablet (1 source) Start: 06-15-2023 take 1 tablet by mouth once daily norethindrone (Jencycla) 0.35 MG tablet Indications: Uses control take 1 tablet by mouth once daily 28 tablet 12 06/15/2023 Active promethazine hydrochloride 25 mg oral tablet (9 sources) Phenothiazine Start: 12-17-2022 take 1 tablet by mouth four times daily for nausea and vomiting promethazine (Phenergan) 25 MG tablet take 1 tablet orally four times a day if needed for nausea and vomiting 12/17/2022 Active sertraline 50 mg oral tablet (18 sources) Serotonin Reuptake Inhibitor Start: 09-12-2022 take 1 tablet by mouth once daily Sertraline (Zoloft) 50 mg tablet Active 50 MG PO Daily September 12, 2022 1:00am Start: 02-21-2019 End: 04-14-2022 take 1 tablet by mouth once daily Sertraline (Zoloft) 100 mg tablet Discontinued 100 MG PO Daily February 21, 2019 12:00am April 14, 2022 4:13pm SUMAtriptan 50 mg oral tablet (3 sources) Serotonin-1b and Serotonin-1d Receptor Agonist SUMAtriptan (Imitrex) 50 MG tablet take 1 tablet twice a day TAKE AT LEAST 2 HOURS BETWEEN DOSES NEEDED Active 24 hr venlafaxine 150 mg extended release oral capsule (5 sources) Serotonin and Norepinephrine Reuptake Inhibitor Start: 07-06-20 take 1 capsule by mouth once daily venlafaxine XR (Effexor XR) 150 MG 24 hr capsule Indications: Anxiety Take 1 capsule (150 mg) by mouth Daily Do not crush or chew. 90 capsule 1 07/06/2024 Active Start: 03-16-2024 End: 07-05-2024 take 1 capsule by mouth once daily venlafaxine XR (Effexor XR) 150 MG 24 hr capsule Indications: Anxiety Take 1 capsule (150 mg) by mouth Daily Do not crush or chew. 90 capsule 1 03/16/2024 07/05/2024 Discontinued (Reorder) Start: 10-01-2023 take 1 capsule by mo ut every twenty-four hours in the morning venlafaxine XR (Effexor XR) 150 MG 24 hr capsule Indications: Anxiety Take 1 capsule (150 mg) by mouth in the morning. Do not crush or chew.. 90 capsule 0 10/01/2023 Active Completed/Discontinued Medications Medication Drug Class(es) Dates Sig (Normalized) Sig (Original) amoxicillin 500 mg oral tablet (10 sources) Penicillin-class Antibacterial Start: 02-21-2019 End: 11-29-2019 take 500 mg by mouth three times daily Amoxicillin Discontinued 500 MG PO Three times daily February 21, 2019 12:00am November 29, 2019 4:49pm aspirin 81 mg oral tablet (10 sources) Platelet Aggregation Inhibitor, Nonsteroidal Anti-inflammatory Drug Start: 04-14-2022 End: 12-12-2022 take 81 mg by mouth once daily Aspirin Discontinued 81 MG PO Daily April 14, 2022 12:00am December 12, 2022 1:42pm 12 hr dextromethorphan polistirex 6 mg/ml extended release suspension (10 sources) Uncompetitive L-oxsxul-M-asparta te Receptor Antagonist, Sigma-1 Agonist Start: 07-05-2018 End: 11-29-2019 take 1 mL by mouth once Dextromethorphan Polistirex (Delsym 12 Hour) 30 mg/5 mL Suspension,Extended Rel 12 Hr Discontinued 5 ML PO Once July 05, 2018 12:00am November 29, 2019 4:49pm docusate sodium 100 mg oral capsule (18 sources) Start: 09-12-2022 End: 12-12-2022 take 1 [...] 4:12pm ferrous sulfate 325 mg oral tablet (8 sources) Start: 09-12-2022 End: 12-12-2022 take 325 [...] 4:51pm labetalol hydrochloride 200 mg oral tablet (10 sources) beta-Adrenergic Marshal Start: 12-07-2019 End: 04-14-2022 take 200 mg by mouth twice daily Labetalol Discontinued 200 MG PO Twice daily December 07, 2019 1:00am April 14, 2022 4:13pm montelukast 10 mg oral tablet (11 sources) Leukotriene Receptor Antagonist Start: 02-21-2019 End: 04-14-2022 Montelukast (Singulair) 10 mg tablet Discontinued TABLET February 21, 2019 12:00am April 14, 2022 4:13pm ondansetron 4 mg disintegrating oral tablet (20 sources) Serotonin-3 Receptor Antagonist Start: 12-27-2021 End: 04-14-2022 Ondansetron Discontinued 4 MG PO every 6 to 8 hours December 27, 2021 12:00am April 14, 2022 4:12pm Start: 07-01-2021 End: 04-14-2022 take 1 tablet by mouth every six hours Ondansetron Hcl (Zofran) 4 mg tablet Discontinued 4 MG PO Q6H July 01, 2021 12:00am April 14, 2022 4:12pm predniSONE 50 mg oral tablet (10 sources) Start: 07-05-2018 End: 07-10-2018 take 50 mg by mouth once daily Prednisone Discontinued 50 MG PO Daily 02 06July 05, 2018 12:00am July 10, 2018 12:01am Vit 46-Mnws-Bfdeq-Dha ( + Dha) 28 mg iron- 975 mcg-200 mg Combo Pack (10 sources) Start: 11-29-2019 End: 12-12-2022 take 1 tablet by mouth once daily Vit 26-Hrpq-Gudma-Dha ( + Dha) 28 mg iron- 975 mcg-200 mg Combo Pack Discontinued 0 .ROUTE .COMPLEX November 29, 2019 1:00am December 12, 2022 1:42pm 1 TABLET PO DAILY Start: 11-29-2019 End: 12-12-2022 take 1 tablet by mouth once daily Vit 48-Wyib-Jyuxg-Dha ( + Dha) 28 mg iron- 975 mcg-200 mg Combo Pack Discontinued 0 .ROUTE .COMPLEX November 29, 2019 12:00am December 12, 2022 12:42pm 1 TABLET PO DAILY Start: 11-29-2019 take 1 tablet by julio th once daily Vit 74-Psic-Gveql-Dha ( + Dha) 28 mg iron- 975 mcg-200 mg Combo Pack Active 0 .ROUTE .COMPLEX November 29, 2019 12:00am 1 TABLET PO DAILY Start: 11-29-2019 take 1 tablet by julio th once daily Vit 62-Jmjc-Lauvq-Dha ( + Dha) 28 mg iron- 975 mcg-200 mg Combo Pack Active 0 .ROUTE .COMPLEX November 29, 2019 1:00am 1 TABLET PO DAILY valACYclovir 500 mg oral tablet (18 sources) Herpesvirus Nucleoside Analog DNA Polymerase Inhibitor, [...] Date Documented Da te Episodic/Chronic Anxiety disorders (10 sources) Generalized anxiety disorder; Translations: [Generalized anxiety disorder] Onset: 04-09-2023 Chronic Disorders of teeth and jaw (1 source) Other dental procedure status; Translations: [OTHER DENTAL PROCEDURE STATUS] Onset: 03-02-2023 Episodic Headache; including migraine (9 sources) Migraine; Translations: [Migraine with aura] Onset: 04-09-2023 12-17-2022 Chronic Inflammation; infection of eye (except that caused by tuberculosis or sexually transmitteddisease) (1 source) Acute infectious conjunctivitis; Translations: [Unspecified acute conjunctivitis, bilateral] 11-14-2023 Episodic Malaise and fatigue (3 sources) Fatigue; Translations: [Chronic fatigue, unspecified] Onset: 04-09-2023 04-09-2023 Chronic Mood disorders (2 sources) Bipolar I disorder; Translations: [Bipolar disorder, unspecified] Chronic Other bone disease and musculoskeletal deformities (3 sources) Scoliosis deformity of spine; Translations: [Adolescent idiopathic scoliosis, site unspecified] Onset: 04-09-2023 04-09-2023 Chronic Other circulatory disease (1 source) Orthostatic hypotension; Translations: [Orthostatic hypotension] Onset: 06-26-2024 Episodic Other nervous system disorders (4 sources) Narcolepsy without cataplexy ; Translations: [Narcolepsy without cataplexy] Onset: 04-09-2023 04-09-2023 Chronic Other nervous system disorders (1 source) Narcolepsy with cataplexy Chronic Other nervous system disorders (3 sources) Anesthesia of skin; Translations: [ANESTHESIA OF SKIN] Onset: 02-27-2023 Episodic Other nervous system disorders (1 source) Paresthesia of skin; Translations: [PARESTHESIA OF SKIN] Onset: 03-02-2023 Episodic Other upper respiratory disease (3 sources) Allergic rhinitis; Translations: [Allergic rhinitis, unspecified] Onset: 04-09-2023 04-09-2023 Chronic Residual codes; unclassified (1 source) Sleep apnea; [...] of foot; Translations: [Right foot strain] Episodic Unclassified (1 source) Pain, unspecified; Translations: [Pain, unspecified] Onset: 09-01-2017 Unclassified (3 sources) Patient on antidepressant monitoring plan Onset: 10-01-2023 10-01-2023 Unclassified (3 sources) Baseline PHQ-9 Onset: 10-01-2023 10-01-2023 Viral infection (3 sources) Herpetic vulvovaginitis; 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] Onset: 04-09-2023 04-09-2023 Chronic Past or Other Problems Problem Classification Problem Date Documented Date Episodic/Chronic Blindness and vision defects (3 sources) Visual alteration; Translations: [Unspecified visual loss] Onset: 04-09-2023 Resolved: 10-22-2023 10-22-2023 Chronic Cardiac dysrhythmias (12 sources) Palpitations; Translations: [Palpitations] Onset: 11-17-2023 04-14-2022 Episodic Menstrual disorders (4 sources) Amenorrhea; Translations: [Amenorrhea, unspecified] Onset: 04-09-2023 Resolved: 10-22-2023 10-22-2023 Chronic Nausea and vomiting (20 sources) Nausea; Translations: [Nausea] Onset: 11-17-2023 12-27-2021 Episodic Other nervous system disorders (4 sources) Cataplexy and narcolepsy; Translations: [Narcolepsy with cataplexy] Onset: 04-09-2023 Resolved: 10-22-2023 10-22-2023 Chronic Other nervous system disorders (1 source) Acute postoperative pain; Translations: [Other acute postprocedural pain] Onset: 02-13-2024 02-13-2024 Episodic Other nutritional; endocrine; and metabolic disorders (1 source) Abnormal weight gain; Translations: [Abnormal weight gain] Onset: 11-25-2023 Episodic Other and delivery including normal (11 sources) Delivery normal; Translations: [Encounter for full-term uncomplicated delivery] Onset: 11-17-2023 12-09-2019 Episodic Other upper respiratory infections (19 sources) Pharyngitis; Translations: [Acute pharyngitis, unspecified] Onset: 11-17-2023 02-21-2019 Episodic Syncope (11 sources) Vasovagal syncope; Translations: [Syncope and collapse] Onset: 11-17-2023 12-27-2021 Episodic Thyroid disorders (3 sources) Goiter; Translations: [Iodine-deficiency related diffuse (endemic) goiter] Onset: 04-09-2023 Resolved: 10-22-2023 10-22-2023 Chronic Results Test Name Value Interpretation Reference Range Facility CA holter monitor recordingo n 06-28-2024 CA holter monitor recording [facility] [place] [address] Holter Monitor Report Signed Patient: Randal Redmond MR#: [id number] 0 : 2000 Acct:[id number] Age/Sex: 24 / F ADM Date: 06/26/24 Loc: Room: Type: [facility] Attending Dr: David Rayo MD Copies to: MD Roge Betancourt MD Ordering Provider: David Rayo MD Date of Service: 06/26/24 CA/CA holter monitor recording: tachycardia REFERRING PHYSICIAN: David Rayo MD REASON FOR STUDY: Tachycardia. PROCEDURE: The patient underwent 24-hour Holter monitor. Baseline rhythm is sinus with average heart rate of 93 beats per minute, ranging from 56-158 beats per minute. There were 1 ventricular ectopic beat and 10 isolated supraventricular ectopic beats. The patient entered symptoms of dizziness, shortness of breath and palpitation all coinciding with mild sinus tachycardia. CONCLUSION: 1. Baseline rhythm is normal sinus rhythm; however heart rate, in the high normal range of 93 beats per minute. 2. Rare isolated ventricular and supraventricular ectopic beats. 3. Symptoms of shortness of breath, dizziness, and palpitation coincided with sinus tachycardia. 4. No significant tachyarrhythmia or bradyarrhythmia other than mild sinus tachycardia. Transcribed By: RICK 06/29/24 0750 Dictated By: Roge Fontanez MD 06/28/24 1802 Signed By: 06/29/24 0882 Normal [facility] Choriogonadotropin.beta subu nit [Units/volume] in Serum or PlasmaOrdered By: Alexei Pedersen on 04-01-2024 HCG.beta subunit Qn m[IU]/mL [facility] Comment on above: Approximate Approxim ate hCG Gestational Age Range (mIU/ml) (weeks)0.2-1 5-50 1-2 50-500 2-3 100-5,000 3-4 500-10,000 4-5 1,000-50,000 5-6 10,000-100,000 6-8 15,000-200,000 8-12 10,000-100,000 HCG,Quantitativeon 4 HCG,Quantitative < 0.60 Normal [facility] Comment on above: Result Comment: Appr oximate Approximate hCG Gestational Age Range (mIU/ml) (weeks) 0.2-1 5-50 1-2 50-500 2-3 100-5,000 3-4 500-10,000 4-5 1,000-50,000 5-6 10,000-100,000 6-8 15,000-200,000 8-12 10,000-100,000 PERFORMED BY: [place] [address] PATHOLOGIST SIGNS SALES REPRESENTATIVE MELCHOR MORALES M.D. Performed By: #### H CGQNT #### [address] 01-19-2024 L Specimen: [id number] Received: 01/20/24 Status: ROBIN Sparrow Num: [id number] Spec Type: Surgical Subm Dr: Alexei Pedersen Tissues: A FALLOPIAN TUBE ECTOPIC (RIGHT ECTOPIC , RIG) Procedures: HE/5, Gross/Micro L4 Age/ Patient Sex Location Account Attending Physician Randal Redmond LABELL [id number] Alexei Pedersen SPEC NUM: [id number] RECD: 01/20/24 STATUS: ROBIN SPARROW NUM: [id number] EMILEE: 01/19/24- SUBM DR: Alexei Pedersen ENTERED: 01/20/24 [facility] DR: SPEC TYPE: Surgical DEPT: ENA CHEN ENTERED BY: [id number] RECV BY: [id number] ORDERED: HE/5, Gross/Micro L4 ORDERED: HE/5, Gross/Micro [...] No areas of blood clot are identified. Pelts Skinner sections are submitted in A1, A2 (fallopian tube and paratubal cyst)-A3 (fimbriated end). Remainder of specimen entirely submitted in A4?A5. TW/CYC Clinical history: Right ectopic , right salpingectomy. CPT Codes 70865 -------- -------- Specimen: [id number] Received: 01/20/24 Status: ROBIN Sparrow Num: [id number] Spec Type: Surgical Subm Dr: Alexei Pedersen Tissues: A FALLOPIAN TUBE ECTOPIC (RIGHT ECTOPIC , RIG) Procedures: HE/5, Gross/Micro L4 -------- Patient: Randal Redmond [id number] (Continued) -------- Signed (signature on file) Al-Juwan Aguilera MD 01/26/24 1430 Normal [facility] Alanine aminotransferase [En zymatic activity/volume] in Serum or PlasmaOrdered By: Govind Barry on 11-25-2023 ALT [Catalytic activity/Vol] 11 U/L Normal 7-52 [facility] Comment on above: Performed By: #### C DONN ARREDONDO, TSH3 wRFLX #### [facility] [address] [place] [address] Albumin [Mass/volume] in Ser um or Plasma by Bromocresol green (BCG) dye binding methoOrdered By: Govind Barry on 11-25-2023 Albumin BCG dye [Mass/Vol] 4.7 g/dL 3.5-5.7 [facility] Alkaline phosphatase [Enzyma tic activity/volume] in Serum or PlasmaOrdered By: Govind Barry on 11-25-2023 ALP [Catalytic activity/Vol] 82 U/L Normal 34-104 [facility] Comment on above: Performed By: #### C DONN ARREDONDO, TSH3 wRFLX #### [facility] [address] [place] [address] Aspartate aminotransferase [ Enzymatic activity/volume] in Serum or PlasmaOrdered By: Govind Barry on 11-25-2023 AST [Catalytic activity/Vol] 16 U/L Normal 13-39 [facility] Comment on above: Performed By: #### C DONN ARREDONDO, TSH3 wRFLX #### [facility] [address] [place] [address] Automated basophil %Ordered By: Govind Barry on 11-25-2023 Basophils/100 WBC (Bld) 0.6 % Normal . [facility] Comment on above: Performed By: #### C BC, CMP, TSH3 wRFLX #### [address] Automated basophil countOrde red By: Govind Barry on 11-25-2023 Basophils (Bld) [#/Vol] 0.1 10*3/uL Normal 0.0-0.2 [facility] Comment on above: Result Comment: PERF ORMED BY: [place] [address] PATHOLOGIST SIGNS SALES REPRESENTATIVE MELCHOR MORALES M.D. Performed By: #### C BC, CMP, TSH3 wRFLX #### [address] Automated blood monocyte cou ntOrdered By: Govind Barry on 11-25-2023 Monocytes (Bld) [#/Vol] 0.5 10*3/uL Normal 0.0-0.8 [facility] Comment on above: Performed By: #### C BC, CMP, TSH3 wRFLX #### [address] Automated eosinophil %Ordere d By: Govind Barry on 11-25-2023 Eosinophils/100 WBC (Bld) 1.6 % Normal . [facility] Comment on above: Performed By: #### C BC, CMP, TSH3 wRFLX #### [address] Automated eosinophil countOr dered By: Govind Barry on 11-25-2023 Eosinophils (Bld) [#/Vol] 0.2 10*3/uL Normal 0.0-0.45 [facility] Comment on above: Performed By: #### C BC, CMP, TSH3 wRFLX #### [address] Automated monocyte %Ordered By: Govind Barry on 11-25-2023 Monocytes/100 WBC (Bld) 5.4 % Normal . [facility] Comment on above: Performed By: #### C BC, CMP, TSH3 wRFLX #### [address] [place] [address] [place] Automated neutrophil %Ordere d By: Govind Barry on 11-25-2023 Neutrophils/100 WBC (Bld) 75.7 % Normal . [facility] Comment on above: Performed By: #### C BC, CMP, TSH3 wRFLX #### [address] Bilirubin.total [Mass/volume ] in Serum or PlasmaOrdered By: Govind Barry on 11-25-2023 Bilirubin [Mass/Vol] 0.5 mg/dL Normal 0.3-1.0 [facility] Comment on above: Performed By: #### C BC, CMP, TSH3 wRFLX #### [address] Calcium [Mass/volume] in Ser um or PlasmaOrdered By: Govind Barry on 11-25-2023 Calcium [Mass/Vol] 9.7 mg/dL Normal 8.6-10.3 [facility] Comment on above: Performed By: #### C BC, CMP, TSH3 wRFLX #### [address] Carbon dioxide, total [Moles /volume] in Serum or PlasmaOrdered By: Govind Barry on 11-25-2023 CO2 [Moles/Vol] 27.5 mmol/L Normal 21.0-31.0 [facility] Comment on above: Performed By: #### C BC, CMP, TSH3 wRFLX #### [place] [address] [place] Chloride [Moles/volume] in S alessandra or PlasmaOrdered By: Govind Barry on 11-25-2023 Chloride [Moles/Vol] 105 mmol/L Normal 98-107 [facility] Comment on above: Performed By: #### C BC, CMP, TSH3 wRFLX #### [address] Complete Blood Count Auto Di ffon 11-25-2023 Mean Corpuscular HGB Conc 34.4 g/dL Normal 32.0-35.0 [facility] Comment on above: Performed By: #### C BC, CMP, TSH3 wRFLX #### [address] NRBC% 0.1 /100{WBC} Normal 0-0.[address] [facility] Comment on above: Performed By: #### C BC, CMP, TSH3 wRFLX #### [address] Comprehensive Metabolic Pane dale 11-25-2023 Albumin [Mass/Vol] 4.7 g/dL Normal 3.5-5.7 [facility] Comment on above: Performed By: #### C BC, CMP, TSH3 wRFLX #### [address] GFR/1.73 sq M.predicted MDRD (S/P/Bld) [Vol rate/Area] mL/min/{1.73_m2} Normal [facility] Comment on above: Performed By: #### C BC, CMP, TSH3 wRFLX #### [address] Creatinine [Mass/volume] in Serum or PlasmaOrdered By: Govind Barry on 11-25-2023 Creatinine [Mass/Vol] 0.76 mg/dL Normal 0.60-1.20 [facility] Comment on above: Performed By: #### C BC, CMP, TSH3 wRFLX #### [address] Erythrocyte distribution wid th [Ratio] by Automated countOrdered By: Govind Barry on 11-25-2023 Erythrocyte distribution width (RBC) [Ratio] 12.5 % Normal 11.9-15.3 [facility] Comment on above: Performed By: #### C BC, CMP, TSH3 wRFLX #### [address] Erythrocytes [#/volume] in B lood by Automated countOrdered By: Govind Barry on 11-25-2023 RBC (Bld) [#/Vol] 4.71 10*6/uL Normal 3.60-5.00 [facility] Comment on above: Performed By: #### C DONN ARREDONDO, TSH3 wRFLX #### [facility] [address] Glucose [Mass/volume] in Ser um or PlasmaOrdered By: Govind Barry on 11-25-2023 Glucose [Mass/Vol] 85 mg/dL Normal 70-100 [facility] Comment on above: ADA recommended refe rence rangeRandom Glucose Reference Range is dependent on time and content of last meal. Glucose of more than 200 mg/dL in a nonstressed, ambulatory subject supports the diagnosis of Diabetes Mellitus. Result Comment: [place] om Glucose Reference Range is dependent on time and content of last meal. Glucose of more than 200 mg/dL in a nonstressed, ambulatory subject supports the diagnosis of Diabetes Mellitus. ADA recommended reference range Performed By: #### C DONN ARREDONDO, TSH3 wRFLX #### [facility] [address] [place] [address] Hematocrit [Volume Fraction] of Blood by Automated countOrdered By: Govind Barry on 11-25-2023 Hematocrit (Bld) [Volume fraction] 41.4 % Normal 34.0-46.4 [facility] Comment on above: Performed By: #### C DONN ARREDONDO, TSH3 wRFLX #### [facility] [address] [place] [address] Hemoglobin [Mass/volume] in BloodOrdered By: Govind Barry on 11-25-2023 Hemoglobin (Bld) [Mass/Vol] 14.2 g/dL Normal 11.8-15.4 [facility] Comment on above: Performed By: #### C DONN ARREDONDO, TSH3 wRFLX #### [facility] [address] [place] [address] Leukocytes [#/volume] correc jessica for nucleated erythrocytes in Blood by Automated counOrdered By: Govind Barry on 11-25-2023 WBC corrected for nucl RBC Auto (Bld) [#/Vol] 10.0 10*3/uL 3.8-11.6 [facility] Leukocytes [#/volume] in Blo od by Automated countOrdered By: Govind Barry on 11-25-2023 WBC (Bld) [#/Vol] 10.0 10*3/uL Normal 3.8-11.6 [facility] Comment on above: Performed By: #### C BC, CMP, TSH3 wRFLX #### [address] Lymphocytes [#/volume] in Bl ood by Automated countOrdered By: Govind Barry on 11-25-2023 Lymphocytes (Bld) [#/Vol] 1.7 10*3/uL Normal 1.00-4.8 [facility] Comment on above: Performed By: #### C BC, CMP, TSH3 wRFLX #### [address] Lymphocytes/100 leukocytes i n Blood by Automated countOrdered By: Govind Barry on 11-25-2023 Lymphocytes/100 WBC (Bld) 16.7 % Normal . [facility] Comment on above: Performed By: #### C BC, CMP, TSH3 wRFLX #### [address] MCH [Entitic mass] by Automa jessica countOrdered By: Govind Barry on 11-25-2023 MCH (RBC) [Entitic mass] 30.2 pg Normal 24.7-34.3 [facility] Comment on above: Performed By: #### C BC, CMP, TSH3 wRFLX #### [address] MCHC Auto (RBC) [Mass/Vol]Or dered By: Govind Barry on 11-25-2023 MCHC (RBC) [Mass/Vol] 34.4 g/dL 32.0-35.0 [facility] MCV [Entitic volume] by Auto mated countOrdered By: Govind Barry on 11-25-2023 MCV (RBC) [Entitic vol] 87.9 fL Normal 80-100 [facility] Comment on above: Performed By: #### C BC, CMP, TSH3 wRFLX #### [address] [place] [address] [place] Neutrophils [#/volume] in Bl ood by Automated countOrdered By: Govind Barry on 11-25-2023 Neutrophils (Bld) [#/Vol] 7.5 10*3/uL Normal 1.8-7.7 [facility] Comment on above: Performed By: #### C BC, CMP, TSH3 wRFLX #### [address] No Panel InformationOrdered By: Govind Barry on 11-25-2023 Estimated GFR (CKD-EPI) > 60.0 mL/Min [facility] Creatinine Clearance (Chem N/A [facility] Nucleated erythrocytes [Pres ence] in Blood by Automated countOrdered By: Govind Barry on 11-25-2023 Nucleated RBC Auto Ql (Bld) 0.1 /100{WBC} 0-0.5 [facility] Platelet mean volume [Entiti c volume] in Blood by Automated countOrdered By: Govind Barry on 11-25-2023 Platelet mean volume (Bld) [Entitic vol] 8.8 fL Normal 6.3-10.7 [facility] Comment on above: Performed By: #### C BC, CMP, TSH3 wRFLX #### [address] Platelets [#/volume] in Bloo d by Automated countOrdered By: Govind Barry on 11-25-2023 Platelets (Bld) [#/Vol] 301 10*3/uL Normal 150-450 [facility] Comment on above: Performed By: #### C BC, CMP, TSH3 wRFLX #### [address] Potassium [Moles/volume] in Serum or PlasmaOrdered By: Govind Barry on 11-25-2023 Potassium [Moles/Vol] 4.2 mmol/L Normal 3.5-5.1 [facility] Comment on above: Performed By: #### C BC, CMP, TSH3 wRFLX #### [place] [address] [place] Protein [Mass/volume] in Ser um or PlasmaOrdered By: Govind Barry on 11-25-2023 Protein [Mass/Vol] 7.2 g/dL Normal 6.4-8.9 [facility] Comment on above: Performed By: #### C BC CMP, TSH3 wRFLX #### [address] Serum globulin measurement b y calculation (mass/volume)Ordered By: Govind Barry on 11-25-2023 Globulin (S) [Mass/Vol] 2.5 g/dL Normal [facility] Comment on above: Performed By: #### C DONN ARREDONDO, TSH3 wRFLX #### [address] Serum or plasma albumin/glob ulin mass ratioOrdered By: Govind Barry on 11-25-2023 Albumin/Globulin [Mass ratio] 1.9 {ratio} Normal [facility] Comment on above: Performed By: #### C DONN ARREDONDO, TSH3 wRFLX #### [address] Serum or plasma anion gap de terminationOrdered By: Govind Barry on 11-25-2023 Anion gap [Moles/Vol] 10.7 mmol/L Normal 6.0-15.0 [facility] Comment on above: Performed By: #### C DONN ARREDONDO, TSH3 wRFLX #### [address] Sodium [Moles/volume] in Ser um or PlasmaOrdered By: Govind Barry on 11-25-2023 Sodium [Moles/Vol] 139 mmol/L Normal 136-145 [facility] Comment on above: Performed By: #### C BC, CMP, TSH3 wRFLX #### [address] Thyroid Stim Hormone w/Rflxo n 11-25-2023 Thyroid Stim Hormone w/Rflx 1.83 u[iU]/mL Normal 0.45-5.33 [facility] Comment on above: Result Comment: PERF ORMED BY: [place] [address] PATHOLOGIST SIGNS SALES REPRESENTATIVE MELCHOR MORALES M.D. Performed By: #### C BC, CMP, TSH3 wRFLX #### [facility] [address] [place] [address] Thyrotropin [Units/volume] i n Serum or PlasmaOrdered By: Govind Barry on 11-25-2023 TSH Qn 1.83 m[IU]/L 0.45-5.33 [facility] Urea nitrogen [Mass/volume] in Serum or PlasmaOrdered By: Govind Barry on 11-25-2023 Urea nitrogen [Mass/Vol] 11 mg/dL Normal 7-25 [facility] Comment on above: Performed By: #### C BC, CMP, TSH3 wRFLX #### [address] Anisocytosis LM Ql (Bld)Orde red By: ASHLEY WATSON on 09-12-2022 Anisocytosis Ql (Bld) Moderate [facility] Basophils Auto (Bld) [#/Vol] Ordered By: ASHLEY NATAPRSYLVAINRA on 09-12-2022 Basophils (Bld) [#/Vol] 0.1 10*3/uL 0.0-0.2 [facility] Basophils/100 WBC Auto (Bld) Ordered By: ASHLEY NELIDA on 09-12-2022 Basophils/100 WBC (Bld) 0.7 % . [facility] Eosinophils Auto (Bld) [#/Vo l]Ordered By: ASHLEY NATJENSEN on 09-12-2022 Eosinophils (Bld) [#/Vol] 0.2 10*3/uL 0.0-0.45 [facility] Eosinophils/100 WBC Auto (Bl d)Ordered By: ASHLEY NATAPRAWIRA on 09-12-2022 Eosinophils/100 WBC (Bld) 1.7 % . [facility] Erythrocyte distribution wid th Auto (RBC) [Ratio]Ordered By: ASHLEY WATSON on 09-12-2022 Erythrocyte distribution width (RBC) [Ratio] 14.4 % 11.9-15.3 [facility] Hematocrit Auto (Bld) [Volum e fraction]Ordered By: ASHLEY WATSON on 09-12-2022 Hematocrit (Bld) [Volume fraction] 29.2 % 34.0-46.4 [facility] Hemoglobin [Mass/volume] in BloodOrdered By: ASHLEY WATSON on 09-12-2022 Hemoglobin (Bld) [Mass/Vol] 9.6 g/dL 11.8-15.4 [facility] Hypochromia LM Ql (Bld)Order ed By: ASHLEY WATSON on 09-12-2022 Hypochromia Ql (Bld) Slight [facility] Leukocytes [#/volume] correc jessica for nucleated erythrocytes in Blood by Automated counOrdered By: ASHLEY WATSON on 09-12-2022 WBC corrected for nucl RBC Auto (Bld) [#/Vol] 12.2 10*3/uL 3.8-11.6 [facility] Lymphocytes Auto (Bld) [#/Vo l]Ordered By: ASHLEY WATSON on 09-12-2022 Lymphocytes (Bld) [#/Vol] 2.9 10*3/uL 1.00-4.8 [facility] Lymphocytes/100 WBC Auto (Bl d)Ordered By: ASHLEY WATSON on 09-12-2022 Lymphocytes/100 WBC (Bld) 23.6 % . [facility] MCH Auto (RBC) [Entitic mass ]Ordered By: ASHLEY WATSON on 09-12-2022 MCH (RBC) [Entitic mass] 25.5 pg 24.7-34.3 [facility] MCHC Auto (RBC) [Mass/Vol]Or dered By: ASHLEY WATSON on 09-12-2022 MCHC (RBC) [Mass/Vol] 32.8 g/dL 32.0-35.0 [facility] MCV Auto (RBC) [Entitic vol] Ordered By: ASHLEY WATSON on 09-12-2022 MCV (RBC) [Entitic vol] 77.6 fL 80-100 [facility] Microcytes LM Ql (Bld)Ordere d By: ASHLEY WATSON on 09-12-2022 Microcytes Ql (Bld) Moderate [facility] Monocytes Auto (Bld) [#/Vol] Ordered By: ASHLEY WATSON on 09-12-2022 Monocytes (Bld) [#/Vol] 0.8 10*3/uL 0.0-0.8 [facility] Monocytes/100 WBC Auto (Bld) Ordered By: ASHLEY WATSON on 09-12-2022 Monocytes/100 WBC (Bld) 6.2 % . [facility] Neutrophils Auto (Bld) [#/Vo l]Ordered By: ASHLEY WATSON on 09-12-2022 Neutrophils (Bld) [#/Vol] 8.3 10*3/uL 1.8-7.7 [facility] Neutrophils/100 WBC Auto (Bl d)Ordered By: ASHLEY WATSON on 09-12-2022 Neutrophils/100 WBC (Bld) 67.8 % . [facility] Nucleated erythrocytes [Pres ence] in Blood by Automated countOrdered By: ASHLEY WATSON on 09-12-2022 Nucleated RBC Auto Ql (Bld) 0.0 /100{WBC} 0-0.5 [facility] Platelet adequacy [Presence] in Blood by Light microscopyOrdered By: ASHLEY WATSON on 09-12-2022 Platelets LM Ql (Bld) Decreased Normal [facility] Platelet mean volume Auto (B ld) [Entitic vol]Ordered By: ASHLEY WATSON on 09-12-2022 Platelet mean volume (Bld) [Entitic vol] 10.7 fL 6.3-10.7 [facility] Platelet morphology finding [Identifier] in BloodOrdered By: ASHLEY WATSON on 09-12-2022 Platelet morphology finding Nom (Bld) N/A [facility] Platelets Auto (Bld) [#/Vol] Ordered By: ASHLEY WATSON on 09-12-2022 Platelets (Bld) [#/Vol] 127 10*3/uL 150-450 [facility] Platelets Large [Presence] i n Blood by Light microscopyOrdered By: ASHLEY WATSON on 09-12-2022 Platelets Large LM Ql (Bld) Marked [facility] Polychromasia [Presence] in Blood by Light microscopyOrdered By: ASHLEY WATSON on 09-12-2022 Polychromasia LM Ql (Bld) Moderate [facility] RBC Auto (Bld) [#/Vol]Ordere d By: ASHLEY WATSON on 09-12-2022 RBC (Bld) [#/Vol] 3.76 10*6/uL 3.60-5.00 [facility] RBC morphologyOrdered By: ROSEANNE WATSON on 09-12-2022 RBC morphology finding Nom (Bld) N/A [facility] Urine culture routineOrdered By: ASHLEY WATSON on 09-12-2022 Bacteria identified Cx Nom (U) Carol Ann albicans [facility] WBC Auto (Bld) [#/Vol]Ordere d By: ASHLEY WATSON on 09-12-2022 WBC (Bld) [#/Vol] 12.2 10*3/uL 3.8-11.6 [facility] Amphetamine Screen Ql (U)Ord ered By: ASHLEY WATSON on 09-10-2022 Amphetamines Ql (U) Negative Negative [facility] Automated erythrocytes count in urine sediment (number/area)Ordered By: ASHLEY WATSON on 09-10-2022 RBC Auto (Urine sed) [#/Area] None seen [HPF] 0-4 [facility] Automated leukocytes count i n urine sediment (number/area)Ordered By: ASHLEY WATSON on 09-10-2022 WBC Auto (Urine sed) [#/Area] 10-19 [HPF] 0-4 [facility] Barbiturates [Presence] in U rineOrdered By: ASHLEY WATSON on 09-10-2022 Barbiturates Ql (U) Negative Negative [facility] Benzodiazepines [Presence] i n UrineOrdered By: ASHLEY WATSON on 09-10-2022 Benzodiazepines Ql (U) Negative [facility] Bilirubin Test strip Ql (U)O rdered By: ASHLEY WASTON on 09-10-2022 Bilirubin Ql (U) Negative Negative [facility] Color Auto (U)Ordered By: ROSEANNE WATSON on 09-10-2022 Color (U) Yellow Yellow [facility] Ketones Auto test strip (U) [Mass/Vol]Ordered By: ASHLEY WATSON on 09-10-2022 Ketones (U) [Mass/Vol] Negative [facility] Laboratory - Drug toxicology Ordered By: ASHLEY WATSON on 09-10-2022 Opiates Ql (U) Negative Negative [facility] Laboratory - UrinalysisOrder ed By: ASHLEY WATSON on 09-10-2022 Hyaline casts LM Ql (Urine sed) 0-8 [LPF] 0-8 [facility] Macrocytes LM Ql (Bld)Ordere d By: ASHLEY WATSON on 09-10-2022 Macrocytes Ql (Bld) Slight [facility] Nitrite Test strip Ql (U)Ord ered By: ASHLEY WATSON on 09-10-2022 Nitrite Ql (U) Negative Negative [facility] Phencyclidine Screen Ql (U)O rdered By: ASHLEY WATSON on 09-10-2022 Phencyclidine Ql (U) Negative Negative [facility] Comment on above: These are unconfirme d results and should not be used for legal purposes. Drug Cut-Off Concentration: AMPH 1000 ng/mL YOSEF 200 ng/mL JARAD 200 ng/mL COCM 300 ng/mL OP 300 ng/mL PCP 25 ng/mL Poikilocytosis [Presence] in Blood by Light microscopyOrdered By: ASHLEY WATSON on 09-10-2022 Poikilocytosis LM Ql (Bld) Slight [facility] Protein Auto test strip (U) [Mass/Vol]Ordered By: ASHLEY WATSON on 09-10-2022 Protein (U) [Mass/Vol] Trace mg/dL Negative [facility] Reagin Ab [Presence] in Seru m by RPROrdered By: ASHLEY WATSON on 09-10-2022 Reagin Ab RPR Ql (S) Non-Reactive Non Reactive [facility] Comment on above: Performed at: [facility] [address] [place], [place] [id number] Director: Mook Hawthorne PhD, Phone: [phone] Specific gravity Auto test s trip (U) [Rel density]Ordered By: ASHLEY WATSON on 09-10-2022 Specific gravity (U) [Rel density] 1.016 1.001-1.030 [facility] Squamous epithelial cells de tection in urine sediment by light microscopyOrdered By: AHSLEY WATSON on 09-10-2022 Epithelial cells.squamous LM Ql (Urine sed) 10-19 [HPF] 0-2 [facility] Urine bacteria detection by automated methodOrdered By: ASHLEY WATSON on 09-10-2022 Bacteria Auto Ql (U) None seen None Seen [facility] Urine clarity by refractomet ry automatedOrdered By: ASHLEY WATSON on 09-10-2022 Clarity Refractometry automated (U) Clear Clear [facility] Urine cocaine detectionOrder ed By: ASHLEY WATSON on 09-10-2022 Cocaine Ql (U) Negative Negative [facility] Urine glucose measurement by automated test strip (mass/volume)Ordered By: ASHLEY WATSON on 09-10-2022 Glucose Auto test strip (U) [Mass/Vol] Normal mg/dL Normal [facility] Urine hemoglobin detection b y automated test stripOrdered By: ASHLEY WATSON on 09-10-2022 Hemoglobin Auto test strip Ql (U) Negative Negative [facility] Urine leukocyte esterase det ection by automated test stripOrdered By: ASHLEY WATSON on 09-10-2022 Leukocyte esterase Auto test strip Ql (U) 3+ Negative [facility] Urobilinogen Auto test strip (U) [Mass/Vol]Ordered By: ASHLEY WATSON on 09-10-2022 Urobilinogen (U) [Mass/Vol] Normal mg/dL Normal [facility] pH Auto test strip (U)Ordere d By: ASHLEY WATSON on 09-10-2022 pH (U) 6.0 [pH] 5.0-9.0 [facility] S. agalactiae Org specific c x Ql (Unsp spec)Ordered By: ASHLEY WATSON on 08-16-2022 Streptococcus agalactiae culture No Group B Beta Streptococcus Isolated 3 Days [facility] Blood hemoglobin measurement (mass/volume)Ordered By: ASHLEY WATSON on 06-24-2022 Hemoglobin (Bld) [Mass/Vol] 12.7 g/dL 11.8-15.4 [facility] Hematocrit Auto (Bld) [Volum e fraction]Ordered By: ASHLEY WATSON on 06-24-2022 Hematocrit (Bld) [Volume fraction] 37.9 % 34.0-46.4 [facility] No Panel InformationOrdered By: ASHLEY WATSON on 06-24-2022 Glucose 1 Hour Postprandial (Timed) 100 mg/dL 60-140 [facility] Albumin [Mass/volume] in Ser um or PlasmaOrdered By: Jordan Saunders on 04-14-2022 Albumin [Mass/Vol] 3.4 g/dL 3.2-5.5 [facility] Basophils Auto (Bld) [#/Vol] Ordered By: Jordan Saunders on 04-14-2022 Basophils (Bld) [#/Vol] 0.1 10*3/uL 0.0-0.2 [facility] Basophils/100 WBC Auto (Bld) Ordered By: Jordan Saunders on 04-14-2022 Basophils/100 WBC (Bld) 0.6 % . [facility] Blood hemoglobin measurement (mass/volume)Ordered By: Jordan Saunders on 04-14-2022 Hemoglobin (Bld) [Mass/Vol] 13.7 g/dL 11.8-15.4 [facility] Blood leukocytes automated c ount (number/volume)Ordered By: Jordan Saunders on 04-14-2022 WBC (Bld) [#/Vol] 10.8 10*3/uL 4.5-11.0 [facility] Creatinine and Glomerular fi ltration rate.predicted panel (S/P/Bld)Ordered By: Jordan Saunders on 04-14-2022 Creatinine [Mass/Vol] 0.50 mg/dL 0.44-1.03 [facility] Eosinophils Auto (Bld) [#/Vo l]Ordered By: Jordan Saunders on 04-14-2022 Eosinophils (Bld) [#/Vol] 0.1 10*3/uL 0.0-0.45 [facility] Eosinophils/100 WBC Auto (Bl d)Ordered By: Jordan Saunders on 04-14-2022 Eosinophils/100 WBC (Bld) 0.8 % . [facility] Erythrocyte distribution wid th Auto (RBC) [Ratio]Ordered By: Jordan Saunders on 04-14-2022 Erythrocyte distribution width (RBC) [Ratio] 12.9 % 11.9-15.3 [facility] Estimated glomerular filtrat ion rate (GFR) non- AmericanOrdered By: Jordan Saunders on 04-14-2022 GFR/1.73 sq M.predicted among non-blacks MDRD (S/P/Bld) [Vol rate/Area] > 60 mL/Min [facility] Globulin Calc (S) [Mass/Vol] Ordered By: Jordan Saunders on 04-14-2022 Globulin (S) [Mass/Vol] 3.2 g/dL [facility] Hematocrit Auto (Bld) [Volum e fraction]Ordered By: Jordan Saunders on 04-14-2022 Hematocrit (Bld) [Volume fraction] 39.7 % 34.0-46.4 [facility] Laboratory - Chemistry and C hemistry - challengeOrdered By: Jordan Saunders on 04-14-2022 Magnesium [Mass/Vol] 1.9 mg/dL 1.6-2.6 [facility] Laboratory - Hematology and Cell countsOrdered By: Jordan Saunders on 04-14-2022 Nucleated RBC/100 WBC (Bld) [Ratio] 0.1 % 0-0.5 [facility] Lymphocytes Auto (Bld) [#/Vo l]Ordered By: Jordan Saunders on 04-14-2022 Lymphocytes (Bld) [#/Vol] 1.8 10*3/uL 1.00-4.8 [facility] Lymphocytes/100 WBC Auto (Bl d)Ordered By: Jordan Saunders on 04-14-2022 Lymphocytes/100 WBC (Bld) 17.0 % . [facility] MCH Auto (RBC) [Entitic mass ]Ordered By: Jordan Saunders on 04-14-2022 MCH (RBC) [Entitic mass] 30.4 pg 24.7-34.3 [facility] MCHC Auto (RBC) [Mass/Vol]Or dered By: Jordan Saunders on 04-14-2022 MCHC (RBC) [Mass/Vol] 34.5 g/dL 32.0-35.0 [facility] MCV Auto (RBC) [Entitic vol] Ordered By: Jordan Saunders on 04-14-2022 MCV (RBC) [Entitic vol] 88.0 fL 80-100 [facility] Monocytes Auto (Bld) [#/Vol] Ordered By: Jordan Saunders on 04-14-2022 Monocytes (Bld) [#/Vol] 0.5 10*3/uL 0.0-0.8 [facility] Monocytes/100 WBC Auto (Bld) Ordered By: Jordan Saunders on 04-14-2022 Monocytes/100 WBC (Bld) 5.1 % . [facility] Neutrophils Auto (Bld) [#/Vo l]Ordered By: Jordan Saunders on 04-14-2022 Neutrophils (Bld) [#/Vol] 8.3 10*3/uL 1.8-7.7 [facility] Neutrophils/100 WBC Auto (Bl d)Ordered By: Jordan Saunders on 04-14-2022 Neutrophils/100 WBC (Bld) 76.5 % . [facility] No Panel InformationOrdered By: Jordan Saunders on 04-14-2022 Estimated GFR () > 60 mL/Min [facility] Comment on above: GFR estimated refere nce range: According to KDOQI guidelines, <60 ml/min/1.73m2 is sufficient to diagnose a patient with chronic kidney disease. Pharmacy Creatinine Clearance (Chem 171.62 [facility] Platelet mean volume Auto (B ld) [Entitic vol]Ordered By: Jordan Saunders on 04-14-2022 Platelet mean volume (Bld) [Entitic vol] 9.9 fL 6.3-10.7 [facility] Platelets Auto (Bld) [#/Vol] Ordered By: Jordan Saunders on 04-14-2022 Platelets (Bld) [#/Vol] 246 10*3/uL 150-450 [facility] Protein [Mass/volume] in Ser um or PlasmaOrdered By: Jordan Saunders on 04-14-2022 Protein [Mass/Vol] 6.6 g/dL 6.1-7.9 [facility] RBC Auto (Bld) [#/Vol]Ordere d By: Jordan Saunders on 04-14-2022 RBC (Bld) [#/Vol] 4.52 10*6/uL 3.60-5.00 [facility] Serum or plasma alanine salas otransferase measurement without P-5'-P (enzymatic activiOrdered By: Jordan Saunders on 04-14-2022 ALT No additional P-5'-P [Catalytic activity/Vol] 13 U/L 10-60 [facility] Serum or plasma albumin/glob ulin mass ratioOrdered By: Jordan Saunders on 04-14-2022 Albumin/Globulin [Mass ratio] 1.1 {ratio} [facility] Serum or plasma alkaline abel sphatase measurement (enzymatic activity/volume)Ordered By: Jordan Saunders on 04-14-2022 ALP [Catalytic activity/Vol] 49 U/L 32-92 [facility] Serum or plasma aspartate am inotransferase measurement (enzymatic activity/volume)Ordered By: Jordan Saunders on 04-14-2022 AST [Catalytic activity/Vol] 18 U/L 10-42 [facility] Serum or plasma calcium pete urement (mass/volume)Ordered By: Jordan Saunders on 04-14-2022 Calcium [Mass/Vol] 9.4 mg/dL 8.2-10.2 [facility] Serum or plasma chloride tino surement (moles/volume)Ordered By: Jordan Saunders on 04-14-2022 Chloride [Moles/Vol] 100 mmol/L 95-114 [facility] Serum or plasma glucose pete urement (mass/volume)Ordered By: Jordan Saunders on 04-14-2022 Glucose [Mass/Vol] 84 mg/dL 70-100 [facility] Comment on above: ADA recommended refe rence range Random Glucose Reference Range is dependent on time and content of last meal. Glucose of more than 200 mg/dL in a nonstressed, ambulatory subject supports the diagnosis of Diabetes Mellitus. Serum or plasma potassium me asurement (moles/volume)Ordered By: Jordan Saunders on 04-14-2022 Potassium [Moles/Vol] 3.8 mmol/L 3.5-5.1 [facility] Serum or plasma sodium measu rement (moles/volume)Ordered By: Jordan Saunders on 04-14-2022 Sodium [Moles/Vol] 132 mmol/L 136-146 [facility] Serum or plasma total biliru bin measurement (mass/volume)Ordered By: Jordan Saunders on 04-14-2022 Bilirubin [Mass/Vol] 0.5 mg/dL 0.3-1.2 [facility] Serum or plasma total carbon dioxide measurement (moles/volume)Ordered By: Jordan Saunders on 04-14-2022 CO2 [Moles/Vol] 21.6 mmol/L 22.0-30.0 [facility] Serum or plasma urea nitroge n measurement (mass/volume)Ordered By: Jordan Saunders on 04-14-2022 Urea nitrogen [Mass/Vol] 5 mg/dL 9-23 [facility] TSH DL <= 0.005 mIU/L QnOrde red By: Jordan Saunders on 04-14-2022 TSH Qn 1.21 m[IU]/L 0.45-5.33 [facility] Troponin I.cardiac [Mass/vol ume] in Serum or Plasma by High sensitivity methodOrdered By: Jordan Saunders on 04-14-2022 Troponin I.cardiac High sensitivity method [Mass/Vol] 11 pg/mL 0-15 [facility] Complete Blood Count with Au to Diffon 12-24-2021 Basophils (Bld) [#/Vol] 0.05 10*3/uL Normal 0.00-0.20 [facility] Comment on above: Performed By: #### C BCAD, VITD, CMP, TSH reflex FT4 #### [facility] [address] [place], [place] [id number] Basophils/100 WBC (Bld) 0.8 % Normal N [facility] Comment on above: Performed By: #### C BCAD, VITD, CMP, TSH reflex FT4 #### [facility] [address] [place], [place] [id number] Eosinophils (Bld) [#/Vol] 0.12 10*3/uL Normal 0.02-0.50 [facility] Comment on above: Performed By: #### C BCAD, VITD, CMP, TSH reflex FT4 #### [facility] [address], [place] [id number] Eosinophils/100 WBC (Bld) 2.0 % Normal [facility] Comment on above: Performed By: #### C BCAD, VITD, CMP, TSH reflex FT4 #### [facility] [address], [place] [id number] Erythrocyte distribution width (RBC) [Ratio] 11.7 % Normal 11.0-15.0 [facility] Comment on above: Performed By: #### C BCAD, VITD, CMP, TSH reflex FT4 #### [facility] [address], [place] [id number] Hematocrit (Bld) [Volume fraction] 43.8 % Normal 35.0-47.0 [facility] Comment on above: Performed By: #### C BCAD, VITD, CMP, TSH reflex FT4 #### [facility] [address], [place] [id number] Hemoglobin (Bld) [Mass/Vol] 14.5 g/dL Normal 11.6-15.5 [facility] Comment on above: Performed By: #### C BCAD, VITD, CMP, TSH reflex FT4 #### [facility] [address], [place] [id number] Lymphocytes (Bld) [#/Vol] 2.1 10*3/uL Normal 0.9-3.9 [facility] Comment on above: Performed By: #### C BCAD, VITD, CMP, TSH reflex FT4 #### [facility] [address], [place] [id number] Lymphocytes/100 WBC (Bld) 34.1 % Normal [facility] Comment on above: Performed By: #### C BCAD, VITD, CMP, TSH reflex FT4 #### [facility] [address], [place] [id number] MCH (RBC) [Entitic mass] 29.8 pg Normal 27.0-33.0 [facility] Comment on above: Performed By: #### C BCAD, VITD, CMP, TSH reflex FT4 #### [facility] [address], [place] [id number] MCHC (RBC) [Mass/Vol] 33.1 g/dL Normal 32.0-36.0 [facility] Comment on above: Performed By: #### C BCAD, VITD, CMP, TSH reflex FT4 #### [facility] [address], [place] [id number] MCV (RBC) [Entitic vol] 90 fL Normal 80-100 [facility] Comment on above: Performed By: #### C BCAD, VITD, CMP, TSH reflex FT4 #### [facility] [address], [place] [id number] Monocytes (Bld) [#/Vol] 0.4 10*3/uL Normal 0.2-0.9 [facility] Comment on above: Performed By: #### C BCAD, VITD, CMP, TSH reflex FT4 #### [facility] [address], [place] [id number] Monocytes/100 WBC (Bld) 6.8 % Normal [facility] Comment on above: Performed By: #### C BCAD, VITD, CMP, TSH reflex FT4 #### [facility] [address], [place] [id number] Neutrophils (Bld) [#/Vol] 3.4 10*3/uL Normal 1.5-7.8 [facility] Comment on above: Performed By: #### C BCAD, VITD, CMP, TSH reflex FT4 #### [facility] [address], [place] [id number] Neutrophils/100 WBC (Bld) 56.1 % Normal [facility] Comment on above: Performed By: #### C BCAD, VITD, CMP, TSH reflex FT4 #### [facility] [address], [place] [id number] Platelet mean volume (Bld) [Entitic vol] 11.00 fL Normal 7.50-12.50 [facility] Comment on above: Performed By: #### C BCAD, VITD, CMP, TSH reflex FT4 #### [facility] [address], [place] [id number] Platelets (Bld) [#/Vol] 306 10*3/uL Normal 140-400 [facility] Comment on above: Performed By: #### C BCAD, VITD, CMP, TSH reflex FT4 #### [facility] [address], [place] [id number] RBC (Bld) [#/Vol] 4.87 10*6/uL Normal 3.90-5.20 [facility] Specialist Comment on above: Performed By: #### C BCAD, VITD, CMP, TSH reflex FT4 #### [facility] [address], [place] [id number] RDW-SD 38.5 fL Normal 37.0-50.0 [facility] Comment on above: Performed By: #### C BCAD, VITD, CMP, TSH reflex FT4 #### [facility] [address], [place] [id number] WBC (Bld) [#/Vol] 6.0 10*3/uL Normal 3.8-11.0 [facility] Comment on above: Performed By: #### C BCAD, VITD, CMP, TSH reflex FT4 #### [facility] [address], [place] [id number] Comprehensive Metabolic Pane [facility] 12-24-2021 Albumin [Mass/Vol] 5.1 g/dL Normal 3.6-5.1 [facility] [employer] Comment on above: Performed By: #### C BCAD, VITD, CMP, TSH reflex FT4 #### [facility] [address], [place] [id number] Albumin/Globulin [Mass ratio] 2.4 {ratio} Normal 1.0-2.5 [facility] Comment on above: Performed By: #### C BCAD, VITD, CMP, TSH reflex FT4 #### [facility] [address], [place] [id number] ALP [Catalytic activity/Vol] 71 U/L Normal 35-119 [facility] Comment on above: Performed By: #### C BCAD, VITD, CMP, TSH reflex FT4 #### [facility] [address], [place] [id number] ALT [Catalytic activity/Vol] 9 U/L Normal 6-33 [facility] Comment on above: Result Comment: 09/04 Female reference range changed. Performed By: #### C BCAD, VITD, CMP, TSH reflex FT4 #### [facility] [address], [place] [id number] Anion gap [Moles/Vol] 18 mmol/L Normal 12-20 [facility] Comment on above: Result Comment: Effe ctive 10/10/2019 reference range changed. Performed By: #### C BCAD, VITD, CMP, TSH reflex FT4 #### [facility] [address], [place] [id number] AST [Catalytic activity/Vol] 15 U/L Normal 9-34 [facility] Comment on above: Performed By: #### C BCAD, VITD, CMP, TSH reflex FT4 #### [facility] [address], [place] [id number] Bilirubin [Mass/Vol] 0.46 mg/dL Normal 0.30-1.20 [facility] Comment on above: Performed By: #### C BCAD, VITD, CMP, TSH reflex FT4 #### [facility] [address], [place] [id number] BUN/CREA 14 Ratio Normal 6-22 [facility] Comment on above: Performed By: #### C BCAD, VITD, CMP, TSH reflex FT4 #### [facility] [address], [place] [id number] Calcium [Mass/Vol] 9.8 mg/dL Normal 8.6-10.2 [facility] Comment on above: Performed By: #### C BCAD, VITD, CMP, TSH reflex FT4 #### [facility] [address], [place] [id number] Chloride [Moles/Vol] 106 mmol/L Normal 98-107 [facility] Comment on above: Performed By: #### C BCAD, VITD, CMP, TSH reflex FT4 #### [facility] [address], [place] [id number] CO2 [Moles/Vol] 23 mmol/L Normal 20-31 [facility] Comment on above: Performed By: #### C BCAD, VITD, CMP, TSH reflex FT4 #### [facility] [address], [place] [id number] Creatinine [Mass/Vol] 0.7 mg/dL Normal 0.6-1.4 [facility] Comment on above: Performed By: #### C BCAD, VITD, CMP, TSH reflex FT4 #### [facility] [address], [place] [id number] eGFRAA 138 mL/min/1.73m2 Normal >60 [facility] Specialist Comment on above: Performed By: #### C BCAD, VITD, CMP, TSH reflex FT4 #### [facility] [address], [place] [id number] eGFRNAA 114 mL/min/1.73m2 Normal >60 [facility] Comment on above: Performed By: #### C BCAD, VITD, CMP, TSH reflex FT4 #### [facility] [address], [place] [id number] Globulin (S) [Mass/Vol] 2.1 g/dL Normal 1.9-3.7 [facility] Comment on above: Performed By: #### C BCAD, VITD, CMP, TSH reflex FT4 #### [facility] [address], [place] [id number] Glucose [Mass/Vol] 83 mg/dL Normal 65-99 [facility] Comment on above: Result Comment: For FASTING Glucose --- ADA reference ranges: Normal 65-99 mg/dl Prediabetes 100-125 Diabetes >/= 126 Performed By: #### C BCAD, VITD, CMP, TSH reflex FT4 #### [facility] [address], [place] [id number] Potassium [Moles/Vol] 4.9 mmol/L Normal 3.5-5.5 [facility] Comment on above: Result Comment: Spec imen is hemolyzed. Results may be affected. Performed By: #### C BCAD, VITD, CMP, TSH reflex FT4 #### [facility] [address], [place] [id number] Protein [Mass/Vol] 7.2 g/dL Normal 6.1-8.1 [facility] Specialist Comment on above: Performed By: #### C BCAD, VITD, CMP, TSH reflex FT4 #### [facility] [address], [place] [id number] Sodium [Moles/Vol] 141 mmol/L Normal 135-146 [facility] Comment on above: Performed By: #### C BCAD, VITD, CMP, TSH reflex FT4 #### [facility] [address], [place] [id number] Urea nitrogen [Mass/Vol] 9 mg/dL Normal 7-25 [facility] Comment on above: Performed By: #### C BCAD, VITD, CMP, TSH reflex FT4 #### [facility] [address], [place] [id number] TSH w/ Reflex to Free T4on 0 12-24-2021 TSH 0.946 uIU/mL Normal 0.400-4.500 [facility] Specialist Comment on above: Performed By: #### C BCAD, VITD, CMP, TSH reflex FT4 #### [facility] [address], [place] [id number] Vitamin B12/Folateon 022 Cobalamin (Vitamin B12) [Mass/Vol] 339 pg/mL Normal 211-946 [facility] Comment on above: Performed By: #### B 12/Fol #### [facility] [address] [place], [place] [id number] FOL 9.9 ng/mL Normal >4.7 [facility] Comment on above: Result Comment: Refe rence range change 08/21/2017. Prior reference range F 4.8-37.3 ng/mL, M 4.5-32.2 ng/mL. Performed By: #### B 12/Fol #### [facility] [address], [place] [id number] Vitamin D 25-OHon 12-24-2021 VIT D 25 OH 23 ng/ml Low >29 [facility] [employer] Comment on above: Result Comment: Leslee min D Status Deficiency <20 ng/mL Insufficiency 20-29 ng/mL Optimal 30-100 ng/mL Possible Toxicity >=150 ng/mL Performed By: #### C BCAD, VITD, CMP, TSH reflex FT4 #### [facility] [address], [place] [id number] CNOVon 09-01-2017 CNOV Office Visit (ORTPMN) ----RANDAL REDMOND ([id number]) 2000 [facility] Time Provider Mthqpvexat38/28/17 10:15 AM GILMER BENAVIDES ORTPMN During your visit today, we recorded the following information about you:Travis Ocasio MD 09/01/2017 11:05 AM Bri Allennk COMPLAINT: ScoliosisHISTORY: This is my first office [...] tight periscapular,lumbar, and hamstring musculature.Signed: Travis Ocasio [facility] physician:Emeterio Benavides MD 09/01/2017 11:05 AM SignedI [...] daily at *Problem List As Of Date: 09/01/2017(None)[facility] M.D[facility] Department of Pediatric Orthopaedic Surgery / [id number] [place], [place] [address]Office: [phone] Appts.: [phone] Fax: [phone] 2016To Whom It May Concern:Randal Redmond was seen in my clinic on 09/01/2017, accompanied by her Mother.Please excuse this child from school for the time required for this physicianvisit.Please feel free to contact my office if you have any questions or concerns.Thank you for your assistance in this matter.Sincerely,Butch Burnett M. D. Status:Closed by GILMER BENAVIDES MD on 09/01/17 [facility] PROGRESSon 09-01-2017 PROGRESS HNO ID: [id number]: Gilmer Gomez: (none)Author Type: PhysicianType: Progress NotesFiled: 09/01/2017 11:05 AMNote Text:I have reviewed the history and physical obtained and documented by theresident and I personally participated in the sanchez components. I agree withthe findings and plan of care, with the additions contained within mydictation.Gilmer Benavides M.D. [facility] PROGRESS HNO ID: [id number]: Travis (Lauren) SuraceService: (none)Author Type: ResidentType: Progress [...] and hamstring musculature.Signed: Joel Morales physician:SELF Normal [facility] PROGRESS HNO ID: [id number]: Beverley Randhawa RtService: (none)Author Type: (none)Type: Progress NotesFiled: 09/01/2017 9:44 AMNote Text: Radiology Service Progress NotePATIENT NAME: Randal AllensoykMRN: [id number] OF SERVICE: September 01, 2017TIME: 9:44 AMPATIENT IDENTITY VERIFICATION COMPLETED USING TWO (2) METHODS: Patientconfirmed name verbally and Date of .PATIENT GENDER DATA: Female. status: : NoBreastfeeding status: NO.PATIENT RELEVANT IMPLANT DATA REVIEWED: YesRADIOLOGY DEPARTMENT: General X-ray: Exam(s) Completed: Spine X-Ray(s):Scoliois SeriesPERIPHERAL IV DATA: Not applicableSIGNED BY: Beverley Randhawa RtNovember 2016 9:44 AM Normal [facility] XR SCOLIOSIS 2V PA STAND/LAT on [...] PERKINS MD on Sep 01 2017 10:54AM [id number] Normal [facility] Vital Signs Date Time Vital Sign Value Performing Clinician Facility 11-14-2023 13:45-0500 Body mass index (BMI) [Ratio] 26.31 kg/m2 Joyce Hemmer PA Work Phone: [facility] 11-14-2023 13:45-0500 Body temperature 98.01 [degF] Joyce Hemmer PA Work Phone: [facility] 11-14-2023 13:45-0500 Body weight 76.2 kg Joyce Hemmer PA Work Phone: [facility] 11-14-2023 13:45-0500 Diastolic blood pressure 70 mm[Hg] Joyce Hemmer PA Work Phone: [facility] 11-14-2023 13:45-0500 Heart rate 86 /min Joyce Hemmer PA Work Phone: [facility] 11-14-2023 13:45-0500 SaO2% (BldA) [Mass fraction] 99 % Joyce Hemmer PA Work Phone: [facility] 11-14-2023 13:45-0500 Systolic blood pressure 110 mm[Hg] Joyce Hemmer PA Work Phone: [facility] 10-27-2023 10:30-0500 Body height 167.64 cm Gilmer Mcgregor Other [facility] 10-27-2023 10:30-0500 Body mass index (BMI) [Ratio] 26.31 kg/m2 Gilmer Mcgregor Other [facility] Other 10-27-2023 10:30-0500 Body weight 73.94 kg Gilmer Mcgregor Other [facility] Other 10-27-2023 10:30-0500 Body weight 73.93 kg MD Jaymie Morris Work Phone: [facility] 10-27-2023 10:30-0500 Diastolic blood pressure 85 mm[Hg] Gilmer Mcgregor Other [facility] 10-27-2023 10:30-0500 SaO2% (BldA) [Mass fraction] 100 % Gilmer Mcgregor Other [facility] Other 10-27-2023 10:30-0500 Systolic blood pressure 128 mm[Hg] Gilmer Mcgregor Other [facility] 12-17-2022 18:45-0400 Body height 167.64 cm MD Jaymie Morris Work Phone: [facility] 12-17-2022 18:45-0400 Body temperature 97.8 [degF] MD Jaymie Morris Work Phone: [facility] 12-17-2022 18:45-0400 Body weight 70.3 kg MD Jaymie Morris Work Phone: [facility] 12-17-2022 18:45-0400 Diastolic blood pressure 92 mm[Hg] MD Jaymie Morris Work Phone: [facility] 12-17-2022 18:45-0400 Heart rate 104 /min MD Jaymie Morris Work Phone: [facility] 12-17-2022 18:45-0400 Respiratory rate 20 /min MD Jaymie Morris Work Phone: [facility] 12-17-2022 18:45-0400 SaO2% (BldA) [Mass fraction] 99 % MD Jaymie Morris Work Phone: [facility] 12-17-2022 18:45-0400 Systolic blood pressure 143 mm[Hg] MD Jaymie Morris Work Phone: [facility] 12-12-2022 12:44-0500 Body height 167.64 cm MD Jaymie Morris Work Phone: [facility] 12-12-2022 12:44-0500 Body temperature 98.8 [degF] MD Jaymie Morris Work Phone: [facility] 12-12-2022 12:44-0500 Body weight 68.49 kg MD Jaymie Morris Work Phone: [facility] 12-12-2022 12:44-0500 Diastolic blood pressure 95 mm[Hg] MD Jaymie Morris Work Phone: [facility] 12-12-2022 12:44-0500 Heart rate 107 /min MD Jaymie Morris Work Phone: [facility] 12-12-2022 12:44-0500 Respiratory rate 18 /min MD Jaymie Morris Work Phone: [facility] 12-12-2022 12:44-0500 SaO2% (BldA) [Mass fraction] 97 % MD Jaymie Morris Work Phone: [facility] 12-12-2022 12:44-0500 Systolic blood pressure 140 mm[Hg] MD Jaymie Morris Work Phone: [facility] 09-12-2022 15:30-0500 Body temperature 98 [degF] MD Jaymie Morris Work Phone: [facility] 09-12-2022 15:30-0500 Diastolic blood pressure 82 mm[Hg] MD Jaymie Morris Work Phone: [facility] 09-12-2022 15:30-0500 Heart rate 82 /min MD Jaymie Morris Work Phone: [facility] 09-12-2022 15:30-0500 Respiratory rate 18 /min MD Jaymie Morris Work Phone: [facility] 09-12-2022 15:30-0500 SaO2% (BldA) [Mass fraction] 100 % MD Jaymie Morris Work Phone: [facility] 09-12-2022 15:30-0500 Systolic blood pressure 140 mm[Hg] MD Jaymie Morris Work Phone: [facility] 09-10-2022 21:52-0500 Body weight 85.72 kg MD Jaymie Morris Work Phone: [facility] 09-10-2022 21:07-0500 Body height 170.18 cm MD Jaymie Morris Work Phone: [facility] 06-24-2022 13:31-0400 Body temperature 98.1 [degF] MD Jaymie Morris Work Phone: [facility] 06-24-2022 13:31-0400 Diastolic blood pressure 78 mm[Hg] MD Jaymie Morris Work Phone: [facility] 06-24-2022 13:31-0400 Heart rate 84 /min MD Jaymie Morris Work Phone: [facility] 06-24-2022 13:31-0400 Respiratory rate 18 /min MD Jaymie Morris Work Phone: [facility] 06-24-2022 13:31-0400 SaO2% (BldA) [Mass fraction] 100 % MD Jaymie Morris Work Phone: [facility] 06-24-2022 13:31-0400 Systolic blood pressure 119 mm[Hg] MD Jaymie Morris Work Phone: [facility] 04-14-2022 18:10-0400 Diastolic blood pressure 69 mm[Hg] MD Jaymie Morris Work Phone: [facility] 04-14-2022 18:10-0400 Heart rate 82 /min MD Jaymie Morris Work Phone: [facility] 04-14-2022 18:10-0400 Respiratory rate 16 /min MD Jaymie Morris Work Phone: [facility] 04-14-2022 18:10-0400 SaO2% (BldA) [Mass fraction] 98 % MD Jaymie Morris Work Phone: [facility] 04-14-2022 18:10-0400 Systolic blood pressure 122 mm[Hg] MD Jaymie Morris Work Phone: [facility] 04-14-2022 13:59-0400 Body temperature 98.1 [degF] MD Jaymie Morris Work Phone: [facility] 04-14-2022 13:56-0400 Body height 170.18 cm MD Jaymie Morris Work Phone: [facility] 04-14-2022 13:56-0400 Body mass index (BMI) [Ratio] 24.7 kg/m2 MD Jaymie Morris Work Phone: [facility] 04-14-2022 13:56-0400 Body weight 71.65 kg MD Jaymie Morris Work Phone: [facility] Encounters Encounter Date Encounter Type Care Provider Facility Start: 07-05-2024 End: 07-06-2024 Refill David Rayo [facility], IBCLC [facility] Comment on above: Anxiety Start: 06-26-2024 End: 06-26-2024 Patient encounter procedure MD Jaymie Morris Work Phone: [facility]Electrodiagn[facility] Work Phone: Start: 06-26-2024 End: 06-26-2024 ambulatory MD Jaymie Morris Work Phone: [facility] Work Phone: Start: 06-15-2024 End: 06-15-2024 ambulatory DAVID PERRI Not Available Start: 04-01-2024 End: 04-01-2024 Patient encounter procedure MD Jaymie Morris Work Phone: [facility] [place] Work Phone: Start: 04-01-2024 End: 04-01-2024 ambulatory Alexei Nuvia Facility:[facility] Start: 02-18-2024 End: 02-18-2024 ambulatory DAVID PERRI Not Available Start: 01-21-2024 End: 01-21-2024 ambulatory ALEXEI NUVIA Not Available Start: 01-19-2024 End: 01-19-2024 ambulatory MD Jaymie Morris Work Phone: [facility] Work Phone: Start: 01-19-2024 End: 01-19-2024 Departed Referred MD Jaymie Morris Work Phone: [facility] Start: 12-24-2023 End: 12-24-2023 ambulatory SADE BRAXTON Not Available Start: 12-10-2023 End: 12-10-2023 ambulatory JAYMIE MORRIS Not Available Start: 12-09-2023 End: 12-09-2023 ambulatory ASHLEY WATSON Not Available Start: 11-25-2023 End: 11-25-2023 Patient encounter procedure MD Jaymie Morris Work Phone: [facility] [place] Work Phone: Start: 11-25-2023 End: 11-25-2023 ambulatory MD Jaymie Morris Work Phone: [facility] Work Phone: Start: 11-14-2023 End: 11-14-2023 ambulatory JOYCE SHAH Not Available Start: 11-14-2023 End: 11-14-2023 Office outpatient visit 15 minutes Joyce Shah PA Work Phone: [facility] Comment on above: Acute bacterial conj unctivitis of both eyes (Primary Dx) Start: 11-10-2023 Bamboo flowsheet David Pro sser , IBCLC Work Phone: [facility] Start: 11-10-2023 Bamboo flowsheet David Pro sser , IBCLC Work Phone: [facility] Start: 11-10-2023 End: 11-10-2023 ambulatory DAVID PERRI Not Available Start: 10-28-2023 End: 10-28-2023 ambulatory ASHLEY WATSON Not Available Start: 10-27-2023 Office outpatient vi sit 25 minutes Gilmer Mcgregor [facility] Start: 10-27-2023 End: 10-27-2023 Patient encounter procedure MD Jaymie Morris Work Phone: [facility] Work Phone: Start: 10-27-2023 End: 10-27-2023 ambulatory MD Jaymie Morris Work Phone: [facility] Other Start: 10-27-2023 End: 10-27-2023 Patient encounter procedure MD Jaymie Morris Work Phone: [facility]- Start: 10-22-2023 End: 10-22-2023 ambulatory JAYMIE MORRIS Not Available Start: 10-01-2023 End: 10-01-2023 ambulatory JAYMIE Maggy MORRIS Not Available Start: 09-10-2023 End: 09-10-2023 ambulatory JAYMIE Maggy MORRIS Not Available Start: 09-02-2023 End: 09-02-2023 ambulatory KERRI DESOUZASJ Not Available Start: 08-31-2023 End: 08-31-2023 ambulatory ASHLEY MICHELLEAPRAWIRA Not Available Start: 07-21-2023 End: 07-21-2023 ambulatory MD Jaymie Morris Work Phone: [facility] Work Phone: Start: 07-21-2023 End: 07-21-2023 Patient encounter procedure MD Jaymie Morris Work Phone: [facility]-Flu Vaccine Start: 02-27-2023 End: 02-27-[address] DOCTOR AUGUSTIN Facility:[facility] Start: 12-17-2022 End: 12-17-2022 Emergency department patient visit MD Jaymie Morris Work Phone: [facility]-Emergency Room Work Phone: Start: 12-12-2022 End: 12-12-2022 Emergency department patient visit MD Jaymie Morris Work Phone: [facility]-Emergency Room Work Phone: Start: 09-10-2022 End: 09-12-2022 Evaluation and management of inpatient MD Jaymie Morris Work Phone: [facility]-[address] Start: 08-13-2022 End: 08-13-2022 ambulatory MD Jaymie Morris Work Phone: [facility] Work Phone: Start: 08-13-2022 End: 08-13-2022 Departed Referred MD Jaymie Morris Work Phone: [facility] [place] Start: 06-24-2022 End: 06-24-2022 Patient encounter procedure MD Jaymie Morris Work Phone: [facility] [facility] Start: 04-16-2022 End: 04-16-2022 Patient encounter procedure MD Jaymie Morris Work Phone: [facility] Start: 04-14-2022 End: 04-14-2022 Emergency department patient visit MD Jaymie Morris Work Phone: [facility] Start: 09-01-2017 End: 09-01-2017 Ambulatory [facility] Procedures Date Procedure Procedure Detail Performing Clinician Streptococcus agalactiae culture MD Jaymie Morris Work Phone: Urine culture MD Jaymie moreno Work Phone: Plan of Treatment Date Care Activity Detail Author Start: 09-05-2024 End: 09-05-2024 Patient encounter procedure 09/05/2024 9:45 AM EST Office Visit [facility] [address] [facility] [address] [place] [id number] Ashley Watson DO [address] [place], [place] [id number] [facility] Start: 08-10-2024 Influenza vaccination Influenza Vacc ine (#1) [facility] Comment on above: Postponed from 06/05 (Patient Refused) Start: 07-14-2024 End: 07-14-2024 Patient encounter procedure 07/14/2024 10:20 AM EDT Office Visit [facility] [address] [place] [address] Preet Barrios MD [address] [place] [address] [facility] Start: 07-13-2024 End: 07-13-2024 Patient encounter procedure 07/13/2024 1:00 PM EDT Office Visit [facility] [address] [place] [id number] Johana Regalado PA [address] [place] [address] [facility] Start: 12-15-2023 End: 12-15-2023 Patient encounter procedure 12/15/2023 9:40 AM EDT Office Visit [facility] [address] [place] [address] Jaymie Morris MD [address] [place] [address] [facility] Start: 12-09-2023 End: 12-09-2023 Patient encounter procedure 12/09/2023 10:00 AM EST Office Visit [facility] [address] [facility] [address] [place] [address] Ashley Watson, DO [address] [place] [address] [facility] Start: 09-12-2022 [facility] Start: 09-10-2022 [facility] Group B Streptococcu s Culture Group B Streptococcus Culture [facility] Patient Education [facility] Work Phone: Patient referral [facility] Work Phone: Immunizations Immunization Date Immunization Notes Care Provider [facility] 07-21-2023 influenza, injectabl e, quadrivalent, preservative free David Rayo MD, IBCLC Work Phone: [facility] 07-21-2023 influenza virus vacc ine, unspecified formulation David Rayo MD, IBCLC Work Phone: [facility] 04-15-2023 SARS-COV-2 (COVID-19 ) vaccine, mRNA, spike protein, LNP, bivalent, preservative free, 30 mcg/0.3 mL dose, walt-sucrose formulation David Rayo MD, IBCLC Work Phone: [facility] 12-08-2019 tetanus toxoid, redu mishel diphtheria toxoid, and acellular pertussis vaccine, adsorbed MD Jaymie Morris Work Phone: [facility] 06-01-2017 meningococcal oligosaccharide (groups A, C, Y and W-135) diphtheria toxoid conjugate vaccine (MCV4O) David Rayo MD, IBCLC Work Phone: [facility] 07-15-2012 influenza, seasonal, injectable, preservative free David Rayo MD, IBCLC Work Phone: [facility] 07-15-2012 meningococcal polysaccharide (groups A, C, Y and W-135) diphtheria toxoid conjugate vaccine (MCV4P) David Rayo MD, IBCLC Work Phone: [facility] 07-15-2012 tetanus toxoid, redu mishel diphtheria toxoid, and acellular pertussis vaccine, adsorbed David Rayo MD, IBCLC Work Phone: [facility] 05-23-2004 diphtheria, tetanus toxoids and acellular pertussis vaccine David Rayo MD, IBCLC Work Phone: [facility] 05-23-2004 poliovirus vaccine, inactivated David Rayo MD, IBCLC Work Phone: [facility] 06-03-2001 measles, mumps and rubella virus vaccine David Rayo MD, IBCLC Work Phone: [facility] 06-03-2001 poliovirus vaccine, unspecified formulation David Rayo MD, IBCLC Work Phone: [facility] 06-03-2001 varicella virus vaccine Waldo Rayo MD, IBCLC Work Phone: [facility] 03-04-2001 hepatitis B vaccine, pediatric or pediatric/adolescent dosage David Rayo MD, IBCLC Work Phone: [facility] 06-04-2000 diphtheria, tetanus toxoids and acellular pertussis vaccine, unspecified formulation David Rayo MD, IBCLC Work Phone: [facility] 06-04-2000 haemophilus influenz ae type b vaccine, conjugate unspecified formulation David Rayo MD, IBCLC Work Phone: [facility] 06-04-2000 measles, mumps and rubella virus vaccine David Rayo MD, IBCLC Work Phone: [facility] 06-04-2000 varicella virus vaccine Waldo Rayo MD, IBCLC Work Phone: [facility] 1999 diphtheria, tetanus toxoids and acellular pertussis vaccine, unspecified formulation David Rayo MD, IBCLC Work Phone: [facility] 1999 haemophilus influenz ae type b vaccine, conjugate unspecified formulation David Rayo MD, IBCLC Work Phone: [facility] 1999 diphtheria, tetanus toxoids and acellular pertussis vaccine, unspecified formulation David Rayo MD, IBCLC Work Phone: [facility] 1999 haemophilus influenz ae type b vaccine, conjugate unspecified formulation David Rayo MD, IBCLC Work Phone: [facility] 1999 hepatitis B vaccine, pediatric or pediatric/adolescent dosage David Rayo MD, IBCLC Work Phone: [facility] 1999 poliovirus vaccine, unspecified formulation David Rayo MD, IBCLC Work Phone: [facility] 1999 diphtheria, tetanus toxoids and acellular pertussis vaccine, unspecified formulation David Rayo MD, IBCLC Work Phone: [facility] 1999 haemophilus influenz ae type b vaccine, conjugate unspecified formulation David Rayo MD, IBCLC Work Phone: [facility] 1999 hepatitis B vaccine, pediatric or pediatric/adolescent dosage David Rayo MD, IBCLC Work Phone: [facility] 1999 poliovirus vaccine, unspecified formulation David Rayo MD, IBCLC Work Phone: [facility] Payers Date Payer Category Payer Self-pay [id number] 2022 Medicaid [place] [id number] 2022-Present [address] [place] [address] [id number] 2022 Medicaid [id number] 2020 Unknown [id number] [id number] 2010 Unknown BCBS BCBS [id number] 2010-Present [phone] [address] [place] [address] [id number]. [id number] 1999 Unknown [id number] 2.16.840.1.506814.3.579.2.593 1999 Unknown [id number] 2.16.840.1.657046.3.579.2.1259 1999 Unknown [id number] 2.16.840.1.032867.3.579.2.1259 1999 Unknown [id number] 2.16.840.1.501823.3.579.2.1259 1999 Unknown [id number] 2.16.840.1.405572.3.579.2.1259 1999 Unknown [id number] 2.16.840.1.756989.3.579.2.1259 1999 Unknown [id number] 2.16.840.1.739513.3.579.2.1259 1999 Unknown [id number] 2.16.840.1.390544.3.579.2.1259 1999 Unknown [id number] 2.16.840.1.183626.3.579.2.1259 1999 Unknown [id number] 2.16.840.1.243825.3.579.2.1259 1999 Unknown [id number] 2.16.840.1.060398.3.579.2.1259 1999 Unknown [id number] 2.16.840.1.007778.3.579.2.1259 1999 Unknown [id number] 2.16.840.1.816894.3.579.2.1259 1999 Unknown [id number] 2.16.840.1.921430.3.579.2.1259 1999 Unknown [id number] 2.16.840.1.908181.3.579.2.1259 1959 Unknown [id number] Medicaid [employer] [id number] Medicaid [facility] [id number] Unknown [id number] 2.16.840.1.738136.3.579.2.531 Unknown [id number] 2.16.840.1.144081.3.579.2.531 Unknown [id number] 2.16.840.1.499076.3.579.2.531 Unknown [id number] 2.16.840.1.196183.3.579.2.531 Unknown [id number] 2.16.840.1.199332.3.579.2.531 Unknown [id number] 2.16.840.1.563538.3.579.2.531 Social History Date Type Detail Facility Start: 04-14-2022 End: 04-09-2023 Tobacco smoking status NHIS Never smoked tobacco (finding) [facility] Start: 1999 Sex Assigned At Female [facility] Start: 03-27-2023 End: 06-15-2024 Sex Assigned At [facility] Start: 04-09-2023 Tobacco use and exposure Smokeless tobacco non-user [facility] Start: 10-28-2023 End: 06-15-2024 Alcohol intake Lifetime non-drinker (finding) [facility] Start: 03-27-2023 End: 06-15-2024 History of Social function [facility] Within [...] Facility 09-12-2022 Functional status Patient at [facility] Work Phone: Mental Status Date Assessment Result Facility 09-12-2022 Cognitive function Cognitive Sta tus Patient at Baseline [facility] Work Phone: History of Present [...] Refill albuterol HFA 90 mcg/act inhaler Q6H duyjvavict-iaqgkuurtqoch-xauxtrxd (Fioricet) 50-300-40 MG capsule take 1 capsule [...] Dizziness, Itching, Runny nose, Swelling and Wheezing Vigo Flavor Unknown Pollen Extract Unknown Social History [...] Acute bacterial conjunctivitis of both eyes - evcpmbkq-rzidmrtyt-zxuWVUZTaqatc (Maxitrol) 0.1 % ophthalmic suspension; Administer 1 [...] plenty of rest. documented in this encounter [facility] Evaluation note 10-27-2023 Note Date & Type [...] anxiety nor bipolar symptoms worsen with treatment [facility] Other Procedure note 09-11-2022 Note Date & Type Note Facility 09-11-2022 Procedure note [facility] Evaluation note Note Date & Type Note Facility Evaluation note No assessment information availa [facility] Work Phone: Evaluation note Note Date & Type Note Facility Evaluation note Diagnosis Acute bacterial conjunctivitis of both eyes- Primary documented in this encounter [facility] Evaluation note Note Date & Type Note Facility Evaluation note Diagnosis Anxiety Anxiety state, unspecified documented in this encounter [facility] History general Narrative - Reported Note Date & Type Note Facility History general Narrative - Reported Type Medical History Anxiety Medical History narcolepsy with cataplexy (2019, 4 REM naps) [facility] Other Hospital Discharge instructions Note Date & Type Note Facility Hospital Discharge instructions [facility] Work Phone: Summary Purpose Family History Relationship Condition Age at Onset Recorded Date/T adalberto Not Specified No pertinent family history Unknown Relationship Condition Age at Onset Recorded Date/T adalberto Not Specified No pertinent family history Unknown grandparent History of stroke Unknown Not Specified Hypertension Unknown Relationship Condition Age at Onset Recorded Date/T adalberto Not Specified No pertinent family history Unknown grandparent History of stroke Unknown mother Hypertension Unknown Advance Directives Advance Directive Response Recorded Date/ Time Advance [...] Chief Complaint g47.411 r63.5 g43.101 f41.9 Unknown Chief Complaint n92.6 R00.0 I95.1 Additional Source Comments INFORMATION SOURCE (unrecogn ized section and content) DATE CREATED AUTHOR 03/30/2018 [facility] DATE CREATED AUTHOR AUTHOR'S ORGANIZ ATION 12/25/2021 [facility] dical Specialist DATE CREATED AUTHOR AUTHOR'S ORGANIZ ATION 03/15/2023 [facility] DATE CREATED AUTHOR AUTHOR'S ORGANIZ ATION 06/17/2024 [facility] dical Specialists EPIC DATE CREATED AUTHOR AUTHOR'S ORGANIZ ATION 07/01/[address] [facility] Care Teams (unrecognized sec tion and content) [...] Primary Care Provider Active Bay Reyes DO [facility] Attending Provider Active Team Status: Inactive Member Role Status Dates Jaymie Morris MD Primary Care Provider Active Start: October 27, 2023 End: October 27, 2023 Gilmer Mcgregor MD Attending Provider Active S tart: October 27, 2023 End: October 27, 2023 David Rayo MD Referring Provider Active Start: October 27, 2023 End: October 27, 2023 Clinical Engineering Manager Relationship Specialty Start Date End Date Jaymie Morris MD [address] [place] [address] PCP - General Family Medicine 04/01/23 Clinical Engineering Manager Relationship Specialty Start Date End Date Jaymie Morris MD [address] [place] [address] PCP - General Family Medicine 04/01/23 Team [...] Active Start: 2023 End: January 19, 2024 Team Status: Inactive Member Role Status Dates Jaymie Morris MD Primary Care Provider Active Start: April 01, 2024 End: April 01, 2024 Alexei Nuvia , DO Attending Provider Active Start : April 01, 2024 End: April 01, 2024 Team Status: Inactive Member Role Status Dates Jaymie Morris MD Primary Care Provider Active Start: June 26, 2024 End: June 26, 2024 David Rayo MD Attending Provider Active Start: June 26, 2024 End: June 26, 2024 Clinical Engineering Manager Relationship Specialty Start Date End Date Jaymie Morris MD [address] [place] [address] PCP - General Family Medicine 04/01/23 Goals (unrecognized section and content) Goals may [...] may be documented in an alternate section Reason for Visit (unrecogniz ed section and content) Reason Onset Date Comments Med Refill 07/05/2024 FOR RECORDS PERTAINING TO PATIENTS WHO ARE [...] BE BASED ON THE PRIMARY CLINICAL RECORDS. [employer] [facility]. provides no warranty or guarantee of the accuracy or completeness of information in this document.
== END 2024-07-13 21:15 | disposition home or self-care (01) ==
LOC: LAB 21:14
PROVIDERS: PCP Family Medicine; Visit Provider Physician Assistant
DX: Z01.419 Encounter for gynecological examination (general) (routine) without abnormal findings (principal)
CPT/HCPCS: 88175